=== PATIENT | female | born 1955 | race African-American/Black ===

== ENCOUNTER 2018-02-10 14:16 | Inpatient (IN) | payer OTHER ==
[~2018-02-10] VITALS: Ht 175.3 cm; Wt 61.2 kg
[~2018-02-10 14:16] MED LIST: ANUSOL HC1 SUPP RECTAL; BACLOFEN10 MG ORAL; COMPAZINE25 MG RECTAL; DOC-Q-LACE100 M1 ORAL; FOLGARD TABLET1 EAC1 PO; GABAPENTIN600 MG ORAL; KEPPRA500 MG ORAL; KLONOPIN1 MG ORAL; MIRALAX17 G2 ORAL; MULTI VITAMIN1 EACH ORAL; NABUMETONE500 MG PO; NORCO 5-325 TA1 EAC1 ORAL; OMEPRAZOLE10 M1 ORAL; OMEPRAZOLE20 M2 ORAL; OYSCO 500+D TA1 EAC1 PO; PROCHLORPE10 MG/2 ML ORAL; PROTONIX40 MG ORAL; RANITIDINE HCL150 MG ORAL; SENNA8.6 M3 PO; TRAMADOL HCL50 MG ORAL; TRAZODONE HCL150 MG ORAL; VENLAFAXINE HCL50 MG ORAL
[2018-02-10 14:44] VITALS: BP 117/101
[2018-02-10] MEDS ORDERED: Morphine Sulfate 4mg/ml Inj IVP ONE ×2 (15:00→16:15)
[2018-02-10] MEDS ORDERED: Tetanus/Diptheria/Pertussis Vaccine 0.5ml Syr IM ONE (15:00)
--- NOTE | 2018-02-10 15:34 | Emergency Room Report ---
History of Present Illness General Chief Complaint: General Complaint Source: Patient Present Illness HPI The patient fell last week and hit her right hip. It's been painful. The pain is worsening with time. She's having difficulty getting around. 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 The pain is now 10/10 and she came in for treatment of pain. The pain radiates to her lower leg. She also has pain in her lower back that is chronic, but worsened. She was not evaluated for the fall. She wears a diaper and has difficulty urinating. She also has problems with constipation. These have not changed, thought the urine is foul. Burned R upper thigh 2 weeks ago. While cooking. Denies smoking (13 years), alcohol or drugs (see tox). H/O hepatitis C. Requesting abdominal ultrasound. No chest pain, cough, sore throat, headache, change in vision, diabetes. Allergies: Coded Allergies: No Known Allergies (Verified Allergy, Mild, 04/10/08) Patient History Past Medical History: see triage record Social History: Denies: smoking - prior, none 13 years, alcohol use, drug use Social History Narrative at home with boyfriend Last Menstrual Period: NA Reviewed Nursing Documentation: PMH: Agreed; PSxH: Agreed Nursing Documentation-PMH Past Medical History: No History, Except For Hx Cardiac Problems: No - Fibromyalgia Hx Cancer: No Hx Gastrointestinal Problems: Yes Hx Neurological Problems: Yes - nerve damage, using wheelchair since 1999 Hx Seizures: Yes Hx Epilepsy: Yes Hx Guillian-Winslow Syndrome: Yes Hx Dizziness: Yes Hx Syncope: Yes Hx Weakness: Yes Review of Systems All Other Systems: negative except mentioned in HPI Physical Exam Vital Signs Date Time Temp Pulse Resp B/P (MAP) Pulse Ox O2 Delivery O2 Flow Rate FiO2 02/10/18 14:34 97.7 86 22 96 Room Air 97.7 Sp02 EP Interpretation: reviewed, normal General Appearance: no apparent distress, GCS 15, Chronically Ill Head: normocephalic Eyes: bilateral eye PERRL, bilateral eye conjunctivae pale ENT: moist mucus membranes Neck: supple Respiratory: lungs clear, normal breath sounds Cardiovascular #1: regular rate, rhythm Cardiovascular #2: 2+ radial (R) Gastrointestinal: normal inspection, normal bowel sounds, non tender, no mass, non-distended, scaphoid Genitourinary: no CVA tenderness, other - foul urine odor Musculoskeletal: back normal - with mild paraspinous muscle tenderness, gait/ station normal, pelvis stable, tender - R hip and leg without deformity Neurologic: alert, oriented x3, shearer operator III-XII nml as tested, DTRs symmetric, sensory intact, motor weakness - extrem Psychiatric: anxious Skin: normal inspection, warm/dry, lou - healing R upper thigh Medical Decision Making Diagnostic Impression: Primary Impression: Contusion, hip Qualified Codes: S70.01XA - Contusion of right hip, initial encounter Additional Impressions: Weakness Dyspnea Qualified Codes: R06.00 - Dyspnea, unspecified UTI (urinary tract infection) Qualified Codes: N39.0 - Urinary tract infection, site not specified Cocaine abuse ER Course Patient presents week after fall with right hip pain and dyspnea. Differential includes fracture, contusion and sprain. The dyspnea is disconcerting one consideration is possibility of a pulmonary embolus versus coronary syndrome versus pneumonia versus pneumothorax. Evaluation will be with EKG, chest x-ray and labs. The patient retreated with pain medication. A Villanueva catheter will be inserted as she's having difficulty getting around. She will receive gentle IV hydration because she appears dehydrated. EKG no injury. CXR no infiltrates. Hip films with DJD, no fx. Labs with normal WBC, pyuria. Antibiotics begun for UTI. She admits to cocaine. Discussed need for return to sponsor. Patient still with pain. Admit med Dr. Andrews. Laboratory Tests Test 02/10/18 15:30 02/10/18 17:40 White Blood Count 4.9 K/UL (4.8-10.8) Red Blood Count 4.72 M/UL (4.20-5.40) Hemoglobin 13.6 G/DL (12.0-16.0) Hematocrit 39.9 % (37.0-47.0) Mean Corpuscular Volume 84 FL (80-99) Mean Corpuscular Hemoglobin 28.9 PG (27.0-31.0) Mean Corpuscular Hemoglobin Concent 34.2 G/DL (32.0-36.0) Red Cell Distribution Width 12.1 % (11.6-14.8) Platelet Count 114 K/UL (150-450) L Mean Platelet Volume 6.0 FL (6.5-10.1) L Neutrophils (%) (Auto) 49.5 % (45.0-75.0) Lymphocytes (%) (Auto) 42.3 % (20.0-45.0) Monocytes (%) (Auto) 7.0 % (1.0-10.0) Eosinophils (%) (Auto) 0.2 % (0.0-3.0) Basophils (%) (Auto) 0.9 % (0.0-2.0) Erythrocyte Sedimentation Rate 33 MM/HR (0-30) H Prothrombin Time 10.8 SEC (9.30-11.50) Prothrombin Time INR 1.0 (0.9-1.1) PTT 20 SEC (23-33) L Sodium Level 138 MMOL/L (136-145) Potassium Level 3.7 MMOL/L (3.5-5.1) Chloride Level 107 MMOL/L (98-107) Carbon Dioxide Level 22 MMOL/L (21-32) Anion Gap 10 mmol/L (5-15) Blood Urea Nitrogen 21 mg/dL (7-18) H Creatinine 1.0 MG/DL (0.55-1.30) Estimate Glomerular Filtration Rate > 60 mL/min (>60) Glucose Level 89 MG/DL (74-106) Calcium Level 9.9 MG/DL (8.5-10.1) Total Bilirubin 0.5 MG/DL (0.2-1.0) Aspartate Amino Transferase (AST) 25 U/L (15-37) Alanine Aminotransferase (ALT) 29 U/L (12-78) Alkaline Phosphatase 70 U/L (46-116) Total Protein 8.3 G/DL (6.4-8.2) H Albumin 3.9 G/DL (3.4-5.0) Globulin 4.4 g/dL Albumin/Globulin Ratio 0.9 (1.0-2.7) L Urine Color Yellow Urine Appearance Very cloudy Urine pH 8 (4.5-8.0) Urine Specific [place] 1.010 (1.005-1.035) Urine Protein 2+ (NEGATIVE) H Urine Glucose (UA) Negative (NEGATIVE) Urine Ketones 1+ (NEGATIVE) H Urine Occult Blood 5+ (NEGATIVE) H Urine Nitrite Positive (NEGATIVE) H Urine Bilirubin Negative (NEGATIVE) Urine Urobilinogen Normal MG/DL (0.0-1.0) Urine Leukocyte Esterase 2+ (NEGATIVE) H Urine RBC Tntc /HPF (0 - 2) H Urine WBC Tntc /HPF (0 - 2) H Urine Squamous Epithelial Cells Many /LPF (NONE/OCC) H Urine Bacteria Many /HPF (NONE) H Urine Opiates Screen Positive (NEGATIVE) H Urine Barbiturates Screen Negative (NEGATIVE) Phencyclidine (PCP) Screen Negative (NEGATIVE) Urine Amphetamines Screen Negative (NEGATIVE) Urine Benzodiazepines Screen Negative (NEGATIVE) Urine Cocaine Screen Positive (NEGATIVE) H Urine Marijuana (THC) Screen Positive (NEGATIVE) H EKG Diagnostic Results Rate: bradycardiac Rhythm: other - possible junctional (though luna) ST Segments: no acute changes Rhythm Strip Diag. Results EP Interpretation: yes Rhythm: no PVC's, no ectopy, other - luna, possible junctional Chest X-Ray Diagnostic Results Chest X-Ray Diagnostic Results : Chest X-Ray Ordered: Yes # of Views/Limited/Complete: 1 View Indication: Shortness of Breath Interpretation: no consolidation, no effusion, no pneumothorax Impression: No acute disease Electronically Signed by: Electronically signed by Ghassan Bay MD Other X-Ray Diagnostic Results Other X-Ray Diagnostic Results : X-Ray ordered: R hip # of Views/Limited Vs Complete: 2 View Indication: Pain EP Interpretation: Yes Interpretation: no dislocation, no soft tissue swelling, no fractures Impression: Other Electronically Signed by: Electronically signed by Ghassan Bay MD Last Vital Signs Date Time Temp Pulse Resp B/P (MAP) Pulse Ox O2 Delivery O2 Flow Rate FiO2 02/11/18 00:00 97.2 64 20 122/71 98 Room Air 97.2 Status: improved Disposition: ADMITTED INPATIENT Condition: Serious Referrals: NON PHYSICIAN (PCP) Ghassan Bay M.D. Feb 10, 2018 15:34
[2018-02-10 15:49] LABS: ANION GAP 10 mmol/L (5-15); BASOPHILS % (AUTO) 0.9 % (0.0-2.0); BLOOD UREA NITROGEN 21 mg/dL (7-18); CALCIUM 9.9 MG/DL (8.5-10.1); CARBON DIOXIDE 22 MMOL/L (21-32); CHLORIDE 107 MMOL/L (98-107); EOSINOPHILS % (AUTO) 0.2 % (0.0-3.0); HEMATOCRIT 39.9 % (37.0-47.0); HEMOGLOBIN 13.6 G/DL (12.0-16.0); LYMPHOCYTES % (AUTO) 42.3 % (20.0-45.0); MEAN CORPUSCULAR VOLUME 84 FL (80-99); NEUTROPHILS % (AUTO) 49.5 % (45.0-75.0); PLATELET COUNT 114 K/UL (150-450); POTASSIUM 3.7 MMOL/L (3.5-5.1); RED BLOOD COUNT 4.72 M/UL (4.20-5.40); RED CELL DISTRIBUTION WIDTH 12.1 % (11.6-14.8); SODIUM 138 MMOL/L (136-145); WHITE BLOOD COUNT 4.9 K/UL (4.8-10.8)
[2018-02-10 15:54] LABS: ALANINE AMINOTRANSFERASE 29 U/L (12-78); ALBUMIN 3.9 G/DL (3.4-5.0); ALBUMIN/GLOBULIN RATIO 0.9 (1.0-2.7); ALKALINE PHOSPHATASE 70 U/L (46-116); ASPARTATE AMINO TRANSFERASE 25 U/L (15-37); BILIRUBIN,TOTAL 0.5 MG/DL (0.2-1.0)
[2018-02-10] MEDS ORDERED: DETROL2 MG ORAL (16:17)
[2018-02-10] MEDS ORDERED: MIDODRINE HCL10 MG ORAL (16:17)
[2018-02-10] MEDS ORDERED: LORATADINE10 M2 PO (16:17)
[2018-02-10] MEDS ORDERED: MILK OF MA400 MG/51 ORAL (16:17)
[2018-02-10] MEDS ORDERED: VITAMIN D1000 UNI1 ORAL (16:17)
[2018-02-10] MEDS ORDERED: VITAMIN B-12500 MCG ORAL (16:17)
--- NOTE | 2018-02-10 16:52 | Diagnostic Imaging Report ---
Indication: Chest pain, trauma Technique: XRAY Chest 1v Comparison: 07/25/2016 Findings: Heart size and mediastinal contours are within normal limits given technique. There is no focal consolidation, pneumothorax or pleural effusion. Osseous structures demonstrate no acute abnormality. No evidence of free air under the diaphragms. Impression: No radiographic evidence of acute cardiopulmonary disease.
--- NOTE | 2018-02-10 16:55 | Diagnostic Imaging Report ---
Indication: Pain status post fall. Technique: XRAY Hip Routine 2v+ R Comparison: None Findings: No definite/displaced right hip fracture identified. Mild degenerative change of the right hip is noted. Degenerative change partially visualized in the lower lumbar spine. No radiopaque foreign body identified. Impression: No definite/displaced right hip fracture.
[2018-02-10 18:07] LABS: APPEARANCE,URINE VERY CLOUDY; BILIRUBIN, URINE NEGATIVE (NEGATIVE); GLUCOSE, URINE (UA) NEGATIVE (NEGATIVE); KETONES,URINE 1+ (NEGATIVE); LEUKOCYTE ESTERASE ,URINE 2+ (NEGATIVE); NITRITE,URINE POSITIVE (NEGATIVE); PH,URINE 8 (4.5-8.0); PROTEIN,URINE 2+ (NEGATIVE); UROBILINOGEN,URINE NORMAL MG/DL (0.0-1.0)
[2018-02-10 18:08] LABS: COLOR,URINE YELLOW
--- NOTE | 2018-02-10 18:57 | Infectious Diseases Prog Note ---
Assessment/Plan Problems: (1) UTI (urinary tract infection) Assessment & Plan: will start ceftriaxon pending urine culture (2) Contusion, hip Assessment & Plan: continue pain management (3) Drug abuse Assessment & Plan: needs counsling Subjective Allergies: Coded Allergies: No Known Allergies (Verified Allergy, Mild, 04/10/08) Objective Vital Signs Last 24 Hour Vital Signs Date Time Temp Pulse Resp B/P (MAP) Pulse Ox O2 Delivery O2 Flow Rate FiO2 02/10/18 16:42 97.7 02/10/18 16:12 97.7 02/10/18 15:45 97.7 02/10/18 15:15 97.7 02/10/18 14:44 97.7 59 15 117/101 100 Room Air 97.7 02/10/18 14:34 97.7 86 22 96 Room Air 97.7 Height (Feet): 5 Height (Inches): 9.00 Weight (Pounds): 120 Laboratory Tests Test 02/10/18 15:30 02/10/18 17:40 White Blood Count 4.9 K/UL (4.8-10.8) Red Blood Count 4.72 M/UL (4.20-5.40) Hemoglobin 13.6 G/DL (12.0-16.0) Hematocrit 39.9 % (37.0-47.0) Mean Corpuscular Volume 84 FL (80-99) Mean Corpuscular Hemoglobin 28.9 PG (27.0-31.0) Mean Corpuscular Hemoglobin Concent 34.2 G/DL (32.0-36.0) Red Cell Distribution Width 12.1 % (11.6-14.8) Platelet Count 114 K/UL (150-450) L Mean Platelet Volume 6.0 FL (6.5-10.1) L Neutrophils (%) (Auto) 49.5 % (45.0-75.0) Lymphocytes (%) (Auto) 42.3 % (20.0-45.0) Monocytes (%) (Auto) 7.0 % (1.0-10.0) Eosinophils (%) (Auto) 0.2 % (0.0-3.0) Basophils (%) (Auto) 0.9 % (0.0-2.0) Erythrocyte Sedimentation Rate 33 MM/HR (0-30) H Prothrombin Time 10.8 SEC (9.30-11.50) Prothromb Time International Ratio 1.0 (0.9-1.1) Activated Partial Thromboplast Time 20 SEC (23-33) L Sodium Level 138 MMOL/L (136-145) Potassium Level 3.7 MMOL/L (3.5-5.1) Chloride Level 107 MMOL/L (98-107) Carbon Dioxide Level 22 MMOL/L (21-32) Anion Gap 10 mmol/L (5-15) Blood Urea Nitrogen 21 mg/dL (7-18) H Creatinine 1.0 MG/DL (0.55-1.30) Estimat Glomerular Filtration Rate > 60 mL/min (>60) Glucose Level 89 MG/DL (74-106) Calcium Level 9.9 MG/DL (8.5-10.1) Total Bilirubin 0.5 MG/DL (0.2-1.0) Aspartate Amino Transf (AST/SGOT) 25 U/L (15-37) Alanine Aminotransferase (ALT/SGPT) 29 U/L (12-78) Alkaline Phosphatase 70 U/L (46-116) Total Protein 8.3 G/DL (6.4-8.2) H Albumin 3.9 G/DL (3.4-5.0) Globulin 4.4 g/dL Albumin/Globulin Ratio 0.9 (1.0-2.7) L Urine Color Yellow Urine Appearance Very cloudy Urine pH 8 (4.5-8.0) Urine Specific [place] 1.010 (1.005-1.035) Urine Protein 2+ (NEGATIVE) H Urine Glucose (UA) Negative (NEGATIVE) Urine Ketones 1+ (NEGATIVE) H Urine Occult Blood 5+ (NEGATIVE) H Urine Nitrite Positive (NEGATIVE) H Urine Bilirubin Negative (NEGATIVE) Urine Urobilinogen Normal MG/DL (0.0-1.0) Urine Leukocyte Esterase 2+ (NEGATIVE) H Urine RBC Tntc /HPF (0 - 2) H Urine WBC Tntc /HPF (0 - 2) H Urine Squamous Epithelial Cells Many /LPF (NONE/OCC) H Urine Bacteria Many /HPF (NONE) H Urine Opiates Screen Positive (NEGATIVE) H Urine Barbiturates Screen Negative (NEGATIVE) Phencyclidine (PCP) Screen Negative (NEGATIVE) Urine Amphetamines Screen Negative (NEGATIVE) Urine Benzodiazepines Screen Negative (NEGATIVE) Urine Cocaine Screen Positive (NEGATIVE) H Urine Marijuana (THC) Screen Positive (NEGATIVE) H Current Medications Medications (Trade) Dose Ordered Sig/Elisa Route PRN Reason Start Time Stop Time Status Last Admin Dose Admin Sodium Chloride 1,000 ml @ 300 mls/hr Q3H20M IV 02/10/18 15:00 03/12/18 14:59 02/10/18 15:15 Portillo Vazquez M.D. Feb 10, 2018 18:57
[2018-02-10 19:35] VITALS: BP 115/78
[2018-02-10] MEDS ORDERED: Morphine Sulfate 4mg/ml Inj IVP PRN (19:45)
[2018-02-10] MEDS: cefTRIAXone 1 GM in D5W 110 ML IVPB SCH (20:05)
[2018-02-10 21:10] VITALS: BP 128/74
[2018-02-10 21:15] VITALS: BP 136/68
[2018-02-10] MEDS ORDERED: Miralax 17gm pkt ORAL PRN (21:45)
[2018-02-10] MEDS ORDERED: cefTRIAXone 2 GM in D5W 55 ML IVPB SCH (21:45)
[2018-02-10] MEDS: TraZODone 100mg tab ORAL SCH (22:02)
[2018-02-11] VITALS: BP 122/71
[2018-02-11] MEDS: Morphine Sulfate 4mg/ml Inj IVP PRN ×3 (02:18→20:59)
[2018-02-11 04:00] VITALS: BP 106/58
[2018-02-11 06:28] LABS: BASOPHILS % (AUTO) 0.6 % (0.0-2.0); EOSINOPHILS % (AUTO) 1.3 % (0.0-3.0); HEMATOCRIT 35.2 % (37.0-47.0); HEMOGLOBIN 11.9 G/DL (12.0-16.0); LYMPHOCYTES % (AUTO) 33.8 % (20.0-45.0); MEAN CORPUSCULAR VOLUME 86 FL (80-99); MONOCYTES % (AUTO) 9.1 % (1.0-10.0); NEUTROPHILS % (AUTO) 55.2 % (45.0-75.0); PLATELET COUNT 159 K/UL (150-450); RED BLOOD COUNT 4.09 M/UL (4.20-5.40); RED CELL DISTRIBUTION WIDTH 12.7 % (11.6-14.8); WHITE BLOOD COUNT 5.4 K/UL (4.8-10.8)
[2018-02-11 07:05] LABS: ALANINE AMINOTRANSFERASE 22 U/L (12-78); ALBUMIN 3.1 G/DL (3.4-5.0); ALBUMIN/GLOBULIN RATIO 0.8 (1.0-2.7); ALKALINE PHOSPHATASE 57 U/L (46-116); ANION GAP 12 mmol/L (5-15); ASPARTATE AMINO TRANSFERASE 15 U/L (15-37); BILIRUBIN,TOTAL 0.2 MG/DL (0.2-1.0); BLOOD UREA NITROGEN 15 mg/dL (7-18); CALCIUM 8.5 MG/DL (8.5-10.1); CARBON DIOXIDE 23 MMOL/L (21-32); CHLORIDE 106 MMOL/L (98-107); CHOLESTEROL 167 MG/DL (< 200); CREATININE 0.8 MG/DL (0.55-1.30); HDL CHOLESTEROL 46 MG/DL (40-60); POTASSIUM 3.8 MMOL/L (3.5-5.1); SODIUM 141 MMOL/L (136-145); TRIGLYCERIDES 151 MG/DL (30-150)
[2018-02-11 08:00] VITALS: BP 93/52
[2018-02-11] MEDS: Norco 5mg/325mg tab ORAL PRN (08:19)
[2018-02-11] MEDS: Vitamin D 1000 IU Tab ORAL SCH (08:50)
[2018-02-11] MEDS: Midodrine 10mg tab ORAL SCH (08:50)
[2018-02-11] MEDS: Tolterodine 2mg tab ORAL SCH ×2 (08:50→18:51)
[2018-02-11] MEDS: Docusate 100mg cap ORAL SCH ×2 (08:50→18:52)
[2018-02-11] MEDS: Heparin 5000 units/ml inj SUBQ SCH ×2 (08:52→20:22)
--- NOTE | 2018-02-11 09:17 | History & Physical ---
History and Physical History & Physicial seen and examined.Dictation completed Lucia Andrews MD Feb 11, 2018 09:17
--- NOTE | 2018-02-11 09:18 | General Progress Note ---
Assessment/Plan Assessment/Plan seen and examined. Dictatin in progress Subjective Allergies: Coded Allergies: No Known Allergies (Verified Allergy, Mild, 04/10/08) Objective Last 24 Hour Vital Signs Date Time Temp Pulse Resp B/P (MAP) Pulse Ox O2 Delivery O2 Flow Rate FiO2 02/11/18 04:00 97.2 60 18 106/58 100 Room Air 97.2 02/11/18 00:00 97.2 64 20 122/71 98 Room Air 97.2 02/10/18 21:15 97.9 60 18 136/68 100 Room Air 97.9 02/10/18 21:12 97.8 56 16 128/74 100 Room Air 97.8 02/10/18 21:10 97.8 56 16 128/74 100 Room Air 97.8 02/10/18 20:35 97.9 02/10/18 20:05 97.7 02/10/18 19:35 97.7 58 16 115/78 100 Room Air 97.7 02/10/18 16:42 97.7 02/10/18 16:12 97.7 02/10/18 15:45 97.7 02/10/18 15:15 97.7 02/10/18 14:44 97.7 59 15 117/101 100 Room Air 97.7 02/10/18 14:34 97.7 86 22 96 Room Air 97.7 Intake and Output 02/10/18 02/11/18 19:00 07:00 Intake Total 420 ml Output Total 100 ml 500 ml Balance -100 ml -80 ml Intake Oral 120 ml IV Total 300 ml Output Urine Total 100 ml 500 ml # Bowel Movements 1 Laboratory Tests 02/10/18 15:30: White Blood Count 4.9, Red Blood Count 4.72, Hemoglobin 13.6, Hematocrit 39.9, Mean Corpuscular Volume 84, Mean Corpuscular Hemoglobin 28.9, Mean Corpuscular Hemoglobin Concent 34.2, Red Cell Distribution Width 12.1, Platelet Count 114L, Mean Platelet Volume 6.0L, Neutrophils (%) (Auto) 49.5, Lymphocytes (%) (Auto) 42.3, Monocytes (%) (Auto) 7.0, Eosinophils (%) (Auto) 0.2, Basophils (%) (Auto ) 0.9, Erythrocyte Sedimentation Rate 33H, Prothrombin Time 10.8, Prothromb Time International Ratio 1.0, Activated Partial Thromboplast Time 20L, Sodium Level 138, Potassium Level 3.7, Chloride Level 107, Carbon Dioxide Level 22, Anion Gap 10, Blood Urea Nitrogen 21H, Creatinine 1.0, Estimat Glomerular Filtration Rate > 60, Glucose Level 89, Calcium Level 9.9, Total Bilirubin 0.5, Aspartate Amino Transf (AST/SGOT) 25, Alanine Aminotransferase (ALT/SGPT) 29, Alkaline Phosphatase 70, Total Protein 8.3H, Albumin 3.9, Globulin 4.4, Albumin/ Globulin Ratio 0.9L 02/10/18 17:40: Urine Color Yellow, Urine Appearance Very cloudy, Urine pH 8, Urine Specific [place] 1.010, Urine Protein 2+H, Urine Glucose (UA) Negative, Urine Ketones 1+H , Urine Occult Blood 5+H, Urine Nitrite PositiveH, Urine Bilirubin Negative, Urine Urobilinogen Normal, Urine Leukocyte Esterase 2+H, Urine RBC TntcH, Urine WBC TntcH, Urine Squamous Epithelial Cells ManyH, Urine Bacteria ManyH, Urine Opiates Screen PositiveH, Urine Barbiturates Screen Negative, Phencyclidine (PCP ) Screen Negative, Urine Amphetamines Screen Negative, Urine Benzodiazepines Screen Negative, Urine Cocaine Screen PositiveH, Urine Marijuana (THC) Screen PositiveH 02/11/18 05:15: White Blood Count 5.4, Red Blood Count 4.09L, Hemoglobin 11.9L, Hematocrit 35.2L , Mean Corpuscular Volume 86, Mean Corpuscular Hemoglobin 29.0, Mean Corpuscular Hemoglobin Concent 33.8, Red Cell Distribution Width 12.7, Platelet Count 159, Mean Platelet Volume 6.8, Neutrophils (%) (Auto) 55.2, Lymphocytes (% ) (Auto) 33.8, Monocytes (%) (Auto) 9.1, Eosinophils (%) (Auto) 1.3, Basophils ( %) (Auto) 0.6, Sodium Level 141, Potassium Level 3.8, Chloride Level 106, Carbon Dioxide Level 23, Anion Gap 12, Blood Urea Nitrogen 15, Creatinine 0.8, Estimat Glomerular Filtration Rate > 60, Glucose Level 109H, Calcium Level 8.5, Total Bilirubin 0.2, Aspartate Amino Transf (AST/SGOT) 15, Alanine Aminotransferase (ALT/SGPT) 22, Alkaline Phosphatase 57, Total Protein 6.8, Albumin 3.1L, Globulin 3.7, Albumin/Globulin Ratio 0.8L, Hemoglobin A1c 5.7, Triglycerides Level 151H, Cholesterol Level 167, LDL Cholesterol 106H, HDL Cholesterol 46, Cholesterol/HDL Ratio 3.6 Height (Feet): 5 Height (Inches): 9.00 Weight (Pounds): 120 Lucia Andrews MD Feb 11, 2018 09:18
[2018-02-11 12:00] VITALS: BP 145/70
--- NOTE | 2018-02-11 14:15 | History and Physical Report ---
DATE OF ADMISSION: 02/10/2018 SOURCE OF INFORMATION: The patient and EMR. HISTORY OF PRESENT ILLNESS: The patient is a pleasant 62-year-old female with history of neuroMascular d/s andd bedbound and wheelchair bound, who presented after she fell down on her back and on the right hip. She denies any loss of consciousness. She denies any nausea, vomitus, diarrhea, constipation, shortness of breath, or chest pain. Positive for the pain in the hip areas and in the gluteal area. PAST MEDICAL HISTORY: Musculoskeletal neurodegenerative disorder, reportedly Guillan Bairoil syndrome, fibromyalgia, anemia, and history of drug abuse. PAST SURGICAL HISTORY: Denies. ALLERGIES: NKDA. MEDICATIONS: Current home medication including, but not limited to baclofen, clonazepam, Colace, gabapentin, Keppra, Detrol, trazodone, and venlafaxine. SOCIAL HISTORY: The patient denies history of alcohol abuse or tobacco use. Positive for drug abuse, cocaine. FAMILY HISTORY: Reviewed. Noncontributory. PHYSICAL EXAMINATION: VITAL SIGNS: Blood pressure 120/100, temperature 98.2, pulse oximetry 98% on room air, respiratory rate 18, and pulse rate 59. HEAD AND NECK: Atraumatic and normocephalic. CHEST: Clear to auscultation. LUNGS: No wheezing. No crackles. ABDOMEN: Soft. No organomegaly. Bowel sounds are normal. MUSCULOSKELETAL: Atrophied musculatures. NEUROLOGIC: The patient is awake, alert, and oriented x3. PSYCHIATRIC: Mood and affect is anxious. LABORATORY AND DIAGNOSTIC DATA: Labs, dated February 10 shows WBC 4.9, hemoglobin 13.6, and platelet count 114. Sodium 138, potassium 3.7, BUN 21, and creatinine 1. INR 1. Urinalysis shows 5+ occult blood. Positive for bacteria, wbc's, and nitrite. Chest x-ray and hip x-ray obtained, which are unremarkable for the right hip fracture. ASSESSMENT AND PLAN: 1. Mechanical fall and the contusion over the hip and gluteal areas. 2. Neuromuscular disorder - wheelchair bound - baseline. 3. Neurogenic bladder. 4. Psychiatric disorder. 5. UTI. 6. Seizure disorder (questionable). PLAN OF CARE: Continue with the current empiric antibiotic treatment. We will resume home medications. No gross unremarkable x-ray. Provide pain management. Lucia Andrews M.D. DR: MILLY JOB#: [id number] CC: MONA
--- NOTE | 2018-02-11 15:02 | Infectious Diseases Prog Note ---
Assessment/Plan Problems: (1) UTI (urinary tract infection) Assessment & Plan: continue ceftriaxon pending urine culture (2) Contusion, hip Assessment & Plan: continue pain management (3) Drug abuse Assessment & Plan: needs counsling Subjective Constitutional: Reports: no symptoms HEENT: Reports: no symptoms Respiratory: Reports: no symptoms Breasts: Reports: no symptoms Cardiovascular: Reports: no symptoms Gastrointestinal/Abdominal: Reports: no symptoms Genitourinary: Reports: dysuria Neurologic: Reports: no symptoms Psychiatric: Reports: no symptoms Skin: Reports: no symptoms Endocrine: Reports: no symptoms Hematologic: Reports: no symptoms Musculoskeletal: Reports: stiffness, other - weakness Allergies: Coded Allergies: No Known Allergies (Verified Allergy, Mild, 04/10/08) Objective Vital Signs Last 24 Hour Vital Signs Date Time Temp Pulse Resp B/P (MAP) Pulse Ox O2 Delivery O2 Flow Rate FiO2 02/11/18 12:00 98.1 72 19 145/70 (95) 95 98.1 02/11/18 08:00 98.1 55 19 93/52 97 Room Air 98.1 02/11/18 04:00 97.2 60 18 106/58 100 Room Air 97.2 02/11/18 00:00 97.2 64 20 122/71 98 Room Air 97.2 02/10/18 21:15 97.9 60 18 136/68 100 Room Air 97.9 02/10/18 21:12 97.8 56 16 128/74 100 Room Air 97.8 02/10/18 21:10 97.8 56 16 128/74 100 Room Air 97.8 02/10/18 20:35 97.9 02/10/18 20:05 97.7 02/10/18 19:35 97.7 58 16 115/78 100 Room Air 97.7 02/10/18 16:42 97.7 02/10/18 16:12 97.7 02/10/18 15:45 97.7 02/10/18 15:15 97.7 Height (Feet): 5 Height (Inches): 9.00 Weight (Pounds): 131 General Appearance: WD/WN, no acute distress HEENT: normocephalic, atraumatic, anicteric, mucous membranes moist, PERRL Respiratory/Chest: chest wall non-tender, lungs clear, normal breath sounds, no respiratory distress, no accessory muscle use Cardiovascular: normal peripheral pulses, normal rate, regular rhythm, no gallop/murmur, no JVD Abdomen: normal bowel sounds, soft, non tender, no organomegaly, non distended , no mass, no scars Extremities: no cyanosis, no clubbing Skin: no rash, no lesions, no ulcers Neurologic/Psychiatric: alert, oriented x 3 Lymphatic: no neck adenopathy, no groin adenopathy Microbiology Date/Time Source Procedure Growth Status 02/10/18 17:40 Urine,Clean Catch Urine Culture - Preliminary Gram Negative Bacillus 1 Resulted Laboratory Tests Test 02/10/18 15:30 02/10/18 17:40 02/11/18 05:15 White Blood Count 4.9 K/UL (4.8-10.8) 5.4 K/UL (4.8-10.8) Red Blood Count 4.72 M/UL (4.20-5.40) 4.09 M/UL (4.20-5.40) L Hemoglobin 13.6 G/DL (12.0-16.0) 11.9 G/DL (12.0-16.0) L Hematocrit 39.9 % (37.0-47.0) 35.2 % (37.0-47.0) L Mean Corpuscular Volume 84 FL (80-99) 86 FL (80-99) Mean Corpuscular Hemoglobin 28.9 PG (27.0-31.0) 29.0 PG (27.0-31.0) Mean Corpuscular Hemoglobin Concent 34.2 G/DL (32.0-36.0) 33.8 G/DL (32.0-36.0) Red Cell Distribution Width 12.1 % (11.6-14.8) 12.7 % (11.6-14.8) Platelet Count 114 K/UL (150-450) L 159 K/UL (150-450) Mean Platelet Volume 6.0 FL (6.5-10.1) L 6.8 FL (6.5-10.1) Neutrophils (%) (Auto) 49.5 % (45.0-75.0) 55.2 % (45.0-75.0) Lymphocytes (%) (Auto) 42.3 % (20.0-45.0) 33.8 % (20.0-45.0) Monocytes (%) (Auto) 7.0 % (1.0-10.0) 9.1 % (1.0-10.0) Eosinophils (%) (Auto) 0.2 % (0.0-3.0) 1.3 % (0.0-3.0) Basophils (%) (Auto) 0.9 % (0.0-2.0) 0.6 % (0.0-2.0) Erythrocyte Sedimentation Rate 33 MM/HR (0-30) H Prothrombin Time 10.8 SEC (9.30-11.50) Prothromb Time International Ratio 1.0 (0.9-1.1) Activated Partial Thromboplast Time 20 SEC (23-33) L Sodium Level 138 MMOL/L (136-145) 141 MMOL/L (136-145) Potassium Level 3.7 MMOL/L (3.5-5.1) 3.8 MMOL/L (3.5-5.1) Chloride Level 107 MMOL/L (98-107) 106 MMOL/L (98-107) Carbon Dioxide Level 22 MMOL/L (21-32) 23 MMOL/L (21-32) Anion Gap 10 mmol/L (5-15) 12 mmol/L (5-15) Blood Urea Nitrogen 21 mg/dL (7-18) H 15 mg/dL (7-18) Creatinine 1.0 MG/DL (0.55-1.30) 0.8 MG/DL (0.55-1.30) Estimat Glomerular Filtration Rate > 60 mL/min (>60) > 60 mL/min (>60) Glucose Level 89 MG/DL (74-106) 109 MG/DL (74-106) H Calcium Level 9.9 MG/DL (8.5-10.1) 8.5 MG/DL (8.5-10.1) Total Bilirubin 0.5 MG/DL (0.2-1.0) 0.2 MG/DL (0.2-1.0) Aspartate Amino Transf (AST/SGOT) 25 U/L (15-37) 15 U/L (15-37) Alanine Aminotransferase (ALT/SGPT) 29 U/L (12-78) 22 U/L (12-78) Alkaline Phosphatase 70 U/L (46-116) 57 U/L (46-116) Total Protein 8.3 G/DL (6.4-8.2) H 6.8 G/DL (6.4-8.2) Albumin 3.9 G/DL (3.4-5.0) 3.1 G/DL (3.4-5.0) L Globulin 4.4 g/dL 3.7 g/dL Albumin/Globulin Ratio 0.9 (1.0-2.7) L 0.8 (1.0-2.7) L Urine Color Yellow Urine Appearance Very cloudy Urine pH 8 (4.5-8.0) Urine Specific [place] 1.010 (1.005-1.035) Urine Protein 2+ (NEGATIVE) H Urine Glucose (UA) Negative (NEGATIVE) Urine Ketones 1+ (NEGATIVE) H Urine Occult Blood 5+ (NEGATIVE) H Urine Nitrite Positive (NEGATIVE) H Urine Bilirubin Negative (NEGATIVE) Urine Urobilinogen Normal MG/DL (0.0-1.0) Urine Leukocyte Esterase 2+ (NEGATIVE) H Urine RBC Tntc /HPF (0 - 2) H Urine WBC Tntc /HPF (0 - 2) H Urine Squamous Epithelial Cells Many /LPF (NONE/OCC) H Urine Bacteria Many /HPF (NONE) H Urine Opiates Screen Positive (NEGATIVE) H Urine Barbiturates Screen Negative (NEGATIVE) Phencyclidine (PCP) Screen Negative (NEGATIVE) Urine Amphetamines Screen Negative (NEGATIVE) Urine Benzodiazepines Screen Negative (NEGATIVE) Urine Cocaine Screen Positive (NEGATIVE) H Urine Marijuana (THC) Screen Positive (NEGATIVE) H Hemoglobin A1c 5.7 % (4.3-6.0) Triglycerides Level 151 MG/DL (30-150) H Cholesterol Level 167 MG/DL (< 200) LDL Cholesterol 106 mg/dL (<100) H HDL Cholesterol 46 MG/DL (40-60) Cholesterol/HDL Ratio 3.6 (3.3-4.4) Current Medications Medications (Trade) Dose Ordered Sig/Elisa Route PRN Reason Start Time Stop Time Status Last Admin Dose Admin Acetaminophen/ Hydrocodone Bitart ([place] 5/325) 1 tab Q4H PRN ORAL Moderate Pain (Pain Scale 4-6) 02/10/18 21:45 02/17/18 21:44 02/11/18 08:19 Baclofen (Lioresal) 10 mg THREE TIMES A DAY ORAL 02/11/18 09:00 03/13/18 08:59 02/11/18 12:50 Ceftriaxone Sodium 1 gm/ Dextrose 110 ml @ 220 mls/hr Q24H IVPB 02/10/18 20:00 02/17/18 19:59 02/10/18 20:05 Clonazepam (KlonoPIN) 1 mg BID ORAL 02/10/18 22:37 02/17/18 22:36 02/11/18 08:50 Docusate Sodium (Colace) 100 mg BID ORAL 02/11/18 09:00 03/13/18 08:59 02/11/18 08:50 Gabapentin (Neurontin) 900 mg THREE TIMES A DAY ORAL 02/11/18 09:00 03/13/18 08:59 02/11/18 12:50 Heparin Sodium (Porcine) (Heparin 5000 units/ml) 5,000 units EVERY 12 HOURS SUBQ 02/11/18 09:00 03/13/18 08:59 02/11/18 08:52 Levetiracetam (Keppra) 500 mg Q12HR ORAL 02/10/18 22:00 03/12/18 21:59 02/11/18 08:50 Midodrine (Pro-Amatine) 10 mg DAILY ORAL 02/11/18 09:00 03/13/18 08:59 02/11/18 08:50 Morphine Sulfate (Morphine Sulfate) 3 mg Q8H PRN IVP Severe Pain (Pain Scale 7-10) 02/10/18 21:45 02/17/18 21:44 02/11/18 12:51 Multivitamins (Multivitamins) 1 tab DAILY ORAL 02/11/18 09:00 03/13/18 08:59 02/11/18 08:50 Ondansetron HCl (Zofran) 4 mg EVERY 4 HOURS PRN IVP Nausea & Vomiting 02/10/18 22:30 03/12/18 22:29 Pantoprazole (Protonix) 40 mg DAILY ORAL 02/11/18 09:00 03/13/18 08:59 02/11/18 08:50 Polyethylene Glycol (Miralax) 17 gm DAILYPRN PRN ORAL Constipation 02/10/18 21:45 03/12/18 21:44 Tolterodine Tartrate (Detrol) 2 mg TWICE A DAY ORAL 02/11/18 09:00 03/13/18 08:59 02/11/18 08:50 Trazodone HCl (Desyrel) 100 mg BEDTIME ORAL 02/10/18 22:00 03/12/18 21:59 02/10/18 22:02 Vitamin D (Vitamin D) 2,000 intlu DAILY ORAL 02/11/18 09:00 03/13/18 08:59 02/11/18 08:50 Portillo Vazquez M.D. Feb 11, 2018 15:02
[2018-02-11 16:00] VITALS: BP 97/57
--- NOTE | 2018-02-11 18:45 | Consultation ---
DATE OF CONSULTATION: 02/11/2018 INFECTIOUS DISEASE CONSULTATION CONSULTING PHYSICIAN: George Nath M.D. REQUESTING PHYSICIAN: Lucia Anrdews M.D. REASON FOR CONSULTATION: UTI. HISTORY OF PRESENT ILLNESS: The patient is a 63-year-old female with past medical history of since 2007, who is bedbound and wheelchair bound presented to [facility] after she had a fall on her back and right hip from ground level. The patient had no altered mental status or loss of consciousness. No headache or blurry vision. No nausea, vomiting or diarrhea, but she had urgency and burning sensation in the urine when she urinates. She also developed pain in the hip area. Urinalysis showed evidence of infection in the emergency room. So, Infectious Disease consult was requested for further evaluation and management. REVIEW OF SYSTEMS: A 14-point of system reviewed were all negative apart from the one I mentioned above in my History and Physical. PAST MEDICAL HISTORY: Significant for Guillain [place], fibromyalgia, anemia, drug abuse and wheelchair bed bounded. PAST SURGICAL HISTORY: Negative. SOCIAL HISTORY: The patient lives at home with critical care physician assistant. She had history of drug abuse, mainly cocaine. No recent tobacco or alcohol abuse. MEDICATIONS: Baclofen, clonazepam, Colace, gabapentin, Keppra, Detrol, trazodone and venlafaxine. FAMILY HISTORY: Not contributory. ALLERGIES: She has no known drug allergy. LABORATORY AND DIAGNOSTIC DATA: White count of 4.9, hemoglobin of 13.6, and platelet count of 114. BUN of 21 and creatinine of 1. AST of 25 and ALT of 29. Urinalysis showed +2 leukocyte esterase, wbc's too numerous to count, and many bacteria in the urine. Radiology, chest x-ray showed no radiographic evidence of acute cardiopulmonary disease. Hip x-ray showed no definite displaced right hip fracture. PHYSICAL EXAMINATION: VITAL SIGNS: Temperature 97.7 degrees, pulse 58, respirations 16, blood pressure 115/78, and saturation 100% on room air. GENERAL: A middle-aged female, lying in bed, awake, alert, oriented, not in distress. HEENT: Normocephalic and atraumatic. Pupils are reactive to light. Moist oral mucosa. No exudate. NECK: Supple. No lymphadenopathy. CARDIOVASCULAR: Regular rate and rhythm. No murmur. LUNGS: Clear bilaterally. No wheezing or rhonchi. ABDOMEN: Soft, nontender, and [id number]. Normal bowel sounds. No hepatosplenomegaly or ascites. EXTREMITIES: No edema or cyanosis. Muscle atrophy. ASSESSMENT AND RECOMMENDATION: 1. UTI. We will start ceftriaxone and send urine culture. Encourage hydration and good hygiene. 2. Right hip contusion. Continue pain management. No evidence of fracture on x-ray. 3. Drug abuse. The patient needs counseling. Thank you for the consult. ID will continue to follow. Portillo Vazquez M.D. DR: GUILLE JOB#: [id number] CC:
[2018-02-11 20:00] VITALS: BP 122/74
[2018-02-11] MEDS: cefTRIAXone 1 GM in D5W 110 ML IVPB SCH (20:18)
[2018-02-11] MEDS: TraZODone 100mg tab ORAL SCH (22:09)
[2018-02-12] VITALS: BP 98/63
[2018-02-12 04:40] VITALS: BP 103/66
[2018-02-12] MEDS: Morphine Sulfate 4mg/ml Inj IVP PRN ×2 (05:47→22:34)
[2018-02-12 07:19] LABS: ALANINE AMINOTRANSFERASE 27 U/L (12-78); ALBUMIN/GLOBULIN RATIO 0.8 (1.0-2.7); ALKALINE PHOSPHATASE 60 U/L (46-116); ANION GAP 5 mmol/L (5-15); ASPARTATE AMINO TRANSFERASE 18 U/L (15-37); BILIRUBIN,TOTAL 0.2 MG/DL (0.2-1.0); BLOOD UREA NITROGEN 12 mg/dL (7-18); CALCIUM 9.1 MG/DL (8.5-10.1); CARBON DIOXIDE 30 MMOL/L (21-32); CHLORIDE 104 MMOL/L (98-107); CREATININE 0.7 MG/DL (0.55-1.30); POTASSIUM 4.2 MMOL/L (3.5-5.1); SODIUM 139 MMOL/L (136-145)
[2018-02-12 07:27] LABS: BASOPHILS % (AUTO) 0.6 % (0.0-2.0); EOSINOPHILS % (AUTO) 0.8 % (0.0-3.0); HEMATOCRIT 34.1 % (37.0-47.0); HEMOGLOBIN 11.3 G/DL (12.0-16.0); LYMPHOCYTES % (AUTO) 40.9 % (20.0-45.0); MEAN CORPUSCULAR VOLUME 86 FL (80-99); MONOCYTES % (AUTO) 6.3 % (1.0-10.0); NEUTROPHILS % (AUTO) 51.6 % (45.0-75.0); PLATELET COUNT 148 K/UL (150-450); RED BLOOD COUNT 3.95 M/UL (4.20-5.40); RED CELL DISTRIBUTION WIDTH 12.6 % (11.6-14.8); WHITE BLOOD COUNT 4.8 K/UL (4.8-10.8)
[2018-02-12 08:00] VITALS: BP 95/55
[2018-02-12] MEDS: Midodrine 10mg tab ORAL SCH (08:04)
[2018-02-12] MEDS: Tolterodine 2mg tab ORAL SCH ×2 (08:04→17:10)
[2018-02-12] MEDS: Docusate 100mg cap ORAL SCH ×2 (08:04→17:10)
[2018-02-12] MEDS: Vitamin D 1000 IU Tab ORAL SCH (08:04)
[2018-02-12] MEDS: Heparin 5000 units/ml inj SUBQ SCH ×2 (08:06→20:38)
[2018-02-12] MEDS ORDERED: NS 275ml ONE (08:59)
[2018-02-12] MEDS ORDERED: Tubing IV Secondary IV ONE (08:59)
--- NOTE | 2018-02-12 11:28 | General Progress Note ---
Assessment/Plan Assessment/Plan S: I am ok O: appears comfortable, pain is weel managed PHYSICAL EXAMINATION:HEAD AND NECK: Atraumatic and normocephalic. CHEST: Clear to auscultation. LUNGS: No wheezing. No crackles. ABDOMEN: Soft. No organomegaly. Bowel sounds are normal. MUSCULOSKELETAL: Atrophied musculatures. NEUROLOGIC: The patient is awake, alert, and oriented x3. PSYCHIATRIC: Mood and affect is anxious. Meds: reviewed and reconciled in the chart Chest x-ray and hip x-ray obtained, which are unremarkable for the right hip fracture. ASSESSMENT AND PLAN: 1. Mechanical fall and the contusion over the hip and gluteal areas. 2. Neuromuscular disorder - wheelchair bound - baseline. 3. Neurogenic bladder. 4. Psychiatric disorder. 5. UTI. 6. Seizure disorder (questionable). Plan: Current pain management. Subjective Allergies: Coded Allergies: No Known Allergies (Verified Allergy, Mild, 04/10/08) Objective Last 24 Hour Vital Signs Date Time Temp Pulse Resp B/P (MAP) Pulse Ox O2 Delivery O2 Flow Rate FiO2 02/12/18 09:23 Room Air 02/12/18 08:00 98.0 84 18 95/55 (68) 98 98.0 02/12/18 06:17 99.0 02/12/18 05:47 99.0 02/12/18 04:40 99.0 69 18 103/66 (78) 95 99.0 02/12/18 00:00 97.5 82 18 98/63 (75) 96 97.5 02/11/18 23:11 Room Air 02/11/18 20:59 97.4 02/11/18 20:00 97.4 78 18 122/74 (90) 98 97.4 02/11/18 16:00 97.4 64 20 97/57 (70) 98 97.4 02/11/18 12:00 98.1 72 19 145/70 (95) 95 98.1 Intake and Output 02/11/18 02/12/18 19:00 07:00 Intake Total 600 ml 110 ml Output Total 625 ml 600 ml Balance -25 ml -490 ml Intake Oral 600 ml IV Total 110 ml Output Urine Total 625 ml 600 ml Laboratory Tests 02/12/18 05:15: White Blood Count 4.8, Red Blood Count 3.95L, Hemoglobin 11.3L, Hematocrit 34.1L , Mean Corpuscular Volume 86, Mean Corpuscular Hemoglobin 28.5, Mean Corpuscular Hemoglobin Concent 33.0, Red Cell Distribution Width 12.6, Platelet Count 148L, Mean Platelet Volume 6.3L, Neutrophils (%) (Auto) 51.6, Lymphocytes (%) (Auto) 40.9, Monocytes (%) (Auto) 6.3, Eosinophils (%) (Auto) 0.8, Basophils (%) (Auto) 0.6, Sodium Level 139, Potassium Level 4.2, Chloride Level 104, Carbon Dioxide Level 30, Anion Gap 5, Blood Urea Nitrogen 12, Creatinine 0.7, Estimat Glomerular Filtration Rate > 60, Glucose Level 102, Calcium Level 9.1, Total Bilirubin 0.2, Aspartate Amino Transf (AST/SGOT) 18, Alanine Aminotransferase (ALT/SGPT) 27, Alkaline Phosphatase 60, Total Protein 6.8, Albumin 3.0L, Globulin 3.8, Albumin/Globulin Ratio 0.8L Height (Feet): 5 Height (Inches): 9.00 Weight (Pounds): 135 Lucia Andrews MD Feb 12, 2018 11:28
[2018-02-12 12:00] VITALS: BP 97/59
--- NOTE | 2018-02-12 15:59 | Infectious Diseases Prog Note ---
Assessment/Plan Problems: (1) UTI (urinary tract infection) Assessment & Plan: with pansensitive E coli , will switch ceftriaxon to oral keflex for five more days (2) Contusion, hip Assessment & Plan: continue pain management (3) Drug abuse Assessment & Plan: needs counsling Subjective Constitutional: Reports: no symptoms HEENT: Reports: no symptoms Respiratory: Reports: no symptoms Breasts: Reports: no symptoms Cardiovascular: Reports: no symptoms Gastrointestinal/Abdominal: Reports: no symptoms Genitourinary: Reports: frequency Neurologic: Reports: weakness Psychiatric: Reports: no symptoms Skin: Reports: no symptoms Endocrine: Reports: no symptoms Hematologic: Reports: no symptoms Musculoskeletal: Reports: stiffness Allergies: Coded Allergies: No Known Allergies (Verified Allergy, Mild, 04/10/08) Objective Vital Signs Last 24 Hour Vital Signs Date Time Temp Pulse Resp B/P (MAP) Pulse Ox O2 Delivery O2 Flow Rate FiO2 02/12/18 12:00 99.0 83 19 97/59 (72) 98 99.0 02/12/18 09:23 Room Air 02/12/18 08:00 98.0 84 18 95/55 (68) 98 98.0 02/12/18 06:17 99.0 02/12/18 05:47 99.0 02/12/18 04:40 99.0 69 18 103/66 (78) 95 99.0 02/12/18 00:00 97.5 82 18 98/63 (75) 96 97.5 02/11/18 23:11 Room Air 02/11/18 20:59 97.4 02/11/18 20:00 97.4 78 18 122/74 (90) 98 97.4 02/11/18 16:00 97.4 64 20 97/57 (70) 98 97.4 Height (Feet): 5 Height (Inches): 9.00 Weight (Pounds): 135 General Appearance: WD/WN, no acute distress HEENT: normocephalic, atraumatic, anicteric, mucous membranes moist, PERRL, pharynx normal, supple, no JVD Respiratory/Chest: chest wall non-tender, lungs clear, normal breath sounds, no respiratory distress, no accessory muscle use Cardiovascular: normal peripheral pulses, normal rate, regular rhythm, no gallop/murmur, no JVD Abdomen: normal bowel sounds, soft, non tender, no organomegaly, non distended , no mass, no scars Extremities: no cyanosis, no clubbing Skin: no rash, no lesions, no ulcers Neurologic/Psychiatric: alert, responsive Lymphatic: no neck adenopathy, no groin adenopathy Musculoskeletal: normal muscle bulk, no effusion Microbiology Date/Time Source Procedure Growth Status 02/10/18 17:40 Urine,Clean Catch Urine Culture - Final Escherichia Coli Complete Laboratory Tests Test 02/12/18 05:15 White Blood Count 4.8 K/UL (4.8-10.8) Red Blood Count 3.95 M/UL (4.20-5.40) L Hemoglobin 11.3 G/DL (12.0-16.0) L Hematocrit 34.1 % (37.0-47.0) L Mean Corpuscular Volume 86 FL (80-99) Mean Corpuscular Hemoglobin 28.5 PG (27.0-31.0) Mean Corpuscular Hemoglobin Concent 33.0 G/DL (32.0-36.0) Red Cell Distribution Width 12.6 % (11.6-14.8) Platelet Count 148 K/UL (150-450) L Mean Platelet Volume 6.3 FL (6.5-10.1) L Neutrophils (%) (Auto) 51.6 % (45.0-75.0) Lymphocytes (%) (Auto) 40.9 % (20.0-45.0) Monocytes (%) (Auto) 6.3 % (1.0-10.0) Eosinophils (%) (Auto) 0.8 % (0.0-3.0) Basophils (%) (Auto) 0.6 % (0.0-2.0) Sodium Level 139 MMOL/L (136-145) Potassium Level 4.2 MMOL/L (3.5-5.1) Chloride Level 104 MMOL/L (98-107) Carbon Dioxide Level 30 MMOL/L (21-32) Anion Gap 5 mmol/L (5-15) Blood Urea Nitrogen 12 mg/dL (7-18) Creatinine 0.7 MG/DL (0.55-1.30) Estimat Glomerular Filtration Rate > 60 mL/min (>60) Glucose Level 102 MG/DL (74-106) Calcium Level 9.1 MG/DL (8.5-10.1) Total Bilirubin 0.2 MG/DL (0.2-1.0) Aspartate Amino Transf (AST/SGOT) 18 U/L (15-37) Alanine Aminotransferase (ALT/SGPT) 27 U/L (12-78) Alkaline Phosphatase 60 U/L (46-116) Total Protein 6.8 G/DL (6.4-8.2) Albumin 3.0 G/DL (3.4-5.0) L Globulin 3.8 g/dL Albumin/Globulin Ratio 0.8 (1.0-2.7) L Current Medications Medications (Trade) Dose Ordered Sig/Elisa Route PRN Reason Start Time Stop Time Status Last Admin Dose Admin Acetaminophen/ Hydrocodone Bitart ([place] 5/325) 1 tab Q4H PRN ORAL Moderate Pain (Pain Scale 4-6) 02/10/18 21:45 02/17/18 21:44 02/11/18 08:19 Baclofen (Lioresal) 10 mg THREE TIMES A DAY ORAL 02/11/18 09:00 03/13/18 08:59 02/12/18 12:08 Ceftriaxone Sodium 1 gm/ Dextrose 110 ml @ 220 mls/hr Q24H IVPB 02/10/18 20:00 02/17/18 19:59 02/11/18 20:18 Clonazepam (KlonoPIN) 1 mg BID ORAL 02/10/18 22:37 02/17/18 22:36 02/12/18 08:04 Docusate Sodium (Colace) 100 mg BID ORAL 02/11/18 09:00 03/13/18 08:59 02/12/18 08:04 Gabapentin (Neurontin) 900 mg THREE TIMES A DAY ORAL 02/11/18 09:00 03/13/18 08:59 02/12/18 12:08 Heparin Sodium (Porcine) (Heparin 5000 units/ml) 5,000 units EVERY 12 HOURS SUBQ 02/11/18 09:00 03/13/18 08:59 02/12/18 08:06 Levetiracetam (Keppra) 500 mg Q12HR ORAL 02/10/18 22:00 03/12/18 21:59 02/12/18 08:04 Midodrine (Pro-Amatine) 10 mg DAILY ORAL 02/11/18 09:00 03/13/18 08:59 02/12/18 08:04 Morphine Sulfate (Morphine Sulfate) 3 mg Q8H PRN IVP Severe Pain (Pain Scale 7-10) 02/10/18 21:45 02/17/18 21:44 02/12/18 05:47 Multivitamins (Multivitamins) 1 tab DAILY ORAL 02/11/18 09:00 03/13/18 08:59 02/12/18 08:03 Ondansetron HCl (Zofran) 4 mg EVERY 4 HOURS PRN IVP Nausea & Vomiting 02/10/18 22:30 03/12/18 22:29 Pantoprazole (Protonix) 40 mg DAILY ORAL 02/11/18 09:00 03/13/18 08:59 02/12/18 08:04 Polyethylene Glycol (Miralax) 17 gm DAILYPRN PRN ORAL Constipation 02/10/18 21:45 03/12/18 21:44 02/12/18 15:27 Tolterodine Tartrate (Detrol) 2 mg TWICE A DAY ORAL 02/11/18 09:00 03/13/18 08:59 02/12/18 08:04 Trazodone HCl (Desyrel) 100 mg BEDTIME ORAL 02/10/18 22:00 03/12/18 21:59 02/11/18 22:09 Vitamin D (Vitamin D) 2,000 intlu DAILY ORAL 02/11/18 09:00 03/13/18 08:59 02/12/18 08:04 Portillo Vazquez M.D. Feb 12, 2018 15:59
[2018-02-12 16:00] VITALS: BP 99/57
[2018-02-12] MEDS: Cephalexin 500mg cap ORAL SCH ×2 (17:11→20:37)
[2018-02-12] MEDS: Sennosides 8.6mg ORAL SCH (17:11)
[2018-02-12 20:00] VITALS: BP 97/51
[2018-02-12] MEDS: TraZODone 100mg tab ORAL SCH (20:37)
[2018-02-13] VITALS: BP 95/66
[2018-02-13 04:00] VITALS: BP 107/68
[2018-02-13 08:00] VITALS: BP 123/59
[2018-02-13] MEDS: Cephalexin 500mg cap ORAL SCH ×4 (08:21→21:43)
[2018-02-13] MEDS: Tolterodine 2mg tab ORAL SCH ×2 (08:23→18:08)
[2018-02-13] MEDS: Vitamin D 1000 IU Tab ORAL SCH (08:23)
[2018-02-13] MEDS: Sennosides 8.6mg ORAL SCH ×2 (08:23→18:08)
[2018-02-13] MEDS: Midodrine 10mg tab ORAL SCH (08:23)
[2018-02-13] MEDS: Docusate 100mg cap ORAL SCH ×2 (08:23→18:08)
[2018-02-13] MEDS: Heparin 5000 units/ml inj SUBQ SCH ×2 (08:26→21:46)
[2018-02-13 08:37] LABS: BASOPHILS % (AUTO) 1.2 % (0.0-2.0); EOSINOPHILS % (AUTO) 0.6 % (0.0-3.0); HEMATOCRIT 36.5 % (37.0-47.0); HEMOGLOBIN 12.1 G/DL (12.0-16.0); LYMPHOCYTES % (AUTO) 45.3 % (20.0-45.0); MEAN CORPUSCULAR VOLUME 87 FL (80-99); PLATELET COUNT 152 K/UL (150-450); RED BLOOD COUNT 4.18 M/UL (4.20-5.40); WHITE BLOOD COUNT 5.4 K/UL (4.8-10.8)
[2018-02-13 09:21] LABS: ALANINE AMINOTRANSFERASE 26 U/L (12-78); ALBUMIN 3.2 G/DL (3.4-5.0); ALBUMIN/GLOBULIN RATIO 0.9 (1.0-2.7); ALKALINE PHOSPHATASE 68 U/L (46-116); ANION GAP 2 mmol/L (5-15); ASPARTATE AMINO TRANSFERASE 18 U/L (15-37); BILIRUBIN,TOTAL 0.2 MG/DL (0.2-1.0); BLOOD UREA NITROGEN 18 mg/dL (7-18); CALCIUM 9.4 MG/DL (8.5-10.1); CARBON DIOXIDE 32 MMOL/L (21-32); CHLORIDE 104 MMOL/L (98-107); CREATININE 0.7 MG/DL (0.55-1.30); POTASSIUM 4.3 MMOL/L (3.5-5.1); SODIUM 137 MMOL/L (136-145)
[2018-02-13] MEDS: Morphine Sulfate 4mg/ml Inj IVP PRN (10:12)
[2018-02-13 12:00] VITALS: BP 95/67
--- NOTE | 2018-02-13 13:16 | General Progress Note ---
Assessment/Plan Assessment/Plan S: I am ok O: appears comfortable, pain is well managed PHYSICAL EXAMINATION:HEAD AND NECK: Atraumatic and normocephalic. CHEST: Clear to auscultation. LUNGS: No wheezing. No crackles. ABDOMEN: Soft. No organomegaly. Bowel sounds are normal. MUSCULOSKELETAL: Atrophied musculatures. NEUROLOGIC: The patient is awake, alert, and oriented x3. PSYCHIATRIC: Mood and affect is anxious. Meds: reviewed and reconciled in the chart, Chest x-ray and hip x-ray obtained, which are unremarkable for the right hip fracture. ASSESSMENT AND PLAN: 1. Mechanical fall and the contusion over the hip and gluteal areas. 2. Neuromuscular disorder - wheelchair bound - baseline. 3. Neurogenic bladder. 4. Psychiatric disorder. 5. UTI. 6. Seizure disorder (questionable). Plan: Current pain management. ok to DC tomorrow Subjective Allergies: Coded Allergies: No Known Allergies (Verified Allergy, Mild, 04/10/08) Objective Last 24 Hour Vital Signs Date Time Temp Pulse Resp B/P (MAP) Pulse Ox O2 Delivery O2 Flow Rate FiO2 02/13/18 10:42 98.9 02/13/18 10:12 98.9 02/13/18 09:00 Room Air 02/13/18 08:00 97.3 76 18 123/59 (80) 98 97.3 02/13/18 04:00 98.9 73 18 107/68 (81) 98 98.9 02/13/18 00:00 99.2 97 18 95/66 (76) 96 99.2 02/12/18 21:00 Room Air 02/12/18 20:00 98.9 75 19 97/51 (66) 100 98.9 02/12/18 16:00 98.6 98 20 99/57 (71) 98 98.6 Intake and Output 02/12/18 02/13/18 19:00 07:00 Intake Total 720 ml Output Total 800 ml 2200 ml Balance -80 ml -2200 ml Intake Oral 720 ml Output Urine Total 800 ml 2200 ml Laboratory Tests 02/13/18 07:00: White Blood Count 5.4, Red Blood Count 4.18L, Hemoglobin 12.1, Hematocrit 36.5L , Mean Corpuscular Volume 87, Mean Corpuscular Hemoglobin 29.0, Mean Corpuscular Hemoglobin Concent 33.3, Red Cell Distribution Width 13.0, Platelet Count 152, Mean Platelet Volume 7.1, Neutrophils (%) (Auto) 45.0, Lymphocytes (% ) (Auto) 45.3H, Monocytes (%) (Auto) 8.0, Eosinophils (%) (Auto) 0.6, Basophils (%) (Auto) 1.2, Sodium Level 137, Potassium Level 4.3, Chloride Level 104, Carbon Dioxide Level 32, Anion Gap 2L, Blood Urea Nitrogen 18, Creatinine 0.7, Estimat Glomerular Filtration Rate > 60, Glucose Level 90, Calcium Level 9.4, Total Bilirubin 0.2, Aspartate Amino Transf (AST/SGOT) 18, Alanine Aminotransferase (ALT/SGPT) 26, Alkaline Phosphatase 68, Total Protein 6.8, Albumin 3.2L, Globulin 3.6, Albumin/Globulin Ratio 0.9L Height (Feet): 5 Height (Inches): 9.00 Weight (Pounds): 139 Lucia Andrews MD Feb 13, 2018 13:16
--- NOTE | 2018-02-13 13:58 | Infectious Diseases Prog Note ---
Assessment/Plan Problems: (1) UTI (urinary tract infection) Assessment & Plan: with pansensitive E coli , now on ceftriaxon , will switch to oral keflex for five more days (2) Contusion, hip Assessment & Plan: continue pain management (3) Drug abuse Assessment & Plan: needs counsling Subjective Constitutional: Reports: no symptoms HEENT: Reports: no symptoms Respiratory: Reports: no symptoms Breasts: Reports: no symptoms Cardiovascular: Reports: no symptoms Gastrointestinal/Abdominal: Reports: no symptoms Genitourinary: Reports: no symptoms Neurologic: Reports: no symptoms Psychiatric: Reports: no symptoms Skin: Reports: no symptoms Endocrine: Reports: no symptoms Hematologic: Reports: no symptoms Musculoskeletal: Reports: pain, stiffness Allergies: Coded Allergies: No Known Allergies (Verified Allergy, Mild, 04/10/08) Objective Vital Signs Last 24 Hour Vital Signs Date Time Temp Pulse Resp B/P (MAP) Pulse Ox O2 Delivery O2 Flow Rate FiO2 02/13/18 10:42 98.9 02/13/18 10:12 98.9 02/13/18 09:00 Room Air 02/13/18 08:00 97.3 76 18 123/59 (80) 98 97.3 02/13/18 04:00 98.9 73 18 107/68 (81) 98 98.9 02/13/18 00:00 99.2 97 18 95/66 (76) 96 99.2 02/12/18 21:00 Room Air 02/12/18 20:00 98.9 75 19 97/51 (66) 100 98.9 02/12/18 16:00 98.6 98 20 99/57 (71) 98 98.6 Height (Feet): 5 Height (Inches): 9.00 Weight (Pounds): 134 General Appearance: WD/WN, no acute distress HEENT: normocephalic, atraumatic, anicteric, mucous membranes moist, PERRL Respiratory/Chest: chest wall non-tender, lungs clear, normal breath sounds, no respiratory distress, no accessory muscle use Cardiovascular: normal peripheral pulses, normal rate, regular rhythm, no gallop/murmur, no JVD Abdomen: normal bowel sounds, soft, non tender, no organomegaly, non distended , no mass, no scars Extremities: no cyanosis, no clubbing Skin: no rash, no lesions, no ulcers Neurologic/Psychiatric: alert, responsive Microbiology Date/Time Source Procedure Growth Status 02/10/18 17:40 Urine,Clean Catch Urine Culture - Final Escherichia Coli Complete Laboratory Tests Test 02/13/18 07:00 White Blood Count 5.4 K/UL (4.8-10.8) Red Blood Count 4.18 M/UL (4.20-5.40) L Hemoglobin 12.1 G/DL (12.0-16.0) Hematocrit 36.5 % (37.0-47.0) L Mean Corpuscular Volume 87 FL (80-99) Mean Corpuscular Hemoglobin 29.0 PG (27.0-31.0) Mean Corpuscular Hemoglobin Concent 33.3 G/DL (32.0-36.0) Red Cell Distribution Width 13.0 % (11.6-14.8) Platelet Count 152 K/UL (150-450) Mean Platelet Volume 7.1 FL (6.5-10.1) Neutrophils (%) (Auto) 45.0 % (45.0-75.0) Lymphocytes (%) (Auto) 45.3 % (20.0-45.0) H Monocytes (%) (Auto) 8.0 % (1.0-10.0) Eosinophils (%) (Auto) 0.6 % (0.0-3.0) Basophils (%) (Auto) 1.2 % (0.0-2.0) Sodium Level 137 MMOL/L (136-145) Potassium Level 4.3 MMOL/L (3.5-5.1) Chloride Level 104 MMOL/L (98-107) Carbon Dioxide Level 32 MMOL/L (21-32) Anion Gap 2 mmol/L (5-15) L Blood Urea Nitrogen 18 mg/dL (7-18) Creatinine 0.7 MG/DL (0.55-1.30) Estimat Glomerular Filtration Rate > 60 mL/min (>60) Glucose Level 90 MG/DL (74-106) Calcium Level 9.4 MG/DL (8.5-10.1) Total Bilirubin 0.2 MG/DL (0.2-1.0) Aspartate Amino Transf (AST/SGOT) 18 U/L (15-37) Alanine Aminotransferase (ALT/SGPT) 26 U/L (12-78) Alkaline Phosphatase 68 U/L (46-116) Total Protein 6.8 G/DL (6.4-8.2) Albumin 3.2 G/DL (3.4-5.0) L Globulin 3.6 g/dL Albumin/Globulin Ratio 0.9 (1.0-2.7) L Current Medications Medications (Trade) Dose Ordered Sig/Elisa Route PRN Reason Start Time Stop Time Status Last Admin Dose Admin Acetaminophen/ Hydrocodone Bitart ([place] 5/325) 1 tab Q4H PRN ORAL Moderate Pain (Pain Scale 4-6) 02/10/18 21:45 02/17/18 21:44 02/11/18 08:19 Baclofen (Lioresal) 10 mg THREE TIMES A DAY ORAL 02/11/18 09:00 03/13/18 08:59 02/13/18 12:39 Cephalexin (Keflex) 500 mg FOUR TIMES A DAY ORAL 02/12/18 18:00 02/19/18 17:59 02/13/18 12:39 Clonazepam (KlonoPIN) 1 mg BID ORAL 02/10/18 22:37 02/17/18 22:36 02/13/18 08:22 Docusate Sodium (Colace) 100 mg BID ORAL 02/11/18 09:00 03/13/18 08:59 02/13/18 08:23 Gabapentin (Neurontin) 900 mg THREE TIMES A DAY ORAL 02/11/18 09:00 03/13/18 08:59 02/13/18 12:39 Heparin Sodium (Porcine) (Heparin 5000 units/ml) 5,000 units EVERY 12 HOURS SUBQ 02/11/18 09:00 03/13/18 08:59 02/13/18 08:26 Levetiracetam (Keppra) 500 mg Q12HR ORAL 02/10/18 22:00 03/12/18 21:59 02/13/18 08:23 Midodrine (Pro-Amatine) 10 mg DAILY ORAL 02/11/18 09:00 03/13/18 08:59 02/13/18 08:23 Morphine Sulfate (Morphine Sulfate) 3 mg Q8H PRN IVP Severe Pain (Pain Scale 7-10) 02/10/18 21:45 02/17/18 21:44 02/13/18 10:12 Multivitamins (Multivitamins) 1 tab DAILY ORAL 02/11/18 09:00 03/13/18 08:59 02/13/18 08:23 Ondansetron HCl (Zofran) 4 mg EVERY 4 HOURS PRN IVP Nausea & Vomiting 02/10/18 22:30 03/12/18 22:29 Pantoprazole (Protonix) 40 mg DAILY ORAL 02/11/18 09:00 03/13/18 08:59 02/13/18 08:22 Polyethylene Glycol (Miralax) 17 gm DAILYPRN PRN ORAL Constipation 02/10/18 21:45 03/12/18 21:44 02/12/18 15:27 Sennosides (Senokot) 1 tab BID ORAL 02/12/18 18:00 03/14/18 17:59 02/13/18 08:23 Tolterodine Tartrate (Detrol) 2 mg TWICE A DAY ORAL 02/11/18 09:00 03/13/18 08:59 02/13/18 08:23 Trazodone HCl (Desyrel) 100 mg BEDTIME ORAL 02/10/18 22:00 03/12/18 21:59 02/12/18 20:37 Vitamin D (Vitamin D) 2,000 intlu DAILY ORAL 02/11/18 09:00 03/13/18 08:59 02/13/18 08:23 Portillo Vazquez M.D. Feb 13, 2018 13:58
[2018-02-13 15:49] VITALS: BP 116/73
[2018-02-13] MEDS: Norco 5mg/325mg tab ORAL PRN ×2 (15:57→16:01)
[2018-02-13 20:00] VITALS: BP 117/64
[2018-02-13] MEDS: TraZODone 100mg tab ORAL SCH (21:42)
[2018-02-14] VITALS (7 sets, daily range): BP systolic 96–121; BP diastolic 58–78
[2018-02-14] MEDS: Morphine Sulfate 4mg/ml Inj IVP PRN (04:06)
[2018-02-14 07:38] LABS: BASOPHILS % (AUTO) 1.2 % (0.0-2.0); EOSINOPHILS % (AUTO) 1.8 % (0.0-3.0); HEMOGLOBIN 11.7 G/DL (12.0-16.0); LYMPHOCYTES % (AUTO) 47.6 % (20.0-45.0); MEAN CORPUSCULAR VOLUME 87 FL (80-99); MONOCYTES % (AUTO) 6.4 % (1.0-10.0); PLATELET COUNT 162 K/UL (150-450); RED BLOOD COUNT 4.13 M/UL (4.20-5.40); RED CELL DISTRIBUTION WIDTH 12.9 % (11.6-14.8); WHITE BLOOD COUNT 4.4 K/UL (4.8-10.8)
[2018-02-14 07:51] LABS: ALANINE AMINOTRANSFERASE 26 U/L (12-78); ALBUMIN 3.2 G/DL (3.4-5.0); ALBUMIN/GLOBULIN RATIO 0.8 (1.0-2.7); ALKALINE PHOSPHATASE 63 U/L (46-116); ANION GAP 2 mmol/L (5-15); ASPARTATE AMINO TRANSFERASE 19 U/L (15-37); BILIRUBIN,TOTAL 0.3 MG/DL (0.2-1.0); BLOOD UREA NITROGEN 21 mg/dL (7-18); CALCIUM 9.7 MG/DL (8.5-10.1); CARBON DIOXIDE 32 MMOL/L (21-32); CHLORIDE 104 MMOL/L (98-107); CREATININE 0.7 MG/DL (0.55-1.30); POTASSIUM 3.9 MMOL/L (3.5-5.1); SODIUM 138 MMOL/L (136-145)
[2018-02-14] MEDS: Docusate 100mg cap ORAL SCH ×2 (10:54→17:49)
[2018-02-14] MEDS: Vitamin D 1000 IU Tab ORAL SCH (10:55)
[2018-02-14] MEDS: Cephalexin 500mg cap ORAL SCH ×3 (10:55→17:48)
[2018-02-14] MEDS: Tolterodine 2mg tab ORAL SCH ×2 (10:55→17:49)
[2018-02-14] MEDS: Midodrine 10mg tab ORAL SCH (10:56)
[2018-02-14] MEDS: Sennosides 8.6mg ORAL SCH ×2 (11:00→17:48)
[2018-02-14] MEDS: Heparin 5000 units/ml inj SUBQ SCH (11:06)
--- NOTE | 2018-02-14 12:16 | General Progress Note ---
Assessment/Plan Assessment/Plan S: I am ok O: appears comfortable, pain is well managed PHYSICAL EXAMINATION:HEAD AND NECK: Atraumatic and normocephalic. CHEST: Clear to auscultation. LUNGS: No wheezing. No crackles. ABDOMEN: Soft. No organomegaly. Bowel sounds are normal. MUSCULOSKELETAL: Atrophied musculatures. NEUROLOGIC: The patient is awake, alert, and oriented x3. PSYCHIATRIC: Mood and affect is anxious. Meds: reviewed and reconciled in the chart, Chest x-ray and hip x-ray obtained, which are unremarkable for the right hip fracture. ASSESSMENT AND PLAN: 1. Mechanical fall and the contusion over the hip and gluteal areas. 2. Neuromuscular disorder - wheelchair bound - baseline. 3. Neurogenic bladder. 4. Psychiatric disorder. 5. UTI. 6. Seizure disorder (questionable). Plan: Current pain management. ok to DC tomorrow reported fall incident. as pt is found on the floor. Will do Xray of the limb. No acute finding, will proceed with DC today Subjective Allergies: Coded Allergies: No Known Allergies (Verified Allergy, Mild, 04/10/08) Objective Last 24 Hour Vital Signs Date Time Temp Pulse Resp B/P (MAP) Pulse Ox O2 Delivery O2 Flow Rate FiO2 02/14/18 09:00 Room Air 02/14/18 08:00 97.5 91 20 98/64 (75) 100 97.5 02/14/18 04:00 98.2 72 17 121/78 (92) 97 98.2 02/14/18 00:00 97.9 97 18 121/61 (81) 97 97.9 02/13/18 21:00 Room Air 02/13/18 20:00 98.1 96 17 117/64 (81) 97 98.1 02/13/18 17:00 98.6 02/13/18 16:01 98.6 02/13/18 15:49 98.6 90 19 116/73 (87) 98 98.6 Intake and Output 02/13/18 02/14/18 19:00 07:00 Intake Total 1080 ml Output Total 600 ml 1900 ml Balance -600 ml -820 ml Intake Oral 1080 ml Output Urine Total 600 ml 1900 ml # Voids 2 Laboratory Tests 02/14/18 05:25: White Blood Count 4.4L, Red Blood Count 4.13L, Hemoglobin 11.7L, Hematocrit 36.0L, Mean Corpuscular Volume 87, Mean Corpuscular Hemoglobin 28.4, Mean Corpuscular Hemoglobin Concent 32.6, Red Cell Distribution Width 12.9, Platelet Count 162, Mean Platelet Volume 6.3L, Neutrophils (%) (Auto) 43.0L, Lymphocytes (%) (Auto) 47.6H, Monocytes (%) (Auto) 6.4, Eosinophils (%) (Auto) 1.8, Basophils (%) (Auto) 1.2, Sodium Level 138, Potassium Level 3.9, Chloride Level 104, Carbon Dioxide Level 32, Anion Gap 2L, Blood Urea Nitrogen 21H, Creatinine 0.7, Estimat Glomerular Filtration Rate > 60, Glucose Level 118H, Calcium Level 9.7, Total Bilirubin 0.3, Aspartate Amino Transf (AST/SGOT) 19, Alanine Aminotransferase (ALT/SGPT) 26, Alkaline Phosphatase 63, Total Protein 7.3, Albumin 3.2L, Globulin 4.1, Albumin/Globulin Ratio 0.8L, Levetiracetam (Keppra) Level [Pending] Height (Feet): 5 Height (Inches): 9.00 Weight (Pounds): 135 Lucia Andrews MD Feb 14, 2018 12:16
[2018-02-14] MEDS: Norco 5mg/325mg tab ORAL PRN ×2 (12:27→17:48)
--- NOTE | 2018-02-14 12:32 | Diagnostic Imaging Report ---
Indications: hip pain Findings: Two views of the right hip were obtained. No acute fracture is demonstrated. Alignment of the hip is within normal limits. Soft tissues are unremarkable. Bones are osteopenic. Villanueva catheter is noted. Tiny surgical sutures projected over the lower pelvis. Impression: Negative for acute injury.
--- NOTE | 2018-02-14 12:32 | Diagnostic Imaging Report ---
Indication: Pain Knee pain/trauma 3 views of the right knee were obtained. Findings: No acute fracture, malalignment, or joint effusion are identified. Joint space is relatively well-maintained. Bones are osteopenic. Impression: Negative for acute findings.
--- NOTE | 2018-02-14 12:33 | Diagnostic Imaging Report ---
Indication: Back pain Comparison: None Findings: 3 views of the lumbar spine were obtained. No definite fractures identified. The bones are osteopenic. No malalignment seen. There is narrowing of the L4-5 and L5-S1 discs. Sclerotic facets noted. Mild endplate spur formation noted. IMPRESSION: Degenerative changes of the lumbar spine.
--- NOTE | 2018-02-14 16:15 | Infectious Diseases Prog Note ---
Assessment/Plan Problems: (1) UTI (urinary tract infection) Assessment & Plan: with pansensitive E coli , continue oral keflex for four more days (2) Contusion, hip Assessment & Plan: X rays showed no fractures , continue pain management (3) Drug abuse Assessment & Plan: needs counsling Subjective Constitutional: Reports: no symptoms HEENT: Reports: no symptoms Respiratory: Reports: no symptoms Breasts: Reports: no symptoms Cardiovascular: Reports: no symptoms Gastrointestinal/Abdominal: Reports: no symptoms Genitourinary: Reports: no symptoms Neurologic: Reports: no symptoms Psychiatric: Reports: no symptoms Skin: Reports: no symptoms Endocrine: Reports: no symptoms Hematologic: Reports: no symptoms Musculoskeletal: Reports: pain Allergies: Coded Allergies: No Known Allergies (Verified Allergy, Mild, 04/10/08) Objective Vital Signs Last 24 Hour Vital Signs Date Time Temp Pulse Resp B/P (MAP) Pulse Ox O2 Delivery O2 Flow Rate FiO2 02/14/18 12:00 97.7 72 18 105/64 (78) 98 97.7 02/14/18 09:00 Room Air 02/14/18 08:00 97.5 91 20 98/64 (75) 100 97.5 02/14/18 04:00 98.2 72 17 121/78 (92) 97 98.2 02/14/18 00:00 97.9 97 18 121/61 (81) 97 97.9 02/13/18 21:00 Room Air 02/13/18 20:00 98.1 96 17 117/64 (81) 97 98.1 02/13/18 17:00 98.6 Height (Feet): 5 Height (Inches): 9.00 Weight (Pounds): 135 General Appearance: WD/WN, no acute distress HEENT: normocephalic, atraumatic, anicteric, mucous membranes moist Respiratory/Chest: chest wall non-tender, lungs clear, normal breath sounds, no respiratory distress, no accessory muscle use Cardiovascular: normal peripheral pulses, normal rate, regular rhythm, no gallop/murmur, no JVD Abdomen: normal bowel sounds, soft, non tender, no organomegaly, non distended , no mass Extremities: no cyanosis, no clubbing Skin: no rash, no lesions Neurologic/Psychiatric: alert, oriented x 3, responsive Lymphatic: no neck adenopathy, no groin adenopathy Musculoskeletal: atrophy, other - hip pain Laboratory Tests Test 02/14/18 05:25 White Blood Count 4.4 K/UL (4.8-10.8) L Red Blood Count 4.13 M/UL (4.20-5.40) L Hemoglobin 11.7 G/DL (12.0-16.0) L Hematocrit 36.0 % (37.0-47.0) L Mean Corpuscular Volume 87 FL (80-99) Mean Corpuscular Hemoglobin 28.4 PG (27.0-31.0) Mean Corpuscular Hemoglobin Concent 32.6 G/DL (32.0-36.0) Red Cell Distribution Width 12.9 % (11.6-14.8) Platelet Count 162 K/UL (150-450) Mean Platelet Volume 6.3 FL (6.5-10.1) L Neutrophils (%) (Auto) 43.0 % (45.0-75.0) L Lymphocytes (%) (Auto) 47.6 % (20.0-45.0) H Monocytes (%) (Auto) 6.4 % (1.0-10.0) Eosinophils (%) (Auto) 1.8 % (0.0-3.0) Basophils (%) (Auto) 1.2 % (0.0-2.0) Sodium Level 138 MMOL/L (136-145) Potassium Level 3.9 MMOL/L (3.5-5.1) Chloride Level 104 MMOL/L (98-107) Carbon Dioxide Level 32 MMOL/L (21-32) Anion Gap 2 mmol/L (5-15) L Blood Urea Nitrogen 21 mg/dL (7-18) H Creatinine 0.7 MG/DL (0.55-1.30) Estimat Glomerular Filtration Rate > 60 mL/min (>60) Glucose Level 118 MG/DL (74-106) H Calcium Level 9.7 MG/DL (8.5-10.1) Total Bilirubin 0.3 MG/DL (0.2-1.0) Aspartate Amino Transf (AST/SGOT) 19 U/L (15-37) Alanine Aminotransferase (ALT/SGPT) 26 U/L (12-78) Alkaline Phosphatase 63 U/L (46-116) Total Protein 7.3 G/DL (6.4-8.2) Albumin 3.2 G/DL (3.4-5.0) L Globulin 4.1 g/dL Albumin/Globulin Ratio 0.8 (1.0-2.7) L Levetiracetam (Keppra) Level Pending Current Medications Medications (Trade) Dose Ordered Sig/Elisa Route PRN Reason Start Time Stop Time Status Last Admin Dose Admin Acetaminophen/ Hydrocodone Bitart ([place] 5/325) 1 tab Q4H PRN ORAL Moderate Pain (Pain Scale 4-6) 02/10/18 21:45 02/17/18 21:44 02/14/18 12:27 Baclofen (Lioresal) 10 mg THREE TIMES A DAY ORAL 02/11/18 09:00 03/13/18 08:59 02/14/18 13:05 Cephalexin (Keflex) 500 mg FOUR TIMES A DAY ORAL 02/12/18 18:00 02/19/18 17:59 02/14/18 13:05 Clonazepam (KlonoPIN) 1 mg BID ORAL 02/10/18 22:37 02/17/18 22:36 02/14/18 10:54 Docusate Sodium (Colace) 100 mg BID ORAL 02/11/18 09:00 03/13/18 08:59 02/14/18 10:54 Gabapentin (Neurontin) 900 mg THREE TIMES A DAY ORAL 02/11/18 09:00 03/13/18 08:59 02/14/18 13:05 Heparin Sodium (Porcine) (Heparin 5000 units/ml) 5,000 units EVERY 12 HOURS SUBQ 02/11/18 09:00 03/13/18 08:59 02/14/18 11:06 Levetiracetam (Keppra) 500 mg Q12HR ORAL 02/10/18 22:00 03/12/18 21:59 02/14/18 10:55 Midodrine (Pro-Amatine) 10 mg DAILY ORAL 02/11/18 09:00 03/13/18 08:59 02/14/18 10:56 Multivitamins (Multivitamins) 1 tab DAILY ORAL 02/11/18 09:00 03/13/18 08:59 02/14/18 10:55 Ondansetron HCl (Zofran) 4 mg EVERY 4 HOURS PRN IVP Nausea & Vomiting 7/5/18 22:30 03/12/18 22:29 Pantoprazole (Protonix) 40 mg DAILY ORAL 02/11/18 09:00 03/13/18 08:59 02/14/18 10:55 Polyethylene Glycol (Miralax) 17 gm DAILYPRN PRN ORAL Constipation 02/10/18 21:45 03/12/18 21:44 02/12/18 15:27 Sennosides (Senokot) 1 tab BID ORAL 02/12/18 18:00 03/14/18 17:59 02/14/18 11:00 Tolterodine Tartrate (Detrol) 2 mg TWICE A DAY ORAL 02/11/18 09:00 03/13/18 08:59 02/14/18 10:55 Trazodone HCl (Desyrel) 100 mg BEDTIME ORAL 02/10/18 22:00 03/12/18 21:59 02/13/18 21:42 Vitamin D (Vitamin D) 2,000 intlu DAILY ORAL 02/11/18 09:00 03/13/18 08:59 02/14/18 10:55 Portillo Vazquez M.D. Feb 14, 2018 16:15
--- NOTE | 2018-02-15 11:48 | Discharge Summary ---
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 She denied hitting her head, loss of cosmnciosness or blackout, no dizziness. She has fall about a week ago and reported pain and difficulty with ambulation. Upon evaluation in emergency room, x-ray of the right hip revealed no evidence of fracture Chest x-ray revealed no acute cardiopulmonary pathology. Urinalysis was positive for urinary tract infection. No leukocytosis, stable hemoglobin and hematocrit. Urine toxicology screen was positive for opioids, , cocaine and marijuana. Patient admitted for further management with diagnosis of status post mechanical fall , right hip contusion, neuromuscular disease/Guillain -Lewes syndrome , wheelchair bound status, urinary tract infection, neurogenic bladder, questionable seizure disorder , drug abuse CONSULTANTS: ID specialist [facility] COURSE: Patient admitted. Patient started on gentle IV hydration and intravenous antibiotics. Infectious disease specialist closely followed. Urine culture revealed Escherichia coli. No fever no leukocytosis. Fall precautions were maintained. Patient was working with physical and occupational therapists. Pain management was addressed. Bowel regimen instituted. Supportive care provided. Hemoglobin and hematocrit remained stable. Patient was counseled on abstinence from illicit street drugs that could further contribute to unsteady gait and further falls. Patient reported unwitnessed fall , and subsequently x-ray of the right knee , right hip and lumbar spine were done. All images were negative for evidence of acute fracture or dislocation. X-ray of the lumbar spine revealed degenerative changes. Patient was stable for discharge. 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 UTI with Escherichia coli Neurogenic bladder Questionable seizure disorder Drug abuse DISCHARGE MEDICATIONS: See Medication Reconciliation list. DISCHARGE INSTRUCTIONS: Patient was discharged home. Follow up with primary care provider in one week. I have been assigned to dictate discharge summary for this account. I was not involved in the patient's management. Elizabeth Diallo NP Feb 15, 2018 11:48
== END 2018-02-14 20:40 | disposition home or self-care (01) | DRG 384 ==
LOC: EMR 15:06 → 4W 16:35 → EDBEDREQ 17:07
DX: S70.01XA Contusion of right hip, initial encounter (principal); G61.0 Guillain-Barre syndrome; R56.9 Unspecified convulsions; N31.9 Neuromuscular dysfunction of bladder, unspecified; G70.9 Myoneural disorder, unspecified; W19.XXXA Unspecified fall, initial encounter; Y92.009 Unspecified place in unspecified non-institutional (private) residence as the place of occurrence of the external cause; Z99.3 Dependence on wheelchair; N39.0 Urinary tract infection, site not specified; B96.20 Unspecified Escherichia coli [E. coli] as the cause of diseases classified elsewhere; M79.7 Fibromyalgia; F14.10 Cocaine abuse, uncomplicated
CPT/HCPCS: 36415; 71045; 72020; 80053; 80061; 80299; 80307; 81001; 83036; 85025; 85610; 85651; 85730; 87086; 87181; 90471; 90715; 93005; 99285; J2405

== ENCOUNTER 2018-07-27 09:28 | Inpatient (IN) | payer OTHER ==
[~2018-07-27] VITALS: Ht 162.6 cm; Wt 53.5 kg
[~2018-07-27 09:28] MED LIST changes: +DETROL2 MG ORAL; +LORATADINE10 M2 PO; +MIDODRINE HCL10 MG ORAL; +MILK OF MA400 MG/51 ORAL; +VITAMIN B-12500 MCG ORAL; +VITAMIN D1000 UNI1 ORAL
[2018-07-27 09:52] VITALS: BP 112/94
[2018-07-27 10:01] LABS: BASOPHILS % (AUTO) 0.8 % (0.0-2.0); EOSINOPHILS % (AUTO) 0.8 % (0.0-3.0); HEMATOCRIT 32.4 % (37.0-47.0); HEMOGLOBIN 10.6 G/DL (12.0-16.0); MEAN CORPUSCULAR VOLUME 81 FL (80-99); MONOCYTES % (AUTO) 9.2 % (1.0-10.0); NEUTROPHILS % (AUTO) 65.1 % (45.0-75.0); PLATELET COUNT 340 K/UL (150-450); RED BLOOD COUNT 3.99 M/UL (4.20-5.40); RED CELL DISTRIBUTION WIDTH 10.8 % (11.6-14.8); WHITE BLOOD COUNT 6.4 K/UL (4.8-10.8)
[2018-07-27 10:07] LABS: ANION GAP 10 mmol/L (5-15); BLOOD UREA NITROGEN 11 mg/dL (7-18); CALCIUM 9.5 MG/DL (8.5-10.1); CARBON DIOXIDE 26 MMOL/L (21-32); CHLORIDE 98 MMOL/L (98-107); CREATININE 0.8 MG/DL (0.55-1.30); POTASSIUM 3.6 MMOL/L (3.5-5.1); SODIUM 133 MMOL/L (136-145)
[2018-07-27 10:11] LABS: ALANINE AMINOTRANSFERASE 16 U/L (12-78); ALBUMIN 2.3 G/DL (3.4-5.0); ALBUMIN/GLOBULIN RATIO 0.4 (1.0-2.7); ALKALINE PHOSPHATASE 97 U/L (46-116); ASPARTATE AMINO TRANSFERASE 26 U/L (15-37); BILIRUBIN,TOTAL 0.5 MG/DL (0.2-1.0); CREATINE KINASE 274 U/L (26-308)
[2018-07-27] MEDS ORDERED: Ketorolac 30mg Inj IV ONE (10:30)
--- NOTE | 2018-07-27 11:26 | Emergency Room Report ---
History of Present Illness General Chief Complaint: General Complaint Present Illness HPI 63F from home c/o bedsore and general hip/joint pain (that is chronic.) The patient has never had MD/RN see the bedsore which has been ?one month or so. Pt. is nonambulatory, bed/wheelchair only. She is able to eat, urine, bm, but poor appetite in general. No trauma although in March she did fall and was admitted here at that time. Paramedics state home is squalor/filthy. Allergies: Coded Allergies: No Known Allergies (Verified , 04/10/08) Nursing Documentation-H Hx Cardiac Problems: No - Fibromyalgia Hx Cancer: No Hx Gastrointestinal Problems: Yes Hx Neurological Problems: Yes - nerve damage, using wheelchair since 1999, gillianbare Hx Seizures: Yes Hx Epilepsy: Yes Hx Guillian-[place] Syndrome: Yes Hx Dizziness: Yes Hx Syncope: Yes Hx Weakness: Yes Review of Systems Constitutional: Reports: see HPI Eye: Reports: no symptoms ENT: Reports: no symptoms Respiratory: Reports: no symptoms Cardiovascular: Reports: no symptoms Gastrointestinal: Reports: no symptoms Musculoskeletal: Reports: see HPI, back pain, joint pain Skin: Reports: no symptoms Psychiatric: Reports: no symptoms Neurological: Reports: no symptoms Allergic: Reports: no symptoms All Other Systems: negative except mentioned in HPI Physical Exam Vital Signs Date Time Temp Pulse Resp B/P (MAP) Pulse Ox O2 Delivery O2 Flow Rate FiO2 07/27/18 09:23 98.1 88 18 100/60 97 Room Air Sp02 EP Interpretation: reviewed, normal General Appearance: no apparent distress, alert, GCS 15, non-toxic, other - near-cachectic, Chronically Ill Head: normocephalic, atraumatic Eyes: bilateral eye normal inspection, bilateral eye PERRL, bilateral eye EOMI ENT: normal ENT inspection, hearing grossly normal, normal pharynx, no angioedema, normal voice, moist mucus membranes Neck: normal inspection, full range of motion, supple, no meningismus, no bony tend Respiratory: normal inspection, lungs clear, normal breath sounds, no rhonchi, no respiratory distress, no retraction, no accessory muscle use, no wheezing Cardiovascular #1: normal inspection, regular rate, rhythm, no edema Gastrointestinal: normal bowel sounds, non tender, soft, non-distended Musculoskeletal: other - bilateral lower extremity paresis/atrophied. can move all four. nonfocal Neurologic: alert, oriented x3, responsive, other - nonfocal Psychiatric: normal inspection, memory normal Suicide Risk Assessment: Suicidal Ideation: No Had intent to initiate attempt: No Pt's plan for suicide attempt: No Has means to complete attempt: No Skin: other - 2-3 inch diameter deep (stage 3-4) sacral decub Medical Decision Making Diagnostic Impression: Primary Impression: Sacral decubitus ulcer, stage IV Additional Impressions: Debility, unspecified Malnutrition ER Course This patient needs wound care, possibly even surgical attention. This wound will be difficult to heal due to almost no subq/fat/muscle in general and limited options for relieving pressure. Currently patient is lying on left side as right hip also hurts. In the past +opiates, cocaine and this is chronic condition/pain therefore Toradol ordered. Pt. pain is still too much and I d/w her and she is tearful about drug dependency but in addition to chronic pain and drug use this wound is severe and narcotics not unreasonable. No sign of infection. Lactic acid: pt is not septic today. Dr. Andrews will admit; knows patient from prior admission. Rhythm Strip Diag. Results Rhythm Strip Time: 11:26 EP Interpretation: yes Rate: 78 Rhythm: NSR Last Vital Signs Date Time Temp Pulse Resp B/P (MAP) Pulse Ox O2 Delivery O2 Flow Rate FiO2 07/27/18 09:57 74 27 Room Air 07/27/18 09:52 98.1 112/94 100 Status: unchanged Disposition: ADMITTED INPATIENT Condition: Serious Referrals: NON PHYSICIAN (PCP) Nadir Nettles M.D. Jul 27, 2018 11:26
--- NOTE | 2018-07-27 12:02 | Diagnostic Imaging Report ---
Indication: Chest pain Technique: One view of the chest Comparison: 02/10/2018 Findings: The lungs are somewhat hyperinflated. The lungs and pleural spaces are clear. The heart size is normal. Impression: Possible COPD changes. No acute process
[2018-07-27] MEDS ORDERED: Morphine Sulfate 4mg/ml Inj (IV/IM USE ONLY) IVP ONE (12:15)
[2018-07-27] MEDS ORDERED: Milk of Magnesia 30ml Ud ORAL PRN (14:15)
[2018-07-27] MEDS ORDERED: Miralax 17gm pkt ORAL PRN (14:19)
[2018-07-27] MEDS: Morphine Sulfate 2mg/ml Inj IVP PRN ×2 (14:59→22:12)
--- NOTE | 2018-07-27 15:23 | Diagnostic Imaging Report ---
Indication: Chronic hip pain, decubitus ulcer Technique: 2 views of the right hip Comparison: none Findings: No acute fractures. No dislocations. No definite osteolytic process or osseous erosions or unusual periosteal reaction. There is a Villanueva catheter in place Impression: No acute process No plain radiographic evidence of osteomyelitis. Note, however, limited sensitivity of plain radiographs for such. Consider further evaluation with bone scan or MRI if there is high clinical suspicion
--- NOTE | 2018-07-27 15:25 | Diagnostic Imaging Report ---
Indication: Chronic left hip pain Technique: 2 views of the left hip Comparison: none Findings: No acute fractures. No dislocations. Joint spaces are preserved. Normal mineralization. There are degenerative proliferative changes of the acetabulum. There is a Villanueva catheter in place Impression: Degenerative changes. No acute process
[2018-07-27 16:42] LABS: APPEARANCE,URINE VERY CLOUDY; BILIRUBIN, URINE NEGATIVE (NEGATIVE); COLOR,URINE RED; GLUCOSE, URINE (UA) NEGATIVE (NEGATIVE); KETONES,URINE 1+ (NEGATIVE); LEUKOCYTE ESTERASE ,URINE 3+ (NEGATIVE); NITRITE,URINE NEGATIVE (NEGATIVE); PH,URINE 7 (4.5-8.0); PROTEIN,URINE 4+ (NEGATIVE); UROBILINOGEN,URINE 1 MG/DL (0.0-1.0)
--- NOTE | 2018-07-27 17:40 | Consultation ---
History of Present Illness General Chief Complaint: hips pain Referring physician: hanny Wynne Reason for Consultation: sacral pressure wounds with possible underlying os Present Illness HPI This is a 63 yo female with paraplegia who is a bedridden , was brought in from home to [facility] ER, for hip/sacral pressure wounds and general hip/joint pain for couple of months , her pressure wounds were draining with foul smell. Patient is nonambulatory, bed/wheelchair only. She is incontinent most of the time, and never had any medical attention for her pressure wounds . patient is able to reach her sacral bone with her finger , she has been doing daily dressings herself , No fever or chills, no cough or SOB , patient was admitted for antibiotics treatment and further management of her pressure wounds , infectious disease consult was requested for antibiotic treatment . Allergies: Coded Allergies: No Known Allergies (Verified , 04/10/08) Medication History Scheduled Baclofen* (Baclofen*), 10 MG ORAL THREE TIMES A DAY, (Reported) Calcium Carbonate/Vitamin D3 ([place] 500+D Tablet), 1 EACH PO TID, (Reported) Cholecalciferol (Vitamin D3)* (Vitamin D*), 2,000 UNITS ORAL DAILY, (Reported) Clonazepam* (Klonopin*), 1 MG ORAL BID, (Reported) Cyanocobalamin (Vitamin B-12)* (Vitamin B-12*), 1,000 MCG ORAL DAILY, (Reported) Docusate Sodium (Doc-Q-Lace), 100 MG ORAL BID, (Reported) Gabapentin* (Gabapentin*), 900 MG ORAL THREE TIMES A DAY, (Reported) Hydrocortisone (Anucort-Hc), 1 SUPP RECTAL TWICE A DAY Levetiracetam (Keppra), 500 MG ORAL BID, (Reported) Magnesium Hydroxide* (Milk Of Magnesia*), ML ORAL DAILY, (Reported) Midodrine* (Proamatine*), 10 MG ORAL DAILY, (Reported) Multivitamin (Multi Vitamin Daily), 1 TAB ORAL DAILY, (Reported) Nabumetone* (Relafen*), 750 MG PO BID, (Reported) Omeprazole (Omeprazole), 10 MG ORAL DAILY, (Reported) Pantoprazole* (Protonix*), 40 MG ORAL DAILY Prochlorperazine (Prochlorperazine), 10 MG RECTAL EVERY 12 HOURS, (Reported) Ranitidine Hcl* (Zantac*), 150 MG ORAL QHS Tolterodine Tartrate* (Detrol*), 2 MG ORAL TWICE A DAY, (Reported) Trazodone* (Trazodone*), 100 MG ORAL BEDTIME, (Reported) Venlafaxine Hcl (Venlafaxine Hcl), Unknown Dose ORAL BID, (Reported) Vit D3/Folic Acid/B2/B6/B12 (Folgard Tablet), 1 EACH PO TID, (Reported) Scheduled PRN Hydrocodone Bit/Acetaminophen 5-325* (Daniel 5-325 Tablet*), 1 TAB ORAL Q4H PRN for For Pain, (Reported) Polyethylene Glycol 3350* (Miralax*), 17 GM ORAL DAILYPRN PRN for Constipation Tramadol Hcl* (Ultram*), 50 MG ORAL BID PRN for For Pain, (Reported) Miscellaneous Medications Loratadine (Loratadine), 10 MG PO, (Reported) Sennosides (Senna), 8.6 MG PO, (Reported) Patient History History Provided By: Patient Healthcare decision maker Resuscitation status Advanced Directive on File Review of Systems Constitutional: Reports: no symptoms Eye: Reports: no symptoms ENT: Reports: no symptoms, nasal discharge Respiratory: Reports: no symptoms Cardiovascular: Reports: no symptoms Gastrointestinal: Reports: no symptoms Genitourinary: Reports: no symptoms Musculoskeletal: Reports: no symptoms Skin: Reports: no symptoms Psychiatric: Reports: no symptoms Neurological: Reports: no symptoms Endocrine: Reports: no symptoms Hematologic/Lymphatic: Reports: no symptoms Physical Exam General Appearance: WD/WN, no apparent distress, alert, lethargic Lines, tubes and drains: peripheral HEENT: normocephalic, atraumatic, anicteric, mucous membranes moist, PERRL, EOMI, pharynx normal, supple, no JVD Neck: non-tender, normal alignment, supple, normal inspection Respiratory/Chest: chest wall non-tender, lungs clear, normal breath sounds, no respiratory distress, no accessory muscle use Cardiovascular/Chest: normal peripheral pulses, normal rate, regular rhythm, no gallop/murmur, no JVD Abdomen: normal bowel sounds, non tender, soft, no organomegaly, no mass Extremities: other - muscle atrophy in both legs Skin Exam: normal pigmentation, other - lard sacral and left hip pressure wound , sacral wound with foul smell , and tunneling Neurologic: alert, oriented x 3, responsive Musculoskeletal: normal muscle bulk, no effusion Last 24 Hour Vital Signs Date Time Temp Pulse Resp B/P (MAP) Pulse Ox O2 Delivery O2 Flow Rate FiO2 07/27/18 15:29 98.1 07/27/18 12:55 98.1 74 24 112/94 100 07/27/18 11:18 98.1 07/27/18 09:57 74 27 Room Air 07/27/18 09:52 98.1 74 27 112/94 100 Room Air 07/27/18 09:23 98.1 88 18 100/60 97 Room Air Laboratory Tests Test 07/27/18 09:40 07/27/18 11:28 07/27/18 12:19 07/27/18 13:19 White Blood Count 6.4 K/UL (4.8-10.8) Red Blood Count 3.99 M/UL (4.20-5.40) L Hemoglobin 10.6 G/DL (12.0-16.0) L Hematocrit 32.4 % (37.0-47.0) L Mean Corpuscular Volume 81 FL (80-99) Mean Corpuscular Hemoglobin 26.5 PG (27.0-31.0) L Mean Corpuscular Hemoglobin Concent 32.7 G/DL (32.0-36.0) Red Cell Distribution Width 10.8 % (11.6-14.8) L Platelet Count 340 K/UL (150-450) Mean Platelet Volume 5.3 FL (6.5-10.1) L Neutrophils (%) (Auto) 65.1 % (45.0-75.0) Lymphocytes (%) (Auto) 24.0 % (20.0-45.0) Monocytes (%) (Auto) 9.2 % (1.0-10.0) Eosinophils (%) (Auto) 0.8 % (0.0-3.0) Basophils (%) (Auto) 0.8 % (0.0-2.0) Sodium Level 133 MMOL/L (136-145) L Potassium Level 3.6 MMOL/L (3.5-5.1) Chloride Level 98 MMOL/L (98-107) Carbon Dioxide Level 26 MMOL/L (21-32) Anion Gap 10 mmol/L (5-15) Blood Urea Nitrogen 11 mg/dL (7-18) Creatinine 0.8 MG/DL (0.55-1.30) Estimat Glomerular Filtration Rate > 60 mL/min (>60) Glucose Level 93 MG/DL (74-106) Lactic Acid Level 2.40 mmol/L (0.4-2.0) H 2.00 mmol/L (0.66-2.22) Calcium Level 9.5 MG/DL (8.5-10.1) Total Bilirubin 0.5 MG/DL (0.2-1.0) Aspartate Amino Transf (AST/SGOT) 26 U/L (15-37) Alanine Aminotransferase (ALT/SGPT) 16 U/L (12-78) Alkaline Phosphatase 97 U/L (46-116) Total Creatine Kinase 274 U/L (26-308) Troponin I 0.000 ng/mL (0.000-0.056) Total Protein 8.6 G/DL (6.4-8.2) H Albumin 2.3 G/DL (3.4-5.0) L Globulin 6.3 g/dL Albumin/Globulin Ratio 0.4 (1.0-2.7) L Urine Opiates Screen Negative (NEGATIVE) Urine Barbiturates Screen Negative (NEGATIVE) Phencyclidine (PCP) Screen Negative (NEGATIVE) Urine Amphetamines Screen Negative (NEGATIVE) Urine Benzodiazepines Screen Negative (NEGATIVE) Urine Cocaine Screen Positive (NEGATIVE) H Urine Marijuana (THC) Screen Positive (NEGATIVE) H Urine Color Red Urine Appearance Very cloudy Urine pH 7 (4.5-8.0) Urine Specific [place] 1.010 (1.005-1.035) Urine Protein 4+ (NEGATIVE) H Urine Glucose (UA) Negative (NEGATIVE) Urine Ketones 1+ (NEGATIVE) H Urine Blood 5+ (NEGATIVE) H Urine Nitrite Negative (NEGATIVE) Urine Bilirubin Negative (NEGATIVE) Urine Urobilinogen 1 MG/DL (0.0-1.0) H Urine Leukocyte Esterase 3+ (NEGATIVE) H Urine RBC Tntc /HPF (0 - 2) H Urine WBC 15-20 /HPF (0 - 2) H Urine Squamous Epithelial Cells Occasional /LPF Urine Bacteria Moderate /HPF (NONE) H Height (Feet): 5 Height (Inches): 4.00 Weight (Pounds): 120 Medications Current Medications Medications (Trade) Dose Ordered Sig/Elisa Route PRN Reason Start Time Stop Time Status Last Admin Dose Admin Baclofen (Lioresal) 10 mg THREE TIMES A DAY ORAL 07/27/18 18:00 08/26/18 17:59 Calcium Carbonate (OsCal D) 1 tab THREE TIMES A DAY ORAL 07/27/18 18:00 08/26/18 17:59 Clonazepam (KlonoPIN) 1 mg BID ORAL 07/27/18 18:00 08/03/18 17:59 Cyanocobalamin (Vitamin B-12) 1,000 mcg DAILY ORAL 07/28/18 09:00 08/27/18 08:59 Docusate Sodium (Colace) 100 mg TWICE A DAY ORAL 07/27/18 18:00 08/26/18 17:59 Gabapentin (Neurontin) 900 mg THREE TIMES A DAY ORAL 07/27/18 18:00 08/26/18 17:59 Ketorolac Tromethamine (Toradol 30mg) 30 mg Q12H PRN IV MODERATE PAIN(4-6) 07/27/18 23:00 08/01/18 22:59 Levetiracetam (Keppra) 500 mg Q12HR ORAL 07/27/18 21:00 08/26/18 20:59 Loratadine (Claritin 10mg) 10 mg DAILY ORAL 07/28/18 09:00 08/27/18 08:59 Magnesium Hydroxide (Mom) 30 ml DAILYPRN PRN ORAL Constipation 07/27/18 14:15 08/26/18 14:14 Midodrine (Pro-Amatine) 10 mg DAILY ORAL 07/28/18 09:00 08/27/18 08:59 Morphine Sulfate (Morphine Sulfate) 2 mg Q6H PRN IVP SEVERE PAIN (7-10) 07/27/18 14:53 08/03/18 14:52 07/27/18 14:59 Multivitamins (Multivitamins) 1 tab DAILY ORAL 07/28/18 09:00 08/27/18 08:59 Pantoprazole (Protonix) 40 mg DAILY ORAL 07/28/18 09:00 08/27/18 08:59 Polyethylene Glycol (Miralax) 17 gm DAILY PRN ORAL Constipation 07/27/18 14:19 08/26/18 14:18 Tolterodine Tartrate (Detrol) 2 mg TWICE A DAY ORAL 07/27/18 18:00 08/26/18 17:59 Trazodone HCl (Desyrel) 100 mg BEDTIME ORAL 07/27/18 21:00 08/26/18 20:59 Assessment/Plan Problem List: (1) UTI (urinary tract infection) Assessment & Plan: will send urine culture and start zosyn empirically ICD Codes: N39.0 - Urinary tract infection, site not specified SNOMED: 97270434 (2) Sacral decubitus ulcer, stage IV Assessment & Plan: will start vancomycin and zosyn empirically, send wound culture and order MRI of the pelvis to rule out osteomyelitis. recommend local wound care and off loading. surgical eval ICD Codes: L89.154 - Pressure ulcer of sacral region, stage 4 SNOMED: 001054695, 005389714 (3) Malnutrition Assessment & Plan: recommend dietary support to improve her wounds healing ICD Codes: E46 - Unspecified protein-calorie malnutrition SNOMED: 98264365 (4) Drug abuse Assessment & Plan: recommend counseling and rehab ICD Codes: F19.10 - Other psychoactive substance abuse, uncomplicated SNOMED: 44194998 Portillo Vazquez M.D. Jul 27, 2018 17:40
[2018-07-27] MEDS: Calcium Carbonate 500mg w/Vit D 200iu tab ORAL SCH (17:58)
[2018-07-27] MEDS: Docusate 100mg cap ORAL SCH (17:58)
[2018-07-27] MEDS: Tolterodine 2mg tab ORAL SCH (17:58)
[2018-07-27] MEDS ORDERED: Morphine Sulfate 2mg/ml Inj IVP PRN (18:00)
[2018-07-27] MEDS: Vancomycin 500mg/D5W 110ml IVPB SCH ×2 (20:02)
[2018-07-27 20:23] VITALS: BP 93/55
[2018-07-27] MEDS ORDERED: TraZODone 100mg tab ORAL SCH (21:00)
[2018-07-27] MEDS: Piperacillin/Tazobactam 3.375 GM in D5W 110 ML IVPB SCH (21:21)
[2018-07-27] MEDS ORDERED: Ketorolac 30mg Inj IV PRN (23:00)
[2018-07-28 00:37] VITALS: BP 113/66
[2018-07-28 04:00] VITALS: BP 98/63
[2018-07-28] MEDS: Piperacillin/Tazobactam 3.375 GM in D5W 110 ML IVPB SCH (05:28)
[2018-07-28 08:00] VITALS: BP 106/68
[2018-07-28] MEDS: Morphine Sulfate 2mg/ml Inj IVP PRN (08:00)
[2018-07-28 08:12] LABS: BASOPHILS % (AUTO) 0.7 % (0.0-2.0); EOSINOPHILS % (AUTO) 0.8 % (0.0-3.0); HEMATOCRIT 31.9 % (37.0-47.0); HEMOGLOBIN 10.4 G/DL (12.0-16.0); MEAN CORPUSCULAR VOLUME 83 FL (80-99); MONOCYTES % (AUTO) 7.4 % (1.0-10.0); NEUTROPHILS % (AUTO) 75.1 % (45.0-75.0); PLATELET COUNT 329 K/UL (150-450); RED BLOOD COUNT 3.85 M/UL (4.20-5.40); RED CELL DISTRIBUTION WIDTH 11.2 % (11.6-14.8); WHITE BLOOD COUNT 8.2 K/UL (4.8-10.8)
[2018-07-28 08:56] LABS: ALANINE AMINOTRANSFERASE 14 U/L (12-78); ALBUMIN/GLOBULIN RATIO 0.4 (1.0-2.7); ALKALINE PHOSPHATASE 90 U/L (46-116); ANION GAP 7 mmol/L (5-15); ASPARTATE AMINO TRANSFERASE 19 U/L (15-37); BILIRUBIN,TOTAL 0.2 MG/DL (0.2-1.0); BLOOD UREA NITROGEN 11 mg/dL (7-18); CALCIUM 9.2 MG/DL (8.5-10.1); CARBON DIOXIDE 27 MMOL/L (21-32); CHLORIDE 101 MMOL/L (98-107); CREATININE 0.9 MG/DL (0.55-1.30); POTASSIUM 3.7 MMOL/L (3.5-5.1); SODIUM 135 MMOL/L (136-145)
[2018-07-28] MEDS ORDERED: Midodrine 10mg tab ORAL SCH (09:00)
[2018-07-28] MEDS ORDERED: Vitamin B-12 500mcg tab ORAL SCH (09:00)
[2018-07-28] MEDS: Calcium Carbonate 500mg w/Vit D 200iu tab ORAL SCH ×4 (09:45→18:00)
[2018-07-28] MEDS: Tolterodine 2mg tab ORAL SCH ×3 (09:45→18:00)
[2018-07-28] MEDS: Docusate 100mg cap ORAL SCH ×3 (09:48→18:00)
[2018-07-28] MEDS: Vancomycin 500mg/D5W 110ml IVPB SCH ×2 (09:49)
[2018-07-28] MEDS ORDERED: LORazepam Inj 2mg/ml 1ml IV SCH (10:30)
[2018-07-28] MEDS ORDERED: LORazepam Inj 2mg/ml 1ml ONE (10:33)
[2018-07-28] MEDS ORDERED: Isovue-300 100ml vial INJ PRN (10:45)
[2018-07-28] MEDS ORDERED: levETIRAcetam 500mg/NS100ml 100 ML IVPB SCH (11:00)
[2018-07-28] MEDS ORDERED: LORazepam Inj 2mg/ml 1ml IV PRN ×2 (11:00→12:30)
--- NOTE | 2018-07-28 11:41 | Diagnostic Imaging Report ---
Indication: Seizure Technique: Continuous helical CT scanning of the head was performed utilizing automated exposure control without intravenous contrast material. Axial and coronal reconstructions were obtained. Comparison: 04/10/2008 CT dose: Total DLP 1471.09 mGycm; CTDI vol 70.38 mGy Findings: There is no acute intracranial hemorrhage or shift of the midline structures. Questional asymmetric soft tissue prominence in the region of the left cavernous sinus (series 3 image #8). This may be artifactual however correlation with MRI without and with contrast recommended. The ventricles, cisterns and sulci are prominent consistent with atrophy. Size of the ventricles is increased compared to the prior exam. Periventricular hypoattenuation is seen, a nonspecific finding. Mastoid air cells are clear. Paranasal sinuses are clear. No depressed calvarial fracture. Impression: No evidence of acute intracranial hemorrhage or midline shift. Questionable asymmetric soft tissue prominence in the region of the left cavernous sinus (series 3 image #8), possibly artifactual however further evaluation with MRI of the brain without and with contrast recommended. Atrophy. Interval increase in degree of ventricular dilatation compared to prior exam of 2007, which may be related to ex vacuo dilatation from progressive atrophy. Possibility of a communicating hydrocephalus not excludable. The CT scanner at [facility] is accredited by the [employer] and the scans are performed using protocols designed to limit radiation exposure to as low as reasonably achievable to attain images of sufficient resolution adequate for diagnostic evaluation.
[2018-07-28 12:00] VITALS: BP 144/73
[2018-07-28] MEDS ORDERED: Ketorolac 30mg Inj IV PRN (12:30)
--- NOTE | 2018-07-28 12:38 | History & Physical ---
History and Physical History & Physicial SOURCE OF INFORMATION: The patient and EMR. HISTORY OF PRESENT ILLNESS: The patient is a pleasant 62-year-old female with history of neuroMascular d/s andd bedbound and wheelchair bound, who presented with worsening pain on her back and on the right hip. She denies any loss of consciousness. and remained AOX3 in the ER. She is actively using cocaine. Reported acute onset of Sz this AM. 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 PAST SURGICAL HISTORY: Denies. ROs: limited as above ALLERGIES: NKDA. MEDICATIONS: Current home medication including, but not limited to Zosyn and Vanco. SOCIAL HISTORY: ( per prior documentation ) The patient denies history of alcohol abuse or tobacco use. Positive for drug abuse, cocaine. FAMILY HISTORY: Reviewed. Noncontributory. PHYSICAL EXAMINATION: VITAL SIGNS: Blood pressure 100/100, temperature 98.2, pulse oximetry 98% on room air, respiratory rate 18, and pulse rate 59.HEAD AND NECK: Atraumatic and normocephalic. CHEST: Clear to auscultation. LUNGS: No wheezing. No crackles. ABDOMEN: Soft. No organomegaly. Bowel sounds are normal. MUSCULOSKELETAL: Atrophied musculatures. positive for Decubitus wound , NEUROLOGIC: The patient is awake, not verbal and lethargic LABORATORY AND DIAGNOSTIC DATA: Labs, dated Jul 28 reviewed Meds: including but not limited to Zosyn and Vanco ASSESSMENT AND PLAN: 1. Sever Sepsis 2. Acute encephalopathy, ddx: post ictal, possibility of Encephalitis cant be excluded. 3. Decubitus wound 4. UTI- HCA 2. Neuromuscular disorder - wheelchair bound - baseline. 3. Neurogenic bladder. 4. Psychiatric disorder. 5. UTI. 6. Seizure disorder (questionable). PLAN OF CARE: Agree with current empirical abx Notes from ID reviewed Medical necessity for assessment by Neurology Pretty Guzmán ( loading dose) provided, No active sz at this time Will transfer for Neurological consult Lucia Andrews MD Jul 28, 2018 12:38
[2018-07-28] MEDS: levETIRAcetam 500mg/NS100ml 100 ML IVPB SCH ×2 (12:45→21:51)
--- NOTE | 2018-07-28 13:26 | Infectious Diseases Prog Note ---
Assessment/Plan Problems: (1) UTI (urinary tract infection) Assessment & Plan: await urine culture and switch zosyn to aztreonam and metronidazole empirically. pending culture (2) Sacral decubitus ulcer, stage IV Assessment & Plan: continue vancomycin and switch zosyn to aztreonam with metronidazole empirically, pending wound culture and MRI of the pelvis to rule out osteomyelitis. recommend local wound care and off loading. surgical eval (3) Malnutrition Assessment & Plan: recommend dietary support to improve her wounds healing (4) Drug abuse Assessment & Plan: recommend counseling and rehab (5) Seizure disorder Assessment & Plan: could be due to cocaine withdrawal , continue neuro check and seizure meds, neurology eval Subjective ROS Limited/Unobtainable: Yes Allergies: Coded Allergies: No Known Allergies (Verified , 04/10/08) Subjective she had seizure and was transferred to SDU, looks confused and nonverbal , had low grade fever today Objective Vital Signs Last 24 Hour Vital Signs Date Time Temp Pulse Resp B/P (MAP) Pulse Ox O2 Delivery O2 Flow Rate FiO2 07/28/18 12:00 100.8 120 22 144/73 (96) 99 07/28/18 08:30 97.4 07/28/18 08:00 99.7 72 20 106/68 (81) 100 07/28/18 04:00 97.4 94 18 98/63 (75) 99 07/28/18 00:37 99.8 92 17 113/66 (82) 100 07/27/18 20:23 99.6 94 18 93/55 (68) 97 07/27/18 19:16 Room Air Height (Feet): 5 Height (Inches): 4.00 Weight (Pounds): 120 General Appearance: WD/WN, no acute distress, other - confused HEENT: normocephalic, atraumatic, anicteric, mucous membranes moist, PERRL Respiratory/Chest: chest wall non-tender, lungs clear, normal breath sounds, no respiratory distress, no accessory muscle use Cardiovascular: normal peripheral pulses, normal rate, regular rhythm, no gallop/murmur, no JVD Abdomen: normal bowel sounds, soft, non tender, no organomegaly, non distended , no mass, no scars Extremities: no cyanosis, no clubbing Skin: no rash, no lesions, no ulcers Neurologic/Psychiatric: alert, unresponsiveness Lymphatic: no neck adenopathy, no groin adenopathy Musculoskeletal: normal muscle bulk, no effusion Microbiology Date/Time Source Procedure Growth Status 07/27/18 13:19 Urine,Clean Catch Urine Culture - Preliminary Gram Negative Mukesh Resulted Laboratory Tests Test 07/27/18 13:19 07/28/18 06:30 Urine Color Red Urine Appearance Very cloudy Urine pH 7 (4.5-8.0) Urine Specific [place] 1.010 (1.005-1.035) Urine Protein 4+ (NEGATIVE) H Urine Glucose (UA) Negative (NEGATIVE) Urine Ketones 1+ (NEGATIVE) H Urine Blood 5+ (NEGATIVE) H Urine Nitrite Negative (NEGATIVE) Urine Bilirubin Negative (NEGATIVE) Urine Urobilinogen 1 MG/DL (0.0-1.0) H Urine Leukocyte Esterase 3+ (NEGATIVE) H Urine RBC Tntc /HPF (0 - 2) H Urine WBC 15-20 /HPF (0 - 2) H Urine Squamous Epithelial Cells Occasional /LPF Urine Bacteria Moderate /HPF (NONE) H White Blood Count 8.2 K/UL (4.8-10.8) Red Blood Count 3.85 M/UL (4.20-5.40) L Hemoglobin 10.4 G/DL (12.0-16.0) L Hematocrit 31.9 % (37.0-47.0) L Mean Corpuscular Volume 83 FL (80-99) Mean Corpuscular Hemoglobin 26.9 PG (27.0-31.0) L Mean Corpuscular Hemoglobin Concent 32.5 G/DL (32.0-36.0) Red Cell Distribution Width 11.2 % (11.6-14.8) L Platelet Count 329 K/UL (150-450) Mean Platelet Volume 5.2 FL (6.5-10.1) L Neutrophils (%) (Auto) 75.1 % (45.0-75.0) H Lymphocytes (%) (Auto) 16.0 % (20.0-45.0) L Monocytes (%) (Auto) 7.4 % (1.0-10.0) Eosinophils (%) (Auto) 0.8 % (0.0-3.0) Basophils (%) (Auto) 0.7 % (0.0-2.0) Sodium Level 135 MMOL/L (136-145) L Potassium Level 3.7 MMOL/L (3.5-5.1) Chloride Level 101 MMOL/L (98-107) Carbon Dioxide Level 27 MMOL/L (21-32) Anion Gap 7 mmol/L (5-15) Blood Urea Nitrogen 11 mg/dL (7-18) Creatinine 0.9 MG/DL (0.55-1.30) Estimat Glomerular Filtration Rate > 60 mL/min (>60) Glucose Level 114 MG/DL (74-106) H Hemoglobin A1c 5.6 % (4.3-6.0) Calcium Level 9.2 MG/DL (8.5-10.1) Total Bilirubin 0.2 MG/DL (0.2-1.0) Aspartate Amino Transf (AST/SGOT) 19 U/L (15-37) Alanine Aminotransferase (ALT/SGPT) 14 U/L (12-78) Alkaline Phosphatase 90 U/L (46-116) Total Protein 7.2 G/DL (6.4-8.2) Albumin 2.0 G/DL (3.4-5.0) L Globulin 5.2 g/dL Albumin/Globulin Ratio 0.4 (1.0-2.7) L Thyroid Stimulating Hormone (TSH) 0.723 uiU/mL (0.358-3.740) Levetiracetam (Keppra) Level Pending Current Medications Medications (Trade) Dose Ordered Sig/Elisa Route PRN Reason Start Time Stop Time Status Last Admin Dose Admin Baclofen (Lioresal) 10 mg THREE TIMES A DAY ORAL 07/28/18 13:00 08/26/18 17:59 07/28/18 13:13 Calcium Carbonate (OsCal D) 1 tab THREE TIMES A DAY ORAL 07/28/18 13:00 08/26/18 17:59 07/28/18 13:13 Clonazepam (KlonoPIN) 1 mg BID ORAL 07/28/18 18:00 08/03/18 17:59 Clonazepam (KlonoPIN) 1 mg ONCE ORAL 07/28/18 12:30 07/28/18 13:30 07/28/18 12:44 Cyanocobalamin (Vitamin B-12) 1,000 mcg DAILY ORAL 07/29/18 09:00 08/27/18 08:59 Docusate Sodium (Colace) 100 mg TWICE A DAY ORAL 07/28/18 18:00 08/26/18 17:59 Gabapentin (Neurontin) 900 mg THREE TIMES A DAY ORAL 07/28/18 13:00 08/26/18 17:59 07/28/18 13:14 Iopamidol (Isovue-300 100ml) 100 ml NOW PRN INJ Radiology Procedure 07/29/18 10:45 07/30/18 10:32 Ketorolac Tromethamine (Toradol 30mg) 30 mg Q12H PRN IV MODERATE PAIN(4-6) 07/28/18 12:30 08/02/18 12:29 Levetiracetam 100 ml @ 440.098 mls/hr Q12HR IVPB 07/28/18 12:30 08/27/18 12:29 07/28/18 12:45 Loratadine (Claritin 10mg) 10 mg DAILY ORAL 07/29/18 09:00 08/27/18 08:59 Lorazepam (Ativan 2mg/ml 1ml) 2 mg Q4H PRN IV For Seizures 07/28/18 12:30 08/04/18 12:29 Magnesium Hydroxide (Mom) 30 ml DAILYPRN PRN ORAL Constipation 07/28/18 14:15 08/26/18 14:14 Midodrine (Pro-Amatine) 10 mg DAILY ORAL 07/29/18 09:00 08/27/18 08:59 Morphine Sulfate (Morphine Sulfate) 2 mg Q6H PRN IVP SEVERE PAIN (7-10) 07/28/18 14:00 08/03/18 13:59 Multivitamins (Multivitamins) 1 tab DAILY ORAL 07/29/18 09:00 08/27/18 08:59 Pantoprazole (Protonix) 40 mg DAILY ORAL 07/29/18 09:00 08/27/18 08:59 Polyethylene Glycol (Miralax) 17 gm DAILYPRN PRN ORAL Constipation 07/29/18 09:00 08/28/18 08:59 Tolterodine Tartrate (Detrol) 2 mg TWICE A DAY ORAL 07/28/18 18:00 08/26/18 17:59 Trazodone HCl (Desyrel) 100 mg BEDTIME ORAL 07/28/18 21:00 08/26/18 20:59 Vancomycin HCl (Vanco rx to dose) 1 ea DAILY PRN MISC Per rx protocol 07/28/18 12:30 08/27/18 12:29 Vancomycin HCl 500 mg/Dextrose 110 ml @ 110 mls/hr Q12H IVPB 07/28/18 20:00 08/01/18 19:59 Portillo Vazquez M.D. Jul 28, 2018 13:26
--- NOTE | 2018-07-28 13:53 | Diagnostic Imaging Report ---
Indication: Decubitus ulcer. Assess for osteomyelitis. Technique: Noncontrast MRI of the pelvis was obtained utilizing a multisequence, multiplanar acquisition. The following sequences were obtained: 3 plane localizer; coronal T1 and inversion recovery fast spin-echo; axial T1 and STIR,: Sagittal T1 and STIR Comparison: Correlation made to concurrent radiographs of the bilateral hips Findings: There is a sacral decubitus ulcer. There is surrounding soft tissue edema more pronounced in the left gluteal soft tissues. There is no well-defined/drainable fluid collection to suggest abscess. In are the underlying lower sacrum/coccyx there is abnormal STIR bone marrow signal hyperintensity/edema concerning for osteomyelitis. This is most evident on series 9 image 9. The pelvic bones demonstrate heterogeneous bone marrow signal. No definite fracture identified. There is also atrophy. A Villanueva catheter is noted in place. Bladder wall appears slightly thickened. IMPRESSION: * Sacral decubitus ulcer with surrounding soft tissue infiltration/edema, most pronounced in the left gluteal soft tissues, concerning for cellulitis. Correlate with physical exam. No well-defined/drainable fluid collection to suggest abscess. * Abnormal bone marrow edema in the underlying lower sacrum/coccyx concerning for osteomyelitis. * Muscular atrophy, nonspecific. Findings may be related to long-standing immobility (example paraplegia/quadriplegia) or neuromuscular disorder. Currently clinically. * Heterogeneous marrow signal of the pelvic bones. Benign or malignant etiologies of marrow proliferation can be considered. Further evaluation recommended.
[2018-07-28] MEDS ORDERED: Morphine Sulfate 2mg/ml Inj IVP PRN (14:00)
[2018-07-28] MEDS ORDERED: Piperacillin/Tazobactam 3.375 GM in D5W 110 ML IVPB SCH (14:00)
[2018-07-28] MEDS ORDERED: Milk of Magnesia 30ml Ud ORAL PRN (14:15)
[2018-07-28] MEDS: Aztreonam Inj 2 GM in D5W 110 ML IVPB SCH ×2 (15:15→22:47)
[2018-07-28 16:00] VITALS: BP 144/64
--- NOTE | 2018-07-28 16:40 | Consultation ---
History of Present Illness General Chief Complaint: General Complaint Referring physician: hanny Wynne Reason for Consultation: sacral pressure wounds with possible underlying os Present Illness HPI 63 year old female with multiple medical comorbidities currently admitted for medical care and management. On admission noted to have sacral decubitus ulcer with concerns for possible underlying osteo. Surgery called to evaluate. Allergies: Coded Allergies: No Known Allergies (Verified , 04/10/08) Medication History Scheduled Baclofen* (Baclofen*), 10 MG ORAL THREE TIMES A DAY, (Reported) Calcium Carbonate/Vitamin D3 ([place] 500+D Tablet), 1 EACH PO TID, (Reported) Cholecalciferol (Vitamin D3)* (Vitamin D*), 2,000 UNITS ORAL DAILY, (Reported) Clonazepam* (Klonopin*), 1 MG ORAL BID, (Reported) Cyanocobalamin (Vitamin B-12)* (Vitamin B-12*), 1,000 MCG ORAL DAILY, (Reported) Docusate Sodium (Doc-Q-Lace), 100 MG ORAL BID, (Reported) Gabapentin* (Gabapentin*), 900 MG ORAL THREE TIMES A DAY, (Reported) Hydrocortisone (Anucort-Hc), 1 SUPP RECTAL TWICE A DAY Levetiracetam (Keppra), 500 MG ORAL BID, (Reported) Magnesium Hydroxide* (Milk Of Magnesia*), ML ORAL DAILY, (Reported) Midodrine* (Proamatine*), 10 MG ORAL DAILY, (Reported) Multivitamin (Multi Vitamin Daily), 1 TAB ORAL DAILY, (Reported) Nabumetone* (Relafen*), 750 MG PO BID, (Reported) Omeprazole (Omeprazole), 10 MG ORAL DAILY, (Reported) Pantoprazole* (Protonix*), 40 MG ORAL DAILY Prochlorperazine (Prochlorperazine), 10 MG RECTAL EVERY 12 HOURS, (Reported) Ranitidine Hcl* (Zantac*), 150 MG ORAL QHS Tolterodine Tartrate* (Detrol*), 2 MG ORAL TWICE A DAY, (Reported) Trazodone* (Trazodone*), 100 MG ORAL BEDTIME, (Reported) Venlafaxine Hcl (Venlafaxine Hcl), Unknown Dose ORAL BID, (Reported) Vit D3/Folic Acid/B2/B6/B12 (Folgard Tablet), 1 EACH PO TID, (Reported) Scheduled PRN Hydrocodone Bit/Acetaminophen 5-325* ([place] 5-325 Tablet*), 1 TAB ORAL Q4H PRN for For Pain, (Reported) Polyethylene Glycol 3350* (Miralax*), 17 GM ORAL DAILYPRN PRN for Constipation Tramadol Hcl* (Ultram*), 50 MG ORAL BID PRN for For Pain, (Reported) Miscellaneous Medications Loratadine (Loratadine), 10 MG PO, (Reported) Sennosides (Senna), 8.6 MG PO, (Reported) Patient History History Provided By: Medical Record, PMD Healthcare decision maker Resuscitation status Full Code Advanced Directive on File Past Medical/Surgical History Past Medical/Surgical History: (1) Fibromyalgia (2) Respiratory distress (3) Rectal bleeding (4) Anemia (5) Hemorrhoids (6) Chronic constipation (7) Colon polyps (8) Chronic laxative use (9) Gastritis (10) Abdominal pain (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, acquired (12) Malnutrition (13) Debility, unspecified (14) Sacral decubitus ulcer, stage IV (15) Drug abuse (16) UTI (urinary tract infection) (17) Seizure disorder Review of Systems All Other Systems: negative except mentioned in HPI Physical Exam General Appearance: no apparent distress Lines, tubes and drains: other HEENT: mucous membranes moist Neck: normal inspection Respiratory/Chest: normal breath sounds, no respiratory distress Cardiovascular/Chest: regular rhythm Abdomen: soft, no organomegaly, no mass Extremities: other Skin Exam: other Neurologic: alert Last 24 Hour Vital Signs Date Time Temp Pulse Resp B/P (MAP) Pulse Ox O2 Delivery O2 Flow Rate FiO2 07/28/18 16:00 102.3 100 19 144/64 (90) 100 07/28/18 12:00 100.8 120 22 144/73 (96) 99 07/28/18 08:30 97.4 07/28/18 08:00 99.7 72 20 106/68 (81) 100 07/28/18 04:00 97.4 94 18 98/63 (75) 99 07/28/18 00:37 99.8 92 17 113/66 (82) 100 07/27/18 20:23 99.6 94 18 93/55 (68) 97 07/27/18 19:16 Room Air Intake and Output 07/27/18 07/28/18 19:00 07:00 Intake Total 247.5 ml Balance 247.5 ml Intake IV Total 247.5 ml # Voids 3 Laboratory Tests Test 07/28/18 06:30 White Blood Count 8.2 K/UL (4.8-10.8) Red Blood Count 3.85 M/UL (4.20-5.40) L Hemoglobin 10.4 G/DL (12.0-16.0) L Hematocrit 31.9 % (37.0-47.0) L Mean Corpuscular Volume 83 FL (80-99) Mean Corpuscular Hemoglobin 26.9 PG (27.0-31.0) L Mean Corpuscular Hemoglobin Concent 32.5 G/DL (32.0-36.0) Red Cell Distribution Width 11.2 % (11.6-14.8) L Platelet Count 329 K/UL (150-450) Mean Platelet Volume 5.2 FL (6.5-10.1) L Neutrophils (%) (Auto) 75.1 % (45.0-75.0) H Lymphocytes (%) (Auto) 16.0 % (20.0-45.0) L Monocytes (%) (Auto) 7.4 % (1.0-10.0) Eosinophils (%) (Auto) 0.8 % (0.0-3.0) Basophils (%) (Auto) 0.7 % (0.0-2.0) Sodium Level 135 MMOL/L (136-145) L Potassium Level 3.7 MMOL/L (3.5-5.1) Chloride Level 101 MMOL/L (98-107) Carbon Dioxide Level 27 MMOL/L (21-32) Anion Gap 7 mmol/L (5-15) Blood Urea Nitrogen 11 mg/dL (7-18) Creatinine 0.9 MG/DL (0.55-1.30) Estimat Glomerular Filtration Rate > 60 mL/min (>60) Glucose Level 114 MG/DL (74-106) H Hemoglobin A1c 5.6 % (4.3-6.0) Calcium Level 9.2 MG/DL (8.5-10.1) Total Bilirubin 0.2 MG/DL (0.2-1.0) Aspartate Amino Transf (AST/SGOT) 19 U/L (15-37) Alanine Aminotransferase (ALT/SGPT) 14 U/L (12-78) Alkaline Phosphatase 90 U/L (46-116) Total Protein 7.2 G/DL (6.4-8.2) Albumin 2.0 G/DL (3.4-5.0) L Globulin 5.2 g/dL Albumin/Globulin Ratio 0.4 (1.0-2.7) L Thyroid Stimulating Hormone (TSH) 0.723 uiU/mL (0.358-3.740) Levetiracetam (Keppra) Level Pending Height (Feet): 5 Height (Inches): 4.00 Weight (Pounds): 120 Medications Current Medications Medications (Trade) Dose Ordered Sig/Elisa Route PRN Reason Start Time Stop Time Status Last Admin Dose Admin Aztreonam 2 gm/ Dextrose 110 ml @ 220 mls/hr Q8HR IVPB 07/28/18 15:00 08/04/18 14:59 07/28/18 15:15 Baclofen (Lioresal) 10 mg THREE TIMES A DAY ORAL 07/28/18 13:00 08/26/18 17:59 07/28/18 13:13 Calcium Carbonate (OsCal D) 1 tab THREE TIMES A DAY ORAL 07/28/18 13:00 08/26/18 17:59 07/28/18 13:13 Clonazepam (KlonoPIN) 1 mg BID ORAL 07/28/18 18:00 08/03/18 17:59 Cyanocobalamin (Vitamin B-12) 1,000 mcg DAILY ORAL 07/29/18 09:00 08/27/18 08:59 Docusate Sodium (Colace) 100 mg TWICE A DAY ORAL 07/28/18 18:00 08/26/18 17:59 Gabapentin (Neurontin) 900 mg THREE TIMES A DAY ORAL 07/28/18 13:00 08/26/18 17:59 07/28/18 13:14 Iopamidol (Isovue-300 100ml) 100 ml NOW PRN INJ Radiology Procedure 07/29/18 10:45 07/30/18 10:32 Ketorolac Tromethamine (Toradol 30mg) 30 mg Q12H PRN IV MODERATE PAIN(4-6) 07/28/18 12:30 08/02/18 12:29 Levetiracetam 100 ml @ 440.098 mls/hr Q12HR IVPB 07/28/18 12:30 08/27/18 12:29 07/28/18 12:45 Loratadine (Claritin 10mg) 10 mg DAILY ORAL 07/29/18 09:00 08/27/18 08:59 Lorazepam (Ativan 2mg/ml 1ml) 2 mg Q4H PRN IV For Seizures 07/28/18 12:30 08/04/18 12:29 Magnesium Hydroxide (Mom) 30 ml DAILYPRN PRN ORAL Constipation 07/28/18 14:15 08/26/18 14:14 Metronidazole 100 ml @ 100 mls/hr Q8HR IVPB 07/28/18 15:30 08/04/18 15:29 07/28/18 15:46 Midodrine (Pro-Amatine) 10 mg DAILY ORAL 07/29/18 09:00 08/27/18 08:59 Morphine Sulfate (Morphine Sulfate) 2 mg Q6H PRN IVP SEVERE PAIN (7-10) 07/28/18 14:00 08/03/18 13:59 Multivitamins (Multivitamins) 1 tab DAILY ORAL 07/29/18 09:00 08/27/18 08:59 Pantoprazole (Protonix) 40 mg DAILY ORAL 07/29/18 09:00 08/27/18 08:59 Polyethylene Glycol (Miralax) 17 gm DAILYPRN PRN ORAL Constipation 07/29/18 09:00 08/28/18 08:59 Tolterodine Tartrate (Detrol) 2 mg TWICE A DAY ORAL 07/28/18 18:00 08/26/18 17:59 Trazodone HCl (Desyrel) 100 mg BEDTIME ORAL 07/28/18 21:00 08/26/18 20:59 Vancomycin HCl (Vanco rx to dose) 1 ea DAILY PRN MISC Per rx protocol 07/28/18 12:30 08/27/18 12:29 Vancomycin HCl 500 mg/Dextrose 110 ml @ 110 mls/hr Q12H IVPB 07/28/18 20:00 08/01/18 19:59 Assessment/Plan Problem List: (1) Sacral decubitus ulcer, stage IV Assessment & Plan: Pt presents with multiple pressure injuries present on admission. Large sacral pressure injury noted to sacrum .R to L sacral area Black .Sacrum to R buttocks fluctuant with multiple scattered openings with mixed erythema / slough,total area measuring(L) 13cm x (W)14.1cm .At sacral coccygeal area is full thickness stage 4 wound that is malodorous with small amt brownish exudate (L)4cm x (W)3.5cm x (D)2cm,undermining 6-1 by 4.8cm @8o'clock.Mixed soft necrosis /slough noted at base of wound ,bone is palpable.Pt stated she has had sacral wound for approx one month. L trochanter maroon ,indurated with small opening with slough (L)0.5cm x (W) 0.5cm within affected area which measure (L)11.7cm x (W)16.2cm. Pt has contractures of both lower ext . Medial aspect of R knee Maroon ,tender when minimally palpated (L)6cm x ( W05.2cm . L heel Maroon with fluctuance with delineated margins(L)5.5cm x (W)8cm .tender when minimally palpated. Medial aspect of R heel maroon with fluctuance with delineated margins (L)4.2cm x(W)5.6cm. Tx.Plan: Apply Cavilon to R trochanter .Cover with Optifoam drsg .Change every 7 days and prn. Cleanse wound L trochanter with saline.Apply Therahoney .Apply Cavilon wipe to DTPI periwound (do not rub) Cover with Optifoam drsg every 3 days and prn. Cleanse sacral wound with Saline. Loosely pack sacral /coccygeal wound with Therahoney impregnated soft kerlix. Apply Therahoney to wounds R buttocks .Cavilon wipe periwound .Cover with Optifoam drsg daily and PRN. Apply Cavilon to DTPI medial R knee.Cover with Optifoam drsg .Change every 7 days and prn. Apply Cavilon wipes to DTPI's R and L heels. Cover with Optifoam drsgs .Change every 7 days and prn. Air fluidized mattress . Reposition at least every 2 hours or as tolerated.(please place pillow between knees ICD Codes: L89.154 - Pressure ulcer of sacral region, stage 4 SNOMED: [id number], [id number] Yoel Bledsoe Jul 28, 2018 16:40
[2018-07-28 20:00] VITALS: BP 96/60
[2018-07-28] MEDS ORDERED: Vancomycin 500 MG in D5W 110 ML IVPB SCH (20:00)
--- NOTE | 2018-07-28 20:33 | Pulmonology Progress Note ---
Assessment/Plan Assessment/Plan Pulmonary Consultation Note HPI Patient is a 63F from home, admitted with stage 4 sacral decubitus ulcer, and general hip/joint pain (that is chronic.) Pt. is nonambulatory, bed/wheelchair only. She is able to eat, , but poor appetite in general. No trauma although in March she did fall admission. PMH: Guillain [place], Fibromyalgia, Muscle weakness, Seizures, Failure to thrive , Sacral Decubitus Allergies: No Known Allergies (Verified , 04/10/08) Review of Systems Constitutional: Reports: see HPI Eye: Reports: no symptoms ENT: Reports: no symptoms Respiratory: Reports: no symptoms Cardiovascular: Reports: no symptoms Gastrointestinal: Reports: no symptoms Musculoskeletal: Reports: see HPI, back pain, joint pain Skin: Reports: no symptoms Psychiatric: Reports: no symptoms Neurological: Reports: no symptoms Allergic: Reports: no symptoms All Other Systems: negative except mentioned in HPI Physical Exam Vital Signs Noted Date Time Temp Pulse Resp B/P (MAP) Pulse Ox O2 Delivery O2 Flow Rate FiO2 07/27/18 09:23 98.1 88 18 100/60 97 Room Air General Appearance: no apparent distress, alert, GCS 15, non-toxic, other - near-cachectic, Chronically Ill Head: normocephalic, atraumatic Eyes: bilateral eye normal inspection, bilateral eye PERRL, bilateral eye EOMI ENT: normal ENT inspection, hearing grossly normal, normal pharynx, no angioedema, normal voice, moist mucus membranes Neck: normal inspection, full range of motion, supple, no meningismus, no bony tend Respiratory: normal inspection, lungs clear, normal breath sounds, no rhonchi, no respiratory distress, no retraction, no accessory muscle use, no wheezing Cardiovascular #1: normal inspection, regular rate, rhythm, no edema Gastrointestinal: normal bowel sounds, non tender, soft, non-distended Musculoskeletal: other - bilateral lower extremity paresis/atrophied. can move all four. nonfocal Neurologic: alert, oriented x3, responsive, other - nonfocal Psychiatric: normal inspection, memory normal Skin: other - 2-3 inch diameter deep (stage 3-4) sacral decub Impression: Sacral decubitus ulcer, stage IV with cellujlitis Urinary Tract Infection Debility, unspecified Malnutrition Previous Guillain [place] Muscle Weakness Features of COPD on CXR Poor Social Situation Plan Antibiotics per ID Surgery following [employer] medications Social work consult Wound care O2 PRN HHN PRN PPX . Subjective ROS Limited/Unobtainable: Yes Allergies: Coded Allergies: No Known Allergies (Verified , 04/10/08) Objective Last 24 Hour Vital Signs Date Time Temp Pulse Resp B/P (MAP) Pulse Ox O2 Delivery O2 Flow Rate FiO2 07/28/18 16:00 Nasal Cannula 2.0 07/28/18 16:00 102.3 100 19 144/64 (90) 100 07/28/18 15:45 96 07/28/18 12:06 102 07/28/18 12:00 100.8 120 22 144/73 (96) 99 07/28/18 08:30 97.4 07/28/18 08:00 99.7 72 20 106/68 (81) 100 07/28/18 04:00 97.4 94 18 98/63 (75) 99 07/28/18 00:37 99.8 92 17 113/66 (82) 100 Intake and Output 07/27/18 07/28/18 19:00 07:00 Intake Total 247.5 ml Balance 247.5 ml Intake IV Total 247.5 ml # Voids 3 Microbiology Date/Time Source Procedure Growth Status 07/27/18 13:19 Urine,Clean Catch Urine Culture - Preliminary Gram Negative Mukesh Resulted Laboratory Tests 07/28/18 06:30: White Blood Count 8.2, Red Blood Count 3.85L, Hemoglobin 10.4L, Hematocrit 31.9L , Mean Corpuscular Volume 83, Mean Corpuscular Hemoglobin 26.9L, Mean Corpuscular Hemoglobin Concent 32.5, Red Cell Distribution Width 11.2L, Platelet Count 329, Mean Platelet Volume 5.2L, Neutrophils (%) (Auto) 75.1H, Lymphocytes (%) (Auto) 16.0L, Monocytes (%) (Auto) 7.4, Eosinophils (%) (Auto) 0.8, Basophils (%) (Auto) 0.7, Sodium Level 135L, Potassium Level 3.7, Chloride Level 101, Carbon Dioxide Level 27, Anion Gap 7, Blood Urea Nitrogen 11, Creatinine 0.9, Estimat Glomerular Filtration Rate > 60, Glucose Level 114H, Hemoglobin A1c 5.6, Calcium Level 9.2, Total Bilirubin 0.2, Aspartate Amino Transf (AST/SGOT) 19, Alanine Aminotransferase (ALT/SGPT) 14, Alkaline Phosphatase 90, Total Protein 7.2, Albumin 2.0L, Globulin 5.2, Albumin/Globulin Ratio 0.4L, Thyroid Stimulating Hormone (TSH) 0.723, Levetiracetam (Keppra) Level [Pending] Current Medications Medications (Trade) Dose Ordered Sig/Elisa Route PRN Reason Start Time Stop Time Status Last Admin Dose Admin Aztreonam 2 gm/ Dextrose 110 ml @ 220 mls/hr Q8HR IVPB 07/28/18 15:00 08/04/18 14:59 07/28/18 15:15 Baclofen (Lioresal) 10 mg THREE TIMES A DAY ORAL 07/28/18 13:00 08/26/18 17:59 07/28/18 13:13 Calcium Carbonate (OsCal D) 1 tab THREE TIMES A DAY ORAL 07/28/18 13:00 08/26/18 17:59 07/28/18 13:13 Clonazepam (KlonoPIN) 1 mg BID ORAL 07/28/18 18:00 08/03/18 17:59 Cyanocobalamin (Vitamin B-12) 1,000 mcg DAILY ORAL 07/29/18 09:00 08/27/18 08:59 Docusate Sodium (Colace) 100 mg TWICE A DAY ORAL 07/28/18 18:00 08/26/18 17:59 Gabapentin (Neurontin) 900 mg THREE TIMES A DAY ORAL 07/28/18 13:00 08/26/18 17:59 07/28/18 13:14 Iopamidol (Isovue-300 100ml) 100 ml NOW PRN INJ Radiology Procedure 07/29/18 10:45 07/30/18 10:32 Ketorolac Tromethamine (Toradol 30mg) 30 mg Q12H PRN IV MODERATE PAIN(4-6) 07/28/18 12:30 08/02/18 12:29 Levetiracetam 100 ml @ 440.098 mls/hr Q12HR IVPB 07/28/18 12:30 08/27/18 12:29 07/28/18 12:45 Loratadine (Claritin 10mg) 10 mg DAILY ORAL 07/29/18 09:00 08/27/18 08:59 Lorazepam (Ativan 2mg/ml 1ml) 2 mg Q4H PRN IV For Seizures 07/28/18 12:30 08/04/18 12:29 Magnesium Hydroxide (Mom) 30 ml DAILYPRN PRN ORAL Constipation 07/28/18 14:15 08/26/18 14:14 Metronidazole 100 ml @ 100 mls/hr Q8HR IVPB 07/28/18 15:30 08/04/18 15:29 07/28/18 15:46 Midodrine (Pro-Amatine) 10 mg DAILY ORAL 07/29/18 09:00 08/27/18 08:59 Morphine Sulfate (Morphine Sulfate) 2 mg Q6H PRN IVP SEVERE PAIN (7-10) 07/28/18 14:00 08/03/18 13:59 Multivitamins (Multivitamins) 1 tab DAILY ORAL 07/29/18 09:00 08/27/18 08:59 Pantoprazole (Protonix) 40 mg DAILY ORAL 07/29/18 09:00 08/27/18 08:59 Polyethylene Glycol (Miralax) 17 gm DAILYPRN PRN ORAL Constipation 07/29/18 09:00 08/28/18 08:59 Tolterodine Tartrate (Detrol) 2 mg TWICE A DAY ORAL 07/28/18 18:00 08/26/18 17:59 Trazodone HCl (Desyrel) 100 mg BEDTIME ORAL 07/28/18 21:00 08/26/18 20:59 Vancomycin HCl (Vanco rx to dose) 1 ea DAILY PRN MISC Per rx protocol 07/28/18 12:30 08/27/18 12:29 Vancomycin HCl 500 mg/Dextrose 110 ml @ 110 mls/hr Q12H IVPB 07/28/18 20:00 08/01/18 19:59 Ghassan Braxton MD Jul 28, 2018 20:33
[2018-07-28] MEDS ORDERED: TraZODone 100mg tab ORAL SCH (21:00)
[2018-07-29] VITALS: BP 133/94
[2018-07-29 04:00] VITALS: BP 107/70
[2018-07-29] MEDS: Aztreonam Inj 2 GM in D5W 110 ML IVPB SCH ×3 (05:21→23:17)
[2018-07-29 07:17] LABS: BASOPHILS % (AUTO) 1.5 % (0.0-2.0); EOSINOPHILS % (AUTO) 0.6 % (0.0-3.0); HEMATOCRIT 34.5 % (37.0-47.0); HEMOGLOBIN 11.1 G/DL (12.0-16.0); LYMPHOCYTES % (AUTO) 16.6 % (20.0-45.0); MEAN CORPUSCULAR VOLUME 83 FL (80-99); MONOCYTES % (AUTO) 7.6 % (1.0-10.0); NEUTROPHILS % (AUTO) 73.7 % (45.0-75.0); PLATELET COUNT 331 K/UL (150-450); RED BLOOD COUNT 4.16 M/UL (4.20-5.40); RED CELL DISTRIBUTION WIDTH 11.5 % (11.6-14.8); WHITE BLOOD COUNT 12.5 K/UL (4.8-10.8)
[2018-07-29 07:32] LABS: ALANINE AMINOTRANSFERASE 13 U/L (12-78); ALBUMIN/GLOBULIN RATIO 0.4 (1.0-2.7); ALKALINE PHOSPHATASE 85 U/L (46-116); ANION GAP 7 mmol/L (5-15); ASPARTATE AMINO TRANSFERASE 26 U/L (15-37); BILIRUBIN,TOTAL 0.4 MG/DL (0.2-1.0); BLOOD UREA NITROGEN 10 mg/dL (7-18); CALCIUM 9.4 MG/DL (8.5-10.1); CARBON DIOXIDE 27 MMOL/L (21-32); CHLORIDE 100 MMOL/L (98-107); CREATININE 0.8 MG/DL (0.55-1.30); SODIUM 134 MMOL/L (136-145)
[2018-07-29 08:00] VITALS: BP 100/64
[2018-07-29] MEDS ORDERED: Miralax 17gm pkt ORAL PRN (09:00)
[2018-07-29] MEDS ORDERED: Midodrine 10mg tab ORAL SCH (09:00)
[2018-07-29] MEDS ORDERED: Vancomycin 1gm/D5W 275ml IVPB SCH ×2 (09:00)
[2018-07-29] MEDS ORDERED: Vitamin B-12 500mcg tab ORAL SCH (09:00)
[2018-07-29] MEDS: levETIRAcetam 500mg/NS100ml 100 ML IVPB SCH ×2 (09:31→21:30)
[2018-07-29] MEDS: Calcium Carbonate 500mg w/Vit D 200iu tab ORAL SCH ×3 (09:32→17:24)
[2018-07-29] MEDS: Docusate 100mg cap ORAL SCH ×2 (09:32→17:23)
[2018-07-29] MEDS: Tolterodine 2mg tab ORAL SCH ×2 (09:32→17:23)
[2018-07-29] MEDS ORDERED: Isovue-300 100ml vial INJ PRN ×2 (10:45→18:15)
[2018-07-29 12:00] VITALS: BP 100/66
--- NOTE | 2018-07-29 12:53 | General Progress Note ---
Assessment/Plan Assessment/Plan S: I have pain all over O: appears more awake . in no distress. PHYSICAL EXAMINATION:HEAD AND NECK: Atraumatic and normocephalic. CHEST: Clear to auscultation. LUNGS: No wheezing. No crackles. ABDOMEN: Soft. No organomegaly. Bowel sounds are normal. MUSCULOSKELETAL: Atrophied musculatures. positive for Decubitus wound , NEUROLOGIC: The patient is awake, not verbal and lethargic Meds: including but not limited to Zosyn and Vanco ASSESSMENT AND PLAN: 1. Sever Sepsis 2. Acute encephalopathy, ddx: post ictal, possibility of Encephalitis cant be excluded. 3. Decubitus wound 4. UTI- HCA 2. Neuromuscular disorder - wheelchair bound - baseline. 3. Neurogenic bladder. 4. Psychiatric disorder. 5. UTI. 6. Seizure disorder (questionable). PLAN OF CARE: Agree with current empirical abx Notes from ID and workers compensation specialist reviewed No recurrent Sz ATivan PRN, Keppra ATC provided, No active sz at this time Subjective Allergies: Coded Allergies: No Known Allergies (Verified , 04/10/08) Objective Last 24 Hour Vital Signs Date Time Temp Pulse Resp B/P (MAP) Pulse Ox O2 Delivery O2 Flow Rate FiO2 07/29/18 12:00 Nasal Cannula 1.0 07/29/18 11:45 109 07/29/18 08:00 Nasal Cannula 1.0 07/29/18 08:00 97.3 103 18 100/64 (76) 99 07/29/18 07:41 118 07/29/18 04:00 Nasal Cannula 2.0 07/29/18 04:00 101 07/29/18 04:00 Nasal Cannula 2.0 07/29/18 04:00 98.2 99 18 107/70 (82) 100 07/29/18 00:00 Nasal Cannula 2.0 07/29/18 00:00 100.3 97 18 133/94 (107) 100 07/29/18 00:00 92 07/28/18 20:00 Nasal Cannula 2.0 07/28/18 20:00 107 07/28/18 20:00 99.9 109 20 96/60 (72) 100 07/28/18 16:00 Nasal Cannula 2.0 07/28/18 16:00 102.3 100 19 144/64 (90) 100 07/28/18 15:45 96 Intake and Output 07/28/18 07/29/18 19:00 07:00 Intake Total 310 ml 630 ml Output Total 550 ml 1005 ml Balance -240 ml -375 ml Intake IV Total 310 ml 630 ml Output Urine Total 550 ml 1005 ml Laboratory Tests 07/29/18 07:04: White Blood Count 12.5#H, Red Blood Count 4.16L, Hemoglobin 11.1L, Hematocrit 34.5L, Mean Corpuscular Volume 83, Mean Corpuscular Hemoglobin 26.7L, Mean Corpuscular Hemoglobin Concent 32.2, Red Cell Distribution Width 11.5L, Platelet Count 331, Mean Platelet Volume 4.9L, Neutrophils (%) (Auto) 73.7, Lymphocytes (%) (Auto) 16.6L, Monocytes (%) (Auto) 7.6, Eosinophils (%) (Auto) 0.6, Basophils (%) (Auto) 1.5, Sodium Level 134L, Potassium Level 4.0, Chloride Level 100, Carbon Dioxide Level 27, Anion Gap 7, Blood Urea Nitrogen 10, Creatinine 0.8, Estimat Glomerular Filtration Rate > 60, Glucose Level 113H, Calcium Level 9.4, Total Bilirubin 0.4, Aspartate Amino Transf (AST/SGOT) 26, Alanine Aminotransferase (ALT/SGPT) 13, Alkaline Phosphatase 85, Total Protein 7.6, Albumin 2.0L, Globulin 5.6, Albumin/Globulin Ratio 0.4L, Vancomycin Level Trough 6.0 Height (Feet): 5 Height (Inches): 4.00 Weight (Pounds): 120 Lucia Andrews MD Jul 29, 2018 12:53
--- NOTE | 2018-07-29 13:28 | Pulmonology Progress Note ---
Assessment/Plan Assessment/Plan Pulmonary Progress Note HPI Patient is a 63F from home, admitted with stage 4 sacral decubitus ulcer, and general hip/joint pain (that is chronic.) Pt. is nonambulatory, bed/wheelchair only. She is able to eat, , but poor appetite in general. No trauma although in March she did fall admission. PMH: Guillain Arnett, Fibromyalgia, Muscle weakness, Seizures, Failure to thrive , Sacral Decubitus Allergies: No Known Allergies (Verified , 04/10/08) Review of Systems Constitutional: Reports: see HPI Eye: Reports: no symptoms ENT: Reports: no symptoms Respiratory: Reports: no symptoms Cardiovascular: Reports: no symptoms Gastrointestinal: Reports: no symptoms Musculoskeletal: Reports: see HPI, back pain, joint pain Skin: Reports: no symptoms Psychiatric: Reports: no symptoms Neurological: Reports: no symptoms Allergic: Reports: no symptoms All Other Systems: negative except mentioned in HPI Physical Exam Vital Signs Noted Date Time Temp Pulse Resp B/P (MAP) Pulse Ox O2 Delivery O2 Flow Rate FiO2 07/27/18 09:23 98.1 88 18 100/60 97 Room Air General Appearance: no apparent distress, alert, GCS 15, non-toxic, other - near-cachectic, Chronically Ill Head: normocephalic, atraumatic Eyes: bilateral eye normal inspection, bilateral eye PERRL, bilateral eye EOMI ENT: normal ENT inspection, hearing grossly normal, normal pharynx, no angioedema, normal voice, moist mucus membranes Neck: normal inspection, full range of motion, supple, no meningismus, no bony tend Respiratory: normal inspection, lungs clear, normal breath sounds, no rhonchi, no respiratory distress, no retraction, no accessory muscle use, no wheezing Cardiovascular #1: normal inspection, regular rate, rhythm, no edema Gastrointestinal: normal bowel sounds, non tender, soft, non-distended Musculoskeletal: other - bilateral lower extremity paresis/atrophied. can move all four. nonfocal Neurologic: alert, oriented x3, responsive, other - nonfocal Psychiatric: normal inspection, memory normal Skin: other - 2-3 inch diameter deep (stage 3-4) sacral decub Impression: Sacral decubitus ulcer, stage IV with cellujlitis Urinary Tract Infection Debility, unspecified Malnutrition Previous Guillain Arnett Muscle Weakness Features of COPD on CXR Poor Social Situation Plan Antibiotics per ID Surgery following [employer] medications Social work consult Wound care O2 PRN HHN PRN PPX . Subjective ROS Limited/Unobtainable: Yes Allergies: Coded Allergies: No Known Allergies (Verified , 04/10/08) Objective Last 24 Hour Vital Signs Date Time Temp Pulse Resp B/P (MAP) Pulse Ox O2 Delivery O2 Flow Rate FiO2 07/29/18 12:00 98.2 118 18 100/66 (77) 100 07/29/18 12:00 Nasal Cannula 1.0 07/29/18 11:45 109 07/29/18 08:00 Nasal Cannula 1.0 07/29/18 08:00 97.3 103 18 100/64 (76) 99 07/29/18 07:41 118 07/29/18 04:00 Nasal Cannula 2.0 07/29/18 04:00 101 07/29/18 04:00 Nasal Cannula 2.0 07/29/18 04:00 98.2 99 18 107/70 (82) 100 07/29/18 00:00 Nasal Cannula 2.0 07/29/18 00:00 100.3 97 18 133/94 (107) 100 07/29/18 00:00 92 07/28/18 20:00 Nasal Cannula 2.0 07/28/18 20:00 107 07/28/18 20:00 99.9 109 20 96/60 (72) 100 07/28/18 16:00 Nasal Cannula 2.0 07/28/18 16:00 102.3 100 19 144/64 (90) 100 07/28/18 15:45 96 Intake and Output 07/28/18 07/29/18 19:00 07:00 Intake Total 310 ml 630 ml Output Total 550 ml 1005 ml Balance -240 ml -375 ml Intake IV Total 310 ml 630 ml Output Urine Total 550 ml 1005 ml Microbiology Date/Time Source Procedure Growth Status 07/27/18 10:10 Blood Blood Culture - Preliminary NO GROWTH AFTER 24 HOURS Resulted 07/27/18 10:10 Blood Blood Culture - Preliminary NO GROWTH AFTER 24 HOURS Resulted 07/27/18 13:35 Nasal Nares MRSA Culture - Final NO METHICILLIN RESISTANT STAPH AUREUS... Complete 07/27/18 13:19 Urine,Clean Catch Urine Culture - Final Proteus Mirabilis Complete 07/27/18 13:45 Rectum VRE Culture - Final NO VANCOMYCIN RESISTANT ENTEROCOCCUS ... Complete 07/27/18 13:45 Rectum - Final NO CARBAPENEM-RESISTANT ENTEROBACTERI... Complete Laboratory Tests 07/29/18 07:04: White Blood Count 12.5#H, Red Blood Count 4.16L, Hemoglobin 11.1L, Hematocrit 34.5L, Mean Corpuscular Volume 83, Mean Corpuscular Hemoglobin 26.7L, Mean Corpuscular Hemoglobin Concent 32.2, Red Cell Distribution Width 11.5L, Platelet Count 331, Mean Platelet Volume 4.9L, Neutrophils (%) (Auto) 73.7, Lymphocytes (%) (Auto) 16.6L, Monocytes (%) (Auto) 7.6, Eosinophils (%) (Auto) 0.6, Basophils (%) (Auto) 1.5, Sodium Level 134L, Potassium Level 4.0, Chloride Level 100, Carbon Dioxide Level 27, Anion Gap 7, Blood Urea Nitrogen 10, Creatinine 0.8, Estimat Glomerular Filtration Rate > 60, Glucose Level 113H, Calcium Level 9.4, Total Bilirubin 0.4, Aspartate Amino Transf (AST/SGOT) 26, Alanine Aminotransferase (ALT/SGPT) 13, Alkaline Phosphatase 85, Total Protein 7.6, Albumin 2.0L, Globulin 5.6, Albumin/Globulin Ratio 0.4L, Vancomycin Level Trough 6.0 Current Medications Medications (Trade) Dose Ordered Sig/Elisa Route PRN Reason Start Time Stop Time Status Last Admin Dose Admin Aztreonam 2 gm/ Dextrose 110 ml @ 220 mls/hr Q8HR IVPB 07/28/18 15:00 08/04/18 14:59 07/29/18 05:21 Baclofen (Lioresal) 10 mg THREE TIMES A DAY ORAL 07/28/18 13:00 08/26/18 17:59 07/29/18 09:33 Calcium Carbonate (OsCal D) 1 tab THREE TIMES A DAY ORAL 07/28/18 13:00 08/26/18 17:59 07/29/18 09:32 Clonazepam (KlonoPIN) 1 mg BID ORAL 07/28/18 18:00 08/03/18 17:59 07/29/18 09:33 Cyanocobalamin (Vitamin B-12) 1,000 mcg DAILY ORAL 07/29/18 09:00 08/27/18 08:59 07/29/18 09:32 Docusate Sodium (Colace) 100 mg TWICE A DAY ORAL 07/28/18 18:00 08/26/18 17:59 07/29/18 09:32 Gabapentin (Neurontin) 900 mg THREE TIMES A DAY ORAL 07/28/18 13:00 08/26/18 17:59 07/29/18 09:33 Iopamidol (Isovue-300 100ml) 100 ml NOW PRN INJ Radiology Procedure 07/29/18 10:45 07/30/18 10:32 Ketorolac Tromethamine (Toradol 30mg) 30 mg Q12H PRN IV MODERATE PAIN(4-6) 07/28/18 12:30 08/02/18 12:29 Levetiracetam 100 ml @ 440.098 mls/hr Q12HR IVPB 07/28/18 12:30 08/27/18 12:29 07/29/18 09:31 Loratadine (Claritin 10mg) 10 mg DAILY ORAL 07/29/18 09:00 08/27/18 08:59 07/29/18 09:32 Lorazepam (Ativan 2mg/ml 1ml) 2 mg Q4H PRN IV For Seizures 07/28/18 12:30 08/04/18 12:29 Magnesium Hydroxide (Mom) 30 ml DAILYPRN PRN ORAL Constipation 07/28/18 14:15 08/26/18 14:14 Metronidazole 100 ml @ 100 mls/hr Q8HR IVPB 07/28/18 15:30 08/04/18 15:29 07/29/18 06:01 Midodrine (Pro-Amatine) 10 mg DAILY ORAL 07/29/18 09:00 08/27/18 08:59 07/29/18 09:33 Morphine Sulfate (Morphine Sulfate) 2 mg Q6H PRN IVP SEVERE PAIN (7-10) 07/28/18 14:00 08/03/18 13:59 07/29/18 11:39 Multivitamins (Multivitamins) 1 tab DAILY ORAL 07/29/18 09:00 08/27/18 08:59 07/29/18 09:33 Pantoprazole (Protonix) 40 mg DAILY ORAL 07/29/18 09:00 1/19/19 08:59 07/29/18 09:33 Polyethylene Glycol (Miralax) 17 gm DAILYPRN PRN ORAL Constipation 07/29/18 09:00 08/28/18 08:59 Tolterodine Tartrate (Detrol) 2 mg TWICE A DAY ORAL 07/28/18 18:00 08/26/18 17:59 07/29/18 09:32 Trazodone HCl (Desyrel) 100 mg BEDTIME ORAL 07/28/18 21:00 08/26/18 20:59 Vancomycin HCl (Vanco rx to dose) 1 ea DAILY PRN MISC Per rx protocol 07/28/18 12:30 08/27/18 12:29 Vancomycin HCl 1 gm/Dextrose 275 ml @ 183.708 mls/hr Q12HR IVPB 07/29/18 09:00 08/03/18 08:59 07/29/18 09:31 Ghassan Braxton MD Jul 29, 2018 13:28
[2018-07-29 16:00] VITALS: BP 114/57
[2018-07-29] MEDS ORDERED: Ketorolac 30mg Inj IV PRN (18:12)
[2018-07-29] MEDS ORDERED: LORazepam Inj 2mg/ml 1ml IV PRN (18:12)
--- NOTE | 2018-07-29 18:36 | Infectious Diseases Prog Note ---
Assessment/Plan Problems: (1) UTI (urinary tract infection) Assessment & Plan: await urine culture aztreonam empirically. pending culture (2) Sacral decubitus ulcer, stage IV Assessment & Plan: continue vancomycin and aztreonam with metronidazole empirically, pending wound culture , MRI of the pelvis showed possible osteomyelitis. recommend local wound care and off loading. surgical eval (3) Malnutrition Assessment & Plan: recommend dietary support to improve her wounds healing (4) Drug abuse Assessment & Plan: recommend counseling and rehab (5) Seizure disorder Assessment & Plan: could be due to cocaine withdrawal , continue neuro check and seizure meds, neurology eval Subjective ROS Limited/Unobtainable: Yes Allergies: Coded Allergies: No Known Allergies (Verified , 04/10/08) Subjective she had seizure and was transferred to SDU, looks confused and nonverbal , had low grade fever today Objective Vital Signs Last 24 Hour Vital Signs Date Time Temp Pulse Resp B/P (MAP) Pulse Ox O2 Delivery O2 Flow Rate FiO2 07/29/18 16:00 Nasal Cannula 2.0 07/29/18 16:00 97.3 103 20 114/57 (76) 96 07/29/18 15:32 99 07/29/18 12:00 98.2 118 18 100/66 (77) 100 07/29/18 12:00 Nasal Cannula 1.0 07/29/18 11:45 109 07/29/18 08:00 Nasal Cannula 1.0 07/29/18 08:00 97.3 103 18 100/64 (76) 99 07/29/18 07:41 118 07/29/18 04:00 Nasal Cannula 2.0 07/29/18 04:00 101 07/29/18 04:00 Nasal Cannula 2.0 07/29/18 04:00 98.2 99 18 107/70 (82) 100 07/29/18 00:00 Nasal Cannula 2.0 07/29/18 00:00 100.3 97 18 133/94 (107) 100 07/29/18 00:00 92 07/28/18 20:00 Nasal Cannula 2.0 07/28/18 20:00 107 07/28/18 20:00 99.9 109 20 96/60 (72) 100 Height (Feet): 5 Height (Inches): 4.00 Weight (Pounds): 120 General Appearance: WD/WN, no acute distress HEENT: normocephalic, atraumatic, anicteric, mucous membranes moist, PERRL Respiratory/Chest: chest wall non-tender, lungs clear, normal breath sounds, no respiratory distress, no accessory muscle use Cardiovascular: normal peripheral pulses, normal rate, regular rhythm, no gallop/murmur, no JVD Abdomen: normal bowel sounds, soft, non tender, no organomegaly, non distended , no mass, no scars Genitourinary: normal external genitalia Extremities: no cyanosis, no clubbing Skin: no rash, no lesions, ulcers Microbiology Date/Time Source Procedure Growth Status 07/27/18 10:10 Blood Blood Culture - Preliminary NO GROWTH AFTER 24 HOURS Resulted 07/27/18 10:10 Blood Blood Culture - Preliminary NO GROWTH AFTER 24 HOURS Resulted 07/27/18 13:35 Nasal Nares MRSA Culture - Final NO METHICILLIN RESISTANT STAPH AUREUS... Complete 07/27/18 13:19 Urine,Clean Catch Urine Culture - Final Proteus Mirabilis Complete 07/27/18 13:45 Rectum VRE Culture - Final NO VANCOMYCIN RESISTANT ENTEROCOCCUS ... Complete 07/27/18 13:45 Rectum - Final NO CARBAPENEM-RESISTANT ENTEROBACTERI... Complete Laboratory Tests Test 07/29/18 07:04 White Blood Count 12.5 K/UL (4.8-10.8) #H Red Blood Count 4.16 M/UL (4.20-5.40) L Hemoglobin 11.1 G/DL (12.0-16.0) L Hematocrit 34.5 % (37.0-47.0) L Mean Corpuscular Volume 83 FL (80-99) Mean Corpuscular Hemoglobin 26.7 PG (27.0-31.0) L Mean Corpuscular Hemoglobin Concent 32.2 G/DL (32.0-36.0) Red Cell Distribution Width 11.5 % (11.6-14.8) L Platelet Count 331 K/UL (150-450) Mean Platelet Volume 4.9 FL (6.5-10.1) L Neutrophils (%) (Auto) 73.7 % (45.0-75.0) Lymphocytes (%) (Auto) 16.6 % (20.0-45.0) L Monocytes (%) (Auto) 7.6 % (1.0-10.0) Eosinophils (%) (Auto) 0.6 % (0.0-3.0) Basophils (%) (Auto) 1.5 % (0.0-2.0) Sodium Level 134 MMOL/L (136-145) L Potassium Level 4.0 MMOL/L (3.5-5.1) Chloride Level 100 MMOL/L (98-107) Carbon Dioxide Level 27 MMOL/L (21-32) Anion Gap 7 mmol/L (5-15) Blood Urea Nitrogen 10 mg/dL (7-18) Creatinine 0.8 MG/DL (0.55-1.30) Estimat Glomerular Filtration Rate > 60 mL/min (>60) Glucose Level 113 MG/DL (74-106) H Calcium Level 9.4 MG/DL (8.5-10.1) Total Bilirubin 0.4 MG/DL (0.2-1.0) Aspartate Amino Transf (AST/SGOT) 26 U/L (15-37) Alanine Aminotransferase (ALT/SGPT) 13 U/L (12-78) Alkaline Phosphatase 85 U/L (46-116) Total Protein 7.6 G/DL (6.4-8.2) Albumin 2.0 G/DL (3.4-5.0) L Globulin 5.6 g/dL Albumin/Globulin Ratio 0.4 (1.0-2.7) L Vancomycin Level Trough 6.0 ug/mL (5.0-12.0) Current Medications Medications (Trade) Dose Ordered Sig/Elisa Route PRN Reason Start Time Stop Time Status Last Admin Dose Admin Aztreonam 2 gm/ Dextrose 110 ml @ 220 mls/hr Q8HR IVPB 07/29/18 22:00 08/04/18 14:59 Baclofen (Lioresal) 10 mg THREE TIMES A DAY ORAL 07/30/18 09:00 08/26/18 17:59 Calcium Carbonate (OsCal D) 1 tab THREE TIMES A DAY ORAL 07/30/18 09:00 08/26/18 17:59 Clonazepam (KlonoPIN) 1 mg BID ORAL 07/30/18 09:00 08/03/18 17:59 Cyanocobalamin (Vitamin B-12) 1,000 mcg DAILY ORAL 07/30/18 09:00 08/27/18 08:59 Docusate Sodium (Colace) 100 mg TWICE A DAY ORAL 07/30/18 09:00 08/26/18 17:59 Gabapentin (Neurontin) 900 mg THREE TIMES A DAY ORAL 07/30/18 09:00 08/26/18 17:59 Iopamidol (Isovue-300 100ml) 100 ml NOW PRN INJ Radiology Procedure 07/29/18 18:15 07/30/18 10:32 Ketorolac Tromethamine (Toradol 30mg) 30 mg Q12H PRN IV MODERATE PAIN(4-6) 07/29/18 18:12 08/03/18 18:11 Levetiracetam 100 ml @ 440.098 mls/hr Q12HR IVPB 07/29/18 21:00 08/27/18 12:29 Loratadine (Claritin 10mg) 10 mg DAILY ORAL 07/30/18 09:00 08/27/18 08:59 Lorazepam (Ativan 2mg/ml 1ml) 2 mg Q4H PRN IV For Seizures 07/29/18 18:12 08/05/18 18:11 Magnesium Hydroxide (Mom) 30 ml DAILYPRN PRN ORAL Constipation 07/29/18 18:13 08/28/18 18:12 Metronidazole 100 ml @ 100 mls/hr Q8HR IVPB 07/29/18 22:00 08/04/18 15:29 Midodrine (Pro-Amatine) 10 mg DAILY ORAL 07/30/18 09:00 08/27/18 08:59 Morphine Sulfate (Morphine Sulfate) 2 mg Q6H PRN IVP SEVERE PAIN (7-10) 07/29/18 18:13 08/03/18 18:12 Multivitamins (Multivitamins) 1 tab DAILY ORAL 07/30/18 09:00 08/27/18 08:59 Pantoprazole (Protonix) 40 mg DAILY ORAL 07/30/18 09:00 08/27/18 08:59 Polyethylene Glycol (Miralax) 17 gm DAILYPRN PRN ORAL Constipation 07/29/18 18:13 08/28/18 18:12 Tolterodine Tartrate (Detrol) 2 mg TWICE A DAY ORAL 07/30/18 09:00 08/26/18 17:59 Trazodone HCl (Desyrel) 100 mg BEDTIME ORAL 07/29/18 21:00 08/26/18 20:59 Vancomycin HCl (Vanco rx to dose) 1 ea DAILY PRN MISC Per rx protocol 07/30/18 09:00 08/27/18 12:29 Vancomycin HCl 1 gm/Dextrose 275 ml @ 183.708 mls/hr Q12HR IVPB 07/29/18 21:00 08/03/18 08:59 Portillo Vazquez M.D. Jul 29, 2018 18:36
[2018-07-29] MEDS ORDERED: Tubing IV Secondary IV ONE (19:37)
[2018-07-29 20:00] VITALS: BP 99/60
[2018-07-29] MEDS: TraZODone 100mg tab ORAL SCH (21:00)
[2018-07-29] MEDS: Vancomycin 1 GM in D5W 275 ML IVPB SCH (21:30)
[2018-07-29] MEDS: Heparin 5000 units/ml inj SUBQ SCH (21:31)
[2018-07-30] VITALS: BP_SYST 93; BP_SYST 94; BP_DIAS 45; BP_DIAS 62
[2018-07-30] MEDS: Morphine Sulfate 2mg/ml Inj IVP PRN ×3 (03:27→16:21)
[2018-07-30 04:00] VITALS: BP 101/66
[2018-07-30] MEDS: Aztreonam Inj 2 GM in D5W 110 ML IVPB SCH ×2 (05:39→13:47)
[2018-07-30 08:00] VITALS: BP 108/46
[2018-07-30] MEDS: Vitamin B-12 500mcg tab ORAL SCH (08:23)
[2018-07-30] MEDS: Midodrine 10mg tab ORAL SCH (08:23)
[2018-07-30] MEDS: levETIRAcetam 500mg/NS100ml 100 ML IVPB SCH ×2 (08:23→20:18)
[2018-07-30] MEDS: Tolterodine 2mg tab ORAL SCH ×2 (08:25→18:08)
[2018-07-30] MEDS: Docusate 100mg cap ORAL SCH ×2 (08:25→18:08)
[2018-07-30] MEDS: Heparin 5000 units/ml inj SUBQ SCH ×2 (08:26→20:17)
[2018-07-30] MEDS: Calcium Carbonate 500mg w/Vit D 200iu tab ORAL SCH ×3 (08:40→18:08)
[2018-07-30] MEDS: Vancomycin 1 GM in D5W 275 ML IVPB SCH (09:42)
--- NOTE | 2018-07-30 10:06 | General Progress Note ---
Assessment/Plan Assessment/Plan S: I have pain all over O: appears more awake . in no distress. PHYSICAL EXAMINATION:HEAD AND NECK: Atraumatic and normocephalic. CHEST: Clear to auscultation. LUNGS: No wheezing. No crackles. ABDOMEN: Soft. No organomegaly. Bowel sounds are normal. MUSCULOSKELETAL: Atrophied musculatures. positive for Decubitus wound , NEUROLOGIC: The patient is awake, not verbal and lethargic Meds: including but not limited to Zosyn and Vanco ASSESSMENT AND PLAN: 1. Sever Sepsis 2. Acute encephalopathy, ddx: post ictal, possibility of Encephalitis cant be excluded. 3. Decubitus wound 4. UTI- HCA 2. Neuromuscular disorder - wheelchair bound - baseline. 3. Neurogenic bladder. 4. Psychiatric disorder. 5. UTI. 6. Seizure disorder (questionable). PLAN OF CARE: Agree with current empirical abx Notes from ID and benefits specialist reviewed No recurrent Sz ATivan PRN, Keppra ATC provided, No active sz at this time Surgeon notified. Subjective Allergies: Coded Allergies: No Known Allergies (Verified , 04/10/08) Objective Last 24 Hour Vital Signs Date Time Temp Pulse Resp B/P (MAP) Pulse Ox O2 Delivery O2 Flow Rate FiO2 07/30/18 04:00 98.0 102 20 101/66 (78) 100 07/30/18 04:00 96 07/30/18 00:00 98.0 96 20 93/62 (72) 100 07/30/18 00:00 96 07/29/18 23:09 98.4 07/29/18 21:00 Nasal Cannula 2.0 07/29/18 20:00 100.6 109 20 99/60 (73) 100 07/29/18 20:00 108 07/29/18 16:00 Nasal Cannula 2.0 07/29/18 16:00 97.3 103 20 114/57 (76) 96 07/29/18 15:32 99 07/29/18 12:00 98.2 118 18 100/66 (77) 100 07/29/18 12:00 Nasal Cannula 1.0 07/29/18 11:45 109 Intake and Output 07/29/18 07/30/18 19:00 07:00 Intake Total 845.000 ml 825 ml Output Total 900 ml 2000 ml Balance -55.000 ml -1175 ml Intake Oral 360 ml 240 ml IV Total 485.000 ml 585 ml Output Urine Total 900 ml 2000 ml Height (Feet): 5 Height (Inches): 4.00 Weight (Pounds): 120 Lucia Andrews MD Jul 30, 2018 10:06
[2018-07-30 11:43] LABS: BASOPHILS % (AUTO) 0.8 % (0.0-2.0); EOSINOPHILS % (AUTO) 3.5 % (0.0-3.0); HEMATOCRIT 29.2 % (37.0-47.0); HEMOGLOBIN 9.3 G/DL (12.0-16.0); LYMPHOCYTES % (AUTO) 22.5 % (20.0-45.0); MEAN CORPUSCULAR VOLUME 82 FL (80-99); MONOCYTES % (AUTO) 7.7 % (1.0-10.0); NEUTROPHILS % (AUTO) 65.5 % (45.0-75.0); PLATELET COUNT 306 K/UL (150-450); RED BLOOD COUNT 3.54 M/UL (4.20-5.40); RED CELL DISTRIBUTION WIDTH 11.2 % (11.6-14.8); WHITE BLOOD COUNT 7.7 K/UL (4.8-10.8)
[2018-07-30 12:00] VITALS: BP 92/57
[2018-07-30 12:01] LABS: ALANINE AMINOTRANSFERASE 14 U/L (12-78); ALBUMIN 1.7 G/DL (3.4-5.0); ALBUMIN/GLOBULIN RATIO 0.4 (1.0-2.7); ALKALINE PHOSPHATASE 77 U/L (46-116); ANION GAP 6 mmol/L (5-15); ASPARTATE AMINO TRANSFERASE 29 U/L (15-37); BILIRUBIN,TOTAL 0.2 MG/DL (0.2-1.0); BLOOD UREA NITROGEN 10 mg/dL (7-18); CALCIUM 8.9 MG/DL (8.5-10.1); CARBON DIOXIDE 29 MMOL/L (21-32); CHLORIDE 100 MMOL/L (98-107); CREATININE 0.7 MG/DL (0.55-1.30); POTASSIUM 3.7 MMOL/L (3.5-5.1); SODIUM 135 MMOL/L (136-145)
--- NOTE | 2018-07-30 14:48 | Pulmonology Progress Note ---
Assessment/Plan Problems: (1) Sacral decubitus ulcer, stage IV (2) Debility, unspecified (3) Seizure disorder (4) UTI (urinary tract infection) (5) Drug abuse (6) Malnutrition (7) Fibromyalgia Assessment/Plan Abx per ID Wound care Surgical recs AED's Monitor for Sz's PT/OT DVT Px: Hep SQ Subjective Allergies: Coded Allergies: No Known Allergies (Verified , 04/10/08) Subjective AFVSS, on RA No cough, no SOB, no CP, no FC + LBP and hip pain Objective Last 24 Hour Vital Signs Date Time Temp Pulse Resp B/P (MAP) Pulse Ox O2 Delivery O2 Flow Rate FiO2 07/30/18 10:11 97.6 07/30/18 09:00 Nasal Cannula 2.0 07/30/18 08:00 97.6 108 18 108/46 (66) 100 07/30/18 04:00 98.0 102 20 101/66 (78) 100 07/30/18 04:00 96 07/30/18 00:00 98.0 96 20 93/62 (72) 100 07/30/18 00:00 96 07/29/18 23:09 98.4 07/29/18 21:00 Nasal Cannula 2.0 07/29/18 20:00 100.6 109 20 99/60 (73) 100 07/29/18 20:00 108 07/29/18 16:00 Nasal Cannula 2.0 07/29/18 16:00 97.3 103 20 114/57 (76) 96 07/29/18 15:32 99 Intake and Output 07/29/18 07/30/18 19:00 07:00 Intake Total 845.000 ml 825 ml Output Total 900 ml 2000 ml Balance -55.000 ml -1175 ml Intake Oral 360 ml 240 ml IV Total 485.000 ml 585 ml Output Urine Total 900 ml 2000 ml General Appearance: cachetic HEENT: normocephalic, atraumatic, anicteric, mucous membranes moist Respiratory/Chest: chest wall non-tender, lungs clear, normal breath sounds, no respiratory distress, no accessory muscle use Cardiovascular: normal peripheral pulses, normal rate, regular rhythm Abdomen: normal bowel sounds, soft, non tender, no organomegaly, non distended , no mass Extremities: no cyanosis, no clubbing, no edema Microbiology Date/Time Source Procedure Growth Status 07/28/18 17:45 Blood Blood Culture - Preliminary NO GROWTH AFTER 24 HOURS Resulted 07/28/18 17:45 Blood Blood Culture - Preliminary NO GROWTH AFTER 24 HOURS Resulted Laboratory Tests 07/30/18 11:21: White Blood Count 7.7, Red Blood Count 3.54L, Hemoglobin 9.3L, Hematocrit 29.2L , Mean Corpuscular Volume 82, Mean Corpuscular Hemoglobin 26.4L, Mean Corpuscular Hemoglobin Concent 32.0, Red Cell Distribution Width 11.2L, Platelet Count 306, Mean Platelet Volume 5.0L, Neutrophils (%) (Auto) 65.5, Lymphocytes (%) (Auto) 22.5, Monocytes (%) (Auto) 7.7, Eosinophils (%) (Auto) 3.5H, Basophils (%) (Auto) 0.8, Sodium Level 135L, Potassium Level 3.7, Chloride Level 100, Carbon Dioxide Level 29, Anion Gap 6, Blood Urea Nitrogen 10 , Creatinine 0.7, Estimat Glomerular Filtration Rate > 60, Glucose Level 107H, Calcium Level 8.9, Total Bilirubin 0.2, Aspartate Amino Transf (AST/SGOT) 29, Alanine Aminotransferase (ALT/SGPT) 14, Alkaline Phosphatase 77, Total Protein 6.3L, Albumin 1.7L, Globulin 4.6, Albumin/Globulin Ratio 0.4L Current Medications Medications (Trade) Dose Ordered Sig/Elisa Route PRN Reason Start Time Stop Time Status Last Admin Dose Admin Acetaminophen (Tylenol) 650 mg Q8H PRN ORAL Mild Pain/Temp > 100.5 07/29/18 21:00 08/28/18 20:59 07/29/18 21:32 Aztreonam 2 gm/ Dextrose 110 ml @ 220 mls/hr Q8HR IVPB 07/29/18 22:00 08/04/18 14:59 07/30/18 13:47 Baclofen (Lioresal) 10 mg THREE TIMES A DAY ORAL 07/30/18 09:00 08/26/18 17:59 07/30/18 11:51 Calcium Carbonate (OsCal D) 1 tab THREE TIMES A DAY ORAL 07/30/18 09:00 08/26/18 17:59 07/30/18 11:51 Clonazepam (KlonoPIN) 1 mg BID ORAL 07/30/18 09:00 08/03/18 17:59 07/30/18 08:24 Cyanocobalamin (Vitamin B-12) 1,000 mcg DAILY ORAL 07/30/18 09:00 08/27/18 08:59 07/30/18 08:23 Docusate Sodium (Colace) 100 mg TWICE A DAY ORAL 07/30/18 09:00 08/26/18 17:59 07/30/18 08:25 Gabapentin (Neurontin) 900 mg THREE TIMES A DAY ORAL 07/30/18 09:00 08/26/18 17:59 07/30/18 11:51 Heparin Sodium (Porcine) (Heparin 5000 units/ml) 5,000 units EVERY 12 HOURS SUBQ 07/29/18 21:00 08/28/18 20:59 07/30/18 08:26 Ketorolac Tromethamine (Toradol 30mg) 30 mg Q12H PRN IV MODERATE PAIN(4-6) 07/29/18 18:12 08/03/18 18:11 Levetiracetam 100 ml @ 440.098 mls/hr Q12HR IVPB 07/29/18 21:00 08/27/18 12:29 07/30/18 08:23 Loratadine (Claritin 10mg) 10 mg DAILY ORAL 07/30/18 09:00 08/27/18 08:59 07/30/18 08:24 Lorazepam (Ativan 2mg/ml 1ml) 2 mg Q4H PRN IV For Seizures 07/29/18 18:12 08/05/18 18:11 Magnesium Hydroxide (Mom) 30 ml DAILYPRN PRN ORAL Constipation 07/29/18 18:13 08/28/18 18:12 Metronidazole (Flagyl) 500 mg Q8HR ORAL 07/30/18 14:00 08/06/18 13:59 Midodrine (Pro-Amatine) 10 mg DAILY ORAL 07/30/18 09:00 08/27/18 08:59 07/30/18 08:23 Morphine Sulfate (Morphine Sulfate) 2 mg Q6H PRN IVP SEVERE PAIN (7-10) 07/29/18 18:13 08/03/18 18:12 07/30/18 09:41 Multivitamins (Multivitamins) 1 tab DAILY ORAL 07/30/18 09:00 08/27/18 08:59 07/30/18 08:24 Pantoprazole (Protonix) 40 mg DAILY ORAL 07/30/18 09:00 08/27/18 08:59 07/30/18 08:23 Polyethylene Glycol (Miralax) 17 gm DAILYPRN PRN ORAL Constipation 07/29/18 18:13 08/28/18 18:12 Tolterodine Tartrate (Detrol) 2 mg TWICE A DAY ORAL 07/30/18 09:00 08/26/18 17:59 07/30/18 08:25 Trazodone HCl (Desyrel) 100 mg BEDTIME ORAL 07/29/18 21:00 08/26/18 20:59 Vancomycin HCl (Vanco rx to dose) 1 ea DAILY PRN MISC Per rx protocol 07/30/18 09:00 08/27/18 12:29 Vancomycin HCl 1 gm/Dextrose 275 ml @ 183.708 mls/hr Q12HR IVPB 07/29/18 21:00 08/03/18 08:59 07/30/18 09:42 Efrain Olea MD Jul 30, 2018 14:48
[2018-07-30] MEDS: metroNIDAZOLE 500mg tab ORAL SCH (14:55)
--- NOTE | 2018-07-30 15:42 | Infectious Diseases Prog Note ---
Assessment/Plan Problems: (1) UTI (urinary tract infection) Assessment & Plan: with proteus mirabilis on urine culture already on aztreonam empirically (2) Sacral decubitus ulcer, stage IV Assessment & Plan: continue vancomycin and aztreonam with metronidazole empirically, pending wound culture , MRI of the pelvis showed possible osteomyelitis. recommend local wound care and off loading. surgical eval (3) Malnutrition Assessment & Plan: recommend dietary support to improve her wounds healing (4) Drug abuse Assessment & Plan: recommend counseling and rehab (5) Seizure disorder Assessment & Plan: could be due to cocaine withdrawal , continue neuro check and seizure meds, neurology eval Subjective ROS Limited/Unobtainable: Yes Allergies: Coded Allergies: No Known Allergies (Verified , 04/10/08) Subjective she is comfortable with no more seizure episods , and no fever, more verbal and lucid Objective Vital Signs Last 24 Hour Vital Signs Date Time Temp Pulse Resp B/P (MAP) Pulse Ox O2 Delivery O2 Flow Rate FiO2 07/30/18 10:11 97.6 07/30/18 09:00 Nasal Cannula 2.0 07/30/18 08:00 97.6 108 18 108/46 (66) 100 07/30/18 04:00 98.0 102 20 101/66 (78) 100 07/30/18 04:00 96 07/30/18 00:00 98.0 96 20 93/62 (72) 100 07/30/18 00:00 96 07/29/18 23:09 98.4 07/29/18 21:00 Nasal Cannula 2.0 07/29/18 20:00 100.6 109 20 99/60 (73) 100 07/29/18 20:00 108 07/29/18 16:00 Nasal Cannula 2.0 07/29/18 16:00 97.3 103 20 114/57 (76) 96 Height (Feet): 5 Height (Inches): 4.00 Weight (Pounds): 120 General Appearance: WD/WN, no acute distress, cachetic HEENT: normocephalic, atraumatic, anicteric, mucous membranes moist, PERRL Respiratory/Chest: chest wall non-tender, lungs clear, normal breath sounds, no respiratory distress, no accessory muscle use Cardiovascular: normal peripheral pulses, normal rate, regular rhythm, no gallop/murmur, no JVD Abdomen: normal bowel sounds, soft, non tender, no organomegaly, non distended , no mass, no scars Genitourinary: normal external genitalia Extremities: no cyanosis, no clubbing Skin: no rash, no lesions, no ulcers Neurologic/Psychiatric: alert, oriented x 3, responsive Lymphatic: no neck adenopathy, no groin adenopathy Musculoskeletal: normal muscle bulk, no effusion Microbiology Date/Time Source Procedure Growth Status 07/28/18 17:45 Blood Blood Culture - Preliminary NO GROWTH AFTER 24 HOURS Resulted 07/28/18 17:45 Blood Blood Culture - Preliminary NO GROWTH AFTER 24 HOURS Resulted Laboratory Tests Test 07/30/18 11:21 White Blood Count 7.7 K/UL (4.8-10.8) Red Blood Count 3.54 M/UL (4.20-5.40) L Hemoglobin 9.3 G/DL (12.0-16.0) L Hematocrit 29.2 % (37.0-47.0) L Mean Corpuscular Volume 82 FL (80-99) Mean Corpuscular Hemoglobin 26.4 PG (27.0-31.0) L Mean Corpuscular Hemoglobin Concent 32.0 G/DL (32.0-36.0) Red Cell Distribution Width 11.2 % (11.6-14.8) L Platelet Count 306 K/UL (150-450) Mean Platelet Volume 5.0 FL (6.5-10.1) L Neutrophils (%) (Auto) 65.5 % (45.0-75.0) Lymphocytes (%) (Auto) 22.5 % (20.0-45.0) Monocytes (%) (Auto) 7.7 % (1.0-10.0) Eosinophils (%) (Auto) 3.5 % (0.0-3.0) H Basophils (%) (Auto) 0.8 % (0.0-2.0) Sodium Level 135 MMOL/L (136-145) L Potassium Level 3.7 MMOL/L (3.5-5.1) Chloride Level 100 MMOL/L (98-107) Carbon Dioxide Level 29 MMOL/L (21-32) Anion Gap 6 mmol/L (5-15) Blood Urea Nitrogen 10 mg/dL (7-18) Creatinine 0.7 MG/DL (0.55-1.30) Estimat Glomerular Filtration Rate > 60 mL/min (>60) Glucose Level 107 MG/DL (74-106) H Calcium Level 8.9 MG/DL (8.5-10.1) Total Bilirubin 0.2 MG/DL (0.2-1.0) Aspartate Amino Transf (AST/SGOT) 29 U/L (15-37) Alanine Aminotransferase (ALT/SGPT) 14 U/L (12-78) Alkaline Phosphatase 77 U/L (46-116) Total Protein 6.3 G/DL (6.4-8.2) L Albumin 1.7 G/DL (3.4-5.0) L Globulin 4.6 g/dL Albumin/Globulin Ratio 0.4 (1.0-2.7) L Current Medications Medications (Trade) Dose Ordered Sig/Elisa Route PRN Reason Start Time Stop Time Status Last Admin Dose Admin Acetaminophen (Tylenol) 650 mg Q8H PRN ORAL Mild Pain/Temp > 100.5 07/29/18 21:00 08/28/18 20:59 07/30/18 14:58 Aztreonam 2 gm/ Dextrose 110 ml @ 220 mls/hr Q8HR IVPB 07/29/18 22:00 08/04/18 14:59 07/30/18 13:47 Baclofen (Lioresal) 10 mg THREE TIMES A DAY ORAL 07/30/18 09:00 08/26/18 17:59 07/30/18 11:51 Calcium Carbonate (OsCal D) 1 tab THREE TIMES A DAY ORAL 07/30/18 09:00 08/26/18 17:59 07/30/18 11:51 Clonazepam (KlonoPIN) 1 mg BID ORAL 07/30/18 09:00 08/03/18 17:59 07/30/18 08:24 Cyanocobalamin (Vitamin B-12) 1,000 mcg DAILY ORAL 07/30/18 09:00 08/27/18 08:59 07/30/18 08:23 Docusate Sodium (Colace) 100 mg TWICE A DAY ORAL 07/30/18 09:00 08/26/18 17:59 07/30/18 08:25 Gabapentin (Neurontin) 900 mg THREE TIMES A DAY ORAL 07/30/18 09:00 08/26/18 17:59 07/30/18 11:51 Heparin Sodium (Porcine) (Heparin 5000 units/ml) 5,000 units EVERY 12 HOURS SUBQ 07/29/18 21:00 08/28/18 20:59 07/30/18 08:26 Ketorolac Tromethamine (Toradol 30mg) 30 mg Q12H PRN IV MODERATE PAIN(4-6) 07/29/18 18:12 08/03/18 18:11 Levetiracetam 100 ml @ 440.098 mls/hr Q12HR IVPB 07/29/18 21:00 08/27/18 12:29 07/30/18 08:23 Loratadine (Claritin 10mg) 10 mg DAILY ORAL 07/30/18 09:00 08/27/18 08:59 07/30/18 08:24 Lorazepam (Ativan 2mg/ml 1ml) 2 mg Q4H PRN IV For Seizures 07/29/18 18:12 08/05/18 18:11 Magnesium Hydroxide (Mom) 30 ml DAILYPRN PRN ORAL Constipation 07/29/18 18:13 08/28/18 18:12 Metronidazole (Flagyl) 500 mg Q8HR ORAL 07/30/18 14:00 08/06/18 13:59 07/30/18 14:55 Midodrine (Pro-Amatine) 10 mg DAILY ORAL 07/30/18 09:00 08/27/18 08:59 07/30/18 08:23 Morphine Sulfate (Morphine Sulfate) 2 mg Q6H PRN IVP SEVERE PAIN (7-10) 07/29/18 18:13 08/03/18 18:12 07/30/18 09:41 Multivitamins (Multivitamins) 1 tab DAILY ORAL 07/30/18 09:00 08/27/18 08:59 07/30/18 08:24 Pantoprazole (Protonix) 40 mg DAILY ORAL 07/30/18 09:00 08/27/18 08:59 07/30/18 08:23 Polyethylene Glycol (Miralax) 17 gm DAILYPRN PRN ORAL Constipation 07/29/18 18:13 08/28/18 18:12 Tolterodine Tartrate (Detrol) 2 mg TWICE A DAY ORAL 07/30/18 09:00 08/26/18 17:59 07/30/18 08:25 Trazodone HCl (Desyrel) 100 mg BEDTIME ORAL 07/29/18 21:00 08/26/18 20:59 Vancomycin HCl (Vanco rx to dose) 1 ea DAILY PRN MISC Per rx protocol 07/30/18 09:00 08/27/18 12:29 Vancomycin HCl 1 gm/Dextrose 275 ml @ 183.708 mls/hr Q12HR IVPB 07/29/18 21:00 08/03/18 08:59 07/30/18 09:42 Portillo Vazquez M.D. Jul 30, 2018 15:42
[2018-07-30 16:00] VITALS: BP 108/52
[2018-07-30] MEDS ORDERED: NS 275ml ONE (16:14)
[2018-07-30] MEDS ORDERED: Tubing IV Secondary IV ONE (16:14)
[2018-07-30 20:00] VITALS: BP 90/58
[2018-07-30] MEDS: Milk of Magnesia 30ml Ud ORAL PRN (20:17)
[2018-07-30] MEDS: TraZODone 100mg tab ORAL SCH (20:18)
[2018-07-30] MEDS ORDERED: Vancomycin 1gm inj IVPB ONE (23:42)
[2018-07-31] VITALS: BP 90/57
[2018-07-31] MEDS: Vancomycin 1500mg IVPB SCH ×3 (00:34→23:26)
[2018-07-31] MEDS: Aztreonam Inj 2 GM in D5W 110 ML IVPB SCH ×4 (00:34→21:31)
[2018-07-31] MEDS: metroNIDAZOLE 500mg tab ORAL SCH ×4 (00:34→21:32)
[2018-07-31 04:00] VITALS: BP 73/42
[2018-07-31] MEDS ORDERED: Sodium Chloride 500ML 500 ML IV PRN ×3 (06:15→06:45)
[2018-07-31 08:02] VITALS: BP 92/55
[2018-07-31] MEDS: levETIRAcetam 500mg/NS100ml 100 ML IVPB SCH ×2 (08:10→21:44)
[2018-07-31] MEDS: Midodrine 10mg tab ORAL SCH (08:11)
[2018-07-31] MEDS: Tolterodine 2mg tab ORAL SCH ×2 (08:11→18:01)
[2018-07-31] MEDS: Docusate 100mg cap ORAL SCH ×2 (08:11→18:01)
[2018-07-31] MEDS: Vitamin B-12 500mcg tab ORAL SCH (08:12)
[2018-07-31] MEDS: Calcium Carbonate 500mg w/Vit D 200iu tab ORAL SCH ×3 (08:12→18:00)
[2018-07-31] MEDS: Heparin 5000 units/ml inj SUBQ SCH ×2 (08:14→21:42)
--- NOTE | 2018-07-31 08:56 | Consultation ---
History of Present Illness General Date patient seen: Jul 31, 2018 Chief Complaint: General Complaint Referring physician: hanny Wynne Reason for Consultation: sacral pressure wounds with possible underlying os Present Illness Allergies: Coded Allergies: No Known Allergies (Verified , 04/10/08) Medication History Scheduled Baclofen* (Baclofen*), 10 MG ORAL THREE TIMES A DAY, (Reported) Calcium Carbonate/Vitamin D3 ([place] 500+D Tablet), 1 EACH PO TID, (Reported) Cholecalciferol (Vitamin D3)* (Vitamin D*), 2,000 UNITS ORAL DAILY, (Reported) Clonazepam* (Klonopin*), 1 MG ORAL BID, (Reported) Cyanocobalamin (Vitamin B-12)* (Vitamin B-12*), 1,000 MCG ORAL DAILY, (Reported) Docusate Sodium (Doc-Q-Lace), 100 MG ORAL BID, (Reported) Gabapentin* (Gabapentin*), 900 MG ORAL THREE TIMES A DAY, (Reported) Hydrocortisone (Anucort-Hc), 1 SUPP RECTAL TWICE A DAY Levetiracetam (Keppra), 500 MG ORAL BID, (Reported) Magnesium Hydroxide* (Milk Of Magnesia*), ML ORAL DAILY, (Reported) Midodrine* (Proamatine*), 10 MG ORAL DAILY, (Reported) Multivitamin (Multi Vitamin Daily), 1 TAB ORAL DAILY, (Reported) Nabumetone* (Relafen*), 750 MG PO BID, (Reported) Omeprazole (Omeprazole), 10 MG ORAL DAILY, (Reported) Pantoprazole* (Protonix*), 40 MG ORAL DAILY Prochlorperazine (Prochlorperazine), 10 MG RECTAL EVERY 12 HOURS, (Reported) Ranitidine Hcl* (Zantac*), 150 MG ORAL QHS Tolterodine Tartrate* (Detrol*), 2 MG ORAL TWICE A DAY, (Reported) Trazodone* (Trazodone*), 100 MG ORAL BEDTIME, (Reported) Venlafaxine Hcl (Venlafaxine Hcl), Unknown Dose ORAL BID, (Reported) Vit D3/Folic Acid/B2/B6/B12 (Folgard Tablet), 1 EACH PO TID, (Reported) Scheduled PRN Hydrocodone Bit/Acetaminophen 5-325* ([place] 5-325 Tablet*), 1 TAB ORAL Q4H PRN for For Pain, (Reported) Polyethylene Glycol 3350* (Miralax*), 17 GM ORAL DAILYPRN PRN for Constipation Tramadol Hcl* (Ultram*), 50 MG ORAL BID PRN for For Pain, (Reported) Miscellaneous Medications Loratadine (Loratadine), 10 MG PO, (Reported) Sennosides (Senna), 8.6 MG PO, (Reported) Patient History Healthcare decision maker Resuscitation status Full Code Advanced Directive on File Physical Exam Last 24 Hour Vital Signs Date Time Temp Pulse Resp B/P (MAP) Pulse Ox O2 Delivery O2 Flow Rate FiO2 07/31/18 08:02 98.4 88 18 92/55 (67) 99 07/31/18 04:00 98.6 96 18 73/42 (52) 98 07/31/18 04:00 97 07/31/18 00:00 97.2 94 20 90/57 (68) 99 07/31/18 00:00 85 07/30/18 21:00 Nasal Cannula 2.0 07/30/18 20:00 94 07/30/18 20:00 100.2 98 20 90/58 (69) 100 07/30/18 16:00 98 07/30/18 16:00 99.5 112 18 108/52 (70) 100 07/30/18 15:28 99.5 07/30/18 12:00 100.1 87 18 92/57 (69) 100 07/30/18 12:00 89 07/30/18 10:11 97.6 07/30/18 09:00 Nasal Cannula 2.0 Intake and Output 07/30/18 07/31/18 18:59 06:59 Intake Total 890 ml 940 ml Output Total 450 ml 500 ml Balance 440 ml 440 ml Intake Oral 890 ml 480 ml IV Total 460 ml Output Urine Total 450 ml 500 ml Laboratory Tests Test 07/30/18 11:21 07/30/18 20:20 White Blood Count 7.7 K/UL (4.8-10.8) Red Blood Count 3.54 M/UL (4.20-5.40) L Hemoglobin 9.3 G/DL (12.0-16.0) L Hematocrit 29.2 % (37.0-47.0) L Mean Corpuscular Volume 82 FL (80-99) Mean Corpuscular Hemoglobin 26.4 PG (27.0-31.0) L Mean Corpuscular Hemoglobin Concent 32.0 G/DL (32.0-36.0) Red Cell Distribution Width 11.2 % (11.6-14.8) L Platelet Count 306 K/UL (150-450) Mean Platelet Volume 5.0 FL (6.5-10.1) L Neutrophils (%) (Auto) 65.5 % (45.0-75.0) Lymphocytes (%) (Auto) 22.5 % (20.0-45.0) Monocytes (%) (Auto) 7.7 % (1.0-10.0) Eosinophils (%) (Auto) 3.5 % (0.0-3.0) H Basophils (%) (Auto) 0.8 % (0.0-2.0) Sodium Level 135 MMOL/L (136-145) L Potassium Level 3.7 MMOL/L (3.5-5.1) Chloride Level 100 MMOL/L (98-107) Carbon Dioxide Level 29 MMOL/L (21-32) Anion Gap 6 mmol/L (5-15) Blood Urea Nitrogen 10 mg/dL (7-18) Creatinine 0.7 MG/DL (0.55-1.30) Estimat Glomerular Filtration Rate > 60 mL/min (>60) Glucose Level 107 MG/DL (74-106) H Calcium Level 8.9 MG/DL (8.5-10.1) Total Bilirubin 0.2 MG/DL (0.2-1.0) Aspartate Amino Transf (AST/SGOT) 29 U/L (15-37) Alanine Aminotransferase (ALT/SGPT) 14 U/L (12-78) Alkaline Phosphatase 77 U/L (46-116) Total Protein 6.3 G/DL (6.4-8.2) L Albumin 1.7 G/DL (3.4-5.0) L Globulin 4.6 g/dL Albumin/Globulin Ratio 0.4 (1.0-2.7) L Vancomycin Level Trough 10.3 ug/mL (5.0-12.0) Height (Feet): 5 Height (Inches): 4.00 Weight (Pounds): 120 Medications Current Medications Medications (Trade) Dose Ordered Sig/Elisa Route PRN Reason Start Time Stop Time Status Last Admin Dose Admin Acetaminophen (Tylenol) 650 mg Q8H PRN ORAL Mild Pain/Temp > 100.5 07/29/18 21:00 08/28/18 20:59 07/31/18 08:24 Aztreonam 2 gm/ Dextrose 110 ml @ 220 mls/hr Q8HR IVPB 07/29/18 22:00 08/04/18 14:59 07/31/18 06:26 Baclofen (Lioresal) 10 mg THREE TIMES A DAY ORAL 07/30/18 09:00 08/26/18 17:59 07/31/18 08:12 Calcium Carbonate (OsCal D) 1 tab THREE TIMES A DAY ORAL 07/30/18 09:00 08/26/18 17:59 07/31/18 08:12 Clonazepam (KlonoPIN) 1 mg BID ORAL 07/30/18 09:00 08/03/18 17:59 07/31/18 08:11 Cyanocobalamin (Vitamin B-12) 1,000 mcg DAILY ORAL 07/30/18 09:00 08/27/18 08:59 07/31/18 08:12 Docusate Sodium (Colace) 100 mg TWICE A DAY ORAL 07/30/18 09:00 08/26/18 17:59 07/31/18 08:11 Gabapentin (Neurontin) 900 mg THREE TIMES A DAY ORAL 07/30/18 09:00 08/26/18 17:59 07/31/18 08:11 Heparin Sodium (Porcine) (Heparin 5000 units/ml) 5,000 units EVERY 12 HOURS SUBQ 07/29/18 21:00 08/28/18 20:59 07/31/18 08:14 Ketorolac Tromethamine (Toradol 30mg) 30 mg Q12H PRN IV MODERATE PAIN(4-6) 07/29/18 18:12 08/03/18 18:11 Levetiracetam 100 ml @ 440.098 mls/hr Q12HR IVPB 07/29/18 21:00 08/27/18 12:29 07/31/18 08:10 Loratadine (Claritin 10mg) 10 mg DAILY ORAL 07/30/18 09:00 08/27/18 08:59 12/23/18 08:11 Lorazepam (Ativan 2mg/ml 1ml) 2 mg Q4H PRN IV For Seizures 07/29/18 18:12 08/05/18 18:11 Magnesium Hydroxide (Mom) 30 ml DAILYPRN PRN ORAL Constipation 07/29/18 18:13 08/28/18 18:12 07/30/18 20:17 Metronidazole (Flagyl) 500 mg Q8HR ORAL 07/30/18 14:00 08/06/18 13:59 07/31/18 06:26 Midodrine (Pro-Amatine) 10 mg DAILY ORAL 07/30/18 09:00 08/27/18 08:59 07/31/18 08:11 Morphine Sulfate (Morphine Sulfate) 2 mg Q6H PRN IVP SEVERE PAIN (7-10) 07/29/18 18:13 08/03/18 18:12 07/30/18 16:21 Multivitamins (Multivitamins) 1 tab DAILY ORAL 07/30/18 09:00 08/27/18 08:59 07/31/18 08:11 Pantoprazole (Protonix) 40 mg DAILY ORAL 07/30/18 09:00 08/27/18 08:59 07/31/18 08:11 Polyethylene Glycol (Miralax) 17 gm DAILYPRN PRN ORAL Constipation 07/29/18 18:13 08/28/18 18:12 Sodium Chloride 500 ml @ 999 mls/hr Q31M PRN IV FOR SBP <80 07/31/18 06:45 08/30/18 06:44 Tolterodine Tartrate (Detrol) 2 mg TWICE A DAY ORAL 07/30/18 09:00 08/26/18 17:59 07/31/18 08:11 Trazodone HCl (Desyrel) 100 mg BEDTIME ORAL 07/29/18 21:00 08/26/18 20:59 07/30/18 20:18 Vancomycin HCl (Vanco rx to dose) 1 ea DAILY PRN MISC Per rx protocol 07/30/18 09:00 08/27/18 12:29 Vancomycin HCl/ Dextrose 250 ml @ 125 mls/hr Q12H IVPB 07/30/18 23:00 08/04/18 22:59 07/31/18 00:34 Assessment/Plan Status Narrative Hematology Consult CAROL BURTON: Darryl Myers DOS: 07/31/2018 RFC: Anemia, progressive ID 62-year-old female with history of neuroMascular d/s andd edbound and wheelchair bound, who presented with worsening pain on her back and on the right hip. She denies any loss of consciousness. and remained AOX3 in the ER. She is actively using cocaine. Reported acute onset of Sz this AM. Patient is not verbal at the time of evaluation. On abx at this time for decub ulceration stage iv PAST MEDICAL HISTORY: Musculoskeletal neurodegenerative disorder, reportedly [place] syndrome, fibromyalgia, anemia, and history of drug abuse. PAST SURGICAL HISTORY: Denies. ROs: limited as above ALLERGIES: NKDA. MEDICATIONS: Current home medication including, but not limited to Zosyn and Vanco. SOCIAL HISTORY: ( per prior documentation ) The patient denies history of alcohol abuse or tobacco use. Positive for drug abuse, cocaine. FAMILY HISTORY: Reviewed. Noncontributory. PHYSICAL EXAMINATION: Last 24 Hour Vital Signs Date Time Temp Pulse Resp B/P (MAP) Pulse Ox O2 Delivery O2 Flow Rate FiO2 07/31/18 08:02 98.4 88 18 92/55 (67) 99 07/31/18 04:00 98.6 96 18 73/42 (52) 98 07/31/18 04:00 97 07/31/18 00:00 97.2 94 20 90/57 (68) 99 07/31/18 00:00 85 07/30/18 21:00 Nasal Cannula 2.0 07/30/18 20:00 94 07/30/18 20:00 100.2 98 20 90/58 (69) 100 07/30/18 16:00 98 07/30/18 16:00 99.5 112 18 108/52 (70) 100 07/30/18 15:28 99.5 07/30/18 12:00 100.1 87 18 92/57 (69) 100 07/30/18 12:00 89 07/30/18 10:11 97.6 07/30/18 09:00 Nasal Cannula 2.0 HEAD AND NECK: Atraumatic and normocephalic. CHEST: Clear to auscultation. LUNGS: No wheezing. No crackles. ABDOMEN: Soft. No organomegaly. Bowel sounds are normal. MUSCULOSKELETAL: Atrophied musculatures. positive for Decubitus wound NEUROLOGIC: The patient is awake, not verbal and lethargic LABORATORY AND DIAGNOSTIC DATA: Laboratory Tests Test 07/30/18 11:21 07/30/18 20:20 White Blood Count 7.7 K/UL (4.8-10.8) Red Blood Count 3.54 M/UL (4.20-5.40) L Hemoglobin 9.3 G/DL (12.0-16.0) L Hematocrit 29.2 % (37.0-47.0) L Mean Corpuscular Volume 82 FL (80-99) Mean Corpuscular Hemoglobin 26.4 PG (27.0-31.0) L Mean Corpuscular Hemoglobin Concent 32.0 G/DL (32.0-36.0) Red Cell Distribution Width 11.2 % (11.6-14.8) L Platelet Count 306 K/UL (150-450) Mean Platelet Volume 5.0 FL (6.5-10.1) L Neutrophils (%) (Auto) 65.5 % (45.0-75.0) Lymphocytes (%) (Auto) 22.5 % (20.0-45.0) Monocytes (%) (Auto) 7.7 % (1.0-10.0) Eosinophils (%) (Auto) 3.5 % (0.0-3.0) H Basophils (%) (Auto) 0.8 % (0.0-2.0) Sodium Level 135 MMOL/L (136-145) L Potassium Level 3.7 MMOL/L (3.5-5.1) Chloride Level 100 MMOL/L (98-107) Carbon Dioxide Level 29 MMOL/L (21-32) Anion Gap 6 mmol/L (5-15) Blood Urea Nitrogen 10 mg/dL (7-18) Creatinine 0.7 MG/DL (0.55-1.30) Estimat Glomerular Filtration Rate > 60 mL/min (>60) Glucose Level 107 MG/DL (74-106) H Calcium Level 8.9 MG/DL (8.5-10.1) Total Bilirubin 0.2 MG/DL (0.2-1.0) Aspartate Amino Transf (AST/SGOT) 29 U/L (15-37) Alanine Aminotransferase (ALT/SGPT) 14 U/L (12-78) Alkaline Phosphatase 77 U/L (46-116) Total Protein 6.3 G/DL (6.4-8.2) L Albumin 1.7 G/DL (3.4-5.0) L Globulin 4.6 g/dL Albumin/Globulin Ratio 0.4 (1.0-2.7) L Vancomycin Level Trough 10.3 ug/mL (5.0-12.0) Current Medications Medications (Trade) Dose Ordered Sig/Elisa Route PRN Reason Start Time Stop Time Status Last Admin Dose Admin Acetaminophen (Tylenol) 650 mg Q8H PRN ORAL Mild Pain/Temp > 100.5 07/29/18 21:00 08/28/18 20:59 07/31/18 08:24 Aztreonam 2 gm/ Dextrose 110 ml @ 220 mls/hr Q8HR IVPB 07/29/18 22:00 08/04/18 14:59 07/31/18 06:26 Baclofen (Lioresal) 10 mg THREE TIMES A DAY ORAL 07/30/18 09:00 08/26/18 17:59 07/31/18 08:12 Calcium Carbonate (OsCal D) 1 tab THREE TIMES A DAY ORAL 07/30/18 09:00 08/26/18 17:59 07/31/18 08:12 Clonazepam (KlonoPIN) 1 mg BID ORAL 07/30/18 09:00 08/03/18 17:59 07/31/18 08:11 Cyanocobalamin (Vitamin B-12) 1,000 mcg DAILY ORAL 07/30/18 09:00 08/27/18 08:59 07/31/18 08:12 Docusate Sodium (Colace) 100 mg TWICE A DAY ORAL 07/30/18 09:00 08/26/18 17:59 07/31/18 08:11 Gabapentin (Neurontin) 900 mg THREE TIMES A DAY ORAL 07/30/18 09:00 08/26/18 17:59 07/31/18 08:11 Heparin Sodium (Porcine) (Heparin 5000 units/ml) 5,000 units EVERY 12 HOURS SUBQ 07/29/18 21:00 08/28/18 20:59 07/31/18 08:14 Ketorolac Tromethamine (Toradol 30mg) 30 mg Q12H PRN IV MODERATE PAIN(4-6) 07/29/18 18:12 08/03/18 18:11 Levetiracetam 100 ml @ 440.098 mls/hr Q12HR IVPB 07/29/18 21:00 08/27/18 12:29 07/31/18 08:10 Loratadine (Claritin 10mg) 10 mg DAILY ORAL 07/30/18 09:00 08/27/18 08:59 07/31/18 08:11 Lorazepam (Ativan 2mg/ml 1ml) 2 mg Q4H PRN IV For Seizures 07/29/18 18:12 08/05/18 18:11 Magnesium Hydroxide (Mom) 30 ml DAILYPRN PRN ORAL Constipation 07/29/18 18:13 08/28/18 18:12 07/30/18 20:17 Metronidazole (Flagyl) 500 mg Q8HR ORAL 07/30/18 14:00 08/06/18 13:59 07/31/18 06:26 Midodrine (Pro-Amatine) 10 mg DAILY ORAL 07/30/18 09:00 08/27/18 08:59 07/31/18 08:11 Morphine Sulfate (Morphine Sulfate) 2 mg Q6H PRN IVP SEVERE PAIN (7-10) 07/29/18 18:13 08/03/18 18:12 07/30/18 16:21 Multivitamins (Multivitamins) 1 tab DAILY ORAL 07/30/18 09:00 08/27/18 08:59 07/31/18 08:11 Pantoprazole (Protonix) 40 mg DAILY ORAL 07/30/18 09:00 08/27/18 08:59 07/31/18 08:11 Polyethylene Glycol (Miralax) 17 gm DAILYPRN PRN ORAL Constipation 07/29/18 18:13 08/28/18 18:12 Sodium Chloride 500 ml @ 999 mls/hr Q31M PRN IV FOR SBP <80 07/31/18 06:45 08/30/18 06:44 Tolterodine Tartrate (Detrol) 2 mg TWICE A DAY ORAL 07/30/18 09:00 08/26/18 17:59 07/31/18 08:11 Trazodone HCl (Desyrel) 100 mg BEDTIME ORAL 07/29/18 21:00 08/26/18 20:59 07/30/18 20:18 Vancomycin HCl (Vanco rx to dose) 1 ea DAILY PRN MISC Per rx protocol 07/30/18 09:00 08/27/18 12:29 Vancomycin HCl/ Dextrose 250 ml @ 125 mls/hr Q12H IVPB 07/30/18 23:00 08/04/18 22:59 07/31/18 00:34 ASSESSMENT AND PLAN: 1. Anemia of chronic disease - hgb lower potentially related to ivf --> anemia panel has been ordered --> transfuse if hgb less than 7 --> hgb electrophoresis reviewed and is negative for m-spike, signficantly abnml bands --> no e/o hemolysis is noted 2. Leukocytosis with sepsis currently has improved on iv abx --> smear reviewed, no abnmls significant that are noted --> on abx and should improve on them 3. Decubitus wound --> on abx --> appreciate surg recs 4. UTI- HCA 2. Neuromuscular disorder - wheelchair bound - baseline. 3. Neurogenic bladder. 4. Psychiatric disorder. 5. UTI. 6. Seizure disorder (questionable). Greatly appreciate consultation! John Anderson MD Jul 31, 2018 08:56
[2018-07-31 11:18] LABS: BASOPHILS % (AUTO) 0.3 % (0.0-2.0); EOSINOPHILS % (AUTO) 3.4 % (0.0-3.0); HEMATOCRIT 28.3 % (37.0-47.0); LYMPHOCYTES % (AUTO) 26.6 % (20.0-45.0); MEAN CORPUSCULAR VOLUME 82 FL (80-99); NEUTROPHILS % (AUTO) 61.8 % (45.0-75.0); PLATELET COUNT 311 K/UL (150-450); RED BLOOD COUNT 3.44 M/UL (4.20-5.40); RED CELL DISTRIBUTION WIDTH 11.6 % (11.6-14.8); WHITE BLOOD COUNT 5.6 K/UL (4.8-10.8)
[2018-07-31 11:35] VITALS: BP 89/52
[2018-07-31 11:43] LABS: ALANINE AMINOTRANSFERASE 13 U/L (12-78); ALBUMIN 1.6 G/DL (3.4-5.0); ALBUMIN/GLOBULIN RATIO 0.4 (1.0-2.7); ALKALINE PHOSPHATASE 75 U/L (46-116); ANION GAP 6 mmol/L (5-15); ASPARTATE AMINO TRANSFERASE 25 U/L (15-37); BILIRUBIN,TOTAL 0.2 MG/DL (0.2-1.0); BLOOD UREA NITROGEN 7 mg/dL (7-18); CALCIUM 8.9 MG/DL (8.5-10.1); CARBON DIOXIDE 29 MMOL/L (21-32); CHLORIDE 106 MMOL/L (98-107); CREATININE 0.7 MG/DL (0.55-1.30); POTASSIUM 3.9 MMOL/L (3.5-5.1); SODIUM 141 MMOL/L (136-145)
--- NOTE | 2018-07-31 14:41 | Pulmonology Progress Note ---
Assessment/Plan Problems: (1) Sacral decubitus ulcer, stage IV (2) Debility, unspecified (3) Seizure disorder (4) UTI (urinary tract infection) (5) Drug abuse (6) Malnutrition (7) Fibromyalgia Assessment/Plan Abx per ID Wound care Surgical recs AED's Monitor for Sz's PT/OT DVT Px: Hep SQ Subjective Allergies: Coded Allergies: No Known Allergies (Verified , 04/10/08) Subjective Low BP ON improved with IVF bolus No cough, no SOB, no CP, no FC + LBP and hip pain Objective Last 24 Hour Vital Signs Date Time Temp Pulse Resp B/P (MAP) Pulse Ox O2 Delivery O2 Flow Rate FiO2 07/31/18 11:35 98.6 71 18 89/52 (64) 97 07/31/18 09:00 Nasal Cannula 2.0 07/31/18 08:02 98.4 88 18 92/55 (67) 99 07/31/18 08:00 86 07/31/18 04:00 98.6 96 18 73/42 (52) 98 07/31/18 04:00 97 07/31/18 00:00 97.2 94 20 90/57 (68) 99 07/31/18 00:00 85 07/30/18 21:00 Nasal Cannula 2.0 07/30/18 20:00 94 07/30/18 20:00 100.2 98 20 90/58 (69) 100 07/30/18 16:00 98 07/30/18 16:00 99.5 112 18 108/52 (70) 100 07/30/18 15:28 99.5 Intake and Output 07/30/18 07/31/18 19:00 07:00 Intake Total 890 ml 940 ml Output Total 450 ml 500 ml Balance 440 ml 440 ml Intake Oral 890 ml 480 ml IV Total 460 ml Output Urine Total 450 ml 500 ml General Appearance: no acute distress, cachetic HEENT: normocephalic, atraumatic, anicteric, mucous membranes moist Respiratory/Chest: chest wall non-tender, lungs clear, normal breath sounds, no respiratory distress, no accessory muscle use Cardiovascular: normal peripheral pulses, normal rate, regular rhythm Abdomen: normal bowel sounds, soft, non tender, no organomegaly, non distended , no mass Extremities: no cyanosis, no clubbing, no edema Microbiology Date/Time Source Procedure Growth Status 07/28/18 17:45 Blood Blood Culture - Preliminary NO GROWTH AFTER 48 HOURS Resulted 07/28/18 17:45 Blood Blood Culture - Preliminary NO GROWTH AFTER 48 HOURS Resulted Laboratory Tests 07/30/18 20:20: Vancomycin Level Trough 10.3 07/31/18 10:50: White Blood Count 5.6, Red Blood Count 3.44L, Hemoglobin 9.0L, Hematocrit 28.3L , Mean Corpuscular Volume 82, Mean Corpuscular Hemoglobin 26.3L, Mean Corpuscular Hemoglobin Concent 31.9L, Red Cell Distribution Width 11.6, Platelet Count 311, Mean Platelet Volume 5.3L, Neutrophils (%) (Auto) 61.8, Lymphocytes (%) (Auto) 26.6, Monocytes (%) (Auto) 8.0, Eosinophils (%) (Auto) 3.4H, Basophils (%) (Auto) 0.3, Sodium Level 141, Potassium Level 3.9, Chloride Level 106, Carbon Dioxide Level 29, Anion Gap 6, Blood Urea Nitrogen 7, Creatinine 0.7, Estimat Glomerular Filtration Rate > 60, Glucose Level 128H, Calcium Level 8.9, Total Bilirubin 0.2, Aspartate Amino Transf (AST/SGOT) 25, Alanine Aminotransferase (ALT/SGPT) 13, Alkaline Phosphatase 75, Total Protein 6.1L, Albumin 1.6L, Globulin 4.5, Albumin/Globulin Ratio 0.4L, Cortisol [Pending ] Current Medications Medications (Trade) Dose Ordered Sig/Elisa Route PRN Reason Start Time Stop Time Status Last Admin Dose Admin Acetaminophen (Tylenol) 650 mg Q8H PRN ORAL Mild Pain/Temp > 100.5 07/29/18 21:00 08/28/18 20:59 07/31/18 08:24 Aztreonam 2 gm/ Dextrose 110 ml @ 220 mls/hr Q8HR IVPB 07/29/18 22:00 08/04/18 14:59 07/31/18 12:51 Baclofen (Lioresal) 10 mg THREE TIMES A DAY ORAL 07/30/18 09:00 08/26/18 17:59 07/31/18 12:10 Calcium Carbonate (OsCal D) 1 tab THREE TIMES A DAY ORAL 07/30/18 09:00 08/26/18 17:59 07/31/18 12:09 Clonazepam (KlonoPIN) 1 mg BID ORAL 07/30/18 09:00 08/03/18 17:59 07/31/18 08:11 Cyanocobalamin (Vitamin B-12) 1,000 mcg DAILY ORAL 07/30/18 09:00 08/27/18 08:59 07/31/18 08:12 Docusate Sodium (Colace) 100 mg TWICE A DAY ORAL 07/30/18 09:00 08/26/18 17:59 07/31/18 08:11 Gabapentin (Neurontin) 900 mg THREE TIMES A DAY ORAL 07/30/18 09:00 08/26/18 17:59 07/31/18 12:10 Heparin Sodium (Porcine) (Heparin 5000 units/ml) 5,000 units EVERY 12 HOURS SUBQ 07/29/18 21:00 08/28/18 20:59 07/31/18 08:14 Ketorolac Tromethamine (Toradol 30mg) 30 mg BID PRN IV Severe Pain (Pain Scale 7-10) 07/31/18 09:15 08/05/18 09:14 Levetiracetam 100 ml @ 440.098 mls/hr Q12HR IVPB 07/29/18 21:00 08/27/18 12:29 07/31/18 08:10 Loratadine (Claritin 10mg) 10 mg DAILY ORAL 07/30/18 09:00 08/27/18 08:59 07/31/18 08:11 Lorazepam (Ativan 2mg/ml 1ml) 2 mg Q4H PRN IV For Seizures 07/29/18 18:12 08/05/18 18:11 Magnesium Hydroxide (Mom) 30 ml DAILYPRN PRN ORAL Constipation 07/29/18 18:13 08/28/18 18:12 07/30/18 20:17 Metronidazole (Flagyl) 500 mg Q8HR ORAL 07/30/18 14:00 08/06/18 13:59 07/31/18 12:52 Midodrine (Pro-Amatine) 10 mg DAILY ORAL 07/30/18 09:00 08/27/18 08:59 07/31/18 08:11 Multivitamins (Multivitamins) 1 tab DAILY ORAL 07/30/18 09:00 08/27/18 08:59 07/31/18 08:11 Pantoprazole (Protonix) 40 mg DAILY ORAL 07/30/18 09:00 08/27/18 08:59 07/31/18 08:11 Polyethylene Glycol (Miralax) 17 gm DAILYPRN PRN ORAL Constipation 07/29/18 18:13 08/28/18 18:12 Sodium Chloride 500 ml @ 999 mls/hr Q31M PRN IV FOR SBP <80 07/31/18 06:45 08/30/18 06:44 Tolterodine Tartrate (Detrol) 2 mg TWICE A DAY ORAL 07/30/18 09:00 08/26/18 17:59 07/31/18 08:11 Trazodone HCl (Desyrel) 100 mg BEDTIME ORAL 07/29/18 21:00 08/26/18 20:59 07/30/18 20:18 Vancomycin HCl (Vanco rx to dose) 1 ea DAILY PRN MISC Per rx protocol 07/30/18 09:00 08/27/18 12:29 Vancomycin HCl/ Dextrose 250 ml @ 125 mls/hr Q12H IVPB 07/30/18 23:00 08/04/18 22:59 07/31/18 10:22 Efrain Olea MD Jul 31, 2018 14:41
[2018-07-31] MEDS: Ketorolac 30mg Inj IV PRN (15:48)
[2018-07-31 16:00] VITALS: BP 92/49
--- NOTE | 2018-07-31 17:12 | Infectious Diseases Prog Note ---
Assessment/Plan Problems: (1) UTI (urinary tract infection) Assessment & Plan: with proteus mirabilis on urine culture already on aztreonam empirically (2) Sacral decubitus ulcer, stage IV Assessment & Plan: continue vancomycin and aztreonam with metronidazole empirically, pending wound culture , MRI of the pelvis showed possible osteomyelitis. recommend local wound care and off loading. surgical eval (3) Malnutrition Assessment & Plan: recommend dietary support to improve her wounds healing (4) Drug abuse Assessment & Plan: recommend counseling and rehab (5) Seizure disorder Assessment & Plan: could be due to cocaine withdrawal , continue neuro check and seizure meds, neurology eval Subjective Constitutional: Reports: no symptoms HEENT: Reports: no symptoms Respiratory: Reports: no symptoms Breasts: Reports: no symptoms Cardiovascular: Reports: no symptoms Gastrointestinal/Abdominal: Reports: no symptoms Genitourinary: Reports: no symptoms Neurologic: Reports: no symptoms Psychiatric: Reports: no symptoms Skin: Reports: ulcer - sacral pressure wounds deep with extension to the ischium Endocrine: Reports: no symptoms Hematologic: Reports: no symptoms Musculoskeletal: Reports: no symptoms Allergies: Coded Allergies: No Known Allergies (Verified , 04/10/08) Subjective she is comfortable with no more seizure episods , and no fever, more verbal and lucid Objective Vital Signs Last 24 Hour Vital Signs Date Time Temp Pulse Resp B/P (MAP) Pulse Ox O2 Delivery O2 Flow Rate FiO2 07/31/18 16:00 98.0 101 18 92/49 (63) 98 07/31/18 12:00 69 07/31/18 11:35 98.6 71 18 89/52 (64) 97 07/31/18 09:00 Nasal Cannula 2.0 07/31/18 08:02 98.4 88 18 92/55 (67) 99 07/31/18 08:00 86 07/31/18 04:00 98.6 96 18 73/42 (52) 98 07/31/18 04:00 97 07/31/18 00:00 97.2 94 20 90/57 (68) 99 07/31/18 00:00 85 07/30/18 21:00 Nasal Cannula 2.0 07/30/18 20:00 94 07/30/18 20:00 100.2 98 20 90/58 (69) 100 Height (Feet): 5 Height (Inches): 4.00 Weight (Pounds): 120 General Appearance: WD/WN, no acute distress HEENT: normocephalic, atraumatic, anicteric, mucous membranes moist, PERRL Respiratory/Chest: chest wall non-tender, lungs clear, normal breath sounds, no respiratory distress, no accessory muscle use Cardiovascular: normal peripheral pulses, normal rate, regular rhythm, no gallop/murmur, no JVD Abdomen: normal bowel sounds, soft, non tender, no organomegaly, non distended , no mass, no scars Extremities: no cyanosis, no clubbing Skin: no rash, no lesions, ulcers Neurologic/Psychiatric: alert, oriented x 3, responsive Microbiology Date/Time Source Procedure Growth Status 07/28/18 17:45 Blood Blood Culture - Preliminary NO GROWTH AFTER 48 HOURS Resulted 07/28/18 17:45 Blood Blood Culture - Preliminary NO GROWTH AFTER 48 HOURS Resulted Laboratory Tests Test 07/30/18 20:20 07/31/18 10:50 Vancomycin Level Trough 10.3 ug/mL (5.0-12.0) White Blood Count 5.6 K/UL (4.8-10.8) Red Blood Count 3.44 M/UL (4.20-5.40) L Hemoglobin 9.0 G/DL (12.0-16.0) L Hematocrit 28.3 % (37.0-47.0) L Mean Corpuscular Volume 82 FL (80-99) Mean Corpuscular Hemoglobin 26.3 PG (27.0-31.0) L Mean Corpuscular Hemoglobin Concent 31.9 G/DL (32.0-36.0) L Red Cell Distribution Width 11.6 % (11.6-14.8) Platelet Count 311 K/UL (150-450) Mean Platelet Volume 5.3 FL (6.5-10.1) L Neutrophils (%) (Auto) 61.8 % (45.0-75.0) Lymphocytes (%) (Auto) 26.6 % (20.0-45.0) Monocytes (%) (Auto) 8.0 % (1.0-10.0) Eosinophils (%) (Auto) 3.4 % (0.0-3.0) H Basophils (%) (Auto) 0.3 % (0.0-2.0) Sodium Level 141 MMOL/L (136-145) Potassium Level 3.9 MMOL/L (3.5-5.1) Chloride Level 106 MMOL/L (98-107) Carbon Dioxide Level 29 MMOL/L (21-32) Anion Gap 6 mmol/L (5-15) Blood Urea Nitrogen 7 mg/dL (7-18) Creatinine 0.7 MG/DL (0.55-1.30) Estimat Glomerular Filtration Rate > 60 mL/min (>60) Glucose Level 128 MG/DL (74-106) H Calcium Level 8.9 MG/DL (8.5-10.1) Total Bilirubin 0.2 MG/DL (0.2-1.0) Aspartate Amino Transf (AST/SGOT) 25 U/L (15-37) Alanine Aminotransferase (ALT/SGPT) 13 U/L (12-78) Alkaline Phosphatase 75 U/L (46-116) Total Protein 6.1 G/DL (6.4-8.2) L Albumin 1.6 G/DL (3.4-5.0) L Globulin 4.5 g/dL Albumin/Globulin Ratio 0.4 (1.0-2.7) L Cortisol Pending Current Medications Medications (Trade) Dose Ordered Sig/Elisa Route PRN Reason Start Time Stop Time Status Last Admin Dose Admin Acetaminophen (Tylenol) 650 mg Q8H PRN ORAL Mild Pain/Temp > 100.5 07/29/18 21:00 08/28/18 20:59 07/31/18 08:24 Aztreonam 2 gm/ Dextrose 110 ml @ 220 mls/hr Q8HR IVPB 07/29/18 22:00 08/04/18 14:59 07/31/18 12:51 Baclofen (Lioresal) 10 mg THREE TIMES A DAY ORAL 07/30/18 09:00 08/26/18 17:59 07/31/18 12:10 Calcium Carbonate (OsCal D) 1 tab THREE TIMES A DAY ORAL 07/30/18 09:00 08/26/18 17:59 07/31/18 12:09 Clonazepam (KlonoPIN) 1 mg BID ORAL 07/30/18 09:00 08/03/18 17:59 07/31/18 08:11 Cyanocobalamin (Vitamin B-12) 1,000 mcg DAILY ORAL 07/30/18 09:00 08/27/18 08:59 07/31/18 08:12 Docusate Sodium (Colace) 100 mg TWICE A DAY ORAL 07/30/18 09:00 08/26/18 17:59 07/31/18 08:11 Gabapentin (Neurontin) 900 mg THREE TIMES A DAY ORAL 07/30/18 09:00 08/26/18 17:59 07/31/18 12:10 Heparin Sodium (Porcine) (Heparin 5000 units/ml) 5,000 units EVERY 12 HOURS SUBQ 07/29/18 21:00 08/28/18 20:59 07/31/18 08:14 Ketorolac Tromethamine (Toradol 30mg) 30 mg BID PRN IV Severe Pain (Pain Scale 7-10) 07/31/18 09:15 08/05/18 09:14 07/31/18 15:48 Levetiracetam 100 ml @ 440.098 mls/hr Q12HR IVPB 07/29/18 21:00 08/27/18 12:29 07/31/18 08:10 Loratadine (Claritin 10mg) 10 mg DAILY ORAL 07/30/18 09:00 08/27/18 08:59 07/31/18 08:11 Lorazepam (Ativan 2mg/ml 1ml) 2 mg Q4H PRN IV For Seizures 07/29/18 18:12 08/05/18 18:11 Magnesium Hydroxide (Mom) 30 ml DAILYPRN PRN ORAL Constipation 07/29/18 18:13 08/28/18 18:12 07/30/18 20:17 Metronidazole (Flagyl) 500 mg Q8HR ORAL 07/30/18 14:00 08/06/18 13:59 07/31/18 12:52 Midodrine (Pro-Amatine) 10 mg DAILY ORAL 07/30/18 09:00 08/27/18 08:59 07/31/18 08:11 Multivitamins (Multivitamins) 1 tab DAILY ORAL 07/30/18 09:00 08/27/18 08:59 07/31/18 08:11 Pantoprazole (Protonix) 40 mg DAILY ORAL 07/30/18 09:00 08/27/18 08:59 07/31/18 08:11 Polyethylene Glycol (Miralax) 17 gm DAILYPRN PRN ORAL Constipation 07/29/18 18:13 08/28/18 18:12 Sodium Chloride 500 ml @ 999 mls/hr Q31M PRN IV FOR SBP <80 07/31/18 06:45 08/30/18 06:44 Tolterodine Tartrate (Detrol) 2 mg TWICE A DAY ORAL 07/30/18 09:00 08/26/18 17:59 07/31/18 08:11 Trazodone HCl (Desyrel) 100 mg BEDTIME ORAL 07/29/18 21:00 08/26/18 20:59 07/30/18 20:18 Vancomycin HCl (Vanco rx to dose) 1 ea DAILY PRN MISC Per rx protocol 07/30/18 09:00 08/27/18 12:29 Vancomycin HCl/ Dextrose 250 ml @ 125 mls/hr Q12H IVPB 07/30/18 23:00 08/04/18 22:59 07/31/18 10:22 Portillo Vazquez M.D. Jul 31, 2018 17:12
[2018-07-31 20:00] VITALS: BP 122/56
[2018-07-31] MEDS: TraZODone 100mg tab ORAL SCH (21:32)
[2018-08-01] VITALS: BP 97/61
[2018-08-01 04:00] VITALS: BP 110/52
[2018-08-01] MEDS: Aztreonam Inj 2 GM in D5W 110 ML IVPB SCH ×3 (05:53→22:00)
[2018-08-01] MEDS: metroNIDAZOLE 500mg tab ORAL SCH ×3 (05:54→21:29)
[2018-08-01] MEDS: levETIRAcetam 500mg/NS100ml 100 ML IVPB SCH ×2 (07:56→21:30)
[2018-08-01] MEDS: Ketorolac 30mg Inj IV PRN ×2 (07:56→22:37)
[2018-08-01] MEDS: Midodrine 10mg tab ORAL SCH (07:57)
[2018-08-01] MEDS: Vitamin B-12 500mcg tab ORAL SCH (07:57)
[2018-08-01] MEDS: Calcium Carbonate 500mg w/Vit D 200iu tab ORAL SCH ×3 (07:57→17:15)
[2018-08-01] MEDS: Tolterodine 2mg tab ORAL SCH ×2 (07:58→17:17)
[2018-08-01] MEDS: Docusate 100mg cap ORAL SCH ×2 (07:58→17:17)
[2018-08-01] MEDS: Heparin 5000 units/ml inj SUBQ SCH ×2 (07:59→21:44)
[2018-08-01 08:00] VITALS: BP 93/58
--- NOTE | 2018-08-01 09:35 | General Progress Note ---
Assessment/Plan Assessment/Plan ASSESSMENT AND PLAN: 1. Anemia of chronic disease - hgb lower potentially related to ivf --> anemia panel has been reviewed, no hemolysis --> transfuse if hgb less than 7 --> hgb electrophoresis reviewed and is negative for m-spike, signficantly abnml bands 2. Leukocytosis with sepsis currently has improved on iv abx --> smear reviewed, no abnmls significant that are noted --> on abx and should improve on them 3. Decubitus wound --> on abx --> appreciate surg recs 4. UTI- HCA 5. Neuromuscular disorder - wheelchair bound, baseline 6. Neurogenic bladder 7. Psychiatric disorder 8. UTI. 9. Seizure disorder (questionable). Greatly appreciate consultation! Subjective Constitutional: Denies: no symptoms, chills, diaphoresis, fever, malaise, weakness, other HEENT: Denies: no symptoms, eye pain, blurred vision, tearing, double vision, ear pain, ear discharge, nose pain, nose congestion, throat pain, throat swelling, mouth pain, mouth swelling, other Respiratory: Denies: no symptoms, cough, orthopnea, shortness of breath, SOB with excertion, SOB at rest, sputum, stridor, wheezing, other Genitourinary: Denies: no symptoms, burning, discharge, frequency, flank pain, hematuria, incontinence, pain, urgency, other Neurologic/Psychiatric: Denies: no symptoms, anxiety, depressed, emotional problems, headache, numbness, paresthesia, pre-existing deficit, seizure, tingling, tremors, weakness, other Endocrine: Denies: no symptoms, excessive sweating, flushing, intolerance to cold, intolerance to heat, increased hunger, increased thirst, increased urine, unexplained weight gain, unexplained weight loss, other Hematologic/Lymphatic: Denies: no symptoms, anemia, easy bleeding, easy bruising, other Allergies: Coded Allergies: No Known Allergies (Verified , 04/10/08) Subjective no fevers, no chills, no events, on 2L Objective Last 24 Hour Vital Signs Date Time Temp Pulse Resp B/P (MAP) Pulse Ox O2 Delivery O2 Flow Rate FiO2 08/01/18 09:05 Nasal Cannula 2.0 08/01/18 08:26 98.3 08/01/18 08:00 97.7 96 20 93/58 (70) 100 08/01/18 04:00 95 08/01/18 04:00 98.3 63 19 110/52 (71) 98 08/01/18 00:00 77 08/01/18 00:00 97.0 83 20 97/61 (73) 98 07/31/18 21:00 Nasal Cannula 2.0 07/31/18 20:00 82 07/31/18 20:00 97.2 90 22 122/56 (78) 98 07/31/18 16:00 102 07/31/18 16:00 98.0 101 18 92/49 (63) 98 07/31/18 12:00 69 07/31/18 11:35 98.6 71 18 89/52 (64) 97 Intake and Output 07/31/18 08/01/18 18:59 06:59 Intake Total 1260 ml 1370 ml Output Total 1250 ml 900 ml Balance 10 ml 470 ml Intake Oral 1260 ml 910 ml IV Total 460 ml Output Urine Total 1250 ml 900 ml Laboratory Tests 07/31/18 10:50: White Blood Count 5.6, Red Blood Count 3.44L, Hemoglobin 9.0L, Hematocrit 28.3L , Mean Corpuscular Volume 82, Mean Corpuscular Hemoglobin 26.3L, Mean Corpuscular Hemoglobin Concent 31.9L, Red Cell Distribution Width 11.6, Platelet Count 311, Mean Platelet Volume 5.3L, Neutrophils (%) (Auto) 61.8, Lymphocytes (%) (Auto) 26.6, Monocytes (%) (Auto) 8.0, Eosinophils (%) (Auto) 3.4H, Basophils (%) (Auto) 0.3, Sodium Level 141, Potassium Level 3.9, Chloride Level 106, Carbon Dioxide Level 29, Anion Gap 6, Blood Urea Nitrogen 7, Creatinine 0.7, Estimat Glomerular Filtration Rate > 60, Glucose Level 128H, Calcium Level 8.9, Total Bilirubin 0.2, Aspartate Amino Transf (AST/SGOT) 25, Alanine Aminotransferase (ALT/SGPT) 13, Alkaline Phosphatase 75, Total Protein 6.1L, Albumin 1.6L, Globulin 4.5, Albumin/Globulin Ratio 0.4L, Cortisol 6.9 Height (Feet): 5 Height (Inches): 4.00 Weight (Pounds): 120 General Appearance: no apparent distress EENT: TMs normal Neck: normal alignment Cardiovascular: regular rhythm Respiratory/Chest: normal breath sounds Abdomen: non tender Extremities: non-tender Edema: 1+ Leg (L), 1+ Leg (R) Edema: mild edema Neurologic: alert Skin: warm/dry John Anderson MD Aug 01, 2018 09:35
[2018-08-01] MEDS ORDERED: Tubing IV Secondary IV ONE (10:36)
[2018-08-01] MEDS ORDERED: NS 500ML ONE (10:36)
[2018-08-01 12:00] VITALS: BP 94/58
[2018-08-01] MEDS: Vancomycin 1500mg IVPB SCH ×2 (12:00→23:03)
--- NOTE | 2018-08-01 13:26 | Infectious Diseases Prog Note ---
Assessment/Plan Problems: (1) UTI (urinary tract infection) Assessment & Plan: with proteus mirabilis on urine culture already on aztreonam empirically (2) Sacral decubitus ulcer, stage IV Assessment & Plan: continue vancomycin and aztreonam with metronidazole empirically, pending wound culture , MRI of the pelvis showed possible osteomyelitis. will need 6 weeks of iv antibiotics . recommend local wound care and off loading. surgical eval (3) Malnutrition Assessment & Plan: recommend dietary support to improve her wounds healing (4) Drug abuse Assessment & Plan: recommend counseling and rehab (5) Seizure disorder Assessment & Plan: could be due to cocaine withdrawal , continue neuro check and seizure meds, neurology eval Subjective Constitutional: Reports: no symptoms HEENT: Reports: no symptoms Respiratory: Reports: no symptoms Breasts: Reports: no symptoms Cardiovascular: Reports: no symptoms Gastrointestinal/Abdominal: Reports: no symptoms Genitourinary: Reports: no symptoms Neurologic: Reports: numbness, weakness Psychiatric: Reports: anxiety Skin: Reports: ulcer Endocrine: Reports: no symptoms Hematologic: Reports: no symptoms Musculoskeletal: Reports: pain Allergies: Coded Allergies: No Known Allergies (Verified , 04/10/08) Subjective she is comfortable with no more seizure episods , and no fever, more verbal and lucid, complained of low back pain Objective Vital Signs Last 24 Hour Vital Signs Date Time Temp Pulse Resp B/P (MAP) Pulse Ox O2 Delivery O2 Flow Rate FiO2 08/01/18 12:00 97.2 84 18 94/58 (70) 98 08/01/18 09:05 Nasal Cannula 2.0 08/01/18 08:26 98.3 08/01/18 08:00 97.7 96 20 93/58 (70) 100 08/01/18 04:00 95 08/01/18 04:00 98.3 63 19 110/52 (71) 98 08/01/18 00:00 77 08/01/18 00:00 97.0 83 20 97/61 (73) 98 07/31/18 21:00 Nasal Cannula 2.0 07/31/18 20:00 82 07/31/18 20:00 97.2 90 22 122/56 (78) 98 07/31/18 16:00 102 07/31/18 16:00 98.0 101 18 92/49 (63) 98 Height (Feet): 5 Height (Inches): 4.00 Weight (Pounds): 120 General Appearance: WD/WN, no acute distress HEENT: normocephalic, atraumatic, anicteric, mucous membranes moist Respiratory/Chest: chest wall non-tender, lungs clear, normal breath sounds, no respiratory distress, no accessory muscle use Cardiovascular: normal peripheral pulses, normal rate, regular rhythm, no gallop/murmur, no JVD Abdomen: normal bowel sounds, soft, non tender, no organomegaly, non distended , no mass, no scars Extremities: no cyanosis, no clubbing Skin: no rash, no lesions, ulcers - large and deep sacral pressure wound Neurologic/Psychiatric: alert, oriented x 3, responsive Lymphatic: no neck adenopathy, no groin adenopathy Musculoskeletal: no effusion, atrophy Laboratory Tests Test 08/01/18 09:45 Ferritin 341 NG/ML (8-388) Vancomycin Level Trough 18.2 ug/mL (5.0-12.0) H Current Medications Medications (Trade) Dose Ordered Sig/Elisa Route PRN Reason Start Time Stop Time Status Last Admin Dose Admin Acetaminophen (Tylenol) 650 mg Q8H PRN ORAL Mild Pain/Temp > 100.5 07/29/18 21:00 08/28/18 20:59 07/31/18 08:24 Aztreonam 2 gm/ Dextrose 110 ml @ 220 mls/hr Q8HR IVPB 07/29/18 22:00 08/04/18 14:59 08/01/18 12:47 Baclofen (Lioresal) 10 mg THREE TIMES A DAY ORAL 07/30/18 09:00 08/26/18 17:59 08/01/18 12:01 Calcium Carbonate (OsCal D) 1 tab THREE TIMES A DAY ORAL 07/30/18 09:00 08/26/18 17:59 08/01/18 12:01 Clonazepam (KlonoPIN) 1 mg BID ORAL 07/30/18 09:00 08/03/18 17:59 08/01/18 07:58 Cyanocobalamin (Vitamin B-12) 1,000 mcg DAILY ORAL 07/30/18 09:00 08/27/18 08:59 08/01/18 07:57 Docusate Sodium (Colace) 100 mg TWICE A DAY ORAL 07/30/18 09:00 08/26/18 17:59 08/01/18 07:58 Gabapentin (Neurontin) 900 mg THREE TIMES A DAY ORAL 07/30/18 09:00 08/26/18 17:59 08/01/18 12:01 Heparin Sodium (Porcine) (Heparin 5000 units/ml) 5,000 units EVERY 12 HOURS SUBQ 07/29/18 21:00 08/28/18 20:59 08/01/18 07:59 Ketorolac Tromethamine (Toradol 30mg) 30 mg BID PRN IV Severe Pain (Pain Scale 7-10) 07/31/18 09:15 08/05/18 09:14 08/01/18 07:56 Levetiracetam 100 ml @ 440.098 mls/hr Q12HR IVPB 07/29/18 21:00 08/27/18 12:29 08/01/18 07:56 Loratadine (Claritin 10mg) 10 mg DAILY ORAL 07/30/18 09:00 08/27/18 08:59 08/01/18 07:58 Lorazepam (Ativan 2mg/ml 1ml) 2 mg Q4H PRN IV For Seizures 07/29/18 18:12 08/05/18 18:11 Magnesium Hydroxide (Mom) 30 ml DAILYPRN PRN ORAL Constipation 07/29/18 18:13 08/28/18 18:12 07/30/18 20:17 Metronidazole (Flagyl) 500 mg Q8HR ORAL 07/30/18 14:00 08/06/18 13:59 08/01/18 12:47 Midodrine (Pro-Amatine) 10 mg DAILY ORAL 07/30/18 09:00 08/27/18 08:59 08/01/18 07:57 Multivitamins (Multivitamins) 1 tab DAILY ORAL 07/30/18 09:00 08/27/18 08:59 08/01/18 07:57 Pantoprazole (Protonix) 40 mg DAILY ORAL 07/30/18 09:00 08/27/18 08:59 08/01/18 07:57 Polyethylene Glycol (Miralax) 17 gm DAILYPRN PRN ORAL Constipation 07/29/18 18:13 08/28/18 18:12 Sodium Chloride 500 ml @ 999 mls/hr Q31M PRN IV FOR SBP <80 07/31/18 06:45 08/30/18 06:44 Tolterodine Tartrate (Detrol) 2 mg TWICE A DAY ORAL 07/30/18 09:00 08/26/18 17:59 08/01/18 07:58 Trazodone HCl (Desyrel) 100 mg BEDTIME ORAL 07/29/18 21:00 08/26/18 20:59 07/31/18 21:32 Vancomycin HCl (Vanco rx to dose) 1 ea DAILY PRN MISC Per rx protocol 07/30/18 09:00 08/27/18 12:29 Vancomycin HCl/ Dextrose 250 ml @ 125 mls/hr Q12H IVPB 07/30/18 23:00 08/04/18 22:59 08/01/18 12:00 Portillo Vazquez M.D. Aug 01, 2018 13:26
--- NOTE | 2018-08-01 14:22 | Cardiology Report ---
APPROVED REPORT EKG Measurement Heart [id number] Sinus rhythm with occasional premature ventricular complexes Rightward axis Borderline ECG
[2018-08-01 16:02] VITALS: BP 91/56
--- NOTE | 2018-08-01 16:13 | Pulmonology Progress Note ---
Assessment/Plan Problems: (1) Sacral decubitus ulcer, stage IV (2) Debility, unspecified (3) Seizure disorder (4) UTI (urinary tract infection) (5) Drug abuse (6) Malnutrition (7) Fibromyalgia Assessment/Plan Abx per ID Wound care Surgical recs AED's Monitor for Sz's PT/OT DVT Px: Hep SQ Pulmonary status stable, will follow peripherally, please call with questions Subjective Allergies: Coded Allergies: No Known Allergies (Verified , 04/10/08) Subjective AFVSS, alert No cough, no SOB, no CP, no FC Objective Last 24 Hour Vital Signs Date Time Temp Pulse Resp B/P (MAP) Pulse Ox O2 Delivery O2 Flow Rate FiO2 08/01/18 16:02 98.6 78 18 91/56 (68) 98 08/01/18 12:00 74 08/01/18 12:00 97.2 84 18 94/58 (70) 98 08/01/18 09:05 Nasal Cannula 2.0 08/01/18 08:26 98.3 08/01/18 08:00 112 08/01/18 08:00 97.7 96 20 93/58 (70) 100 08/01/18 04:00 95 08/01/18 04:00 98.3 63 19 110/52 (71) 98 08/01/18 00:00 77 08/01/18 00:00 97.0 83 20 97/61 (73) 98 07/31/18 21:00 Nasal Cannula 2.0 07/31/18 20:00 82 07/31/18 20:00 97.2 90 22 122/56 (78) 98 Intake and Output 07/31/18 08/01/18 18:59 06:59 Intake Total 1260 ml 1370 ml Output Total 1250 ml 900 ml Balance 10 ml 470 ml Intake Oral 1260 ml 910 ml IV Total 460 ml Output Urine Total 1250 ml 900 ml General Appearance: WD/WN, no acute distress HEENT: normocephalic, atraumatic, anicteric, mucous membranes moist Respiratory/Chest: chest wall non-tender, lungs clear, normal breath sounds, no respiratory distress, no accessory muscle use Cardiovascular: normal peripheral pulses, normal rate, regular rhythm Abdomen: normal bowel sounds, soft, non tender, no organomegaly, non distended , no mass Extremities: no cyanosis, no clubbing, no edema Microbiology Date/Time Source Procedure Growth Status 07/31/18 20:15 Wound Gram Stain - Final Resulted 07/31/18 20:15 Wound Wound Culture Pending Resulted Laboratory Tests 08/01/18 09:45: Ferritin 341, Vancomycin Level Trough 18.2H Current Medications Medications (Trade) Dose Ordered Sig/Elisa Route PRN Reason Start Time Stop Time Status Last Admin Dose Admin Acetaminophen (Tylenol) 650 mg Q8H PRN ORAL Mild Pain/Temp > 100.5 07/29/18 21:00 08/28/18 20:59 07/31/18 08:24 Aztreonam 2 gm/ Dextrose 110 ml @ 220 mls/hr Q8HR IVPB 07/29/18 22:00 08/04/18 14:59 08/01/18 12:47 Baclofen (Lioresal) 10 mg THREE TIMES A DAY ORAL 07/30/18 09:00 08/26/18 17:59 08/01/18 12:01 Calcium Carbonate (OsCal D) 1 tab THREE TIMES A DAY ORAL 07/30/18 09:00 08/26/18 17:59 08/01/18 12:01 Clonazepam (KlonoPIN) 1 mg BID ORAL 07/30/18 09:00 08/03/18 17:59 08/01/18 07:58 Cyanocobalamin (Vitamin B-12) 1,000 mcg DAILY ORAL 07/30/18 09:00 08/27/18 08:59 08/01/18 07:57 Docusate Sodium (Colace) 100 mg TWICE A DAY ORAL 07/30/18 09:00 08/26/18 17:59 08/01/18 07:58 Gabapentin (Neurontin) 900 mg THREE TIMES A DAY ORAL 07/30/18 09:00 08/26/18 17:59 08/01/18 12:01 Heparin Sodium (Porcine) (Heparin 5000 units/ml) 5,000 units EVERY 12 HOURS SUBQ 07/29/18 21:00 08/28/18 20:59 08/01/18 07:59 Ketorolac Tromethamine (Toradol 30mg) 30 mg BID PRN IV Severe Pain (Pain Scale 7-10) 07/31/18 09:15 08/05/18 09:14 08/01/18 07:56 Levetiracetam 100 ml @ 440.098 mls/hr Q12HR IVPB 07/29/18 21:00 08/27/18 12:29 08/01/18 07:56 Loratadine (Claritin 10mg) 10 mg DAILY ORAL 07/30/18 09:00 08/27/18 08:59 08/01/18 07:58 Lorazepam (Ativan 2mg/ml 1ml) 2 mg Q4H PRN IV For Seizures 07/29/18 18:12 08/05/18 18:11 Magnesium Hydroxide (Mom) 30 ml DAILYPRN PRN ORAL Constipation 07/29/18 18:13 08/28/18 18:12 07/30/18 20:17 Metronidazole (Flagyl) 500 mg Q8HR ORAL 07/30/18 14:00 08/06/18 13:59 08/01/18 12:47 Midodrine (Pro-Amatine) 10 mg DAILY ORAL 07/30/18 09:00 08/27/18 08:59 08/01/18 07:57 Multivitamins (Multivitamins) 1 tab DAILY ORAL 07/30/18 09:00 08/27/18 08:59 08/01/18 07:57 Pantoprazole (Protonix) 40 mg DAILY ORAL 07/30/18 09:00 08/27/18 08:59 08/01/18 07:57 Polyethylene Glycol (Miralax) 17 gm DAILYPRN PRN ORAL Constipation 07/29/18 18:13 08/28/18 18:12 Sodium Chloride 500 ml @ 999 mls/hr Q31M PRN IV FOR SBP <80 07/31/18 06:45 08/30/18 06:44 Tolterodine Tartrate (Detrol) 2 mg TWICE A DAY ORAL 07/30/18 09:00 08/26/18 17:59 08/01/18 07:58 Trazodone HCl (Desyrel) 100 mg BEDTIME ORAL 07/29/18 21:00 08/26/18 20:59 07/31/18 21:32 Vancomycin HCl (Vanco rx to dose) 1 ea DAILY PRN MISC Per rx protocol 07/30/18 09:00 08/27/18 12:29 Vancomycin HCl/ Dextrose 250 ml @ 125 mls/hr Q12H IVPB 07/30/18 23:00 08/04/18 22:59 08/01/18 12:00 Efrain Olea MD Aug 01, 2018 16:13
--- NOTE | 2018-08-01 17:43 | General Progress Note ---
Assessment/Plan Assessment/Plan S: I have pain all over O: appears more awake . in no distress. PHYSICAL EXAMINATION:HEAD AND NECK: Atraumatic and normocephalic. CHEST: Clear to auscultation. LUNGS: No wheezing. No crackles. ABDOMEN: Soft. No organomegaly. Bowel sounds are normal. MUSCULOSKELETAL: Atrophied musculatures. positive for Decubitus wound , NEUROLOGIC: The patient is awake, not verbal and lethargic Meds: including but not limited to Zosyn and Vanco ASSESSMENT AND PLAN: 1. Sever Sepsis 2. Acute encephalopathy, ddx: post ictal, possibility of Encephalitis cant be excluded. 3. Decubitus wound 4. UTI- HCA 2. Neuromuscular disorder - wheelchair bound - baseline. 3. Neurogenic bladder. 4. Psychiatric disorder. 5. UTI. 6. Seizure disorder (questionable). 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 Subjective Allergies: Coded Allergies: No Known Allergies (Verified , 04/10/08) Objective Last 24 Hour Vital Signs Date Time Temp Pulse Resp B/P (MAP) Pulse Ox O2 Delivery O2 Flow Rate FiO2 08/01/18 16:02 98.6 78 18 91/56 (68) 98 08/01/18 16:00 78 08/01/18 12:00 74 08/01/18 12:00 97.2 84 18 94/58 (70) 98 08/01/18 09:05 Nasal Cannula 2.0 08/01/18 08:26 98.3 08/01/18 08:00 112 08/01/18 08:00 97.7 96 20 93/58 (70) 100 08/01/18 04:00 95 08/01/18 04:00 98.3 63 19 110/52 (71) 98 08/01/18 00:00 77 08/01/18 00:00 97.0 83 20 97/61 (73) 98 07/31/18 21:00 Nasal Cannula 2.0 07/31/18 20:00 82 07/31/18 20:00 97.2 90 22 122/56 (78) 98 Intake and Output 07/31/18 08/01/18 19:00 07:00 Intake Total 1260 ml 1370 ml Output Total 1250 ml 1100 ml Balance 10 ml 270 ml Intake Oral 1260 ml 910 ml IV Total 460 ml Output Urine Total 1250 ml 1100 ml Laboratory Tests 08/01/18 09:45: Ferritin 341, Vancomycin Level Trough 18.2H Height (Feet): 5 Height (Inches): 4.00 Weight (Pounds): 120 Lucia Andrews MD Aug 01, 2018 17:43
[2018-08-01 20:00] VITALS: BP 91/55
[2018-08-01] MEDS: TraZODone 100mg tab ORAL SCH (21:29)
[2018-08-02] VITALS: BP 90/53
[2018-08-02 04:00] VITALS: BP 89/63
[2018-08-02] MEDS: Aztreonam Inj 2 GM in D5W 110 ML IVPB SCH ×3 (05:25→22:14)
[2018-08-02] MEDS: metroNIDAZOLE 500mg tab ORAL SCH ×3 (06:19→22:21)
[2018-08-02 08:00] VITALS: BP 93/60
[2018-08-02] MEDS: levETIRAcetam 500mg/NS100ml 100 ML IVPB SCH ×2 (08:54→21:32)
[2018-08-02] MEDS: Tolterodine 2mg tab ORAL SCH ×2 (08:55→17:15)
[2018-08-02] MEDS: Docusate 100mg cap ORAL SCH ×2 (08:55→17:15)
[2018-08-02] MEDS: Calcium Carbonate 500mg w/Vit D 200iu tab ORAL SCH ×3 (08:55→17:15)
[2018-08-02] MEDS: Vitamin B-12 500mcg tab ORAL SCH (08:55)
[2018-08-02] MEDS: Heparin 5000 units/ml inj SUBQ SCH ×2 (09:00→21:45)
[2018-08-02] MEDS: Ketorolac 30mg Inj IV PRN ×2 (09:07→21:33)
[2018-08-02] MEDS: Vancomycin 1500mg IVPB SCH ×2 (11:35→23:19)
[2018-08-02 12:00] VITALS: BP 92/61
--- NOTE | 2018-08-02 14:49 | General Progress Note ---
Assessment/Plan Assessment/Plan ASSESSMENT AND PLAN: 1. Anemia of chronic disease - hgb lower potentially related to ivf --> anemia panel has been reviewed, no hemolysis --> transfuse if hgb less than 7 --> hgb electrophoresis reviewed and is negative for m-spike, signficantly abnml bands --> ferritin is 341, trend hgb 11-->9.3-->9 2. Leukocytosis with sepsis currently has improved on iv abx --> smear reviewed, no abnmls significant that are noted --> on abx and should improve on them 3. Decubitus wound --> on abx --> appreciate surg recs 4. UTI- HCA 5. Neuromuscular disorder - wheelchair bound, baseline 6. Neurogenic bladder 7. Psychiatric disorder 8. UTI. 9. Seizure disorder (questionable). Greatly appreciate consultation! Subjective Constitutional: Denies: no symptoms, chills, diaphoresis, fever, malaise, weakness, other HEENT: Denies: no symptoms, eye pain, blurred vision, tearing, double vision, ear pain, ear discharge, nose pain, nose congestion, throat pain, throat swelling, mouth pain, mouth swelling, other Cardiovascular: Denies: no symptoms, chest pain, edema, irregular heart rate, lightheadedness, palpitations, syncope, other Respiratory: Denies: no symptoms, cough, orthopnea, shortness of breath, SOB with excertion, SOB at rest, sputum, stridor, wheezing, other Gastrointestinal/Abdominal: Denies: no symptoms, abdomen distended, abdominal pain, black stools, tarry stools, blood in stool, constipated, diarrhea, difficulty swallowing, nausea, poor appetite, poor fluid intake, rectal bleeding , vomiting, other Genitourinary: Denies: no symptoms, burning, discharge, frequency, flank pain, hematuria, incontinence, pain, urgency, other Neurologic/Psychiatric: Denies: no symptoms, anxiety, depressed, emotional problems, headache, numbness, paresthesia, pre-existing deficit, seizure, tingling, tremors, weakness, other Endocrine: Denies: no symptoms, excessive sweating, flushing, intolerance to cold, intolerance to heat, increased hunger, increased thirst, increased urine, unexplained weight gain, unexplained weight loss, other Allergies: Coded Allergies: No Known Allergies (Verified , 04/10/08) Subjective no fevers, no chills, no events, on 2L 08/02: no complaints or issues overnight, sitting up in bed Objective Last 24 Hour Vital Signs Date Time Temp Pulse Resp B/P (MAP) Pulse Ox O2 Delivery O2 Flow Rate FiO2 08/02/18 12:00 81 08/02/18 12:00 97.0 87 21 92/61 (71) 100 08/02/18 09:00 Nasal Cannula 2.0 08/02/18 08:00 98.2 89 19 93/60 (71) 99 08/02/18 08:00 88 08/02/18 04:00 97.6 75 20 89/63 (72) 96 08/02/18 04:00 77 08/02/18 00:00 81 08/02/18 00:00 98.2 86 22 90/53 (65) 94 08/01/18 21:00 Nasal Cannula 2.0 08/01/18 20:00 98.9 80 22 91/55 (67) 98 08/01/18 20:00 96 08/01/18 17:47 98.6 08/01/18 16:02 98.6 78 18 91/56 (68) 98 08/01/18 16:00 78 Intake and Output 08/01/18 08/02/18 18:59 06:59 Intake Total 840 ml 300 ml Output Total 1200 ml 1300 ml Balance -360 ml -1000 ml Intake Oral 840 ml 300 ml Output Urine Total 1200 ml 1300 ml Height (Feet): 5 Height (Inches): 4.00 Weight (Pounds): 120 Objective PHYSICAL EXAMINATION:HEAD AND NECK: Atraumatic and normocephalic. CHEST: Clear to auscultation. LUNGS: No wheezing. No crackles. ABDOMEN: Soft. No organomegaly. Bowel sounds are normal. MUSCULOSKELETAL: Atrophied musculatures. positive for Decubitus wound NEUROLOGIC: The patient is awake, not verbal and lethargic John Anderson MD Aug 02, 2018 14:49
[2018-08-02] MEDS: Miralax 17gm pkt ORAL PRN (15:18)
[2018-08-02 16:11] VITALS: BP 80/51
--- NOTE | 2018-08-02 17:54 | Infectious Diseases Prog Note ---
Assessment/Plan Problems: (1) UTI (urinary tract infection) Assessment & Plan: with proteus mirabilis on urine culture already on aztreonam empirically (2) Sacral decubitus ulcer, stage IV Assessment & Plan: continue vancomycin and aztreonam with metronidazole empirically, pending wound culture , MRI of the pelvis showed possible osteomyelitis. will need 6 weeks of iv antibiotics . recommend local wound care and off loading. surgical eval (3) Malnutrition Assessment & Plan: recommend dietary support to improve her wounds healing (4) Drug abuse Assessment & Plan: recommend counseling and rehab (5) Seizure disorder Assessment & Plan: could be due to cocaine withdrawal , continue neuro check and seizure meds, neurology eval Subjective Constitutional: Reports: no symptoms HEENT: Reports: no symptoms Respiratory: Reports: no symptoms Breasts: Reports: no symptoms Cardiovascular: Reports: no symptoms Gastrointestinal/Abdominal: Reports: no symptoms Genitourinary: Reports: no symptoms Neurologic: Reports: no symptoms Psychiatric: Reports: no symptoms Skin: Reports: no symptoms Endocrine: Reports: no symptoms Hematologic: Reports: no symptoms Allergies: Coded Allergies: No Known Allergies (Verified , 04/10/08) Subjective she is comfortable with no more seizure episods , and no fever, more verbal and lucid, complained of low back pain Objective Vital Signs Last 24 Hour Vital Signs Date Time Temp Pulse Resp B/P (MAP) Pulse Ox O2 Delivery O2 Flow Rate FiO2 08/02/18 16:11 96.4 89 20 80/51 (61) 100 08/02/18 16:00 104 08/02/18 12:00 81 08/02/18 12:00 97.0 87 21 92/61 (71) 100 08/02/18 09:00 Nasal Cannula 2.0 08/02/18 08:00 98.2 89 19 93/60 (71) 99 08/02/18 08:00 88 08/02/18 04:00 97.6 75 20 89/63 (72) 96 08/02/18 04:00 77 08/02/18 00:00 81 08/02/18 00:00 98.2 86 22 90/53 (65) 94 08/01/18 21:00 Nasal Cannula 2.0 08/01/18 20:00 98.9 80 22 91/55 (67) 98 08/01/18 20:00 96 Height (Feet): 5 Height (Inches): 4.00 Weight (Pounds): 120 General Appearance: WD/WN, no acute distress HEENT: normocephalic, atraumatic, anicteric, mucous membranes moist, PERRL Respiratory/Chest: chest wall non-tender, lungs clear, normal breath sounds, no respiratory distress, no accessory muscle use Cardiovascular: normal peripheral pulses, normal rate, regular rhythm, no gallop/murmur, no JVD Abdomen: normal bowel sounds, soft, non tender, no organomegaly, non distended , no mass, no scars Extremities: no cyanosis, no clubbing Skin: no rash, no lesions, ulcers Neurologic/Psychiatric: alert, responsive Lymphatic: no neck adenopathy, no groin adenopathy Microbiology Date/Time Source Procedure Growth Status 07/31/18 20:15 Wound Gram Stain - Final Resulted 07/31/18 20:15 Wound Culture - Preliminary Gram Positive Cocci Resulted Current Medications Medications (Trade) Dose Ordered Sig/Elisa Route PRN Reason Start Time Stop Time Status Last Admin Dose Admin Acetaminophen (Tylenol) 650 mg Q8H PRN ORAL Mild Pain/Temp > 100.5 07/29/18 21:00 08/28/18 20:59 08/02/18 15:17 Aztreonam 2 gm/ Dextrose 110 ml @ 220 mls/hr Q8HR IVPB 07/29/18 22:00 08/04/18 14:59 08/02/18 13:08 Baclofen (Lioresal) 10 mg THREE TIMES A DAY ORAL 07/30/18 09:00 08/26/18 17:59 08/02/18 17:15 Calcium Carbonate (OsCal D) 1 tab THREE TIMES A DAY ORAL 07/30/18 09:00 08/26/18 17:59 08/02/18 17:15 Clonazepam (KlonoPIN) 1 mg BID ORAL 07/30/18 09:00 08/03/18 17:59 08/02/18 17:15 Cyanocobalamin (Vitamin B-12) 1,000 mcg DAILY ORAL 07/30/18 09:00 08/27/18 08:59 08/02/18 08:55 Docusate Sodium (Colace) 100 mg TWICE A DAY ORAL 07/30/18 09:00 1/18/19 17:59 08/02/18 17:15 Gabapentin (Neurontin) 900 mg THREE TIMES A DAY ORAL 07/30/18 09:00 08/26/18 17:59 08/02/18 17:15 Heparin Sodium (Porcine) (Heparin 5000 units/ml) 5,000 units EVERY 12 HOURS SUBQ 07/29/18 21:00 08/28/18 20:59 08/02/18 09:00 Hydrocortisone (Cortef) 10 mg THREE TIMES A DAY ORAL 08/01/18 18:00 08/31/18 17:59 08/02/18 17:15 Ketorolac Tromethamine (Toradol 30mg) 30 mg BID PRN IV Severe Pain (Pain Scale 7-10) 07/31/18 09:15 08/05/18 09:14 08/02/18 09:07 Levetiracetam 100 ml @ 440.098 mls/hr Q12HR IVPB 07/29/18 21:00 08/27/18 12:29 08/02/18 08:54 Loratadine (Claritin 10mg) 10 mg DAILY ORAL 07/30/18 09:00 08/27/18 08:59 08/02/18 08:55 Lorazepam (Ativan 2mg/ml 1ml) 2 mg Q4H PRN IV For Seizures 07/29/18 18:12 08/05/18 18:11 Magnesium Hydroxide (Mom) 30 ml DAILYPRN PRN ORAL Constipation 07/29/18 18:13 08/28/18 18:12 07/30/18 20:17 Metronidazole (Flagyl) 500 mg Q8HR ORAL 07/30/18 14:00 08/06/18 13:59 08/02/18 13:07 Multivitamins (Multivitamins) 1 tab DAILY ORAL 07/30/18 09:00 08/27/18 08:59 08/02/18 08:55 Pantoprazole (Protonix) 40 mg DAILY ORAL 07/30/18 09:00 08/27/18 08:59 08/02/18 08:54 Polyethylene Glycol (Miralax) 17 gm DAILYPRN PRN ORAL Constipation 07/29/18 18:13 08/28/18 18:12 08/02/18 15:18 Sodium Chloride 500 ml @ 999 mls/hr Q31M PRN IV FOR SBP <80 07/31/18 06:45 08/30/18 06:44 Tolterodine Tartrate (Detrol) 2 mg TWICE A DAY ORAL 07/30/18 09:00 08/26/18 17:59 08/02/18 17:15 Trazodone HCl (Desyrel) 100 mg BEDTIME ORAL 07/29/18 21:00 08/26/18 20:59 08/01/18 21:29 Vancomycin HCl (Vanco rx to dose) 1 ea DAILY PRN MISC Per rx protocol 07/30/18 09:00 08/27/18 12:29 Vancomycin HCl/ Dextrose 250 ml @ 125 mls/hr Q12H IVPB 07/30/18 23:00 08/04/18 22:59 08/02/18 11:35 Portillo Vazquez M.D. Aug 02, 2018 17:54
[2018-08-02 20:00] VITALS: BP 88/54
[2018-08-02] MEDS: TraZODone 100mg tab ORAL SCH (21:32)
[2018-08-02] MEDS ORDERED: metroNIDAZOLE 250mg tab ONE (22:09)
[2018-08-03] VITALS: BP 82/52
[2018-08-03 04:00] VITALS: BP 83/55
[2018-08-03] MEDS ORDERED: metroNIDAZOLE 250mg tab ONE (05:04)
[2018-08-03] MEDS: Aztreonam Inj 2 GM in D5W 110 ML IVPB SCH ×3 (05:12→22:23)
[2018-08-03] MEDS: metroNIDAZOLE 500mg tab ORAL SCH ×3 (05:13→22:21)
[2018-08-03 08:00] VITALS: BP 105/65
[2018-08-03] MEDS: levETIRAcetam 500mg/NS100ml 100 ML IVPB SCH ×2 (08:36→20:51)
[2018-08-03] MEDS: Calcium Carbonate 500mg w/Vit D 200iu tab ORAL SCH ×3 (08:37→18:35)
[2018-08-03] MEDS: Tolterodine 2mg tab ORAL SCH ×2 (08:37→18:36)
[2018-08-03] MEDS: Docusate 100mg cap ORAL SCH ×2 (08:37→18:36)
[2018-08-03] MEDS: Vitamin B-12 500mcg tab ORAL SCH (08:37)
[2018-08-03] MEDS: Heparin 5000 units/ml inj SUBQ SCH ×2 (08:40→20:52)
--- NOTE | 2018-08-03 09:52 | General Progress Note ---
Assessment/Plan Assessment/Plan S: I have pain all over O: appears more awake . in no distress. PHYSICAL EXAMINATION:HEAD AND NECK: Atraumatic and normocephalic. CHEST: Clear to auscultation. LUNGS: No wheezing. No crackles. ABDOMEN: Soft. No organomegaly. Bowel sounds are normal. MUSCULOSKELETAL: Atrophied musculatures. positive for Decubitus wound , NEUROLOGIC: The patient is awake, not verbal and lethargic Meds: including but not limited to Zosyn and Vanco ASSESSMENT AND PLAN: 1. Sever Sepsis : Resolved 2. Acute encephalopathy, ddx: post ictal, possibility of Encephalitis cant be excluded. 3. Decubitus wound 4. UTI- HCA 2. Neuromuscular disorder - wheelchair bound - baseline. 3. Neurogenic bladder. 4. Psychiatric disorder. 5. UTI. 6. Seizure disorder (questionable). 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 PLAN OF CARE: Agree with current empirical abx Notes from ID and client resolution specialist reviewed No recurrent Sz ATivan PRN, Keppra ATC provided, No active sz at this time DC Midodrin Will increase Cortef Placement Subjective Allergies: Coded Allergies: No Known Allergies (Verified , 04/10/08) Objective Last 24 Hour Vital Signs Date Time Temp Pulse Resp B/P (MAP) Pulse Ox O2 Delivery O2 Flow Rate FiO2 08/03/18 04:00 98.2 85 18 83/55 (64) 98 08/03/18 04:00 75 08/03/18 00:00 98.0 90 20 82/52 (62) 97 08/03/18 00:00 88 08/02/18 21:00 Nasal Cannula 2.0 08/02/18 20:00 98.6 100 20 88/54 (65) 98 08/02/18 20:00 86 08/02/18 16:11 96.4 89 20 80/51 (61) 100 08/02/18 16:00 104 08/02/18 12:00 81 08/02/18 12:00 97.0 87 21 92/61 (71) 100 Intake and Output 08/02/18 08/03/18 19:00 07:00 Intake Total 720 ml Output Total 1200 ml 2400 ml Balance -480 ml -2400 ml Intake Oral 720 ml Output Urine Total 1200 ml 2400 ml # Bowel Movements 1 Height (Feet): 5 Height (Inches): 4.00 Weight (Pounds): 118 Lucia Andrews MD Aug 03, 2018 09:52
--- NOTE | 2018-08-03 10:05 | General Progress Note ---
Assessment/Plan Status: stable Assessment/Plan ASSESSMENT AND PLAN: 1. Anemia of chronic disease - hgb lower potentially related to ivf --> anemia panel has been reviewed, no hemolysis --> transfuse if hgb less than 7 --> hgb electrophoresis reviewed and is negative for m-spike, significantly abnml bands --> ferritin is 341, trend hgb 11-->9.3-->9 2. Leukocytosis with sepsis --> currently has improved on iv abx --> smear reviewed, no abnmls significant that are noted --> on abx 3. Decubitus wound --> on abx --> appreciate surg recs 4. UTI- HCA 5. Neuromuscular disorder - wheelchair bound, baseline 6. Neurogenic bladder 7. Psychiatric disorder 8. UTI. 9. Seizure disorder (questionable). Greatly appreciate consultation! Subjective Date patient seen: Aug 03, 2018 Hematologic/Lymphatic: Reports: anemia Allergies: Coded Allergies: No Known Allergies (Verified , 04/10/08) All Systems: reviewed and negative except above Subjective Pt resting in bed. No acute events. VS stable. Remains on NC. Objective Last 24 Hour Vital Signs Date Time Temp Pulse Resp B/P (MAP) Pulse Ox O2 Delivery O2 Flow Rate FiO2 08/03/18 08:00 98.2 86 21 105/65 (78) 98 08/03/18 04:00 98.2 85 18 83/55 (64) 98 08/03/18 04:00 75 08/03/18 00:00 98.0 90 20 82/52 (62) 97 08/03/18 00:00 88 08/02/18 21:00 Nasal Cannula 2.0 08/02/18 20:00 98.6 100 20 88/54 (65) 98 08/02/18 20:00 86 08/02/18 16:11 96.4 89 20 80/51 (61) 100 08/02/18 16:00 104 08/02/18 12:00 81 08/02/18 12:00 97.0 87 21 92/61 (71) 100 Intake and Output 08/02/18 08/03/18 19:00 07:00 Intake Total 720 ml Output Total 1200 ml 2400 ml Balance -480 ml -2400 ml Intake Oral 720 ml Output Urine Total 1200 ml 2400 ml # Bowel Movements 1 Height (Feet): 5 Height (Inches): 4.00 Weight (Pounds): 118 Objective PHYSICAL EXAMINATION:HEAD AND NECK: Atraumatic and normocephalic. CHEST: Clear to auscultation. LUNGS: No wheezing. No crackles. ABDOMEN: Soft. No organomegaly. Bowel sounds are normal. MUSCULOSKELETAL: Atrophied musculatures. positive for Decubitus wound NEUROLOGIC: The patient is awake, not verbal and lethargic John Anderson MD Aug 03, 2018 10:05
[2018-08-03] MEDS: Vancomycin 1500mg IVPB SCH ×2 (11:21→23:50)
[2018-08-03] MEDS: Miralax 17gm pkt ORAL PRN (11:22)
[2018-08-03] MEDS: Ketorolac 30mg Inj IV PRN (11:22)
[2018-08-03 12:00] VITALS: BP 112/56
--- NOTE | 2018-08-03 14:35 | Infectious Diseases Prog Note ---
Assessment/Plan Problems: (1) UTI (urinary tract infection) Assessment & Plan: with proteus mirabilis on urine culture already on aztreonam empirically (2) Sacral decubitus ulcer, stage IV Assessment & Plan: continue vancomycin and aztreonam with metronidazole empirically, pending wound culture , MRI of the pelvis showed osteomyelitis in the low sacrum . will need 6 weeks of iv antibiotics . recommend local wound care and off loading. surgical eval (3) Malnutrition Assessment & Plan: recommend dietary support to improve her wounds healing (4) Drug abuse Assessment & Plan: recommend counseling and rehab (5) Seizure disorder Assessment & Plan: continue neuro check and seizure meds, neurology eval Subjective Constitutional: Reports: no symptoms HEENT: Reports: no symptoms Respiratory: Reports: no symptoms Breasts: Reports: no symptoms Cardiovascular: Reports: no symptoms Gastrointestinal/Abdominal: Reports: no symptoms Genitourinary: Reports: no symptoms Neurologic: Reports: weakness Psychiatric: Reports: anxiety Skin: Reports: ulcer Endocrine: Reports: no symptoms Hematologic: Reports: no symptoms Musculoskeletal: Reports: pain Allergies: Coded Allergies: No Known Allergies (Verified , 04/10/08) Subjective she is comfortable lying in bed , complained of low back pain, no fever or chills, no cough or SOB Objective Vital Signs Last 24 Hour Vital Signs Date Time Temp Pulse Resp B/P (MAP) Pulse Ox O2 Delivery O2 Flow Rate FiO2 08/03/18 12:00 98.1 84 19 112/56 (74) 99 08/03/18 09:00 Nasal Cannula 2.0 08/03/18 08:00 94 08/03/18 08:00 98.2 86 21 105/65 (78) 98 08/03/18 04:00 98.2 85 18 83/55 (64) 98 08/03/18 04:00 75 08/03/18 00:00 98.0 90 20 82/52 (62) 97 08/03/18 00:00 88 08/02/18 21:00 Nasal Cannula 2.0 08/02/18 20:00 98.6 100 20 88/54 (65) 98 08/02/18 20:00 86 08/02/18 16:11 96.4 89 20 80/51 (61) 100 08/02/18 16:00 104 Height (Feet): 5 Height (Inches): 4.00 Weight (Pounds): 118 General Appearance: WD/WN, no acute distress, cachetic HEENT: normocephalic, atraumatic, anicteric, mucous membranes moist Respiratory/Chest: chest wall non-tender, lungs clear, normal breath sounds, no respiratory distress, no accessory muscle use Cardiovascular: normal peripheral pulses, normal rate, regular rhythm, no gallop/murmur, no JVD Abdomen: normal bowel sounds, soft, non tender, no organomegaly, non distended , no mass, no scars Genitourinary: normal external genitalia Extremities: no cyanosis, no clubbing Skin: no rash, no lesions, ulcers Neurologic/Psychiatric: alert, oriented x 3, responsive Lymphatic: no neck adenopathy, no groin adenopathy Musculoskeletal: normal muscle bulk, no effusion Microbiology Date/Time Source Procedure Growth Status 07/31/18 20:15 Wound Gram Stain - Final Resulted 07/31/18 20:15 Wound Culture - Preliminary Staphylococcus Epidermidis Gram Negative Bacillus 1 Resulted Current Medications Medications (Trade) Dose Ordered Sig/Elisa Route PRN Reason Start Time Stop Time Status Last Admin Dose Admin Acetaminophen (Tylenol) 650 mg Q8H PRN ORAL Mild Pain/Temp > 100.5 07/29/18 21:00 08/28/18 20:59 08/02/18 15:17 Aztreonam 2 gm/ Dextrose 110 ml @ 220 mls/hr Q8HR IVPB 07/29/18 22:00 09/07/18 22:30 08/03/18 05:12 Baclofen (Lioresal) 10 mg THREE TIMES A DAY ORAL 07/30/18 09:00 08/26/18 17:59 08/03/18 08:36 Calcium Carbonate (OsCal D) 1 tab THREE TIMES A DAY ORAL 07/30/18 09:00 08/26/18 17:59 08/03/18 08:37 Clonazepam (KlonoPIN) 1 mg BID ORAL 07/30/18 09:00 08/03/18 17:59 08/03/18 08:36 Cyanocobalamin (Vitamin B-12) 1,000 mcg DAILY ORAL 07/30/18 09:00 08/27/18 08:59 08/03/18 08:37 Docusate Sodium (Colace) 100 mg TWICE A DAY ORAL 07/30/18 09:00 08/26/18 17:59 08/03/18 08:37 Gabapentin (Neurontin) 900 mg THREE TIMES A DAY ORAL 07/30/18 09:00 08/26/18 17:59 08/03/18 08:36 Heparin Sodium (Porcine) (Heparin 5000 units/ml) 5,000 units EVERY 12 HOURS SUBQ 07/29/18 21:00 08/28/18 20:59 08/03/18 08:40 Hydrocortisone (Cortef) 10 mg THREE TIMES A DAY ORAL 08/01/18 18:00 08/31/18 17:59 08/03/18 08:37 Ketorolac Tromethamine (Toradol 30mg) 30 mg BID PRN IV Severe Pain (Pain Scale 7-10) 07/31/18 09:15 08/05/18 09:14 08/03/18 11:22 Levetiracetam 100 ml @ 440.098 mls/hr Q12HR IVPB 07/29/18 21:00 08/27/18 12:29 08/03/18 08:36 Loratadine (Claritin 10mg) 10 mg DAILY ORAL 07/30/18 09:00 08/27/18 08:59 08/03/18 08:36 Lorazepam (Ativan 2mg/ml 1ml) 2 mg Q4H PRN IV For Seizures 07/29/18 18:12 08/05/18 18:11 Magnesium Hydroxide (Mom) 30 ml DAILYPRN PRN ORAL Constipation 07/29/18 18:13 08/28/18 18:12 07/30/18 20:17 Metronidazole (Flagyl) 500 mg Q8HR ORAL 07/30/18 14:00 09/07/18 13:59 08/03/18 05:13 Multivitamins (Multivitamins) 1 tab DAILY ORAL 07/30/18 09:00 08/27/18 08:59 08/03/18 08:37 Pantoprazole (Protonix) 40 mg DAILY ORAL 07/30/18 09:00 08/27/18 08:59 08/03/18 08:36 Polyethylene Glycol (Miralax) 17 gm DAILYPRN PRN ORAL Constipation 07/29/18 18:13 08/28/18 18:12 08/03/18 11:22 Sodium Chloride 500 ml @ 999 mls/hr Q31M PRN IV FOR SBP <80 07/31/18 06:45 08/30/18 06:44 Tolterodine Tartrate (Detrol) 2 mg TWICE A DAY ORAL 07/30/18 09:00 08/26/18 17:59 08/03/18 08:37 Trazodone HCl (Desyrel) 100 mg BEDTIME ORAL 07/29/18 21:00 08/26/18 20:59 08/02/18 21:32 Vancomycin HCl (Vanco rx to dose) 1 ea DAILY PRN MISC Per rx protocol 07/30/18 09:00 08/27/18 12:29 Vancomycin HCl/ Dextrose 250 ml @ 125 mls/hr Q12H IVPB 07/30/18 23:00 09/07/18 22:59 08/03/18 11:21 Portillo Vazquez M.D. Aug 03, 2018 14:34
[2018-08-03] MEDS ORDERED: Fleet's Enema 133ml RECTAL SCH (14:45)
[2018-08-03 16:00] VITALS: BP 92/54
[2018-08-03] MEDS: Norco 5mg/325mg tab ORAL PRN (16:55)
[2018-08-03 20:00] VITALS: BP 90/56
[2018-08-03] MEDS: TraZODone 100mg tab ORAL SCH (20:51)
[2018-08-04] VITALS: BP 96/57
[2018-08-04] MEDS: Norco 5mg/325mg tab ORAL PRN ×2 (01:41→11:18)
[2018-08-04 04:00] VITALS: BP 93/55
[2018-08-04] MEDS: Aztreonam Inj 2 GM in D5W 110 ML IVPB SCH ×3 (05:57→22:11)
[2018-08-04] MEDS: metroNIDAZOLE 500mg tab ORAL SCH ×3 (05:57→22:11)
[2018-08-04 08:00] VITALS: BP 95/57
[2018-08-04] MEDS: Ketorolac 30mg Inj IV PRN (09:34)
[2018-08-04] MEDS: Docusate 100mg cap ORAL SCH ×2 (09:34→18:43)
[2018-08-04] MEDS: Calcium Carbonate 500mg w/Vit D 200iu tab ORAL SCH ×3 (09:35→18:42)
[2018-08-04] MEDS: Miralax 17gm pkt ORAL PRN ×2 (09:35→18:42)
[2018-08-04] MEDS: Tolterodine 2mg tab ORAL SCH ×2 (09:35→18:42)
[2018-08-04] MEDS: Vitamin B-12 500mcg tab ORAL SCH (09:36)
[2018-08-04] MEDS: Heparin 5000 units/ml inj SUBQ SCH ×2 (09:38→21:00)
[2018-08-04] MEDS: levETIRAcetam 500mg/NS100ml 100 ML IVPB SCH ×2 (09:54→20:37)
[2018-08-04] MEDS: Vancomycin 1500mg IVPB SCH ×2 (11:19→22:58)
[2018-08-04 12:00] VITALS: BP 96/53
--- NOTE | 2018-08-04 12:57 | General Surgery Progress Note ---
General Surgery-Progress Note Subjective Additional Comments needs debridement. discussed with patient who agreed. will schedule Objective Last 24 Hour Vital Signs Date Time Temp Pulse Resp B/P (MAP) Pulse Ox O2 Delivery O2 Flow Rate FiO2 08/04/18 08:00 97.7 75 20 95/57 (70) 100 08/04/18 04:00 98.6 80 20 93/55 (68) 99 08/04/18 04:00 80 08/04/18 00:00 88 08/04/18 00:00 98.4 88 20 96/57 (70) 100 08/03/18 21:00 Nasal Cannula 2.0 08/03/18 20:00 94 08/03/18 20:00 98.6 94 22 90/56 (67) 100 08/03/18 16:00 95 08/03/18 16:00 98.4 89 21 92/54 (67) 99 I&O Intake and Output 08/03/18 08/04/18 19:00 07:00 Intake Total 1200 ml 950 ml Output Total 700 ml 2000 ml Balance 500 ml -1050 ml Intake Oral 1200 ml 950 ml Output Urine Total 700 ml 2000 ml # Bowel Movements 1 Dressing: saturated Wound: other Drains: other Cardiovascular: RSR Respiratory: clear Abdomen: soft, flat, non-tender, present bowel sounds Extremities: other Plan Problems: (1) Sacral decubitus ulcer, stage IV Assessment & Plan: Pt presents with multiple pressure injuries present on admission. Large sacral pressure injury noted to sacrum .R to L sacral area Black .Sacrum to R buttocks fluctuant with multiple scattered openings with mixed erythema / slough,total area measuring(L) 13cm x (W)14.1cm .At sacral coccygeal area is full thickness stage 4 wound that is malodorous with small amt brownish exudate (L)4cm x (W)3.5cm x (D)2cm,undermining 6-1 by 4.8cm @8o'clock.Mixed soft necrosis /slough noted at base of wound ,bone is palpable.Pt stated she has had sacral wound for approx one month. L trochanter maroon ,indurated with small opening with slough (L)0.5cm x (W) 0.5cm within affected area which measure (L)11.7cm x (W)16.2cm. Pt has contractures of both lower ext . Medial aspect of R knee Maroon ,tender when minimally palpated (L)6cm x ( W05.2cm . L heel Maroon with fluctuance with delineated margins(L)5.5cm x (W)8cm .tender when minimally palpated. Medial aspect of R heel maroon with fluctuance with delineated margins (L)4.2cm x(W)5.6cm. Tx.Plan: Apply Cavilon to R trochanter .Cover with Optifoam drsg .Change every 7 days and prn. Cleanse wound L trochanter with saline.Apply Therahoney .Apply Cavilon wipe to DTPI periwound (do not rub) Cover with Optifoam drsg every 3 days and prn. Cleanse sacral wound with Saline. Loosely pack sacral /coccygeal wound with Therahoney impregnated soft kerlix. Apply Therahoney to wounds R buttocks .Cavilon wipe periwound .Cover with Optifoam drsg daily and PRN. Apply Cavilon to DTPI medial R knee.Cover with Optifoam drsg .Change every 7 days and prn. Apply Cavilon wipes to DTPI's R and L heels. Cover with Optifoam drsgs .Change every 7 days and prn. Air fluidized mattress . Reposition at least every 2 hours or as tolerated.(please place pillow between knees needs debridement. discussed with patient who agreed. will schedule Yoel Bledsoe Aug 04, 2018 12:57
[2018-08-04] MEDS: Milk of Magnesia 30ml Ud ORAL PRN (13:00)
[2018-08-04] MEDS: Morphine Sulfate 4mg/ml Inj (IV/IM USE ONLY) IVP PRN ×2 (14:55→22:11)
[2018-08-04 16:00] VITALS: BP 98/58
[2018-08-04] MEDS ORDERED: Tubing IV Secondary IV ONE (16:01)
--- NOTE | 2018-08-04 17:30 | Infectious Diseases Prog Note ---
Assessment/Plan Problems: (1) UTI (urinary tract infection) Assessment & Plan: with proteus mirabilis on urine culture already on aztreonam empirically (2) Sacral decubitus ulcer, stage IV Assessment & Plan: continue vancomycin and aztreonam with metronidazole empirically, pending wound culture , MRI of the pelvis showed osteomyelitis in the low sacrum . will need 6 weeks of iv antibiotics . recommend local wound care and off loading. surgical debridement (3) Malnutrition Assessment & Plan: recommend dietary support to improve her wounds healing (4) Drug abuse Assessment & Plan: recommend counseling and rehab (5) Seizure disorder Assessment & Plan: continue neuro check and seizure meds, neurology eval Subjective Constitutional: Reports: no symptoms HEENT: Reports: no symptoms Respiratory: Reports: no symptoms Breasts: Reports: no symptoms Cardiovascular: Reports: no symptoms Gastrointestinal/Abdominal: Reports: no symptoms Genitourinary: Reports: no symptoms Neurologic: Reports: no symptoms Psychiatric: Reports: no symptoms Skin: Reports: ulcer Endocrine: Reports: no symptoms Hematologic: Reports: no symptoms Musculoskeletal: Reports: pain Allergies: Coded Allergies: No Known Allergies (Verified , 04/10/08) Subjective she is comfortable lying in bed , complained of low back pain, no fever or chills, no cough or SOB Objective Vital Signs Last 24 Hour Vital Signs Date Time Temp Pulse Resp B/P (MAP) Pulse Ox O2 Delivery O2 Flow Rate FiO2 08/04/18 16:00 97.6 77 20 98/58 (71) 100 08/04/18 12:00 97.3 84 20 96/53 (67) 100 08/04/18 12:00 94 08/04/18 09:00 Nasal Cannula 2.0 08/04/18 08:00 82 08/04/18 08:00 97.7 75 20 95/57 (70) 100 08/04/18 04:00 98.6 80 20 93/55 (68) 99 08/04/18 04:00 80 08/04/18 00:00 88 08/04/18 00:00 98.4 88 20 96/57 (70) 100 08/03/18 21:00 Nasal Cannula 2.0 08/03/18 20:00 94 08/03/18 20:00 98.6 94 22 90/56 (67) 100 Height (Feet): 5 Height (Inches): 4.00 Weight (Pounds): 118 General Appearance: WD/WN, no acute distress HEENT: normocephalic, atraumatic, anicteric, mucous membranes moist, PERRL Respiratory/Chest: chest wall non-tender, lungs clear, normal breath sounds, no respiratory distress, no accessory muscle use Cardiovascular: normal peripheral pulses, normal rate, regular rhythm, no gallop/murmur, no JVD Abdomen: normal bowel sounds, soft, non tender, no organomegaly, non distended , no mass, no scars Genitourinary: normal external genitalia Extremities: no cyanosis, no clubbing Skin: no rash, ulcers Neurologic/Psychiatric: alert, oriented x 3, responsive Lymphatic: no neck adenopathy, no groin adenopathy Musculoskeletal: no effusion, atrophy Current Medications Medications (Trade) Dose Ordered Sig/Elisa Route PRN Reason Start Time Stop Time Status Last Admin Dose Admin Acetaminophen (Tylenol) 650 mg Q8H PRN ORAL Mild Pain/Temp > 100.5 07/29/18 21:00 08/28/18 20:59 08/02/18 15:17 Acetaminophen/ Hydrocodone Bitart ([place] 5/325) 1 tab Q6H PRN ORAL Moderate Pain (Pain Scale 4-6) 08/03/18 15:30 08/10/18 15:29 08/04/18 11:18 Aztreonam 2 gm/ Dextrose 110 ml @ 220 mls/hr Q8HR IVPB 07/29/18 22:00 09/07/18 22:30 08/04/18 15:00 Baclofen (Lioresal) 10 mg THREE TIMES A DAY ORAL 07/30/18 09:00 08/26/18 17:59 08/04/18 13:00 Calcium Carbonate (OsCal D) 1 tab THREE TIMES A DAY ORAL 07/30/18 09:00 08/26/18 17:59 08/04/18 13:00 Cyanocobalamin (Vitamin B-12) 1,000 mcg DAILY ORAL 07/30/18 09:00 08/27/18 08:59 08/04/18 09:36 Docusate Sodium (Colace) 100 mg TWICE A DAY ORAL 07/30/18 09:00 08/26/18 17:59 08/04/18 09:34 Gabapentin (Neurontin) 900 mg THREE TIMES A DAY ORAL 07/30/18 09:00 08/26/18 17:59 08/04/18 13:00 Heparin Sodium (Porcine) (Heparin 5000 units/ml) 5,000 units EVERY 12 HOURS SUBQ 07/29/18 21:00 08/28/18 20:59 08/04/18 09:38 Hydrocortisone (Cortef) 10 mg THREE TIMES A DAY ORAL 08/01/18 18:00 08/31/18 17:59 08/04/18 13:00 Ketorolac Tromethamine (Toradol 30mg) 30 mg BID PRN IV Severe Pain (Pain Scale 7-10) 07/31/18 09:15 08/05/18 09:14 08/04/18 09:34 Levetiracetam 100 ml @ 440.098 mls/hr Q12HR IVPB 07/29/18 21:00 08/27/18 12:29 08/04/18 09:54 Loratadine (Claritin 10mg) 10 mg DAILY ORAL 07/30/18 09:00 08/27/18 08:59 08/04/18 09:34 Lorazepam (Ativan 2mg/ml 1ml) 2 mg Q4H PRN IV For Seizures 07/29/18 18:12 08/05/18 18:11 Magnesium Hydroxide (Mom) 30 ml DAILYPRN PRN ORAL Constipation 07/29/18 18:13 08/28/18 18:12 08/04/18 13:00 Metronidazole (Flagyl) 500 mg Q8HR ORAL 07/30/18 14:00 09/07/18 13:59 08/04/18 14:55 Morphine Sulfate (Morphine Sulfate) 2 mg Q4H PRN IVP For Pain 08/04/18 15:00 08/11/18 14:59 08/04/18 14:55 Multivitamins (Multivitamins) 1 tab DAILY ORAL 07/30/18 09:00 08/27/18 08:59 08/04/18 09:36 Pantoprazole (Protonix) 40 mg DAILY ORAL 07/30/18 09:00 08/27/18 08:59 08/04/18 09:37 Polyethylene Glycol (Miralax) 17 gm DAILYPRN PRN ORAL Constipation 07/29/18 18:13 08/28/18 18:12 08/04/18 09:35 Sodium Chloride 500 ml @ 999 mls/hr Q31M PRN IV FOR SBP <80 07/31/18 06:45 08/30/18 06:44 Tolterodine Tartrate (Detrol) 2 mg TWICE A DAY ORAL 07/30/18 09:00 08/26/18 17:59 08/04/18 09:35 Trazodone HCl (Desyrel) 100 mg BEDTIME ORAL 07/29/18 21:00 08/26/18 20:59 08/03/18 20:51 Vancomycin HCl (Vanco rx to dose) 1 ea DAILY PRN MISC Per rx protocol 07/30/18 09:00 08/27/18 12:29 Vancomycin HCl/ Dextrose 250 ml @ 125 mls/hr Q12H IVPB 07/30/18 23:00 09/07/18 22:59 08/04/18 11:19 Portillo Vazquez M.D. Aug 04, 2018 17:30
--- NOTE | 2018-08-04 19:19 | General Progress Note ---
Assessment/Plan Assessment/Plan ASSESSMENT AND PLAN: 1. Anemia of chronic disease - hgb lower potentially related to ivf --> anemia panel has been reviewed, no hemolysis --> transfuse if hgb less than 7 --> hgb electrophoresis reviewed and is negative for m-spike, significantly abnml bands --> ferritin is 341, trend hgb 11-->9.3-->9 2. Leukocytosis with sepsis --> currently has improved on iv abx --> smear reviewed, no abnmls significant that are noted --> on abx 3. Decubitus wound --> on abx --> appreciate surg recs, scheduling debridement 4. UTI- HCA 5. Neuromuscular disorder - wheelchair bound, baseline 6. Neurogenic bladder 7. Psychiatric disorder 8. UTI. 9. Seizure disorder (questionable). Greatly appreciate consultation! Subjective Constitutional: Denies: no symptoms, chills, diaphoresis, fever, malaise, weakness, other HEENT: Denies: no symptoms, eye pain, blurred vision, tearing, double vision, ear pain, ear discharge, nose pain, nose congestion, throat pain, throat swelling, mouth pain, mouth swelling, other Cardiovascular: Denies: no symptoms, chest pain, edema, irregular heart rate, lightheadedness, palpitations, syncope, other Respiratory: Denies: no symptoms, cough, orthopnea, shortness of breath, SOB with excertion, SOB at rest, sputum, stridor, wheezing, other Gastrointestinal/Abdominal: Denies: no symptoms, abdomen distended, abdominal pain, black stools, tarry stools, blood in stool, constipated, diarrhea, difficulty swallowing, nausea, poor appetite, poor fluid intake, rectal bleeding , vomiting, other Genitourinary: Denies: no symptoms, burning, discharge, frequency, flank pain, hematuria, incontinence, pain, urgency, other Neurologic/Psychiatric: Denies: no symptoms, anxiety, depressed, emotional problems, headache, numbness, paresthesia, pre-existing deficit, seizure, tingling, tremors, weakness, other Endocrine: Denies: no symptoms, excessive sweating, flushing, intolerance to cold, intolerance to heat, increased hunger, increased thirst, increased urine, unexplained weight gain, unexplained weight loss, other Allergies: Coded Allergies: No Known Allergies (Verified , 04/10/08) Subjective Pt resting in bed. No acute events. VS stable. Remains on NC. 08/04: feeling somewhat better, dc planning to snf, remainson abx as per id, mayneed debridement, per surg Objective Last 24 Hour Vital Signs Date Time Temp Pulse Resp B/P (MAP) Pulse Ox O2 Delivery O2 Flow Rate FiO2 08/04/18 16:00 97.6 77 20 98/58 (71) 100 08/04/18 16:00 87 08/04/18 12:00 97.3 84 20 96/53 (67) 100 08/04/18 12:00 94 08/04/18 09:00 Nasal Cannula 2.0 08/04/18 08:00 82 08/04/18 08:00 97.7 75 20 95/57 (70) 100 08/04/18 04:00 98.6 80 20 93/55 (68) 99 08/04/18 04:00 80 08/04/18 00:00 88 08/04/18 00:00 98.4 88 20 96/57 (70) 100 08/03/18 21:00 Nasal Cannula 2.0 08/03/18 20:00 94 08/03/18 20:00 98.6 94 22 90/56 (67) 100 Intake and Output 08/03/18 08/04/18 18:59 06:59 Intake Total 1200 ml 950 ml Output Total 700 ml 2000 ml Balance 500 ml -1050 ml Intake Oral 1200 ml 950 ml Output Urine Total 700 ml 2000 ml # Bowel Movements 1 Height (Feet): 5 Height (Inches): 4.00 Weight (Pounds): 118 Objective PHYSICAL EXAMINATION:HEAD AND NECK: Atraumatic and normocephalic. CHEST: Clear to auscultation. LUNGS: No wheezing. No crackles. ABDOMEN: Soft. No organomegaly. Bowel sounds are normal. MUSCULOSKELETAL: Atrophied musculatures. positive for Decubitus wound NEUROLOGIC: The patient is awake, not verbal and lethargic John Anderson MD Aug 04, 2018 19:19
[2018-08-04 20:00] VITALS: BP 100/70
[2018-08-04] MEDS: TraZODone 100mg tab ORAL SCH (20:37)
[2018-08-04 21:31] LABS: HEMATOCRIT 25.3 % (37.0-47.0); HEMOGLOBIN 7.8 G/DL (12.0-16.0); MEAN CORPUSCULAR VOLUME 85 FL (80-99); PLATELET COUNT 347 K/UL (150-450); RED BLOOD COUNT 2.98 M/UL (4.20-5.40); RED CELL DISTRIBUTION WIDTH 13.4 % (11.6-14.8); WHITE BLOOD COUNT 6.7 K/UL (4.8-10.8)
[2018-08-04 21:32] LABS: BASOPHILS % (AUTO) 1.1 % (0.0-2.0); EOSINOPHILS % (AUTO) 0.7 % (0.0-3.0); LYMPHOCYTES % (AUTO) 22.9 % (20.0-45.0); MONOCYTES % (AUTO) 7.7 % (1.0-10.0); NEUTROPHILS % (AUTO) 67.6 % (45.0-75.0)
[2018-08-05] VITALS: BP 100/60
[2018-08-05 04:00] VITALS: BP 125/67
[2018-08-05] MEDS: Morphine Sulfate 4mg/ml Inj (IV/IM USE ONLY) IVP PRN ×5 (04:29→22:35)
[2018-08-05] MEDS: metroNIDAZOLE 500mg tab ORAL SCH ×3 (05:27→22:35)
[2018-08-05] MEDS: Aztreonam Inj 2 GM in D5W 110 ML IVPB SCH ×3 (05:27→21:37)
[2018-08-05 08:00] VITALS: BP 104/67
[2018-08-05] MEDS: Vitamin B-12 500mcg tab ORAL SCH (09:07)
[2018-08-05] MEDS: Calcium Carbonate 500mg w/Vit D 200iu tab ORAL SCH ×3 (09:07→18:24)
[2018-08-05] MEDS: Tolterodine 2mg tab ORAL SCH ×2 (09:07→18:24)
[2018-08-05] MEDS: Heparin 5000 units/ml inj SUBQ SCH ×2 (09:32→21:14)
[2018-08-05] MEDS: levETIRAcetam 500mg/NS100ml 100 ML IVPB SCH ×2 (09:35→21:15)
[2018-08-05] MEDS: Milk of Magnesia 30ml Ud ORAL PRN (09:35)
[2018-08-05] MEDS: Docusate 100mg cap ORAL SCH ×2 (09:49→18:24)
[2018-08-05] MEDS: Vancomycin 1500mg IVPB SCH (11:17)
[2018-08-05 12:00] VITALS: BP 111/50
[2018-08-05] MEDS: Miralax 17gm pkt ORAL PRN (14:01)
--- NOTE | 2018-08-05 15:08 | Infectious Diseases Prog Note ---
Assessment/Plan Problems: (1) UTI (urinary tract infection) Assessment & Plan: due to proteus mirabilis resolved on aztreonam empirically (2) Sacral decubitus ulcer, stage IV Assessment & Plan: continue vancomycin and aztreonam with metronidazole empirically for 6 weeks , wound culture grew some skin rosi , MRI of the pelvis showed osteomyelitis in the low sacrum . will need 6 weeks of iv antibiotics . recommend local wound care and off loading. surgical debridement as needed (3) Malnutrition Assessment & Plan: recommend dietary support to improve her wounds healing (4) Drug abuse Assessment & Plan: recommend counseling and rehab (5) Seizure disorder Assessment & Plan: stable , on seizure meds, follow up with neurology Subjective Constitutional: Reports: no symptoms HEENT: Reports: no symptoms Respiratory: Reports: no symptoms Breasts: Reports: no symptoms Cardiovascular: Reports: no symptoms Gastrointestinal/Abdominal: Reports: no symptoms Genitourinary: Reports: no symptoms Neurologic: Reports: no symptoms, weakness Psychiatric: Reports: anxiety Skin: Reports: ulcer Endocrine: Reports: no symptoms Hematologic: Reports: no symptoms Musculoskeletal: Reports: pain Allergies: Coded Allergies: No Known Allergies (Verified , 04/10/08) Subjective she is comfortable lying in bed , complained of low back pain, no fever or chills, no cough or SOB, has some draining from her sacrum with foul smell Objective Vital Signs Last 24 Hour Vital Signs Date Time Temp Pulse Resp B/P (MAP) Pulse Ox O2 Delivery O2 Flow Rate FiO2 08/05/18 12:00 98.6 91 20 111/50 (70) 99 08/05/18 09:00 Nasal Cannula 2.0 08/05/18 08:00 97.5 89 20 104/67 (79) 95 08/05/18 08:00 91 08/05/18 04:00 91 08/05/18 04:00 98.4 91 20 125/67 (86) 98 08/05/18 00:00 98.4 97 20 100/60 (73) 98 08/05/18 00:00 97 08/04/18 21:00 Nasal Cannula 2.0 08/04/18 20:00 98.0 99 20 100/70 (80) 100 08/04/18 20:00 99 08/04/18 16:00 97.6 77 20 98/58 (71) 100 08/04/18 16:00 87 Height (Feet): 5 Height (Inches): 4.00 Weight (Pounds): 118 General Appearance: WD/WN, no acute distress, cachetic HEENT: normocephalic, atraumatic, anicteric, mucous membranes moist, PERRL Respiratory/Chest: chest wall non-tender, lungs clear, normal breath sounds, no respiratory distress, no accessory muscle use, respiratory distress Cardiovascular: normal peripheral pulses, normal rate, regular rhythm, no gallop/murmur, no JVD Abdomen: normal bowel sounds, soft, non tender, no organomegaly, non distended , no mass, no scars Extremities: no cyanosis, no clubbing Skin: no rash, no lesions, no ulcers Neurologic/Psychiatric: alert, responsive Lymphatic: no neck adenopathy, no groin adenopathy Musculoskeletal: normal muscle bulk, no effusion Laboratory Tests Test 08/04/18 20:40 White Blood Count 6.7 K/UL (4.8-10.8) Red Blood Count 2.98 M/UL (4.20-5.40) L Hemoglobin 7.8 G/DL (12.0-16.0) L Hematocrit 25.3 % (37.0-47.0) L Mean Corpuscular Volume 85 FL (80-99) Mean Corpuscular Hemoglobin 26.0 PG (27.0-31.0) L Mean Corpuscular Hemoglobin Concent 30.7 G/DL (32.0-36.0) L Red Cell Distribution Width 13.4 % (11.6-14.8) Platelet Count 347 K/UL (150-450) Mean Platelet Volume 4.9 FL (6.5-10.1) L Neutrophils (%) (Auto) 67.6 % (45.0-75.0) Lymphocytes (%) (Auto) 22.9 % (20.0-45.0) Monocytes (%) (Auto) 7.7 % (1.0-10.0) Eosinophils (%) (Auto) 0.7 % (0.0-3.0) Basophils (%) (Auto) 1.1 % (0.0-2.0) Current Medications Medications (Trade) Dose Ordered Sig/Elisa Route PRN Reason Start Time Stop Time Status Last Admin Dose Admin Acetaminophen (Tylenol) 650 mg Q8H PRN ORAL Mild Pain/Temp > 100.5 07/29/18 21:00 08/28/18 20:59 08/02/18 15:17 Acetaminophen/ Hydrocodone Bitart ([place] 5/325) 1 tab Q6H PRN ORAL Moderate Pain (Pain Scale 4-6) 08/03/18 15:30 08/10/18 15:29 08/04/18 11:18 Aztreonam 2 gm/ Dextrose 110 ml @ 220 mls/hr Q8HR IVPB 07/29/18 22:00 09/07/18 22:30 08/05/18 14:29 Baclofen (Lioresal) 10 mg THREE TIMES A DAY ORAL 07/30/18 09:00 08/26/18 17:59 08/05/18 14:01 Calcium Carbonate (OsCal D) 1 tab THREE TIMES A DAY ORAL 07/30/18 09:00 08/26/18 17:59 08/05/18 14:01 Cyanocobalamin (Vitamin B-12) 1,000 mcg DAILY ORAL 07/30/18 09:00 08/27/18 08:59 08/05/18 09:07 Docusate Sodium (Colace) 100 mg TWICE A DAY ORAL 07/30/18 09:00 08/26/18 17:59 08/05/18 09:49 Gabapentin (Neurontin) 900 mg THREE TIMES A DAY ORAL 07/30/18 09:00 08/26/18 17:59 08/05/18 14:01 Heparin Sodium (Porcine) (Heparin 5000 units/ml) 5,000 units EVERY 12 HOURS SUBQ 07/29/18 21:00 08/28/18 20:59 08/05/18 09:32 Hydrocortisone (Cortef) 10 mg THREE TIMES A DAY ORAL 08/01/18 18:00 08/31/18 17:59 08/05/18 14:01 Levetiracetam 100 ml @ 440.098 mls/hr Q12HR IVPB 07/29/18 21:00 08/27/18 12:29 08/05/18 09:35 Loratadine (Claritin 10mg) 10 mg DAILY ORAL 07/30/18 09:00 08/27/18 08:59 08/05/18 09:06 Lorazepam (Ativan 2mg/ml 1ml) 2 mg Q4H PRN IV For Seizures 07/29/18 18:12 08/05/18 18:11 Magnesium Hydroxide (Mom) 30 ml DAILYPRN PRN ORAL Constipation 07/29/18 18:13 08/28/18 18:12 08/05/18 09:35 Metronidazole (Flagyl) 500 mg Q8HR ORAL 07/30/18 14:00 09/07/18 13:59 08/05/18 14:01 Morphine Sulfate (Morphine Sulfate) 2 mg Q4H PRN IVP For Pain 08/04/18 15:00 08/11/18 14:59 08/05/18 14:20 Multivitamins (Multivitamins) 1 tab DAILY ORAL 07/30/18 09:00 08/27/18 08:59 08/05/18 09:07 Pantoprazole (Protonix) 40 mg DAILY ORAL 07/30/18 09:00 08/27/18 08:59 08/05/18 09:49 Polyethylene Glycol (Miralax) 17 gm DAILYPRN PRN ORAL Constipation 07/29/18 18:13 08/28/18 18:12 08/05/18 14:01 Sodium Chloride 500 ml @ 999 mls/hr Q31M PRN IV FOR SBP <80 07/31/18 06:45 08/30/18 06:44 Tolterodine Tartrate (Detrol) 2 mg TWICE A DAY ORAL 07/30/18 09:00 08/26/18 17:59 08/05/18 09:07 Trazodone HCl (Desyrel) 100 mg BEDTIME ORAL 07/29/18 21:00 08/26/18 20:59 08/04/18 20:37 Vancomycin HCl (Vanco rx to dose) 1 ea DAILY PRN MISC Per rx protocol 07/30/18 09:00 08/27/18 12:29 Vancomycin HCl/ Dextrose 250 ml @ 125 mls/hr Q12H IVPB 07/30/18 23:00 09/07/18 22:59 08/05/18 11:17 Portillo Vazquez M.D. Aug 05, 2018 15:08
--- NOTE | 2018-08-05 15:09 | General Progress Note ---
Progress Note Progress Note covering for Dr Andrews : S: I have pain all over O: appears more awake . in no distress. PHYSICAL EXAMINATION:HEAD AND NECK: Atraumatic and normocephalic. CHEST: Clear to auscultation. LUNGS: No wheezing. No crackles. ABDOMEN: Soft. No organomegaly. Bowel sounds are normal. MUSCULOSKELETAL: Atrophied musculatures. positive for Decubitus wound , NEUROLOGIC: The patient is awake, not verbal and lethargic Meds: including Vancomycin, aztreonam and metronidazole ASSESSMENT AND PLAN: 1. Sever Sepsis : Resolved 2. Acute encephalopathy, ddx: post ictal, possibility of Encephalitis cant be excluded. 3. Decubitus wound 4. UTI- HCA 2. Neuromuscular disorder - wheelchair bound - baseline. 3. Neurogenic bladder. 4. Psychiatric disorder. 5. UTI. 6. Seizure disorder (questionable). 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 Aug 05, 2018 15:09
[2018-08-05 16:00] VITALS: BP 124/84
[2018-08-05 20:00] VITALS: BP 100/58
--- NOTE | 2018-08-05 20:07 | General Progress Note ---
Assessment/Plan Assessment/Plan ASSESSMENT AND PLAN: 1. Anemia of chronic disease - hgb lower potentially related to ivf --> anemia panel has been reviewed, no hemolysis --> transfuse if hgb less than 7 --> hgb electrophoresis reviewed and is negative for m-spike, significantly abnml bands --> ferritin is 341, trend hgb 11-->9.3-->9-->7.8 2. Leukocytosis with sepsis --> currently has improved on iv abx --> smear reviewed, no abnmls significant that are noted --> on abx as per ID 3. Decubitus wound --> on abx --> appreciate surg recs, scheduling debridement 4. UTI- HCA 5. Neuromuscular disorder - wheelchair bound, baseline 6. Neurogenic bladder 7. Psychiatric disorder 8. UTI. 9. Seizure disorder (questionable). Greatly appreciate consultation! Subjective Constitutional: Denies: no symptoms, chills, diaphoresis, fever, malaise, weakness, other HEENT: Denies: no symptoms, eye pain, blurred vision, tearing, double vision, ear pain, ear discharge, nose pain, nose congestion, throat pain, throat swelling, mouth pain, mouth swelling, other Cardiovascular: Denies: no symptoms, chest pain, edema, irregular heart rate, lightheadedness, palpitations, syncope, other Respiratory: Denies: no symptoms, cough, orthopnea, shortness of breath, SOB with excertion, SOB at rest, sputum, stridor, wheezing, other Gastrointestinal/Abdominal: Denies: no symptoms, abdomen distended, abdominal pain, black stools, tarry stools, blood in stool, constipated, diarrhea, difficulty swallowing, nausea, poor appetite, poor fluid intake, rectal bleeding , vomiting, other Genitourinary: Denies: no symptoms, burning, discharge, frequency, flank pain, hematuria, incontinence, pain, urgency, other Neurologic/Psychiatric: Denies: no symptoms, anxiety, depressed, emotional problems, headache, numbness, paresthesia, pre-existing deficit, seizure, tingling, tremors, weakness, other Endocrine: Denies: no symptoms, excessive sweating, flushing, intolerance to cold, intolerance to heat, increased hunger, increased thirst, increased urine, unexplained weight gain, unexplained weight loss, other Hematologic/Lymphatic: Denies: no symptoms, anemia, easy bleeding, easy bruising, other Allergies: Coded Allergies: No Known Allergies (Verified , 04/10/08) Subjective Pt resting in bed. No acute events. VS stable. Remains on NC. 08/04: feeling somewhat better, dc planning to snf, remainson abx as per id, mayneed debridement, per surg 08/05: on abx as per ID, a+o x4, improving slowly, no bleeding today Objective Last 24 Hour Vital Signs Date Time Temp Pulse Resp B/P (MAP) Pulse Ox O2 Delivery O2 Flow Rate FiO2 08/05/18 16:00 97.9 95 20 124/84 (97) 95 08/05/18 15:13 106 08/05/18 12:00 100 08/05/18 12:00 98.6 91 20 111/50 (70) 99 08/05/18 09:00 Nasal Cannula 2.0 08/05/18 08:00 97.5 89 20 104/67 (79) 95 08/05/18 08:00 91 08/05/18 04:00 91 08/05/18 04:00 98.4 91 20 125/67 (86) 98 08/05/18 00:00 98.4 97 20 100/60 (73) 98 08/05/18 00:00 97 08/04/18 21:00 Nasal Cannula 2.0 Intake and Output 08/04/18 08/05/18 19:00 07:00 Intake Total 850 ml 920 ml Output Total 1300 ml 1300 ml Balance -450 ml -380 ml Intake Oral 850 ml 920 ml Output Urine Total 1300 ml 1300 ml # Bowel Movements 3 Laboratory Tests 08/04/18 20:40: White Blood Count 6.7, Red Blood Count 2.98L, Hemoglobin 7.8L, Hematocrit 25.3L , Mean Corpuscular Volume 85, Mean Corpuscular Hemoglobin 26.0L, Mean Corpuscular Hemoglobin Concent 30.7L, Red Cell Distribution Width 13.4, Platelet Count 347, Mean Platelet Volume 4.9L, Neutrophils (%) (Auto) 67.6, Lymphocytes (%) (Auto) 22.9, Monocytes (%) (Auto) 7.7, Eosinophils (%) (Auto) 0.7, Basophils (%) (Auto) 1.1 Height (Feet): 5 Height (Inches): 4.00 Weight (Pounds): 118 Objective PHYSICAL EXAMINATION:HEAD AND NECK: Atraumatic and normocephalic. CHEST: Clear to auscultation. LUNGS: No wheezing. No crackles. ABDOMEN: Soft. No organomegaly. Bowel sounds are normal. MUSCULOSKELETAL: Atrophied musculatures. positive for Decubitus wound NEUROLOGIC: The patient is awake, not verbal and lethargic EXT: no cce John Anderson MD Aug 05, 2018 20:06
[2018-08-05] MEDS: TraZODone 100mg tab ORAL SCH (21:14)
[2018-08-05] MEDS: Norco 5mg/325mg tab ORAL PRN (21:15)
[2018-08-06] VITALS: BP 92/55
[2018-08-06] MEDS: Morphine Sulfate 4mg/ml Inj (IV/IM USE ONLY) IVP PRN ×4 (02:39→20:15)
[2018-08-06 04:00] VITALS: BP 119/61
[2018-08-06] MEDS: Norco 5mg/325mg tab ORAL PRN ×3 (04:25→22:11)
[2018-08-06] MEDS: metroNIDAZOLE 500mg tab ORAL SCH ×3 (06:12→20:53)
[2018-08-06] MEDS: Aztreonam Inj 2 GM in D5W 110 ML IVPB SCH ×3 (06:12→20:54)
[2018-08-06 08:00] VITALS: BP 102/61
[2018-08-06] MEDS: Tolterodine 2mg tab ORAL SCH ×2 (09:39→17:20)
[2018-08-06] MEDS: Calcium Carbonate 500mg w/Vit D 200iu tab ORAL SCH ×3 (09:39→17:20)
[2018-08-06] MEDS: Docusate 100mg cap ORAL SCH ×2 (09:40→17:20)
[2018-08-06] MEDS: Vitamin B-12 500mcg tab ORAL SCH (09:40)
[2018-08-06] MEDS: Heparin 5000 units/ml inj SUBQ SCH ×2 (09:43→20:10)
[2018-08-06] MEDS: levETIRAcetam 500mg/NS100ml 100 ML IVPB SCH ×2 (09:44→20:10)
[2018-08-06 12:00] VITALS: BP 99/65
[2018-08-06] MEDS: Vancomycin 750mg/NS 250ml 250 ML IVPB SCH ×2 (12:00→22:10)
[2018-08-06 13:21] LABS: BASOPHILS % (AUTO) 0.8 % (0.0-2.0); EOSINOPHILS % (AUTO) 1.1 % (0.0-3.0); HEMATOCRIT 27.9 % (37.0-47.0); HEMOGLOBIN 8.7 G/DL (12.0-16.0); LYMPHOCYTES % (AUTO) 34.3 % (20.0-45.0); MEAN CORPUSCULAR VOLUME 85 FL (80-99); MONOCYTES % (AUTO) 6.4 % (1.0-10.0); NEUTROPHILS % (AUTO) 57.4 % (45.0-75.0); PLATELET COUNT 369 K/UL (150-450); RED BLOOD COUNT 3.28 M/UL (4.20-5.40); RED CELL DISTRIBUTION WIDTH 14.3 % (11.6-14.8); WHITE BLOOD COUNT 8.2 K/UL (4.8-10.8)
[2018-08-06 13:37] LABS: ALANINE AMINOTRANSFERASE 33 U/L (12-78); ALBUMIN 1.6 G/DL (3.4-5.0); ALBUMIN/GLOBULIN RATIO 0.4 (1.0-2.7); ALKALINE PHOSPHATASE 84 U/L (46-116); ANION GAP 4 mmol/L (5-15); ASPARTATE AMINO TRANSFERASE 50 U/L (15-37); BILIRUBIN,TOTAL 0.2 MG/DL (0.2-1.0); BLOOD UREA NITROGEN 16 mg/dL (7-18); CALCIUM 8.5 MG/DL (8.5-10.1); CARBON DIOXIDE 32 MMOL/L (21-32); CHLORIDE 106 MMOL/L (98-107); CREATININE 0.8 MG/DL (0.55-1.30); SODIUM 142 MMOL/L (136-145)
--- NOTE | 2018-08-06 14:13 | General Progress Note ---
Assessment/Plan Status: stable Assessment/Plan ASSESSMENT AND PLAN: 1. Anemia of chronic disease - hgb lower potentially related to ivf --> anemia panel has been reviewed, no hemolysis --> transfuse if hgb less than 7 --> hgb electrophoresis reviewed and is negative for m-spike, significantly abnml bands --> ferritin is 341, trend hgb 11-->9.3-->9-->7.8-->8.7 2. Leukocytosis with sepsis --> currently has improved on iv abx --> smear reviewed, no abnmls significant that are noted --> on abx as per ID 3. Decubitus wound --> on abx --> appreciate surg recs, scheduling debridement 4. UTI- HCA 5. Neuromuscular disorder - wheelchair bound, baseline 6. Neurogenic bladder 7. Psychiatric disorder 8. UTI. 9. Seizure disorder (questionable). Greatly appreciate consultation! Subjective Date patient seen: Aug 06, 2018 Allergies: Coded Allergies: No Known Allergies (Verified , 04/10/08) All Systems: reviewed and negative except above Subjective Pt resting in bed. No acute events. VS stable. Remains on NC. 08/04: feeling somewhat better, dc planning to snf, remainson abx as per id, may need debridement, per surg 08/05: on abx as per ID, a+o x4, improving slowly, no bleeding today 08/06: Pt awake and alert. No acute evetns. H/H stable. On NC 2L. Objective Last 24 Hour Vital Signs Date Time Temp Pulse Resp B/P (MAP) Pulse Ox O2 Delivery O2 Flow Rate FiO2 08/06/18 12:00 98.2 97 20 99/65 (76) 100 08/06/18 09:00 Nasal Cannula 2.0 08/06/18 08:00 101 08/06/18 08:00 97.9 75 20 102/61 (75) 100 08/06/18 04:00 97.0 75 20 119/61 (80) 100 08/06/18 04:00 76 08/06/18 00:00 99.0 84 22 92/55 (67) 97 08/06/18 00:00 88 08/05/18 21:00 Nasal Cannula 2.0 08/05/18 20:00 98.4 92 20 100/58 (72) 100 08/05/18 20:00 93 08/05/18 16:00 97.9 95 20 124/84 (97) 95 08/05/18 15:13 106 Intake and Output 08/05/18 08/06/18 19:00 07:00 Intake Total 360 ml Output Total 700 ml 2500 ml Balance -340 ml -2500 ml Intake Oral 360 ml Output Urine Total 700 ml 2500 ml # Bowel Movements 1 Laboratory Tests 08/05/18 21:40: Vancomycin Level Trough 34.5H 08/06/18 13:10: White Blood Count 8.2, Red Blood Count 3.28L, Hemoglobin 8.7L, Hematocrit 27.9L , Mean Corpuscular Volume 85, Mean Corpuscular Hemoglobin 26.5L, Mean Corpuscular Hemoglobin Concent 31.1L, Red Cell Distribution Width 14.3, Platelet Count 369, Mean Platelet Volume 4.3L, Neutrophils (%) (Auto) 57.4, Lymphocytes (%) (Auto) 34.3, Monocytes (%) (Auto) 6.4, Eosinophils (%) (Auto) 1.1, Basophils (%) (Auto) 0.8, Sodium Level 142, Potassium Level 4.0, Chloride Level 106, Carbon Dioxide Level 32, Anion Gap 4L, Blood Urea Nitrogen 16, Creatinine 0.8, Estimat Glomerular Filtration Rate > 60, Glucose Level 103, Calcium Level 8.5, Total Bilirubin 0.2, Aspartate Amino Transf (AST/SGOT) 50H, Alanine Aminotransferase (ALT/SGPT) 33, Alkaline Phosphatase 84, Total Protein 5.8L, Albumin 1.6L, Globulin 4.2, Albumin/Globulin Ratio 0.4L Height (Feet): 5 Height (Inches): 4.00 Weight (Pounds): 118 Objective PHYSICAL EXAMINATION:HEAD AND NECK: Atraumatic and normocephalic. CHEST: Clear to auscultation. LUNGS: No wheezing. No crackles. ABDOMEN: Soft. No organomegaly. Bowel sounds are normal. MUSCULOSKELETAL: Atrophied musculatures. positive for Decubitus wound NEUROLOGIC: The patient is awake, not verbal and lethargic EXT: no cce John Anderson MD Aug 06, 2018 14:13
--- NOTE | 2018-08-06 14:49 | Infectious Diseases Prog Note ---
Assessment/Plan Problems: (1) UTI (urinary tract infection) Assessment & Plan: due to proteus mirabilis resolved on aztreonam empirically (2) Sacral decubitus ulcer, stage IV Assessment & Plan: continue vancomycin and aztreonam with metronidazole empirically for 6 weeks , wound culture grew some skin rosi , MRI of the pelvis showed osteomyelitis in the low sacrum . will need 6 weeks of iv antibiotics . recommend local wound care and off loading. surgical debridement as needed (3) Malnutrition Assessment & Plan: recommend dietary support to improve her wounds healing (4) Drug abuse Assessment & Plan: recommend counseling and rehab (5) Seizure disorder Assessment & Plan: stable , on seizure meds, follow up with neurology Subjective Constitutional: Reports: no symptoms HEENT: Reports: no symptoms Respiratory: Reports: no symptoms Breasts: Reports: no symptoms Cardiovascular: Reports: no symptoms Gastrointestinal/Abdominal: Reports: no symptoms Genitourinary: Reports: no symptoms Neurologic: Reports: no symptoms Psychiatric: Reports: no symptoms Skin: Reports: ulcer, other - burning at the pressure wound Endocrine: Reports: no symptoms Hematologic: Reports: no symptoms Musculoskeletal: Reports: pain Allergies: Coded Allergies: No Known Allergies (Verified , 04/10/08) Subjective she is comfortable lying in bed , complained of low back pain, no fever or chills, no cough or SOB, has some draining from her sacrum with foul smell Objective Vital Signs Last 24 Hour Vital Signs Date Time Temp Pulse Resp B/P (MAP) Pulse Ox O2 Delivery O2 Flow Rate FiO2 08/06/18 12:00 98.2 97 20 99/65 (76) 100 08/06/18 09:00 Nasal Cannula 2.0 08/06/18 08:00 101 08/06/18 08:00 97.9 75 20 102/61 (75) 100 08/06/18 04:00 97.0 75 20 119/61 (80) 100 08/06/18 04:00 76 08/06/18 00:00 99.0 84 22 92/55 (67) 97 08/06/18 00:00 88 08/05/18 21:00 Nasal Cannula 2.0 08/05/18 20:00 98.4 92 20 100/58 (72) 100 08/05/18 20:00 93 08/05/18 16:00 97.9 95 20 124/84 (97) 95 08/05/18 15:13 106 Height (Feet): 5 Height (Inches): 4.00 Weight (Pounds): 118 General Appearance: WD/WN, no acute distress HEENT: normocephalic, atraumatic, anicteric, mucous membranes moist, PERRL Respiratory/Chest: chest wall non-tender, lungs clear, normal breath sounds, no respiratory distress, no accessory muscle use Cardiovascular: normal peripheral pulses, normal rate, regular rhythm, no gallop/murmur, no JVD Abdomen: normal bowel sounds, soft, non tender, no organomegaly, non distended , no mass, no scars Extremities: no cyanosis, no clubbing Skin: no rash, no lesions, ulcers - sacral pressure wound deep with necrotics tissue Neurologic/Psychiatric: alert, oriented x 3 Lymphatic: no neck adenopathy, no groin adenopathy Musculoskeletal: no effusion, atrophy Laboratory Tests Test 08/05/18 21:40 08/06/18 13:10 Vancomycin Level Trough 34.5 ug/mL (5.0-12.0) H White Blood Count 8.2 K/UL (4.8-10.8) Red Blood Count 3.28 M/UL (4.20-5.40) L Hemoglobin 8.7 G/DL (12.0-16.0) L Hematocrit 27.9 % (37.0-47.0) L Mean Corpuscular Volume 85 FL (80-99) Mean Corpuscular Hemoglobin 26.5 PG (27.0-31.0) L Mean Corpuscular Hemoglobin Concent 31.1 G/DL (32.0-36.0) L Red Cell Distribution Width 14.3 % (11.6-14.8) Platelet Count 369 K/UL (150-450) Mean Platelet Volume 4.3 FL (6.5-10.1) L Neutrophils (%) (Auto) 57.4 % (45.0-75.0) Lymphocytes (%) (Auto) 34.3 % (20.0-45.0) Monocytes (%) (Auto) 6.4 % (1.0-10.0) Eosinophils (%) (Auto) 1.1 % (0.0-3.0) Basophils (%) (Auto) 0.8 % (0.0-2.0) Sodium Level 142 MMOL/L (136-145) Potassium Level 4.0 MMOL/L (3.5-5.1) Chloride Level 106 MMOL/L (98-107) Carbon Dioxide Level 32 MMOL/L (21-32) Anion Gap 4 mmol/L (5-15) L Blood Urea Nitrogen 16 mg/dL (7-18) Creatinine 0.8 MG/DL (0.55-1.30) Estimat Glomerular Filtration Rate > 60 mL/min (>60) Glucose Level 103 MG/DL (74-106) Calcium Level 8.5 MG/DL (8.5-10.1) Total Bilirubin 0.2 MG/DL (0.2-1.0) Aspartate Amino Transf (AST/SGOT) 50 U/L (15-37) H Alanine Aminotransferase (ALT/SGPT) 33 U/L (12-78) Alkaline Phosphatase 84 U/L (46-116) Total Protein 5.8 G/DL (6.4-8.2) L Albumin 1.6 G/DL (3.4-5.0) L Globulin 4.2 g/dL Albumin/Globulin Ratio 0.4 (1.0-2.7) L Current Medications Medications (Trade) Dose Ordered Sig/Elisa Route PRN Reason Start Time Stop Time Status Last Admin Dose Admin Acetaminophen (Tylenol) 650 mg Q8H PRN ORAL Mild Pain/Temp > 100.5 07/29/18 21:00 08/28/18 20:59 08/02/18 15:17 Acetaminophen/ Hydrocodone Bitart ([place] 5/325) 1 tab Q6H PRN ORAL Moderate Pain (Pain Scale 4-6) 08/03/18 15:30 08/10/18 15:29 08/06/18 04:25 Aztreonam 2 gm/ Dextrose 110 ml @ 220 mls/hr Q8HR IVPB 07/29/18 22:00 09/07/18 22:30 08/06/18 13:56 Baclofen (Lioresal) 10 mg THREE TIMES A DAY ORAL 07/30/18 09:00 08/26/18 17:59 08/06/18 12:21 Calcium Carbonate (OsCal D) 1 tab THREE TIMES A DAY ORAL 07/30/18 09:00 08/26/18 17:59 08/06/18 12:21 Cyanocobalamin (Vitamin B-12) 1,000 mcg DAILY ORAL 07/30/18 09:00 08/27/18 08:59 08/06/18 09:40 Docusate Sodium (Colace) 100 mg TWICE A DAY ORAL 07/30/18 09:00 08/26/18 17:59 08/06/18 09:40 Gabapentin (Neurontin) 900 mg THREE TIMES A DAY ORAL 07/30/18 09:00 08/26/18 17:59 08/06/18 12:22 Heparin Sodium (Porcine) (Heparin 5000 units/ml) 5,000 units EVERY 12 HOURS SUBQ 07/29/18 21:00 08/28/18 20:59 08/06/18 09:43 Levetiracetam 100 ml @ 440.098 mls/hr Q12HR IVPB 07/29/18 21:00 08/27/18 12:29 08/06/18 09:44 Loratadine (Claritin 10mg) 10 mg DAILY ORAL 07/30/18 09:00 08/27/18 08:59 08/06/18 09:39 Magnesium Hydroxide (Mom) 30 ml DAILYPRN PRN ORAL Constipation 07/29/18 18:13 08/28/18 18:12 08/05/18 09:35 Metronidazole (Flagyl) 500 mg Q8HR ORAL 07/30/18 14:00 09/07/18 13:59 08/06/18 13:56 Morphine Sulfate (Morphine Sulfate) 2 mg Q4H PRN IVP For Pain 08/04/18 15:00 08/11/18 14:59 08/06/18 13:56 Multivitamins (Multivitamins) 1 tab DAILY ORAL 07/30/18 09:00 08/27/18 08:59 08/06/18 09:39 Pantoprazole (Protonix) 40 mg DAILY ORAL 07/30/18 09:00 08/27/18 08:59 08/06/18 09:39 Polyethylene Glycol (Miralax) 17 gm DAILYPRN PRN ORAL Constipation 07/29/18 18:13 08/28/18 18:12 08/05/18 14:01 Sodium Chloride 500 ml @ 999 mls/hr Q31M PRN IV FOR SBP <80 07/31/18 06:45 08/30/18 06:44 Tolterodine Tartrate (Detrol) 2 mg TWICE A DAY ORAL 07/30/18 09:00 08/26/18 17:59 08/06/18 09:39 Trazodone HCl (Desyrel) 100 mg BEDTIME ORAL 07/29/18 21:00 08/26/18 20:59 08/05/18 21:14 Vancomycin HCl (Vanco rx to dose) 1 ea DAILY PRN MISC Per rx protocol 07/30/18 09:00 08/27/18 12:29 Vancomycin/Sodium Chloride 250 ml @ 167 mls/hr Q12H IVPB 08/06/18 11:00 08/11/18 10:59 08/06/18 12:00 Portillo Vazquez M.D. Aug 06, 2018 14:49
[2018-08-06 16:00] VITALS: BP 100/57
[2018-08-06] MEDS ORDERED: NS 275ml ONE (17:35)
[2018-08-06 20:00] VITALS: BP 100/52
[2018-08-06] MEDS: TraZODone 100mg tab ORAL SCH (20:09)
[2018-08-07] VITALS: BP 101/55
[2018-08-07] MEDS: Morphine Sulfate 4mg/ml Inj (IV/IM USE ONLY) IVP PRN ×3 (00:17→08:58)
[2018-08-07 04:00] VITALS: BP 99/59
[2018-08-07] MEDS: metroNIDAZOLE 500mg tab ORAL SCH ×3 (05:49→21:41)
[2018-08-07] MEDS: Aztreonam Inj 2 GM in D5W 110 ML IVPB SCH ×3 (05:49→21:43)
[2018-08-07] MEDS: Norco 5mg/325mg tab ORAL PRN (05:49)
[2018-08-07 08:00] VITALS: BP 104/57
[2018-08-07 08:25] LABS: ANION GAP 1 mmol/L (5-15); BLOOD UREA NITROGEN 20 mg/dL (7-18); CALCIUM 8.7 MG/DL (8.5-10.1); CARBON DIOXIDE 33 MMOL/L (21-32); CHLORIDE 105 MMOL/L (98-107); CREATININE 0.8 MG/DL (0.55-1.30); POTASSIUM 4.1 MMOL/L (3.5-5.1); SODIUM 139 MMOL/L (136-145)
[2018-08-07] MEDS: Docusate 100mg cap ORAL SCH ×2 (08:58→17:43)
[2018-08-07] MEDS: Calcium Carbonate 500mg w/Vit D 200iu tab ORAL SCH ×3 (08:59→17:44)
[2018-08-07] MEDS: Vitamin B-12 500mcg tab ORAL SCH (08:59)
[2018-08-07] MEDS: Tolterodine 2mg tab ORAL SCH ×2 (08:59→17:43)
[2018-08-07] MEDS: levETIRAcetam 500mg/NS100ml 100 ML IVPB SCH ×2 (09:00→20:38)
[2018-08-07] MEDS: Heparin 5000 units/ml inj SUBQ SCH ×2 (09:05→20:42)
[2018-08-07 12:00] VITALS: BP 128/84
[2018-08-07] MEDS ORDERED: Morphine Sulfate 4mg/ml Inj (IV/IM USE ONLY) IVP PRN (12:00)
[2018-08-07] MEDS: Vancomycin 750mg/NS 250ml 250 ML IVPB SCH (12:10)
--- NOTE | 2018-08-07 12:52 | General Progress Note ---
Assessment/Plan Assessment/Plan Covering for Dr. Andrews 1. Anemia of chronic disease - hgb lower potentially related to ivf --> anemia panel has been reviewed, no hemolysis --> transfuse if hgb less than 7 --> hgb electrophoresis reviewed and is negative for m-spike, significantly abnml bands --> ferritin is 341, trend hgb 11-->9.3-->9-->7.8-->8.7 2. Leukocytosis with sepsis --> currently has improved on iv abx --> smear reviewed, no abnmls significant that are noted --> on abx as per ID 3. Decubitus wound --> on abx --> appreciate surg recs, scheduling debridement 4. UTI- HCA 5. Neuromuscular disorder - wheelchair bound, baseline 6. Neurogenic bladder 7. Psychiatric disorder 8. UTI. 9. Seizure disorder (questionable). Subjective HEENT: Denies: no symptoms, eye pain, blurred vision, tearing, double vision, ear pain, ear discharge, nose pain, nose congestion, throat pain, throat swelling, mouth pain, mouth swelling, other Cardiovascular: Denies: no symptoms, chest pain, edema, irregular heart rate, lightheadedness, palpitations, syncope, other Respiratory: Denies: no symptoms, cough, orthopnea, shortness of breath, SOB with excertion, SOB at rest, sputum, stridor, wheezing, other Genitourinary: Denies: no symptoms, burning, discharge, frequency, flank pain, hematuria, incontinence, pain, urgency, other Neurologic/Psychiatric: Denies: no symptoms, anxiety, depressed, emotional problems, headache, numbness, paresthesia, pre-existing deficit, seizure, tingling, tremors, weakness, other Endocrine: Denies: no symptoms, excessive sweating, flushing, intolerance to cold, intolerance to heat, increased hunger, increased thirst, increased urine, unexplained weight gain, unexplained weight loss, other Hematologic/Lymphatic: Denies: no symptoms, anemia, easy bleeding, easy bruising, other Allergies: Coded Allergies: No Known Allergies (Verified , 04/10/08) Subjective Pt resting in bed. No acute events. VS stable. Remains on NC. 08/04: feeling somewhat better, dc planning to snf, remainson abx as per id, may need debridement, per surg 08/05: on abx as per ID, a+o x4, improving slowly, no bleeding today 08/06: Pt awake and alert. No acute evetns. H/H stable. On NC 2L. 08/07: on 2L nc, no events, ID recs reviewed, appreciate recs Objective Last 24 Hour Vital Signs Date Time Temp Pulse Resp B/P (MAP) Pulse Ox O2 Delivery O2 Flow Rate FiO2 08/07/18 09:00 Nasal Cannula 2.0 08/07/18 08:00 87 08/07/18 08:00 97.5 105 22 104/57 (73) 99 08/07/18 04:00 99.8 86 18 99/59 (72) 100 08/07/18 04:00 90 08/07/18 00:00 97 08/07/18 00:00 98.7 96 18 101/55 (70) 98 08/06/18 21:00 Nasal Cannula 2.0 08/06/18 20:00 106 08/06/18 20:00 99.5 110 18 100/52 (68) 98 08/06/18 16:00 109 08/06/18 16:00 98.3 98 20 100/57 (71) 100 Intake and Output 08/06/18 08/07/18 19:00 07:00 Intake Total 600 ml Output Total 2250 ml Balance -1650 ml Intake Oral 600 ml Output Urine Total 2250 ml # Voids 2 Laboratory Tests 08/06/18 13:10: White Blood Count 8.2, Red Blood Count 3.28L, Hemoglobin 8.7L, Hematocrit 27.9L , Mean Corpuscular Volume 85, Mean Corpuscular Hemoglobin 26.5L, Mean Corpuscular Hemoglobin Concent 31.1L, Red Cell Distribution Width 14.3, Platelet Count 369, Mean Platelet Volume 4.3L, Neutrophils (%) (Auto) 57.4, Lymphocytes (%) (Auto) 34.3, Monocytes (%) (Auto) 6.4, Eosinophils (%) (Auto) 1.1, Basophils (%) (Auto) 0.8, Sodium Level 142, Potassium Level 4.0, Chloride Level 106, Carbon Dioxide Level 32, Anion Gap 4L, Blood Urea Nitrogen 16, Creatinine 0.8, Estimat Glomerular Filtration Rate > 60, Glucose Level 103, Calcium Level 8.5, Total Bilirubin 0.2, Aspartate Amino Transf (AST/SGOT) 50H, Alanine Aminotransferase (ALT/SGPT) 33, Alkaline Phosphatase 84, Total Protein 5.8L, Albumin 1.6L, Globulin 4.2, Albumin/Globulin Ratio 0.4L 08/07/18 05:50: Sodium Level 139, Potassium Level 4.1, Chloride Level 105, Carbon Dioxide Level 33H, Anion Gap 1L, Blood Urea Nitrogen 20H, Creatinine 0.8, Estimat Glomerular Filtration Rate > 60, Glucose Level 94, Calcium Level 8.7 Height (Feet): 5 Height (Inches): 4.00 Weight (Pounds): 118 Objective PHYSICAL EXAMINATION:HEAD AND NECK: Atraumatic and normocephalic. CHEST: Clear to auscultation. LUNGS: No wheezing. No crackles. ABDOMEN: Soft. No organomegaly. Bowel sounds are normal. MUSCULOSKELETAL: Atrophied musculatures. positive for Decubitus wound NEUROLOGIC: The patient is awake, not verbal and lethargic EXT: no cce John Anderson MD Aug 07, 2018 12:52
[2018-08-07] MEDS ORDERED: HYDROcodone/Acetamin 10/325 tab ORAL PRN ×3 (13:15→20:15)
--- NOTE | 2018-08-07 13:17 | Consultation ---
History of Present Illness General Date patient seen: Aug 07, 2018 Present Illness Allergies: Coded Allergies: No Known Allergies (Verified , 04/10/08) Medication History Scheduled Baclofen* (Baclofen*), 10 MG ORAL THREE TIMES A DAY, (Reported) Calcium Carbonate/Vitamin D3 ([place] 500+D Tablet), 1 EACH PO TID, (Reported) Cholecalciferol (Vitamin D3)* (Vitamin D*), 2,000 UNITS ORAL DAILY, (Reported) Clonazepam* (Klonopin*), 1 MG ORAL BID, (Reported) Cyanocobalamin (Vitamin B-12)* (Vitamin B-12*), 1,000 MCG ORAL DAILY, (Reported) Docusate Sodium (Doc-Q-Lace), 100 MG ORAL BID, (Reported) Gabapentin* (Gabapentin*), 900 MG ORAL THREE TIMES A DAY, (Reported) Hydrocortisone (Anucort-Hc), 1 SUPP RECTAL TWICE A DAY Levetiracetam (Keppra), 500 MG ORAL BID, (Reported) Magnesium Hydroxide* (Milk Of Magnesia*), ML ORAL DAILY, (Reported) Midodrine* (Proamatine*), 10 MG ORAL DAILY, (Reported) Multivitamin (Multi Vitamin Daily), 1 TAB ORAL DAILY, (Reported) Nabumetone* (Relafen*), 750 MG PO BID, (Reported) Omeprazole (Omeprazole), 10 MG ORAL DAILY, (Reported) Pantoprazole* (Protonix*), 40 MG ORAL DAILY Prochlorperazine (Prochlorperazine), 10 MG RECTAL EVERY 12 HOURS, (Reported) Ranitidine Hcl* (Zantac*), 150 MG ORAL QHS Tolterodine Tartrate* (Detrol*), 2 MG ORAL TWICE A DAY, (Reported) Trazodone* (Trazodone*), 100 MG ORAL BEDTIME, (Reported) Venlafaxine Hcl (Venlafaxine Hcl), Unknown Dose ORAL BID, (Reported) Vit D3/Folic Acid/B2/B6/B12 (Folgard Tablet), 1 EACH PO TID, (Reported) Scheduled PRN Hydrocodone Bit/Acetaminophen 5-325* ([place] 5-325 Tablet*), 1 TAB ORAL Q4H PRN for For Pain, (Reported) Polyethylene Glycol 3350* (Miralax*), 17 GM ORAL DAILYPRN PRN for Constipation Tramadol Hcl* (Ultram*), 50 MG ORAL BID PRN for For Pain, (Reported) Miscellaneous Medications Loratadine (Loratadine), 10 MG PO, (Reported) Sennosides (Senna), 8.6 MG PO, (Reported) Patient History Healthcare decision maker Resuscitation status Full Code Advanced Directive on File Physical Exam Last 24 Hour Vital Signs Date Time Temp Pulse Resp B/P (MAP) Pulse Ox O2 Delivery O2 Flow Rate FiO2 08/07/18 09:00 Nasal Cannula 2.0 08/07/18 08:00 87 08/07/18 08:00 97.5 105 22 104/57 (73) 99 08/07/18 04:00 99.8 86 18 99/59 (72) 100 08/07/18 04:00 90 08/07/18 00:00 97 08/07/18 00:00 98.7 96 18 101/55 (70) 98 08/06/18 21:00 Nasal Cannula 2.0 08/06/18 20:00 106 08/06/18 20:00 99.5 110 18 100/52 (68) 98 08/06/18 16:00 109 08/06/18 16:00 98.3 98 20 100/57 (71) 100 Intake and Output 08/06/18 08/07/18 19:00 07:00 Intake Total 600 ml Output Total 2250 ml Balance -1650 ml Intake Oral 600 ml Output Urine Total 2250 ml # Voids 2 Laboratory Tests Test 08/07/18 05:50 Sodium Level 139 MMOL/L (136-145) Potassium Level 4.1 MMOL/L (3.5-5.1) Chloride Level 105 MMOL/L (98-107) Carbon Dioxide Level 33 MMOL/L (21-32) H Anion Gap 1 mmol/L (5-15) L Blood Urea Nitrogen 20 mg/dL (7-18) H Creatinine 0.8 MG/DL (0.55-1.30) Estimat Glomerular Filtration Rate > 60 mL/min (>60) Glucose Level 94 MG/DL (74-106) Calcium Level 8.7 MG/DL (8.5-10.1) Height (Feet): 5 Height (Inches): 4.00 Weight (Pounds): 118 Medications Current Medications Medications (Trade) Dose Ordered Sig/Elisa Route PRN Reason Start Time Stop Time Status Last Admin Dose Admin Acetaminophen (Tylenol) 650 mg Q8H PRN ORAL Mild Pain/Temp > 100.5 07/29/18 21:00 08/28/18 20:59 08/02/18 15:17 Acetaminophen/ Hydrocodone Bitart ([place] 10/325) 1 tab Q4H PRN ORAL severe pain 08/07/18 13:15 08/14/18 13:14 UNV Aztreonam 2 gm/ Dextrose 110 ml @ 220 mls/hr Q8HR IVPB 07/29/18 22:00 09/07/18 22:30 08/07/18 05:49 Baclofen (Lioresal) 10 mg THREE TIMES A DAY ORAL 07/30/18 09:00 08/26/18 17:59 08/07/18 08:58 Calcium Carbonate (OsCal D) 1 tab THREE TIMES A DAY ORAL 07/30/18 09:00 08/26/18 17:59 08/07/18 08:59 Cyanocobalamin (Vitamin B-12) 1,000 mcg DAILY ORAL 07/30/18 09:00 08/27/18 08:59 08/07/18 08:59 Docusate Sodium (Colace) 100 mg TWICE A DAY ORAL 07/30/18 09:00 08/26/18 17:59 08/07/18 08:58 Gabapentin (Neurontin) 900 mg THREE TIMES A DAY ORAL 07/30/18 09:00 08/26/18 17:59 08/07/18 08:59 Heparin Sodium (Porcine) (Heparin 5000 units/ml) 5,000 units EVERY 12 HOURS SUBQ 07/29/18 21:00 08/28/18 20:59 08/07/18 09:05 Levetiracetam 100 ml @ 440.098 mls/hr Q12HR IVPB 07/29/18 21:00 08/27/18 12:29 08/07/18 09:00 Loratadine (Claritin 10mg) 10 mg DAILY ORAL 07/30/18 09:00 08/27/18 08:59 08/07/18 08:59 Magnesium Hydroxide (Mom) 30 ml DAILYPRN PRN ORAL Constipation 07/29/18 18:13 08/28/18 18:12 08/05/18 09:35 Metronidazole (Flagyl) 500 mg Q8HR ORAL 07/30/18 14:00 09/07/18 13:59 08/07/18 05:49 Multivitamins (Multivitamins) 1 tab DAILY ORAL 07/30/18 09:00 08/27/18 08:59 08/07/18 08:59 Pantoprazole (Protonix) 40 mg DAILY ORAL 07/30/18 09:00 08/27/18 08:59 08/07/18 08:59 Polyethylene Glycol (Miralax) 17 gm DAILYPRN PRN ORAL Constipation 07/29/18 18:13 08/28/18 18:12 08/05/18 14:01 Sodium Chloride 500 ml @ 999 mls/hr Q31M PRN IV FOR SBP <80 07/31/18 06:45 08/30/18 06:44 Sodium Chloride 1,000 ml @ 50 mls/hr Q20H IV 08/07/18 08:00 09/06/18 07:59 08/07/18 08:58 Tolterodine Tartrate (Detrol) 2 mg TWICE A DAY ORAL 07/30/18 09:00 08/26/18 17:59 08/07/18 08:59 Trazodone HCl (Desyrel) 100 mg BEDTIME ORAL 07/29/18 21:00 08/26/18 20:59 08/06/18 20:09 Vancomycin HCl (Vanco rx to dose) 1 ea DAILY PRN MISC Per rx protocol 07/30/18 09:00 08/27/18 12:29 Vancomycin/Sodium Chloride 250 ml @ 167 mls/hr Q12H IVPB 08/06/18 11:00 08/11/18 10:59 08/07/18 12:10 Assessment/Plan Assessment/Plan (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
[2018-08-07 16:00] VITALS: BP 109/61
--- NOTE | 2018-08-07 16:04 | Infectious Diseases Prog Note ---
Assessment/Plan Problems: (1) Sacral decubitus ulcer, stage IV Assessment & Plan: continue vancomycin and aztreonam with metronidazole empirically for 6 weeks , wound culture grew some skin rosi , MRI of the pelvis showed osteomyelitis in the low sacrum . will need 6 weeks of iv antibiotics . recommend local wound care and off loading. surgical debridement as needed (2) UTI (urinary tract infection) Assessment & Plan: due to proteus mirabilis resolved on aztreonam empirically (3) Malnutrition Assessment & Plan: recommend dietary support to improve her wounds healing (4) Drug abuse Assessment & Plan: recommend counseling and rehab (5) Seizure disorder Assessment & Plan: stable , on seizure meds, follow up with neurology Subjective Constitutional: Reports: no symptoms HEENT: Reports: no symptoms Respiratory: Reports: no symptoms Breasts: Reports: no symptoms Cardiovascular: Reports: no symptoms Gastrointestinal/Abdominal: Reports: no symptoms Genitourinary: Reports: no symptoms Neurologic: Reports: numbness, weakness Psychiatric: Reports: anxiety Skin: Reports: ulcer Endocrine: Reports: no symptoms Hematologic: Reports: no symptoms Musculoskeletal: Reports: no symptoms Allergies: Coded Allergies: No Known Allergies (Verified , 04/10/08) Subjective she is comfortable up in chair , complained of low back pain, no fever or chills, no cough or SOB Objective Vital Signs Last 24 Hour Vital Signs Date Time Temp Pulse Resp B/P (MAP) Pulse Ox O2 Delivery O2 Flow Rate FiO2 08/07/18 12:00 100 08/07/18 12:00 97.5 99 22 128/84 (99) 98 08/07/18 09:00 Nasal Cannula 2.0 08/07/18 08:00 87 08/07/18 08:00 97.5 105 22 104/57 (73) 99 08/07/18 04:00 99.8 86 18 99/59 (72) 100 08/07/18 04:00 90 08/07/18 00:00 97 08/07/18 00:00 98.7 96 18 101/55 (70) 98 08/06/18 21:00 Nasal Cannula 2.0 08/06/18 20:00 106 08/06/18 20:00 99.5 110 18 100/52 (68) 98 Height (Feet): 5 Height (Inches): 4.00 Weight (Pounds): 118 General Appearance: WD/WN, no acute distress HEENT: normocephalic, atraumatic, anicteric, mucous membranes moist, PERRL, EOMI, pharynx normal, supple, no JVD Respiratory/Chest: chest wall non-tender, lungs clear, normal breath sounds, no respiratory distress, no accessory muscle use Cardiovascular: normal peripheral pulses, normal rate, regular rhythm, no gallop/murmur, no JVD Abdomen: normal bowel sounds, soft, non tender, no organomegaly, non distended , no mass, no scars Genitourinary: normal external genitalia Extremities: no cyanosis, no clubbing Skin: no rash, no lesions, ulcers Neurologic/Psychiatric: alert, oriented x 3, responsive Lymphatic: no neck adenopathy, no groin adenopathy Musculoskeletal: normal muscle bulk, no effusion Laboratory Tests Test 08/07/18 05:50 Sodium Level 139 MMOL/L (136-145) Potassium Level 4.1 MMOL/L (3.5-5.1) Chloride Level 105 MMOL/L (98-107) Carbon Dioxide Level 33 MMOL/L (21-32) H Anion Gap 1 mmol/L (5-15) L Blood Urea Nitrogen 20 mg/dL (7-18) H Creatinine 0.8 MG/DL (0.55-1.30) Estimat Glomerular Filtration Rate > 60 mL/min (>60) Glucose Level 94 MG/DL (74-106) Calcium Level 8.7 MG/DL (8.5-10.1) Current Medications Medications (Trade) Dose Ordered Sig/Elisa Route PRN Reason Start Time Stop Time Status Last Admin Dose Admin Acetaminophen (Tylenol) 650 mg Q8H PRN ORAL Mild Pain/Temp > 100.5 07/29/18 21:00 08/28/18 20:59 08/02/18 15:17 Acetaminophen/ Hydrocodone Bitart ([place] 10/325) 1 tab Q4H PRN ORAL severe pain 08/07/18 13:15 08/14/18 13:14 Aztreonam 2 gm/ Dextrose 110 ml @ 220 mls/hr Q8HR IVPB 07/29/18 22:00 09/07/18 22:30 08/07/18 13:50 Baclofen (Lioresal) 10 mg THREE TIMES A DAY ORAL 07/30/18 09:00 08/26/18 17:59 08/07/18 13:49 Calcium Carbonate (OsCal D) 1 tab THREE TIMES A DAY ORAL 07/30/18 09:00 08/26/18 17:59 08/07/18 13:49 Cyanocobalamin (Vitamin B-12) 1,000 mcg DAILY ORAL 07/30/18 09:00 08/27/18 08:59 08/07/18 08:59 Docusate Sodium (Colace) 100 mg TWICE A DAY ORAL 07/30/18 09:00 08/26/18 17:59 08/07/18 08:58 Gabapentin (Neurontin) 900 mg THREE TIMES A DAY ORAL 07/30/18 09:00 08/26/18 17:59 08/07/18 13:49 Heparin Sodium (Porcine) (Heparin 5000 units/ml) 5,000 units EVERY 12 HOURS SUBQ 07/29/18 21:00 08/28/18 20:59 08/07/18 09:05 Levetiracetam 100 ml @ 440.098 mls/hr Q12HR IVPB 07/29/18 21:00 08/27/18 12:29 08/07/18 09:00 Loratadine (Claritin 10mg) 10 mg DAILY ORAL 07/30/18 09:00 08/27/18 08:59 08/07/18 08:59 Magnesium Hydroxide (Mom) 30 ml DAILYPRN PRN ORAL Constipation 07/29/18 18:13 08/28/18 18:12 08/05/18 09:35 Metronidazole (Flagyl) 500 mg Q8HR ORAL 07/30/18 14:00 09/07/18 13:59 08/07/18 13:49 Multivitamins (Multivitamins) 1 tab DAILY ORAL 07/30/18 09:00 08/27/18 08:59 08/07/18 08:59 Pantoprazole (Protonix) 40 mg DAILY ORAL 07/30/18 09:00 08/27/18 08:59 08/07/18 08:59 Polyethylene Glycol (Miralax) 17 gm DAILYPRN PRN ORAL Constipation 07/29/18 18:13 08/28/18 18:12 08/05/18 14:01 Sodium Chloride 500 ml @ 999 mls/hr Q31M PRN IV FOR SBP <80 07/31/18 06:45 08/30/18 06:44 Sodium Chloride 1,000 ml @ 50 mls/hr Q20H IV 08/07/18 08:00 09/06/18 07:59 08/07/18 08:58 Tolterodine Tartrate (Detrol) 2 mg TWICE A DAY ORAL 07/30/18 09:00 08/26/18 17:59 08/07/18 08:59 Trazodone HCl (Desyrel) 100 mg BEDTIME ORAL 07/29/18 21:00 08/26/18 20:59 08/06/18 20:09 Vancomycin HCl (Vanco rx to dose) 1 ea DAILY PRN MISC Per rx protocol 07/30/18 09:00 08/27/18 12:29 Vancomycin/Sodium Chloride 250 ml @ 167 mls/hr Q12H IVPB 08/06/18 11:00 08/11/18 10:59 08/07/18 12:10 Portillo Vazquez M.D. Aug 07, 2018 16:04
[2018-08-07] MEDS ORDERED: Sodium Chloride 500ML 500 ML IV PRN (18:45)
[2018-08-07 20:00] VITALS: BP 99/56
[2018-08-07] MEDS: TraZODone 100mg tab ORAL SCH (20:38)
--- NOTE | 2018-08-07 20:45 | Consultation ---
DATE OF CONSULTATION: 08/07/2018 PAIN MANAGEMENT CONSULTATION REFERRING PHYSICIAN: Livan Anderson M.D. CONSULTING PHYSICIAN: Iris Amaya M.D. PHYSICIAN HEALTH FACILITIES SURVEYOR: Nicole Amaya CHIEF COMPLAINT: Generalized body pain. HISTORY OF PRESENT ILLNESS: This is a 63-year-old female who is being seen on the telemetry floor of [facility] for initial pain management consultation. The patient was admitted under the care of Dr. Andrews due to sacral decubitus ulcer. 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 The patient describes the pain in her buttock area as sharp, stabbing, burning, and rates at 10/10. She is on morphine 4 mg IV every 4 hours as needed for severe pain, [place] 5/325 mg one tablet every four hours as needed for moderate pain with minimal pain relief. Due to this, we were consulted. The patient will have adequate pain control while here in the hospital. PAST MEDICAL HISTORY: UTI, seizure disorder, anemia, respiratory distress, fibromyalgia, gastritis, rectal bleeding, abdominal pain, hemorrhoids, chronic constipation, colon polyps, AVN, sacral decubitus ulcer, paraplegia, Guillain-[place]. SOCIAL HISTORY: She is a smoker and does cocaine. ALLERGIES: No known drug allergies. MEDICATIONS: [place], baclofen, calcium, vitamin D3, Klonopin, vitamin B12, Dulcolax, Neurontin, Keppra, hydrocortisone, loratadine, milk of magnesia, Relafen, Protonix, MiraLax, Zantac, senna, Detrol, Ultram, trazodone, venlafaxine, Folgard. REVIEW OF SYSTEMS: Denies rash, fever, chills, sweating, dizziness, drowsiness, blurred vision, sore throat, or change in weight. No shortness of breath or chest pain. No nausea, vomiting, diarrhea, or blood in the stool or urine. She is complaining of generalized body pain. PHYSICAL EXAMINATION: GENERAL: Alert, awake, and oriented. VITAL SIGNS: Blood pressure 104/57, heart rate is 105, oxygen saturation 99%, respiratory rate 22, and temperature 97.5 degrees Fahrenheit. HEENT: PERRLA. NECK: Range of motion is full in all directions. No tenderness to paracervical muscles. No adenopathy. LUNGS: Decreased breath sounds bilaterally. HEART: S1 and S2 regular. ABDOMEN: Benign with surgical scars noted. BACK: Range of motion is decreased in flexion and extension. Bandages applied. EXTREMITIES: Upper and lower extremity range of motion is decreased due to the patient's condition. No cyanosis. No clubbing. Sensory is reduced. Reflexes are not obtainable. No adenopathy. 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 The patient will be discontinued off the morphine and [place] 5 mg and started on [place] 10/325 mg one tablet every 4 hours as needed for severe pain. The patient was discussed with Dr. Amaya and he concurred. We will follow up the patient. Thank you very much for the courtesy of this consultation. Iris Amaya M.D. SAGAR Rutherford DR: Cathy JOB#: [id number] CC: MONA
[2018-08-07] MEDS ORDERED: Vancomycin 750mg/NS 250ml 250 ML IVPB SCH (23:00)
[2018-08-08] VITALS (7 sets, daily range): BP systolic 100–116; BP diastolic 56–69
[2018-08-08] MEDS: Vancomycin 1 GM in NS 275 ML IVPB SCH ×5 (00:03→23:47)
[2018-08-08] MEDS: metroNIDAZOLE 500mg tab ORAL SCH ×3 (05:39→21:13)
[2018-08-08] MEDS: Aztreonam Inj 2 GM in D5W 110 ML IVPB SCH ×3 (05:41→22:19)
[2018-08-08] MEDS: levETIRAcetam 500mg/NS100ml 100 ML IVPB SCH ×2 (08:18→21:13)
[2018-08-08] MEDS: Calcium Carbonate 500mg w/Vit D 200iu tab ORAL SCH ×3 (08:19→17:37)
[2018-08-08] MEDS: Tolterodine 2mg tab ORAL SCH ×2 (08:19→17:37)
[2018-08-08] MEDS: Vitamin B-12 500mcg tab ORAL SCH (08:19)
[2018-08-08] MEDS: Docusate 100mg cap ORAL SCH ×2 (08:20→17:37)
[2018-08-08] MEDS: Heparin 5000 units/ml inj SUBQ SCH ×2 (08:32→21:25)
--- NOTE | 2018-08-08 09:18 | General Progress Note ---
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 Will start Morphine ER 15mg PO 1 tab Q12H ATC hold for oversedation. D/w Dr. Amaya and he concurred. Subjective Date patient seen: Aug 08, 2018 Time patient seen: 07:30 - am Allergies: Coded Allergies: No Known Allergies (Verified , 04/10/08) Subjective REVIEW OF SYSTEMS: Denies rash, fever, chills, sweating, dizziness, drowsiness, blurred vision, sore throat, or change in weight. No shortness of breath or chest pain. No nausea, vomiting, diarrhea, or blood in the stool or urine. She is complaining of generalized body pain. SUBJECTIVE: Patient is in bed and reports that the [place] was no beneficial and was started on Percocet 10/325mg PO 1 tab Q4H PRN severe pain which she explains had been reducing her pain but has not been lasting. I d/w her about a long acting medication and she understands. Objective Last 24 Hour Vital Signs Date Time Temp Pulse Resp B/P (MAP) Pulse Ox O2 Delivery O2 Flow Rate FiO2 08/08/18 04:00 98.0 86 18 108/69 (82) 98 08/08/18 00:00 98.0 91 20 100/56 (71) 97 08/07/18 21:00 Room Air 08/07/18 20:00 97.8 101 18 99/56 (70) 98 08/07/18 16:00 103 08/07/18 16:00 97.1 97 20 109/61 (77) 97 08/07/18 12:00 100 08/07/18 12:00 97.5 99 22 128/84 (99) 98 Intake and Output 08/07/18 08/08/18 18:59 06:59 Intake Total 1248 ml Output Total 2500 ml Balance -1252 ml Intake Oral 360 ml IV Total 888 ml Output Urine Total 2500 ml # Bowel Movements 2 Laboratory Tests 08/07/18 22:10: Vancomycin Level Trough 10.6 Height (Feet): 5 Height (Inches): 4.00 Weight (Pounds): 118 Objective GENERAL: Alert, awake, and oriented. LUNGS: Decreased breath sounds bilaterally. HEART: S1 and S2 regular. ABDOMEN: Benign with surgical scars noted. EXTREMITIES: No cyanosis. No clubbing. NEURO: No changes. Tarik Caal Aug 08, 2018 09:18
[2018-08-08] MEDS: MS Contin 15mg tab ORAL SCH ×2 (10:41→22:00)
[2018-08-08] MEDS: Morphine Sulfate 4mg/ml Inj (IV/IM USE ONLY) IVP PRN ×2 (12:00→21:13)
[2018-08-08] MEDS: Miralax 17gm pkt ORAL PRN (12:42)
[2018-08-08] MEDS: Milk of Magnesia 30ml Ud ORAL PRN (12:42)
--- NOTE | 2018-08-08 14:40 | Infectious Diseases Prog Note ---
Assessment/Plan Problems: (1) Sacral decubitus ulcer, stage IV Assessment & Plan: continue vancomycin and aztreonam with metronidazole empirically for 6 weeks , wound culture grew some skin rosi , MRI of the pelvis showed osteomyelitis in the low sacrum . will need 6 weeks of iv antibiotics . recommend local wound care and off loading. surgical debridement as needed (2) UTI (urinary tract infection) Assessment & Plan: due to proteus mirabilis resolved on aztreonam empirically (3) Malnutrition Assessment & Plan: recommend dietary support to improve her wounds healing (4) Drug abuse Assessment & Plan: recommend counseling and rehab (5) Seizure disorder Assessment & Plan: stable , on seizure meds, follow up with neurology Subjective Constitutional: Reports: no symptoms HEENT: Reports: no symptoms Respiratory: Reports: no symptoms Breasts: Reports: no symptoms Cardiovascular: Reports: no symptoms Gastrointestinal/Abdominal: Reports: no symptoms Genitourinary: Reports: no symptoms Neurologic: Reports: no symptoms Psychiatric: Reports: no symptoms Skin: Reports: no symptoms Endocrine: Reports: no symptoms Hematologic: Reports: no symptoms Musculoskeletal: Reports: no symptoms Allergies: Coded Allergies: No Known Allergies (Verified , 04/10/08) Subjective she is comfortable up in chair , complained of low back pain, no fever or chills, no cough or SOB Objective Vital Signs Last 24 Hour Vital Signs Date Time Temp Pulse Resp B/P (MAP) Pulse Ox O2 Delivery O2 Flow Rate FiO2 08/08/18 09:00 Room Air 08/08/18 08:00 98.0 91 16 101/61 (74) 98 08/08/18 04:00 98.0 86 18 108/69 (82) 98 08/08/18 00:00 98.0 91 20 100/56 (71) 97 08/07/18 21:00 Room Air 08/07/18 20:00 97.8 101 18 99/56 (70) 98 08/07/18 16:00 103 08/07/18 16:00 97.1 97 20 109/61 (77) 97 Height (Feet): 5 Height (Inches): 4.00 Weight (Pounds): 118 General Appearance: WD/WN, no acute distress HEENT: normocephalic, atraumatic, anicteric, mucous membranes moist, PERRL, EOMI, pharynx normal, supple, no JVD Respiratory/Chest: chest wall non-tender, lungs clear, normal breath sounds, no respiratory distress, no accessory muscle use Cardiovascular: normal peripheral pulses, normal rate, regular rhythm, no gallop/murmur, no JVD Abdomen: normal bowel sounds, soft, non tender, no organomegaly, non distended , no mass, no scars Genitourinary: normal external genitalia Extremities: no cyanosis, no clubbing Skin: no rash, no lesions, ulcers Neurologic/Psychiatric: alert, oriented x 3, responsive Lymphatic: no neck adenopathy, no groin adenopathy Musculoskeletal: normal muscle bulk, no effusion Laboratory Tests Test 08/07/18 22:10 Vancomycin Level Trough 10.6 ug/mL (5.0-12.0) Current Medications Medications (Trade) Dose Ordered Sig/Elisa Route PRN Reason Start Time Stop Time Status Last Admin Dose Admin Acetaminophen (Tylenol) 650 mg Q8H PRN ORAL Mild Pain/Temp > 100.5 08/07/18 18:37 08/28/18 18:36 Acetaminophen/ Hydrocodone Bitart ([place] 10/325) 1 tab Q4H PRN ORAL moderate pain 08/07/18 20:15 08/14/18 18:36 Aztreonam 2 gm/ Dextrose 110 ml @ 220 mls/hr Q8HR IVPB 08/07/18 22:00 09/07/18 22:30 08/08/18 05:41 Baclofen (Lioresal) 10 mg THREE TIMES A DAY ORAL 08/08/18 09:00 08/26/18 17:59 08/08/18 12:42 Calcium Carbonate (OsCal D) 1 tab THREE TIMES A DAY ORAL 08/08/18 09:00 08/26/18 17:59 08/08/18 12:42 Cyanocobalamin (Vitamin B-12) 1,000 mcg DAILY ORAL 08/08/18 09:00 08/27/18 08:59 08/08/18 08:19 Docusate Sodium (Colace) 100 mg TWICE A DAY ORAL 08/08/18 09:00 08/26/18 17:59 08/08/18 08:20 Gabapentin (Neurontin) 900 mg THREE TIMES A DAY ORAL 08/08/18 09:00 08/26/18 17:59 08/08/18 12:42 Heparin Sodium (Porcine) (Heparin 5000 units/ml) 5,000 units EVERY 12 HOURS SUBQ 08/07/18 21:00 08/28/18 20:59 08/07/18 20:42 Levetiracetam 100 ml @ 440.098 mls/hr Q12HR IVPB 08/07/18 21:00 08/27/18 12:29 08/08/18 08:18 Loratadine (Claritin 10mg) 10 mg DAILY ORAL 08/08/18 09:00 08/27/18 08:59 08/08/18 08:19 Magnesium Hydroxide (Mom) 30 ml DAILYPRN PRN ORAL Constipation 08/07/18 18:38 09/06/18 18:37 08/08/18 12:42 Metronidazole (Flagyl) 500 mg Q8HR ORAL 08/07/18 22:00 09/07/18 13:59 08/08/18 13:28 Morphine Sulfate (MS Contin) 15 mg Q12H ORAL 08/08/18 10:00 08/15/18 09:59 08/08/18 10:41 Morphine Sulfate (Morphine Sulfate) 2 mg Q4H PRN IVP Severe Breakthru Pain (>7) 08/08/18 11:45 08/15/18 11:44 08/08/18 12:00 Multivitamins (Multivitamins) 1 tab DAILY ORAL 08/08/18 09:00 08/27/18 08:59 08/08/18 08:20 Oxycodone/ Acetaminophen (Percocet 10/325) 1 tab Q4H PRN ORAL Severe Pain (Pain Scale 7-10) 08/07/18 20:00 08/14/18 19:59 08/08/18 13:28 Pantoprazole (Protonix) 40 mg DAILY ORAL 08/08/18 09:00 08/27/18 08:59 08/08/18 08:20 Polyethylene Glycol (Miralax) 17 gm DAILYPRN PRN ORAL Constipation 08/07/18 18:38 09/06/18 18:37 08/08/18 12:42 Sodium Chloride 500 ml @ 999 mls/hr Q31M PRN IV FOR SBP <80 08/07/18 18:45 08/30/18 06:44 Sodium Chloride 1,000 ml @ 50 mls/hr Q20H IV 08/07/18 18:45 09/06/18 07:59 08/07/18 19:25 Tolterodine Tartrate (Detrol) 2 mg TWICE A DAY ORAL 08/08/18 09:00 08/26/18 17:59 08/08/18 08:19 Trazodone HCl (Desyrel) 100 mg BEDTIME ORAL 08/07/18 21:00 08/26/18 20:59 08/07/18 20:38 Vancomycin HCl (Vanco rx to dose) 1 ea DAILY PRN MISC Per rx protocol 08/08/18 09:00 08/27/18 12:29 Vancomycin HCl 1 gm/Sodium Chloride 275 ml @ 184 mls/hr Q12H IVPB 08/07/18 00:00 08/12/18 00:00 08/08/18 12:38 Portillo Vazquez M.D. Aug 08, 2018 14:40
--- NOTE | 2018-08-08 19:12 | General Progress Note ---
Assessment/Plan Assessment/Plan Covering for Dr. Andrews 1. Anemia of chronic disease - hgb lower potentially related to ivf --> anemia panel has been reviewed, no hemolysis --> transfuse if hgb less than 7 --> hgb electrophoresis reviewed and is negative for m-spike, significantly abnml bands --> ferritin is 341, trend hgb 11-->9.3-->9-->7.8-->8.7 2. Leukocytosis with sepsis --> currently has improved on iv abx --> smear reviewed, no abnmls significant that are noted --> on abx as per ID 3. Decubitus wound --> on abx --> appreciate surg recs, scheduling debridement 4. UTI- HCA 5. Neuromuscular disorder - wheelchair bound, baseline 6. Neurogenic bladder 7. Psychiatric disorder 8. UTI. 9. Seizure disorder --> as per Dr. Castillo --> seziure on 08/08, started on keppra iv Subjective Cardiovascular: Denies: no symptoms, chest pain, edema, irregular heart rate, lightheadedness, palpitations, syncope, other Respiratory: Denies: no symptoms, cough, orthopnea, shortness of breath, SOB with excertion, SOB at rest, sputum, stridor, wheezing, other Gastrointestinal/Abdominal: Denies: no symptoms, abdomen distended, abdominal pain, black stools, tarry stools, blood in stool, constipated, diarrhea, difficulty swallowing, nausea, poor appetite, poor fluid intake, rectal bleeding , vomiting, other Genitourinary: Denies: no symptoms, burning, discharge, frequency, flank pain, hematuria, incontinence, pain, urgency, other Neurologic/Psychiatric: Denies: no symptoms, anxiety, depressed, emotional problems, headache, numbness, paresthesia, pre-existing deficit, seizure, tingling, tremors, weakness, other Endocrine: Denies: no symptoms, excessive sweating, flushing, intolerance to cold, intolerance to heat, increased hunger, increased thirst, increased urine, unexplained weight gain, unexplained weight loss, other Hematologic/Lymphatic: Denies: no symptoms, anemia, easy bleeding, easy bruising, other Allergies: Coded Allergies: No Known Allergies (Verified , 04/10/08) Subjective Pt resting in bed. No acute events. VS stable. Remains on NC. 08/04: feeling somewhat better, dc planning to snf, remainson abx as per id, may need debridement, per surg 08/05: on abx as per ID, a+o x4, improving slowly, no bleeding today 08/06: Pt awake and alert. No acute evetns. H/H stable. On NC 2L. 08/07: on 2L nc, no events, ID recs reviewed, appreciate recs 08/08: had a seziure today per Rn, started on keprra, confused, Dr. Castillo was consulted Objective Last 24 Hour Vital Signs Date Time Temp Pulse Resp B/P (MAP) Pulse Ox O2 Delivery O2 Flow Rate FiO2 08/08/18 16:00 97.8 101 18 107/65 (79) 100 08/08/18 12:00 98.7 96 16 116/57 (76) 100 08/08/18 09:00 Room Air 08/08/18 08:00 98.0 91 16 101/61 (74) 98 08/08/18 04:00 98.0 86 18 108/69 (82) 98 08/08/18 00:00 98.0 91 20 100/56 (71) 97 08/07/18 21:00 Room Air 08/07/18 20:00 97.8 101 18 99/56 (70) 98 Intake and Output 08/07/18 08/08/18 19:00 07:00 Intake Total 1248 ml Output Total 2500 ml Balance -1252 ml Intake Oral 360 ml IV Total 888 ml Output Urine Total 2500 ml # Bowel Movements 2 Laboratory Tests 08/07/18 22:10: Vancomycin Level Trough 10.6 Height (Feet): 5 Height (Inches): 4.00 Weight (Pounds): 118 Objective PHYSICAL EXAMINATION:HEAD AND NECK: Atraumatic and normocephalic. CHEST: Clear to auscultation. LUNGS: No wheezing. No crackles. ABDOMEN: Soft. No organomegaly. Bowel sounds are normal. MUSCULOSKELETAL: Atrophied musculatures. positive for Decubitus wound NEUROLOGIC: The patient is awake, not verbal and lethargic EXT: no cce John Anderson MD Aug 08, 2018 19:12
[2018-08-08] MEDS ORDERED: LORazepam Inj 2mg/ml 1ml IV PRN (20:00)
[2018-08-08] MEDS: TraZODone 100mg tab ORAL SCH (22:14)
[2018-08-09] VITALS (7 sets, daily range): BP systolic 91–125; BP diastolic 52–74
[2018-08-09] MEDS: metroNIDAZOLE 500mg tab ORAL SCH ×3 (05:57→21:19)
[2018-08-09] MEDS: Aztreonam Inj 2 GM in D5W 110 ML IVPB SCH ×3 (05:57→23:23)
[2018-08-09] MEDS: Morphine Sulfate 4mg/ml Inj (IV/IM USE ONLY) IVP PRN ×3 (06:26→19:47)
[2018-08-09] MEDS: Calcium Carbonate 500mg w/Vit D 200iu tab ORAL SCH ×3 (08:46→16:58)
[2018-08-09] MEDS: Docusate 100mg cap ORAL SCH ×2 (08:46→16:57)
[2018-08-09] MEDS: Tolterodine 2mg tab ORAL SCH ×2 (08:46→16:57)
[2018-08-09] MEDS: Vitamin B-12 500mcg tab ORAL SCH (08:46)
[2018-08-09] MEDS: levETIRAcetam 500mg/NS100ml 100 ML IVPB SCH ×2 (08:47→21:22)
[2018-08-09] MEDS: Heparin 5000 units/ml inj SUBQ SCH ×2 (08:50→20:11)
[2018-08-09] MEDS: MS Contin 15mg tab ORAL SCH ×2 (10:48→22:00)
--- NOTE | 2018-08-09 11:20 | General Progress Note ---
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 D/w Dr. Amaya and he concurred. Subjective Date patient seen: Aug 09, 2018 Time patient seen: 10:10 - am Allergies: Coded Allergies: No Known Allergies (Verified , 04/10/08) Subjective REVIEW OF SYSTEMS: Denies rash, fever, chills, sweating, dizziness, drowsiness, blurred vision, sore throat, or change in weight. No shortness of breath or chest pain. No nausea, vomiting, diarrhea, or blood in the stool or urine. She is complaining of generalized body pain. SUBJECTIVE: Patient is in bed and smiling reporting her pain has been better controlled since yesterday. She has used 2 doses of Morphine ER and 5 doses of Percocet. She was started on morphine 2mg IV Q4H PRN severe breakthrough pain which she has gotten 3 doses of in the last 24hrs. Objective Last 24 Hour Vital Signs Date Time Temp Pulse Resp B/P (MAP) Pulse Ox O2 Delivery O2 Flow Rate FiO2 08/09/18 09:00 Room Air 08/09/18 08:00 97.4 67 19 91/56 (68) 97 08/09/18 06:56 98.1 08/09/18 06:20 103 108/63 (78) 08/09/18 05:07 98.1 08/09/18 04:30 97.2 102 20 100/54 (69) 99 08/08/18 23:52 98.1 100 18 103/59 (74) 98 08/08/18 21:13 Room Air 08/08/18 20:04 98.6 101 18 100/62 (75) 98 08/08/18 16:00 97.8 101 18 107/65 (79) 100 08/08/18 12:00 98.7 96 16 116/57 (76) 100 Intake and Output 08/08/18 08/09/18 18:59 06:59 Intake Total 1120 ml 1004 ml Output Total 1400 ml 4500 ml Balance -280 ml -3496 ml Intake Oral 1120 ml 500 ml IV Total 504 ml Output Urine Total 1400 ml 4500 ml # Bowel Movements 1 1 Height (Feet): 5 Height (Inches): 4.00 Weight (Pounds): 118 Objective GENERAL: Alert, awake, and oriented. LUNGS: Decreased breath sounds bilaterally. HEART: S1 and S2 regular. ABDOMEN: Benign with surgical scars noted. EXTREMITIES: No cyanosis. No clubbing. NEURO: No changes. Tarik Caal Aug 09, 2018 11:20
[2018-08-09] MEDS: Vancomycin 1 GM in NS 275 ML IVPB SCH ×2 (11:51→21:19)
--- NOTE | 2018-08-09 16:56 | Infectious Diseases Prog Note ---
Assessment/Plan Problems: (1) Sacral decubitus ulcer, stage IV Assessment & Plan: continue vancomycin and aztreonam with metronidazole empirically for 6 weeks , wound culture grew some skin rosi , MRI of the pelvis showed osteomyelitis in the low sacrum . will need 6 weeks of iv antibiotics . recommend local wound care and off loading. surgical debridement as needed (2) UTI (urinary tract infection) Assessment & Plan: due to proteus mirabilis resolved on aztreonam empirically (3) Malnutrition Assessment & Plan: recommend dietary support to improve her wounds healing (4) Drug abuse Assessment & Plan: recommend counseling and rehab (5) Seizure disorder Assessment & Plan: stable , on seizure meds, follow up with neurology Subjective Constitutional: Reports: no symptoms HEENT: Reports: no symptoms Respiratory: Reports: no symptoms Breasts: Reports: no symptoms Cardiovascular: Reports: no symptoms Gastrointestinal/Abdominal: Reports: no symptoms Genitourinary: Reports: no symptoms Neurologic: Reports: no symptoms, weakness Psychiatric: Reports: no symptoms Skin: Reports: ulcer Endocrine: Reports: no symptoms Hematologic: Reports: no symptoms Musculoskeletal: Reports: pain Allergies: Coded Allergies: No Known Allergies (Verified , 04/10/08) Subjective she is comfortable up in chair , complained of low back pain, no fever or chills, no cough or SOB Objective Vital Signs Last 24 Hour Vital Signs Date Time Temp Pulse Resp B/P (MAP) Pulse Ox O2 Delivery O2 Flow Rate FiO2 08/09/18 16:00 97.4 100 19 125/74 (91) 95 08/09/18 13:55 97.4 08/09/18 12:38 97.4 08/09/18 12:00 98.6 109 19 108/74 (85) 100 08/09/18 11:18 97.4 08/09/18 09:00 Room Air 08/09/18 08:00 97.4 67 19 91/56 (68) 97 08/09/18 06:20 103 108/63 (78) 08/09/18 04:30 97.2 102 20 100/54 (69) 99 08/08/18 23:52 98.1 100 18 103/59 (74) 98 08/08/18 21:13 Room Air 08/08/18 20:04 98.6 101 18 100/62 (75) 98 Height (Feet): 5 Height (Inches): 4.00 Weight (Pounds): 118 General Appearance: WD/WN, no acute distress HEENT: normocephalic, atraumatic, anicteric, mucous membranes moist, PERRL, EOMI, pharynx normal, supple, no JVD Respiratory/Chest: chest wall non-tender, lungs clear, normal breath sounds, no respiratory distress, no accessory muscle use Cardiovascular: normal peripheral pulses, normal rate, regular rhythm, no gallop/murmur, no JVD Abdomen: normal bowel sounds, soft, non tender, no organomegaly, non distended , no mass, no scars Genitourinary: normal external genitalia Extremities: no cyanosis, no clubbing Skin: no rash, no lesions, ulcers Neurologic/Psychiatric: alert, oriented x 3, responsive Lymphatic: no neck adenopathy, no groin adenopathy Musculoskeletal: normal muscle bulk, no effusion Laboratory Tests Test 08/09/18 11:00 Vancomycin Level Trough 9.6 ug/mL (5.0-12.0) Current Medications Medications (Trade) Dose Ordered Sig/Elisa Route PRN Reason Start Time Stop Time Status Last Admin Dose Admin Acetaminophen (Tylenol) 650 mg Q8H PRN ORAL Mild Pain/Temp > 100.5 08/07/18 18:37 08/28/18 18:36 Acetaminophen/ Hydrocodone Bitart ([place] 10/325) 1 tab Q4H PRN ORAL moderate pain 08/07/18 20:15 08/14/18 18:36 Aztreonam 2 gm/ Dextrose 110 ml @ 220 mls/hr Q8HR IVPB 08/07/18 22:00 09/07/18 22:30 08/09/18 13:37 Baclofen (Lioresal) 10 mg THREE TIMES A DAY ORAL 08/08/18 09:00 08/26/18 17:59 08/09/18 12:08 Calcium Carbonate (OsCal D) 1 tab THREE TIMES A DAY ORAL 08/08/18 09:00 08/26/18 17:59 08/09/18 12:08 Cyanocobalamin (Vitamin B-12) 1,000 mcg DAILY ORAL 08/08/18 09:00 08/27/18 08:59 08/09/18 08:46 Docusate Sodium (Colace) 100 mg TWICE A DAY ORAL 08/08/18 09:00 08/26/18 17:59 08/09/18 08:46 Gabapentin (Neurontin) 900 mg THREE TIMES A DAY ORAL 08/08/18 09:00 08/26/18 17:59 08/09/18 12:08 Heparin Sodium (Porcine) (Heparin 5000 units/ml) 5,000 units EVERY 12 HOURS SUBQ 08/07/18 21:00 08/28/18 20:59 08/09/18 08:50 Levetiracetam 100 ml @ 440.098 mls/hr Q12HR IVPB 08/07/18 21:00 08/27/18 12:29 08/09/18 08:47 Loratadine (Claritin 10mg) 10 mg DAILY ORAL 08/08/18 09:00 08/27/18 08:59 08/09/18 08:46 Lorazepam (Ativan 2mg/ml 1ml) 1 mg Q4H PRN IV For Seizures 08/08/18 20:00 08/15/18 19:59 Magnesium Hydroxide (Mom) 30 ml DAILYPRN PRN ORAL Constipation 08/07/18 18:38 09/06/18 18:37 08/08/18 12:42 Metronidazole (Flagyl) 500 mg Q8HR ORAL 08/07/18 22:00 09/07/18 13:59 08/09/18 13:23 Morphine Sulfate (MS Contin) 15 mg Q12H ORAL 08/08/18 10:00 08/15/18 09:59 08/09/18 10:48 Morphine Sulfate (Morphine Sulfate) 2 mg Q4H PRN IVP Severe Breakthru Pain (>7) 08/08/18 11:45 08/15/18 11:44 08/09/18 13:25 Multivitamins (Multivitamins) 1 tab DAILY ORAL 08/08/18 09:00 08/27/18 08:59 08/09/18 08:46 Oxycodone/ Acetaminophen (Percocet 10/325) 1 tab Q4H PRN ORAL Severe Pain (Pain Scale 7-10) 08/07/18 20:00 08/14/18 19:59 08/09/18 12:08 Pantoprazole (Protonix) 40 mg DAILY ORAL 08/08/18 09:00 1/19/19 08:59 08/09/18 08:46 Polyethylene Glycol (Miralax) 17 gm DAILYPRN PRN ORAL Constipation 08/07/18 18:38 09/06/18 18:37 08/08/18 12:42 Sodium Chloride 500 ml @ 999 mls/hr Q31M PRN IV FOR SBP <80 08/07/18 18:45 08/30/18 06:44 Sodium Chloride 1,000 ml @ 50 mls/hr Q20H IV 08/07/18 18:45 09/06/18 07:59 08/09/18 11:50 Tolterodine Tartrate (Detrol) 2 mg TWICE A DAY ORAL 08/08/18 09:00 08/26/18 17:59 08/09/18 08:46 Trazodone HCl (Desyrel) 100 mg BEDTIME ORAL 08/07/18 21:00 08/26/18 20:59 08/08/18 22:14 Vancomycin HCl (Vanco rx to dose) 1 ea DAILY PRN MISC Per rx protocol 08/08/18 09:00 08/27/18 12:29 Vancomycin HCl 1 gm/Sodium Chloride 275 ml @ 184 mls/hr Q8H IVPB 08/09/18 20:00 08/14/18 19:59 Portillo Vazquez M.D. Aug 09, 2018 16:56
[2018-08-09] MEDS: TraZODone 100mg tab ORAL SCH (21:19)
--- NOTE | 2018-08-09 21:59 | General Progress Note ---
Assessment/Plan Assessment/Plan Covering for Dr. Andrews 1. Anemia of chronic disease - hgb lower potentially related to ivf --> anemia panel has been reviewed, no hemolysis --> transfuse if hgb less than 7 --> hgb electrophoresis reviewed and is negative for m-spike, significantly abnml bands --> ferritin is 341, trend hgb 11-->9.3-->9-->7.8-->8.7 2. Leukocytosis with sepsis --> currently has improved on iv abx --> smear reviewed, no abnmls significant that are noted --> on abx as per ID --> debridement by surg planned 3. Decubitus wound --> on abx --> appreciate surg recs, scheduling debridement 4. UTI- HCA 5. Neuromuscular disorder - wheelchair bound, baseline 6. Neurogenic bladder 7. Psychiatric disorder 8. UTI. 9. Seizure disorder --> as per Dr. Castillo --> sezivane on 08/08, started on keppra iv Subjective Constitutional: Denies: no symptoms, chills, diaphoresis, fever, malaise, weakness, other HEENT: Denies: no symptoms, eye pain, blurred vision, tearing, double vision, ear pain, ear discharge, nose pain, nose congestion, throat pain, throat swelling, mouth pain, mouth swelling, other Cardiovascular: Denies: no symptoms, chest pain, edema, irregular heart rate, lightheadedness, palpitations, syncope, other Respiratory: Denies: no symptoms, cough, orthopnea, shortness of breath, SOB with excertion, SOB at rest, sputum, stridor, wheezing, other Gastrointestinal/Abdominal: Denies: no symptoms, abdomen distended, abdominal pain, black stools, tarry stools, blood in stool, constipated, diarrhea, difficulty swallowing, nausea, poor appetite, poor fluid intake, rectal bleeding , vomiting, other Genitourinary: Denies: no symptoms, burning, discharge, frequency, flank pain, hematuria, incontinence, pain, urgency, other Neurologic/Psychiatric: Denies: no symptoms, anxiety, depressed, emotional problems, headache, numbness, paresthesia, pre-existing deficit, seizure, tingling, tremors, weakness, other Endocrine: Denies: no symptoms, excessive sweating, flushing, intolerance to cold, intolerance to heat, increased hunger, increased thirst, increased urine, unexplained weight gain, unexplained weight loss, other Allergies: Coded Allergies: No Known Allergies (Verified , 04/10/08) Subjective Pt resting in bed. No acute events. VS stable. Remains on NC. 08/04: feeling somewhat better, dc planning to snf, remainson abx as per id, may need debridement, per surg 08/05: on abx as per ID, a+o x4, improving slowly, no bleeding today 08/06: Pt awake and alert. No acute evetns. H/H stable. On NC 2L. 08/07: on 2L nc, no events, ID recs reviewed, appreciate recs 08/08: had a seziure today per Rn, started on keprra, confused, Dr. Castillo was consulted 08/09: no events, mri of the brain reviewed, to be seen by neuro shortly Objective Last 24 Hour Vital Signs Date Time Temp Pulse Resp B/P (MAP) Pulse Ox O2 Delivery O2 Flow Rate FiO2 08/09/18 20:17 97.4 08/09/18 18:25 Room Air 08/09/18 17:25 97.4 08/09/18 16:00 97.4 100 19 125/74 (91) 95 08/09/18 12:00 98.6 109 19 108/74 (85) 100 08/09/18 11:18 97.4 08/09/18 09:00 Room Air 08/09/18 08:00 97.4 67 19 91/56 (68) 97 08/09/18 06:20 103 108/63 (78) 08/09/18 04:30 97.2 102 20 100/54 (69) 99 08/08/18 23:52 98.1 100 18 103/59 (74) 98 Intake and Output 08/08/18 08/09/18 19:00 07:00 Intake Total 1120 ml 1004 ml Output Total 1400 ml 4500 ml Balance -280 ml -3496 ml Intake Oral 1120 ml 500 ml IV Total 504 ml Output Urine Total 1400 ml 4500 ml # Bowel Movements 1 1 Laboratory Tests 08/09/18 11:00: Vancomycin Level Trough 9.6 Height (Feet): 5 Height (Inches): 4.00 Weight (Pounds): 118 Objective PHYSICAL EXAMINATION:HEAD AND NECK: Atraumatic and normocephalic. CHEST: Clear to auscultation. LUNGS: No wheezing. No crackles. ABDOMEN: Soft. No organomegaly. Bowel sounds are normal. MUSCULOSKELETAL: Atrophied musculatures. positive for Decubitus wound NEUROLOGIC: The patient is awake, not verbal and lethargic EXT: no cce John Anderson MD Aug 09, 2018 21:59
[2018-08-09] MEDS: Miralax 17gm pkt ORAL PRN (22:41)
[2018-08-10] VITALS (7 sets, daily range): BP systolic 71–130; BP diastolic 40–83
[2018-08-10] MEDS: Morphine Sulfate 4mg/ml Inj (IV/IM USE ONLY) IVP PRN ×3 (00:50→20:15)
[2018-08-10] MEDS: Vancomycin 1 GM in NS 275 ML IVPB SCH (04:52)
[2018-08-10] MEDS: metroNIDAZOLE 500mg tab ORAL SCH ×3 (05:57→21:58)
[2018-08-10] MEDS: Aztreonam Inj 2 GM in D5W 110 ML IVPB SCH ×3 (06:47→22:16)
[2018-08-10] MEDS: Docusate 100mg cap ORAL SCH ×2 (08:37→17:10)
[2018-08-10] MEDS: Calcium Carbonate 500mg w/Vit D 200iu tab ORAL SCH ×3 (08:37→17:10)
[2018-08-10] MEDS: Tolterodine 2mg tab ORAL SCH ×2 (08:37→17:10)
[2018-08-10] MEDS: Vitamin B-12 500mcg tab ORAL SCH (08:38)
[2018-08-10] MEDS: levETIRAcetam 500mg/NS100ml 100 ML IVPB SCH ×2 (08:38→20:49)
[2018-08-10] MEDS: Heparin 5000 units/ml inj SUBQ SCH ×2 (08:40→20:43)
--- NOTE | 2018-08-10 08:58 | General Progress Note ---
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 Parameters will be started HOLD OPIOIDS FOR OVERSEDATION OR SBP<90 OR DBP<60 OR RR<12 OR o2 SAT <92% D/w Dr. Amaya and he concurred. Subjective Date patient seen: Aug 10, 2018 Time patient seen: 07:15 - am Allergies: Coded Allergies: No Known Allergies (Verified , 04/10/08) Subjective REVIEW OF SYSTEMS: Denies rash, fever, chills, sweating, dizziness, drowsiness, blurred vision, sore throat, or change in weight. No shortness of breath or chest pain. No nausea, vomiting, diarrhea, or blood in the stool or urine. She is complaining of generalized body pain. SUBJECTIVE: Patient showing no signs of pain or distress. Continues to c/o pain which has been tolerated on the Morphine and Percocet. She has no new complaints at this time. Objective Last 24 Hour Vital Signs Date Time Temp Pulse Resp B/P (MAP) Pulse Ox O2 Delivery O2 Flow Rate FiO2 08/10/18 08:00 97.6 103 18 71/44 (53) 100 08/10/18 06:27 98.0 08/10/18 04:46 98.0 103 19 103/61 (75) 100 08/10/18 01:20 97.9 08/10/18 00:48 97.9 101 19 101/65 (77) 100 08/09/18 22:32 105 109/55 (73) 08/09/18 20:00 98.4 107 19 95/52 (66) 100 08/09/18 18:25 Room Air 08/09/18 16:00 97.4 100 19 125/74 (91) 95 08/09/18 12:00 98.6 109 19 108/74 (85) 100 08/09/18 11:18 97.4 08/09/18 09:00 Room Air Intake and Output 08/09/18 08/10/18 19:00 07:00 Intake Total 1150 ml 969 ml Output Total 3500 ml Balance 1150 ml -2531 ml IV Total 350 ml 969 ml Other 800 ml Output Urine Total 3500 ml # Bowel Movements 4 2 Laboratory Tests 08/09/18 11:00: Vancomycin Level Trough 9.6 Height (Feet): 5 Height (Inches): 4.00 Weight (Pounds): 118 Objective GENERAL: Alert, awake, and oriented. LUNGS: Decreased breath sounds bilaterally. HEART: S1 and S2 regular. ABDOMEN: Benign with surgical scars noted. EXTREMITIES: No cyanosis. No clubbing. NEURO: No changes. Tarik Caal Aug 10, 2018 08:58
[2018-08-10] MEDS: MS Contin 15mg tab ORAL SCH ×2 (10:33→21:58)
--- NOTE | 2018-08-10 11:01 | Brief Operative Note ---
Immediate Post Operative Note Operative Note Pre-op Diagnosis: necrotic stage 4 sacral decubitus ulcer with clinical osteomyelitis Procedure: 1. excisional debridement of stage 4 sacral decubitus ulcer 2. bone biopsy sacrum Post-op Diagnosis: same as pre-op Surgeon: yuniel Anesthesia: other Specimen: yes Complications: none Condition: stable Fluids: n/a Estimated Blood Loss: minimal Drains: none Implant(s) used?: No Yoel Bledsoe Aug 10, 2018 11:01
[2018-08-10] MEDS: Vancomycin 1250mg/D5W 250ml IVPB SCH ×2 (13:59→22:13)
--- NOTE | 2018-08-10 15:30 | Operative Note - Dictated ---
DATE OF OPERATION: 08/10/2018 PREOPERATIVE DIAGNOSIS: Necrotic infected stage IV sacral decubitus ulcer. POSTOPERATIVE DIAGNOSIS: Necrotic infected stage IV sacral decubitus ulcer with clinical osteomyelitis. PROCEDURE PERFORMED: 1. Excisional debridement of sacral decubitus ulcer. 2. Sacral bone biopsy. ATTENDING SURGEON: Yoel Bledsoe M.D. BUSINESS DEAN: None. ANESTHESIA: The patient given IV pain medications for procedure. ESTIMATED BLOOD LOSS: Minimal. IV FLUIDS: Not applicable. WOUND CLASSIFICATION: Class IV. SPECIMENS: 1. Bone biopsy. 2. Necrotic tissue sent to pathology for review. COMPLICATIONS: None. DRAINS: None. PACKING AND DRESSING: Gauze, ABD, and tape. ANTIBIOTICS: The patient on scheduled IV antibiotics for acute active inflammatory process. INDICATIONS FOR PROCEDURE: This is a 63-year-old female who is bedbound and wheelchair-bound with multiple medical comorbidities, who has been admitted to [facility] for care and management at which time was identified to have a large foul-smelling sacral decubitus ulcer. Initial wound care was initiated and during hospitalization, discussion was had with the patient regarding her wound and plans. After maximal wound care was provided, excisional debridement was indicated and recommended. Furthermore, the patient had stage IV down to the bone palpable with concerns for osteomyelitis clinically and therefore, bone biopsy was recommended as well. The patient expressed understanding and consented to the procedure, which was performed at bedside on 08/10/2018. Consent in chart. OPERATIVE NOTE: The patient was made comfortable at the bedside and placed in the right lateral decubitus position with bony prominences well padded. Preoperative time-out was taken identifying the patient, procedure, staff, and nursing team. All appropriate instruments that were required were available. The patient was given all of her scheduled medications and p.r.n. medications as needed. The prior dressings were removed and wounds were evaluated. The wound was cleansed with saline and a 6 cm x 5 cm x 4 cm deep wound with tunneling at the 6 o'clock and 1 o'clock level were noted with palpable spongy bone, significant amount of fibrinous tissue, and necrotic eschar cap. Foul smell had improved since initially seen upon admission. At this point, a #10 surgical scalpel was used to excise the fibrinous debris and necrotic eschar cap down to the healthy viable tissue. Once this was completed, a curette was used to curette areas of nonviable tissue and fibrinous debris down to healthy viable tissue. At this point, the sacrum was identified and the areas of spongy bone were noted. Clinically likely has osteomyelitis and bone biopsy was performed with surgical scissors and forceps. Once this was completed, the two specimens were sent to pathology for review, one labeled bone biopsy of sacrum and one labeled excisional debridement tissue of sacral decubitus ulcer. At this time, hemostasis was achieved with direct pressure and once noted, the wound was irrigated and cleansed. Good healthy tissue was identified with good backbleeding, and packing and dressings were applied. The patient tolerated the procedure well and will continue with wound care and a followup of the wound cultures. Given the proximity to the rectum, discussion was had with the patient regarding considerations for diverting loop colostomy until the wound is completely healed. Yoel Bledsoe M.D. DR: Brenden JOB#: [id number] CC: MONA
--- NOTE | 2018-08-10 17:19 | Infectious Diseases Prog Note ---
Assessment/Plan Problems: (1) Sacral decubitus ulcer, stage IV Assessment & Plan: continue vancomycin and aztreonam with metronidazole empirically for 6 weeks , wound culture grew some skin rosi , MRI of the pelvis showed osteomyelitis in the low sacrum . will need 6 weeks of iv antibiotics . recommend local wound care and off loading. surgical debridement as needed. diverting colostomy in the future to prevent stool contamination of the wound and recurrent infection (2) UTI (urinary tract infection) Assessment & Plan: due to proteus mirabilis resolved on aztreonam empirically (3) Malnutrition Assessment & Plan: recommend dietary support to improve her wounds healing (4) Drug abuse Assessment & Plan: recommend counseling and rehab (5) Seizure disorder Assessment & Plan: stable , on seizure meds, follow up with neurology Subjective Constitutional: Reports: no symptoms HEENT: Reports: no symptoms Respiratory: Reports: no symptoms Breasts: Reports: no symptoms Cardiovascular: Reports: no symptoms Gastrointestinal/Abdominal: Reports: no symptoms Genitourinary: Reports: no symptoms Neurologic: Reports: no symptoms Psychiatric: Reports: no symptoms Skin: Reports: no symptoms Endocrine: Reports: no symptoms Hematologic: Reports: no symptoms Musculoskeletal: Reports: no symptoms Allergies: Coded Allergies: No Known Allergies (Verified , 04/10/08) Subjective she is comfortable up in chair , complained of low back pain, no fever or chills, no cough or SOB Objective Vital Signs Last 24 Hour Vital Signs Date Time Temp Pulse Resp B/P (MAP) Pulse Ox O2 Delivery O2 Flow Rate FiO2 08/10/18 16:00 99.2 95 18 96/40 (58) 99 08/10/18 13:04 97.9 08/10/18 12:00 97.9 66 18 130/83 (99) 93 08/10/18 11:03 97.6 08/10/18 09:00 Room Air 08/10/18 08:00 97.6 103 18 71/44 (53) 100 08/10/18 06:27 98.0 08/10/18 04:46 98.0 103 19 103/61 (75) 100 08/10/18 00:48 97.9 101 19 101/65 (77) 100 08/09/18 22:32 105 109/55 (73) 08/09/18 20:00 98.4 107 19 95/52 (66) 100 08/09/18 18:25 Room Air Height (Feet): 5 Height (Inches): 4.00 Weight (Pounds): 118 General Appearance: WD/WN, no acute distress HEENT: normocephalic, atraumatic, anicteric, mucous membranes moist, PERRL, EOMI, pharynx normal, supple, no JVD Respiratory/Chest: chest wall non-tender, lungs clear, normal breath sounds, no respiratory distress, no accessory muscle use Cardiovascular: normal peripheral pulses, normal rate, regular rhythm, no gallop/murmur, no JVD Abdomen: normal bowel sounds, soft, non tender, no organomegaly, non distended , no mass, no scars Genitourinary: normal external genitalia Extremities: no cyanosis, no clubbing Skin: no rash, no lesions, ulcers Neurologic/Psychiatric: alert, oriented x 3, responsive Lymphatic: no neck adenopathy, no groin adenopathy Musculoskeletal: normal muscle bulk, no effusion Laboratory Tests Test 08/10/18 11:15 Vancomycin Level Trough 13.3 ug/mL (5.0-12.0) H Current Medications Medications (Trade) Dose Ordered Sig/Elisa Route PRN Reason Start Time Stop Time Status Last Admin Dose Admin Acetaminophen (Tylenol) 650 mg Q8H PRN ORAL Mild Pain/Temp > 100.5 08/07/18 18:37 08/28/18 18:36 Acetaminophen/ Hydrocodone Bitart ([place] 10/325) 1 tab Q4H PRN ORAL moderate pain 08/07/18 20:15 08/14/18 18:36 Aztreonam 2 gm/ Dextrose 110 ml @ 220 mls/hr Q8HR IVPB 08/07/18 22:00 09/07/18 22:30 08/10/18 13:09 Baclofen (Lioresal) 10 mg THREE TIMES A DAY ORAL 08/08/18 09:00 08/26/18 17:59 08/10/18 17:10 Calcium Carbonate (OsCal D) 1 tab THREE TIMES A DAY ORAL 08/08/18 09:00 08/26/18 17:59 08/10/18 17:10 Cyanocobalamin (Vitamin B-12) 1,000 mcg DAILY ORAL 08/08/18 09:00 08/27/18 08:59 08/10/18 08:38 Docusate Sodium (Colace) 100 mg TWICE A DAY ORAL 08/08/18 09:00 08/26/18 17:59 08/10/18 17:10 Gabapentin (Neurontin) 900 mg THREE TIMES A DAY ORAL 08/08/18 09:00 08/26/18 17:59 08/10/18 17:11 Heparin Sodium (Porcine) (Heparin 5000 units/ml) 5,000 units EVERY 12 HOURS SUBQ 08/07/18 21:00 08/28/18 20:59 08/10/18 08:40 Levetiracetam 100 ml @ 440.098 mls/hr Q12HR IVPB 08/07/18 21:00 08/27/18 12:29 08/10/18 08:38 Loratadine (Claritin 10mg) 10 mg DAILY ORAL 08/08/18 09:00 08/27/18 08:59 08/10/18 08:38 Lorazepam (Ativan 2mg/ml 1ml) 1 mg Q4H PRN IV For Seizures 08/08/18 20:00 08/15/18 19:59 Magnesium Hydroxide (Mom) 30 ml DAILYPRN PRN ORAL Constipation 08/07/18 18:38 09/06/18 18:37 08/08/18 12:42 Metronidazole (Flagyl) 500 mg Q8HR ORAL 08/07/18 22:00 09/07/18 13:59 08/10/18 13:09 Morphine Sulfate (MS Contin) 15 mg Q12H ORAL 08/08/18 10:00 08/15/18 09:59 08/10/18 10:33 Morphine Sulfate (Morphine Sulfate) 2 mg Q4H PRN IVP Severe Breakthru Pain (>7) 08/08/18 11:45 08/15/18 11:44 08/10/18 12:34 Multivitamins (Multivitamins) 1 tab DAILY ORAL 08/08/18 09:00 08/27/18 08:59 08/10/18 08:37 Oxycodone/ Acetaminophen (Percocet 10/325) 1 tab Q4H PRN ORAL Severe Pain (Pain Scale 7-10) 08/07/18 20:00 08/14/18 19:59 08/10/18 05:57 Pantoprazole (Protonix) 40 mg DAILY ORAL 08/08/18 09:00 08/27/18 08:59 08/10/18 08:37 Polyethylene Glycol (Miralax) 17 gm DAILYPRN PRN ORAL Constipation 08/07/18 18:38 09/06/18 18:37 08/09/18 22:41 Sodium Chloride 500 ml @ 999 mls/hr Q31M PRN IV FOR SBP <80 08/07/18 18:45 08/30/18 06:44 Sodium Chloride 1,000 ml @ 50 mls/hr Q20H IV 08/07/18 18:45 09/06/18 07:59 08/09/18 11:50 Tolterodine Tartrate (Detrol) 2 mg TWICE A DAY ORAL 08/08/18 09:00 08/26/18 17:59 08/10/18 17:10 Trazodone HCl (Desyrel) 100 mg BEDTIME ORAL 08/07/18 21:00 08/26/18 20:59 08/09/18 21:19 Vancomycin HCl (Vanco rx to dose) 1 ea DAILY PRN MISC Per rx protocol 08/08/18 09:00 08/27/18 12:29 Vancomycin HCl/ Dextrose 250 ml @ 166.667 mls/hr Q8HR IVPB 08/10/18 14:00 08/15/18 13:59 08/10/18 13:59 Portillo Vazquez M.D. Aug 10, 2018 17:19
--- NOTE | 2018-08-10 20:00 | General Progress Note ---
Assessment/Plan Assessment/Plan Covering for Dr. Andrews 1. Anemia of chronic disease - hgb lower potentially related to ivf --> anemia panel has been reviewed, no hemolysis --> transfuse if hgb less than 7 --> hgb electrophoresis reviewed and is negative for m-spike, significantly abnml bands --> ferritin is 341, trend hgb 11-->9.3-->9-->7.8-->8.7--> pending labs 2. Leukocytosis with sepsis --> currently has improved on iv abx --> smear reviewed, no abnmls significant that are noted --> on abx as per ID --> debridement by surg planned 3. Decubitus wound --> on abx --> appreciate surg recs, scheduling debridement 4. UTI- HCA 5. Neuromuscular disorder - wheelchair bound, baseline 6. Neurogenic bladder 7. Psychiatric disorder 8. UTI. 9. Seizure disorder --> as per Dr. Castillo --> seziure on 08/08, started on keppra iv Subjective Constitutional: Denies: no symptoms, chills, diaphoresis, fever, malaise, weakness, other HEENT: Denies: no symptoms, eye pain, blurred vision, tearing, double vision, ear pain, ear discharge, nose pain, nose congestion, throat pain, throat swelling, mouth pain, mouth swelling, other Respiratory: Denies: no symptoms, cough, orthopnea, shortness of breath, SOB with excertion, SOB at rest, sputum, stridor, wheezing, other Gastrointestinal/Abdominal: Denies: no symptoms, abdomen distended, abdominal pain, black stools, tarry stools, blood in stool, constipated, diarrhea, difficulty swallowing, nausea, poor appetite, poor fluid intake, rectal bleeding , vomiting, other Genitourinary: Denies: no symptoms, burning, discharge, frequency, flank pain, hematuria, incontinence, pain, urgency, other Neurologic/Psychiatric: Denies: no symptoms, anxiety, depressed, emotional problems, headache, numbness, paresthesia, pre-existing deficit, seizure, tingling, tremors, weakness, other Endocrine: Denies: no symptoms, excessive sweating, flushing, intolerance to cold, intolerance to heat, increased hunger, increased thirst, increased urine, unexplained weight gain, unexplained weight loss, other Hematologic/Lymphatic: Reports: no symptoms; Denies: anemia, easy bleeding, easy bruising, other Allergies: Coded Allergies: No Known Allergies (Verified , 04/10/08) Subjective Pt resting in bed. No acute events. VS stable. Remains on NC. 08/04: feeling somewhat better, dc planning to snf, remainson abx as per id, may need debridement, per surg 08/05: on abx as per ID, a+o x4, improving slowly, no bleeding today 08/06: Pt awake and alert. No acute evetns. H/H stable. On NC 2L. 08/07: on 2L nc, no events, ID recs reviewed, appreciate recs 08/08: had a seziure today per Rn, started on keprra, confused, Dr. Castillo was consulted 08/09: no events, mri of the brain reviewed, to be seen by neuro shortly 08/10: Pt is awake and seen in the room. No acute events. H/H stable. wound culture grew some skin rosi , MRI of the pelvis showed osteomyelitis in the low sacrum . Objective Last 24 Hour Vital Signs Date Time Temp Pulse Resp B/P (MAP) Pulse Ox O2 Delivery O2 Flow Rate FiO2 08/10/18 17:49 98.0 08/10/18 17:18 98.0 118 18 127/73 (91) 99 08/10/18 16:00 99.2 95 18 96/40 (58) 99 08/10/18 13:04 97.9 08/10/18 12:00 97.9 66 18 130/83 (99) 93 08/10/18 11:03 97.6 08/10/18 09:00 Room Air 08/10/18 08:00 97.6 103 18 71/44 (53) 100 08/10/18 04:46 98.0 103 19 103/61 (75) 100 08/10/18 00:48 97.9 101 19 101/65 (77) 100 08/09/18 22:32 105 109/55 (73) 08/09/18 20:00 98.4 107 19 95/52 (66) 100 Intake and Output 08/09/18 08/10/18 19:00 07:00 Intake Total 1150 ml 969 ml Output Total 3500 ml Balance 1150 ml -2531 ml IV Total 350 ml 969 ml Other 800 ml Output Urine Total 3500 ml # Bowel Movements 4 2 Laboratory Tests 08/10/18 11:15: Vancomycin Level Trough 13.3H Height (Feet): 5 Height (Inches): 4.00 Weight (Pounds): 118 Objective PHYSICAL EXAMINATION:HEAD AND NECK: Atraumatic and normocephalic. CHEST: Clear to auscultation. LUNGS: No wheezing. No crackles. ABDOMEN: Soft. No organomegaly. Bowel sounds are normal. MUSCULOSKELETAL: Atrophied musculatures. positive for Decubitus wound NEUROLOGIC: The patient is awake, not verbal and lethargic EXT: no cce John Anderson MD Aug 10, 2018 20:00
[2018-08-10] MEDS: TraZODone 100mg tab ORAL SCH (20:37)
[2018-08-10] MEDS: Miralax 17gm pkt ORAL PRN (22:05)
[2018-08-10] MEDS: Milk of Magnesia 30ml Ud ORAL PRN (22:05)
[2018-08-11] VITALS (9 sets, daily range): BP systolic 87–140; BP diastolic 55–73
[2018-08-11] MEDS: Morphine Sulfate 4mg/ml Inj (IV/IM USE ONLY) IVP PRN ×3 (01:51→20:44)
[2018-08-11] MEDS: Aztreonam Inj 2 GM in D5W 110 ML IVPB SCH ×3 (05:08→22:23)
[2018-08-11] MEDS: Vancomycin 1250mg/D5W 250ml IVPB SCH ×3 (05:42→23:03)
[2018-08-11] MEDS: metroNIDAZOLE 500mg tab ORAL SCH ×3 (06:39→23:03)
--- NOTE | 2018-08-11 08:43 | General Progress Note ---
Assessment/Plan Assessment/Plan (1) Guillain-Blanco syndrome (2) Paraplegia (3) Sacral Decubitus ulcer (4) Neuropathic pain (5) Cocaine abuse Patient will be continued on Morphine ER, Morphine IV, Cyrus and Percocet. Parameters will be continued D/w Dr. Amaya and he concurred. Subjective Date patient seen: Aug 11, 2018 Time patient seen: 08:00 - am Allergies: Coded Allergies: No Known Allergies (Verified , 04/10/08) Subjective REVIEW OF SYSTEMS: Denies rash, fever, chills, sweating, dizziness, drowsiness, blurred vision, sore throat, or change in weight. No shortness of breath or chest pain. No nausea, vomiting, diarrhea, or blood in the stool or urine. She is complaining of generalized body pain. SUBJECTIVE: Patient is sitting up in bed showing no signs of pain or distress. Pain has been stable on the Morphine and Percocet. She has no new complaints at this time. Objective Last 24 Hour Vital Signs Date Time Temp Pulse Resp B/P (MAP) Pulse Ox O2 Delivery O2 Flow Rate FiO2 08/11/18 06:30 106/65 (79) 08/11/18 04:00 97.2 82 18 96/61 (73) 96 08/11/18 01:49 95/64 (74) 08/11/18 00:00 99.8 82 20 95/55 (68) 99 08/10/18 21:41 100.2 08/10/18 21:00 Room Air 08/10/18 20:00 100.7 117 20 107/60 (76) 98 08/10/18 17:49 98.0 08/10/18 17:18 98.0 118 18 127/73 (91) 99 08/10/18 16:00 99.2 95 18 96/40 (58) 99 08/10/18 13:04 97.9 08/10/18 12:00 97.9 66 18 130/83 (99) 93 08/10/18 11:03 97.6 08/10/18 09:00 Room Air Intake and Output 08/10/18 08/11/18 19:00 07:00 Intake Total 1220 ml 250 ml Balance 1220 ml 250 ml Intake Oral 920 ml IV Total 300 ml 250 ml # Voids 3 # Bowel Movements 1 1 Laboratory Tests 08/10/18 11:15: Vancomycin Level Trough 13.3H Height (Feet): 5 Height (Inches): 4.00 Weight (Pounds): 118 Objective GENERAL: Alert, awake, and oriented. LUNGS: Decreased breath sounds bilaterally. HEART: S1 and S2 regular. ABDOMEN: Benign with surgical scars noted. EXTREMITIES: No cyanosis. No clubbing. NEURO: No changes. Tarik Caal Aug 11, 2018 08:43
[2018-08-11] MEDS: levETIRAcetam 500mg/NS100ml 100 ML IVPB SCH ×2 (09:14→20:34)
[2018-08-11] MEDS: Docusate 100mg cap ORAL SCH ×2 (09:14→17:36)
[2018-08-11] MEDS: Calcium Carbonate 500mg w/Vit D 200iu tab ORAL SCH ×3 (09:14→17:36)
[2018-08-11] MEDS: Vitamin B-12 500mcg tab ORAL SCH (09:14)
[2018-08-11] MEDS: Tolterodine 2mg tab ORAL SCH ×2 (09:15→17:36)
[2018-08-11] MEDS: Heparin 5000 units/ml inj SUBQ SCH ×2 (09:16→20:43)
[2018-08-11] MEDS: MS Contin 15mg tab ORAL SCH ×2 (12:30→23:03)
[2018-08-11] MEDS: Milk of Magnesia 30ml Ud ORAL PRN (15:44)
--- NOTE | 2018-08-11 16:39 | Infectious Diseases Prog Note ---
Assessment/Plan Problems: (1) Sacral decubitus ulcer, stage IV Assessment & Plan: continue vancomycin and aztreonam with metronidazole empirically for 6 weeks , wound culture grew some skin rosi , MRI of the pelvis showed osteomyelitis in the low sacrum . will need 6 weeks of iv antibiotics . recommend local wound care and off loading. surgical debridement as needed. diverting colostomy in the future to prevent stool contamination of the wound and recurrent infection (2) UTI (urinary tract infection) Assessment & Plan: due to proteus mirabilis resolved on aztreonam empirically (3) Malnutrition Assessment & Plan: recommend dietary support to improve her wounds healing (4) Drug abuse Assessment & Plan: recommend counseling and rehab (5) Seizure disorder Assessment & Plan: stable , on seizure meds, follow up with neurology Subjective Constitutional: Reports: no symptoms HEENT: Reports: no symptoms Respiratory: Reports: no symptoms Breasts: Reports: no symptoms Cardiovascular: Reports: no symptoms Gastrointestinal/Abdominal: Reports: no symptoms Genitourinary: Reports: no symptoms Neurologic: Reports: weakness, other - paraplegia Psychiatric: Reports: no symptoms Skin: Reports: ulcer Endocrine: Reports: no symptoms Hematologic: Reports: no symptoms Musculoskeletal: Reports: no symptoms Allergies: Coded Allergies: No Known Allergies (Verified , 04/10/08) Subjective she is comfortable up in chair , complained of low back pain, no fever or chills, no cough or SOB Objective Vital Signs Last 24 Hour Vital Signs Date Time Temp Pulse Resp B/P (MAP) Pulse Ox O2 Delivery O2 Flow Rate FiO2 08/11/18 16:14 98.6 08/11/18 15:42 98.6 97 18 125/73 (90) 99 08/11/18 13:00 98.4 08/11/18 12:00 98.4 96 18 140/62 (88) 96 08/11/18 09:10 97 19 108/72 (84) 95 08/11/18 09:00 Room Air 08/11/18 08:00 97.2 91 20 87/70 (76) 100 08/11/18 06:30 106/65 (79) 08/11/18 04:00 97.2 82 18 96/61 (73) 96 08/11/18 01:49 95/64 (74) 08/11/18 00:00 99.8 82 20 95/55 (68) 99 08/10/18 21:41 100.2 08/10/18 21:00 Room Air 08/10/18 20:00 100.7 117 20 107/60 (76) 98 08/10/18 17:18 98.0 118 18 127/73 (91) 99 Height (Feet): 5 Height (Inches): 4.00 Weight (Pounds): 118 General Appearance: WD/WN, no acute distress, cachetic HEENT: normocephalic, atraumatic, anicteric, mucous membranes moist, PERRL Respiratory/Chest: chest wall non-tender, lungs clear, normal breath sounds, no respiratory distress, no accessory muscle use Cardiovascular: normal peripheral pulses, normal rate, regular rhythm, no gallop/murmur, no JVD Abdomen: normal bowel sounds, soft, non tender, no organomegaly, non distended , no mass, no scars Extremities: no cyanosis, no clubbing Skin: no rash, no lesions, ulcers Neurologic/Psychiatric: alert, oriented x 3, responsive Lymphatic: no neck adenopathy, no groin adenopathy Musculoskeletal: normal muscle bulk, no effusion Laboratory Tests Test 08/11/18 12:45 Vancomycin Level Trough 20.1 ug/mL (5.0-12.0) H Current Medications Medications (Trade) Dose Ordered Sig/Elisa Route PRN Reason Start Time Stop Time Status Last Admin Dose Admin Acetaminophen (Tylenol) 650 mg Q8H PRN ORAL Mild Pain/Temp > 100.5 08/07/18 18:37 08/28/18 18:36 08/10/18 21:11 Acetaminophen/ Hydrocodone Bitart ([place] 10/325) 1 tab Q4H PRN ORAL moderate pain 08/07/18 20:15 08/14/18 18:36 Aztreonam 2 gm/ Dextrose 110 ml @ 220 mls/hr Q8HR IVPB 08/07/18 22:00 09/07/18 22:30 08/11/18 13:53 Baclofen (Lioresal) 10 mg THREE TIMES A DAY ORAL 08/08/18 09:00 08/26/18 17:59 08/11/18 12:30 Calcium Carbonate (OsCal D) 1 tab THREE TIMES A DAY ORAL 08/08/18 09:00 08/26/18 17:59 08/11/18 12:30 Cyanocobalamin (Vitamin B-12) 1,000 mcg DAILY ORAL 08/08/18 09:00 08/27/18 08:59 08/11/18 09:14 Docusate Sodium (Colace) 100 mg TWICE A DAY ORAL 08/08/18 09:00 08/26/18 17:59 08/11/18 09:14 Gabapentin (Neurontin) 900 mg THREE TIMES A DAY ORAL 08/08/18 09:00 08/26/18 17:59 08/11/18 12:30 Heparin Sodium (Porcine) (Heparin 5000 units/ml) 5,000 units EVERY 12 HOURS SUBQ 08/07/18 21:00 08/28/18 20:59 08/11/18 09:16 Levetiracetam 100 ml @ 440.098 mls/hr Q12HR IVPB 08/07/18 21:00 08/27/18 12:29 08/11/18 09:14 Loratadine (Claritin 10mg) 10 mg DAILY ORAL 08/08/18 09:00 08/27/18 08:59 08/11/18 09:15 Lorazepam (Ativan 2mg/ml 1ml) 1 mg Q4H PRN IV For Seizures 08/08/18 20:00 08/15/18 19:59 Magnesium Hydroxide (Mom) 30 ml DAILYPRN PRN ORAL Constipation 08/07/18 18:38 09/06/18 18:37 08/11/18 15:44 Metronidazole (Flagyl) 500 mg Q8HR ORAL 08/07/18 22:00 09/07/18 13:59 08/11/18 13:53 Morphine Sulfate (MS Contin) 15 mg Q12H ORAL 08/08/18 10:00 08/15/18 09:59 08/11/18 12:30 Morphine Sulfate (Morphine Sulfate) 2 mg Q4H PRN IVP Severe Breakthru Pain (>7) 08/08/18 11:45 08/15/18 11:44 08/11/18 06:39 Multivitamins (Multivitamins) 1 tab DAILY ORAL 08/08/18 09:00 08/27/18 08:59 08/11/18 09:15 Oxycodone/ Acetaminophen (Percocet 10/325) 1 tab Q4H PRN ORAL Severe Pain (Pain Scale 7-10) 08/07/18 20:00 08/14/18 19:59 08/11/18 15:44 Pantoprazole (Protonix) 40 mg DAILY ORAL 08/08/18 09:00 08/27/18 08:59 08/11/18 09:15 Polyethylene Glycol (Miralax) 17 gm DAILYPRN PRN ORAL Constipation 08/07/18 18:38 09/06/18 18:37 08/10/18 22:05 Sodium Chloride 500 ml @ 999 mls/hr Q31M PRN IV FOR SBP <80 08/07/18 18:45 08/30/18 06:44 Sodium Chloride 1,000 ml @ 50 mls/hr Q20H IV 08/07/18 18:45 09/06/18 07:59 08/10/18 22:19 Tolterodine Tartrate (Detrol) 2 mg TWICE A DAY ORAL 08/08/18 09:00 08/26/18 17:59 08/11/18 09:15 Trazodone HCl (Desyrel) 100 mg BEDTIME ORAL 08/07/18 21:00 08/26/18 20:59 08/10/18 20:37 Vancomycin HCl (Vanco rx to dose) 1 ea DAILY PRN MISC Per rx protocol 08/08/18 09:00 08/27/18 12:29 Vancomycin HCl/ Dextrose 250 ml @ 166.667 mls/hr Q8HR IVPB 08/10/18 14:00 08/15/18 13:59 08/11/18 14:45 Portillo Vazquez M.D. Aug 11, 2018 16:39
[2018-08-11] MEDS: Miralax 17gm pkt ORAL PRN (17:47)
[2018-08-11] MEDS: TraZODone 100mg tab ORAL SCH (20:33)
--- NOTE | 2018-08-11 22:16 | General Progress Note ---
Assessment/Plan Assessment/Plan Covering for Dr. Andrews 1. Anemia of chronic disease - hgb lower potentially related to ivf --> anemia panel has been reviewed, no hemolysis --> transfuse if hgb less than 7 --> hgb electrophoresis reviewed and is negative for m-spike, significantly abnml bands --> ferritin is 341, trend hgb 11-->9.3-->9-->7.8-->8.7--> pending labs 2. Leukocytosis with sepsis --> currently has improved on iv abx --> smear reviewed, no abnmls significant that are noted --> on abx as per ID --> debridement by surg planned 3. Decubitus wound --> on abx --> appreciate surg recs, scheduling debridement 4. UTI- HCA 5. Neuromuscular disorder - wheelchair bound, baseline 6. Neurogenic bladder 7. Psychiatric disorder 8. UTI. 9. Seizure disorder --> as per Dr. Castillo --> seziure on 08/08, started on keppra iv --> continue seizure precautions Subjective Constitutional: Denies: no symptoms, chills, diaphoresis, fever, malaise, weakness, other HEENT: Denies: no symptoms, eye pain, blurred vision, tearing, double vision, ear pain, ear discharge, nose pain, nose congestion, throat pain, throat swelling, mouth pain, mouth swelling, other Cardiovascular: Denies: no symptoms, chest pain, edema, irregular heart rate, lightheadedness, palpitations, syncope, other Respiratory: Denies: no symptoms, cough, orthopnea, shortness of breath, SOB with excertion, SOB at rest, sputum, stridor, wheezing, other Gastrointestinal/Abdominal: Denies: no symptoms, abdomen distended, abdominal pain, black stools, tarry stools, blood in stool, constipated, diarrhea, difficulty swallowing, nausea, poor appetite, poor fluid intake, rectal bleeding , vomiting, other Genitourinary: Denies: no symptoms, burning, discharge, frequency, flank pain, hematuria, incontinence, pain, urgency, other Neurologic/Psychiatric: Denies: no symptoms, anxiety, depressed, emotional problems, headache, numbness, paresthesia, pre-existing deficit, seizure, tingling, tremors, weakness, other Endocrine: Denies: no symptoms, excessive sweating, flushing, intolerance to cold, intolerance to heat, increased hunger, increased thirst, increased urine, unexplained weight gain, unexplained weight loss, other Hematologic/Lymphatic: Denies: no symptoms, anemia, easy bleeding, easy bruising, other Allergies: Coded Allergies: No Known Allergies (Verified , 04/10/08) Subjective Pt resting in bed. No acute events. VS stable. Remains on NC. 08/04: feeling somewhat better, dc planning to snf, remainson abx as per id, may need debridement, per surg 08/05: on abx as per ID, a+o x4, improving slowly, no bleeding today 08/06: Pt awake and alert. No acute evetns. H/H stable. On NC 2L. 08/07: on 2L nc, no events, ID recs reviewed, appreciate recs 08/08: had a seziure today per Rn, started on keprra, confused, Dr. Castillo was consulted 08/09: no events, mri of the brain reviewed, to be seen by neuro shortly 08/10: Pt is awake and seen in the room. No acute events. H/H stable. wound culture grew some skin rosi , MRI of the pelvis showed osteomyelitis in the low sacrum . 08/11: Pt is seen in the room, on seizure precautions, no events reported, will continue abx,wound culture grew some skin rosi,MRI of the pelvis showed osteomyelitis in the low sacrum . Objective Last 24 Hour Vital Signs Date Time Temp Pulse Resp B/P (MAP) Pulse Ox O2 Delivery O2 Flow Rate FiO2 08/11/18 21:00 Room Air 08/11/18 20:00 99.1 99 18 115/71 (86) 96 08/11/18 18:06 98.6 08/11/18 16:14 98.6 08/11/18 15:42 98.6 97 18 125/73 (90) 99 08/11/18 13:00 98.4 08/11/18 12:00 98.4 96 18 140/62 (88) 96 08/11/18 09:10 97 19 108/72 (84) 95 08/11/18 09:00 Room Air 08/11/18 08:00 97.2 91 20 87/70 (76) 100 08/11/18 06:30 106/65 (79) 08/11/18 04:00 97.2 82 18 96/61 (73) 96 08/11/18 01:49 95/64 (74) 08/11/18 00:00 99.8 82 20 95/55 (68) 99 Intake and Output 08/10/18 08/11/18 18:59 06:59 Intake Total 1220 ml 250 ml Balance 1220 ml 250 ml Intake Oral 920 ml IV Total 300 ml 250 ml # Voids 3 # Bowel Movements 1 1 Laboratory Tests 08/11/18 12:45: Vancomycin Level Trough 20.1H Height (Feet): 5 Height (Inches): 4.00 Weight (Pounds): 118 Objective PHYSICAL EXAMINATION:HEAD AND NECK: Atraumatic and normocephalic. CHEST: Clear to auscultation. LUNGS: No wheezing. No crackles. ABDOMEN: Soft. No organomegaly. Bowel sounds are normal. MUSCULOSKELETAL: Atrophied musculatures. positive for Decubitus wound NEUROLOGIC: The patient is awake, not verbal and lethargic EXT: no cce John Anderson MD Aug 11, 2018 22:16
[2018-08-12] VITALS (7 sets, daily range): BP systolic 104–121; BP diastolic 52–73
[2018-08-12] MEDS: Aztreonam Inj 2 GM in D5W 110 ML IVPB SCH ×3 (05:07→21:44)
[2018-08-12] MEDS: metroNIDAZOLE 500mg tab ORAL SCH ×3 (05:26→21:44)
[2018-08-12] MEDS: Vancomycin 1250mg/D5W 250ml IVPB SCH ×3 (06:01→21:44)
[2018-08-12] MEDS: Tolterodine 2mg tab ORAL SCH ×2 (08:37→18:31)
[2018-08-12] MEDS: Morphine Sulfate 4mg/ml Inj (IV/IM USE ONLY) IVP PRN (08:38)
[2018-08-12] MEDS: Docusate 100mg cap ORAL SCH ×2 (08:38→18:31)
[2018-08-12] MEDS: Calcium Carbonate 500mg w/Vit D 200iu tab ORAL SCH ×3 (08:38→18:31)
[2018-08-12] MEDS: Vitamin B-12 500mcg tab ORAL SCH (08:38)
[2018-08-12] MEDS: levETIRAcetam 500mg/NS100ml 100 ML IVPB SCH ×2 (08:39→20:11)
[2018-08-12] MEDS: Heparin 5000 units/ml inj SUBQ SCH ×3 (08:40→21:00)
--- NOTE | 2018-08-12 08:58 | General Progress Note ---
Assessment/Plan Assessment/Plan (1) Guillain-Bylas syndrome (2) Paraplegia (3) Sacral Decubitus ulcer (4) Neuropathic pain (5) Cocaine abuse Patient will be continued on Morphine ER, Morphine IV, Lantry and Percocet. Parameters will be continued D/w Dr. Amaya and he concurred. Subjective Date patient seen: Aug 12, 2018 Time patient seen: 07:00 - am Allergies: Coded Allergies: No Known Allergies (Verified , 04/10/08) Subjective REVIEW OF SYSTEMS: Denies rash, fever, chills, sweating, dizziness, drowsiness, blurred vision, sore throat, or change in weight. No shortness of breath or chest pain. No nausea, vomiting, diarrhea, or blood in the stool or urine. She is complaining of generalized body pain. SUBJECTIVE: Patient reports that the pain has been unchanged however has been tolerated on the Morphine ER 2 doses, Morphine IV 3 doses and Percocet 4 doses in the last 24hrs. Objective Last 24 Hour Vital Signs Date Time Temp Pulse Resp B/P (MAP) Pulse Ox O2 Delivery O2 Flow Rate FiO2 08/12/18 08:00 97.9 99 18 106/73 (84) 100 08/12/18 04:00 98.3 96 20 108/67 (81) 98 08/12/18 00:28 97.7 08/12/18 00:00 102.8 100 20 104/66 (79) 98 08/11/18 21:00 Room Air 08/11/18 20:00 99.1 99 18 115/71 (86) 96 08/11/18 18:06 98.6 08/11/18 16:14 98.6 08/11/18 15:42 98.6 97 18 125/73 (90) 99 08/11/18 13:00 98.4 08/11/18 12:00 98.4 96 18 140/62 (88) 96 08/11/18 09:10 97 19 108/72 (84) 95 08/11/18 09:00 Room Air Intake and Output 08/11/18 08/12/18 19:00 07:00 Intake Total 2800 ml 200 ml Output Total 2900 ml 1800 ml Balance -100 ml -1600 ml Intake Oral 2800 ml IV Total 200 ml Output Urine Total 2900 ml 1800 ml # Voids 1 # Bowel Movements 1 1 Laboratory Tests 08/11/18 12:45: Vancomycin Level Trough 20.1H Height (Feet): 5 Height (Inches): 4.00 Weight (Pounds): 118 Objective GENERAL: Alert, awake, and oriented. LUNGS: Decreased breath sounds bilaterally. HEART: S1 and S2 regular. ABDOMEN: Benign with surgical scars noted. EXTREMITIES: No cyanosis. No clubbing. NEURO: No changes. Tarik Caal Aug 12, 2018 08:58
[2018-08-12] MEDS: MS Contin 15mg tab ORAL SCH ×2 (11:56→21:44)
[2018-08-12] MEDS ORDERED: HYDROcodone/Acetamin 10/325 tab ORAL PRN (12:15)
[2018-08-12] MEDS ORDERED: Morphine Sulfate 4mg/ml Inj (IV/IM USE ONLY) IVP PRN (12:38)
--- NOTE | 2018-08-12 16:14 | Infectious Diseases Prog Note ---
Assessment/Plan Problems: (1) Sacral decubitus ulcer, stage IV Assessment & Plan: continue vancomycin and aztreonam with metronidazole empirically for 6 weeks , wound culture grew some skin rosi , MRI of the pelvis showed osteomyelitis in the low sacrum . will need 6 weeks of iv antibiotics . recommend local wound care and off loading. surgical debridement as needed. diverting colostomy in the future to prevent stool contamination of the wound and recurrent infection . EOT 09/08/18 (2) UTI (urinary tract infection) Assessment & Plan: due to proteus mirabilis resolved on aztreonam empirically (3) Malnutrition Assessment & Plan: recommend dietary support to improve her wounds healing (4) Drug abuse Assessment & Plan: recommend counseling and rehab (5) Seizure disorder Assessment & Plan: stable , on seizure meds, follow up with neurology Subjective Constitutional: Reports: no symptoms HEENT: Reports: no symptoms Respiratory: Reports: no symptoms Breasts: Reports: no symptoms Cardiovascular: Reports: no symptoms Gastrointestinal/Abdominal: Reports: no symptoms Genitourinary: Reports: no symptoms Neurologic: Reports: no symptoms Psychiatric: Reports: no symptoms Skin: Reports: no symptoms Endocrine: Reports: no symptoms Hematologic: Reports: no symptoms Musculoskeletal: Reports: no symptoms Allergies: Coded Allergies: No Known Allergies (Verified , 04/10/08) Subjective she is comfortable up in chair , complained of low back pain, no fever or chills, no cough or SOB Objective Vital Signs Last 24 Hour Vital Signs Date Time Temp Pulse Resp B/P (MAP) Pulse Ox O2 Delivery O2 Flow Rate FiO2 08/12/18 12:26 98.0 08/12/18 11:54 98.0 111 20 111/60 (77) 97 08/12/18 09:00 Room Air 08/12/18 08:00 97.9 99 18 106/73 (84) 100 08/12/18 04:00 98.3 96 20 108/67 (81) 98 08/12/18 00:28 97.7 08/12/18 00:00 102.8 100 20 104/66 (79) 98 08/11/18 21:00 Room Air 08/11/18 20:00 99.1 99 18 115/71 (86) 96 08/11/18 18:06 98.6 08/11/18 16:14 98.6 Height (Feet): 5 Height (Inches): 4.00 Weight (Pounds): 118 General Appearance: WD/WN, no acute distress HEENT: normocephalic, atraumatic, anicteric, mucous membranes moist, PERRL Respiratory/Chest: chest wall non-tender, lungs clear, normal breath sounds, no respiratory distress, no accessory muscle use Breasts: no masses Cardiovascular: normal peripheral pulses, normal rate, regular rhythm, no gallop/murmur, no JVD Abdomen: normal bowel sounds, soft, non tender, no organomegaly, non distended , no mass, no scars Genitourinary: normal external genitalia Extremities: no cyanosis, no clubbing Skin: no rash, no lesions, ulcers Neurologic/Psychiatric: alert, oriented x 3, responsive Lymphatic: no neck adenopathy, no groin adenopathy Musculoskeletal: normal muscle bulk, no effusion Current Medications Medications (Trade) Dose Ordered Sig/Elisa Route PRN Reason Start Time Stop Time Status Last Admin Dose Admin Acetaminophen (Tylenol) 650 mg Q8H PRN ORAL Mild Pain/Temp > 100.5 08/07/18 18:37 08/28/18 18:36 08/10/18 21:11 Acetaminophen/ Hydrocodone Bitart ([place] 10/325) 1 tab Q4H PRN ORAL moderate pain 08/12/18 12:15 08/19/18 10:36 Aztreonam 2 gm/ Dextrose 110 ml @ 220 mls/hr Q8HR IVPB 08/07/18 22:00 09/07/18 22:30 08/12/18 14:31 Baclofen (Lioresal) 10 mg THREE TIMES A DAY ORAL 08/08/18 09:00 08/26/18 17:59 08/12/18 12:01 Calcium Carbonate (OsCal D) 1 tab THREE TIMES A DAY ORAL 08/08/18 09:00 08/26/18 17:59 08/12/18 12:01 Cyanocobalamin (Vitamin B-12) 1,000 mcg DAILY ORAL 08/08/18 09:00 08/27/18 08:59 08/12/18 08:38 Docusate Sodium (Colace) 100 mg TWICE A DAY ORAL 08/08/18 09:00 08/26/18 17:59 08/12/18 08:38 Gabapentin (Neurontin) 900 mg THREE TIMES A DAY ORAL 08/08/18 09:00 08/26/18 17:59 08/12/18 12:01 Heparin Sodium (Porcine) (Heparin 5000 units/ml) 5,000 units EVERY 12 HOURS SUBQ 08/07/18 21:00 08/28/18 20:59 08/11/18 20:43 Levetiracetam 100 ml @ 440.098 mls/hr Q12HR IVPB 08/07/18 21:00 08/27/18 12:29 08/12/18 08:39 Loratadine (Claritin 10mg) 10 mg DAILY ORAL 08/08/18 09:00 08/27/18 08:59 08/12/18 08:37 Lorazepam (Ativan 2mg/ml 1ml) 1 mg Q4H PRN IV For Seizures 08/08/18 20:00 08/15/18 19:59 Magnesium Hydroxide (Mom) 30 ml DAILYPRN PRN ORAL Constipation 08/07/18 18:38 09/06/18 18:37 08/11/18 15:44 Metronidazole (Flagyl) 500 mg Q8HR ORAL 08/07/18 22:00 09/07/18 13:59 08/12/18 14:30 Morphine Sulfate (MS Contin) 15 mg Q12H ORAL 08/12/18 10:00 08/19/18 09:59 08/12/18 11:56 Morphine Sulfate (Morphine Sulfate) 2 mg Q4H PRN IVP Severe Breakthru Pain (>7) 08/12/18 12:38 08/19/18 12:37 Multivitamins (Multivitamins) 1 tab DAILY ORAL 08/08/18 09:00 08/27/18 08:59 08/12/18 08:37 Oxycodone/ Acetaminophen (Percocet 10/325) 1 tab Q4H PRN ORAL Severe Pain (Pain Scale 7-10) 08/12/18 12:00 08/19/18 11:59 08/12/18 14:30 Pantoprazole (Protonix) 40 mg DAILY ORAL 08/08/18 09:00 08/27/18 08:59 08/12/18 08:38 Polyethylene Glycol (Miralax) 17 gm DAILYPRN PRN ORAL Constipation 08/07/18 18:38 09/06/18 18:37 08/11/18 17:47 Sodium Chloride 500 ml @ 999 mls/hr Q31M PRN IV FOR SBP <80 08/07/18 18:45 08/30/18 06:44 Sodium Chloride 1,000 ml @ 50 mls/hr Q20H IV 08/07/18 18:45 09/06/18 07:59 08/11/18 23:18 Tolterodine Tartrate (Detrol) 2 mg TWICE A DAY ORAL 08/08/18 09:00 08/26/18 17:59 08/12/18 08:37 Trazodone HCl (Desyrel) 100 mg BEDTIME ORAL 08/07/18 21:00 08/26/18 20:59 08/11/18 20:33 Vancomycin HCl (Vanco rx to dose) 1 ea DAILY PRN MISC Per rx protocol 08/08/18 09:00 08/27/18 12:29 Vancomycin HCl/ Dextrose 250 ml @ 166.667 mls/hr Q8HR IVPB 08/10/18 14:00 08/15/18 13:59 08/12/18 06:01 Portillo Vazquez M.D. Aug 12, 2018 16:14
[2018-08-12] MEDS ORDERED: Sodium Chloride 500ML 500 ML IV ONE (18:45)
[2018-08-12] MEDS ORDERED: Propranolol 10mg tab ORAL SCH (18:45)
[2018-08-12] MEDS ORDERED: Tubing IV Secondary IV ONE (20:22)
[2018-08-12] MEDS: TraZODone 100mg tab ORAL SCH (21:00)
--- NOTE | 2018-08-12 22:18 | General Progress Note ---
Assessment/Plan Assessment/Plan Covering for Dr. Andrews 1. Anemia of chronic disease - hgb lower potentially related to ivf --> anemia panel has been reviewed, no hemolysis --> transfuse if hgb less than 7 --> hgb electrophoresis reviewed and is negative for m-spike, significantly abnml bands --> ferritin is 341, trend hgb 11-->9.3-->9-->7.8-->8.7--> pending labs 2. Leukocytosis with sepsis --> currently has improved on iv abx --> smear reviewed, no abnmls significant that are noted --> on abx as per ID --> debridement by surg planned 3. Decubitus wound --> on abx --> appreciate surg recs, scheduling debridement 4. UTI- HCA 5. Neuromuscular disorder - wheelchair bound, baseline 6. Neurogenic bladder 7. Psychiatric disorder 8. UTI. 9. Seizure disorder --> as per Dr. Castillo --> seziure on 08/08, started on keppra iv --> continue seizure precautions Subjective Constitutional: Denies: no symptoms, chills, diaphoresis, fever, malaise, weakness, other HEENT: Denies: no symptoms, eye pain, blurred vision, tearing, double vision, ear pain, ear discharge, nose pain, nose congestion, throat pain, throat swelling, mouth pain, mouth swelling, other Cardiovascular: Denies: no symptoms, chest pain, edema, irregular heart rate, lightheadedness, palpitations, syncope, other Respiratory: Denies: no symptoms, cough, orthopnea, shortness of breath, SOB with excertion, SOB at rest, sputum, stridor, wheezing, other Gastrointestinal/Abdominal: Denies: no symptoms, abdomen distended, abdominal pain, black stools, tarry stools, blood in stool, constipated, diarrhea, difficulty swallowing, nausea, poor appetite, poor fluid intake, rectal bleeding , vomiting, other Genitourinary: Denies: no symptoms, burning, discharge, frequency, flank pain, hematuria, incontinence, pain, urgency, other Neurologic/Psychiatric: Denies: no symptoms, anxiety, depressed, emotional problems, headache, numbness, paresthesia, pre-existing deficit, seizure, tingling, tremors, weakness, other Endocrine: Denies: no symptoms, excessive sweating, flushing, intolerance to cold, intolerance to heat, increased hunger, increased thirst, increased urine, unexplained weight gain, unexplained weight loss, other Hematologic/Lymphatic: Denies: no symptoms, anemia, easy bleeding, easy bruising, other Allergies: Coded Allergies: No Known Allergies (Verified , 04/10/08) Subjective Pt resting in bed. No acute events. VS stable. Remains on NC. 08/04: feeling somewhat better, dc planning to snf, remainson abx as per id, may need debridement, per surg 08/05: on abx as per ID, a+o x4, improving slowly, no bleeding today 08/06: Pt awake and alert. No acute evetns. H/H stable. On NC 2L. 08/07: on 2L nc, no events, ID recs reviewed, appreciate recs 08/08: had a seziure today per Rn, started on keprra, confused, Dr. Castillo was consulted 08/09: no events, mri of the brain reviewed, to be seen by neuro shortly 08/10: Pt is awake and seen in the room. No acute events. H/H stable. wound culture grew some skin rsoi , MRI of the pelvis showed osteomyelitis in the low sacrum . 08/11: Pt is seen in the room, on seizure precautions, no events reported, will continue abx,wound culture grew some skin rosi,MRI of the pelvis showed osteomyelitis in the low sacrum . 08/12 Pt is lying in bed, no events reported, continue abx, wound culture grew some skin rosi, cbc reviewed. . Objective Last 24 Hour Vital Signs Date Time Temp Pulse Resp B/P (MAP) Pulse Ox O2 Delivery O2 Flow Rate FiO2 08/12/18 20:00 97.9 106 17 121/52 (75) 97 08/12/18 19:55 113 105/58 08/12/18 17:00 120 104/71 (82) 08/12/18 16:00 97.9 112 20 121/52 (75) 98 08/12/18 15:00 98.0 08/12/18 15:00 98.0 08/12/18 12:26 98.0 08/12/18 11:54 98.0 111 20 111/60 (77) 97 08/12/18 09:00 Room Air 08/12/18 08:00 97.9 99 18 106/73 (84) 100 08/12/18 04:00 98.3 96 20 108/67 (81) 98 08/12/18 00:28 97.7 08/12/18 00:00 102.8 100 20 104/66 (79) 98 Intake and Output 08/11/18 08/12/18 18:59 06:59 Intake Total 2800 ml 200 ml Output Total 2900 ml 1800 ml Balance -100 ml -1600 ml Intake Oral 2800 ml IV Total 200 ml Output Urine Total 2900 ml 1800 ml # Voids 1 # Bowel Movements 1 1 Height (Feet): 5 Height (Inches): 4.00 Weight (Pounds): 118 Objective PHYSICAL EXAMINATION:HEAD AND NECK: Atraumatic and normocephalic. CHEST: Clear to auscultation. LUNGS: No wheezing. No crackles. ABDOMEN: Soft. No organomegaly. Bowel sounds are normal. MUSCULOSKELETAL: Atrophied musculatures. positive for Decubitus wound NEUROLOGIC: The patient is awake, not verbal and lethargic EXT: no cce John Anderson MD Aug 12, 2018 22:18
--- NOTE | 2018-08-13 15:49 | Diagnostic Imaging Report ---
Indication: Flank pain Technique: Grayscale and duplex Doppler imaging of the kidneys performed. Comparison: None Findings: The size, contour, and echogenicity of both kidneys are within normal limits. There is no hydronephrosis. The IVC and urinary bladder are unremarkable. Right kidney measures 10 cm. Left kidney measures 11 cm. IMPRESSION: Negative exam
--- NOTE | 2018-08-15 11:24 | Discharge Summary ---
Discharge Summary Discharge Summary _ DATE OF ADMISSION: 07/27/2018 DATE OF DISCHARGE: 08/12/2018 DISCHARGED BY: Dr. Andrews REASON FOR ADMISSION: 55 years old female with past medical history of musculoskeletal neurodegenerative disorder , reportedly Guillan Everett syndrome, fibromyalgia, anemia, history of drug abuse, presented with worsening back and right hip pain. She denied loss of consciousness and any trauma or injury. Patient still actively using cocaine. Sacral decubitus stage IV present on admission, appeared infected. Laboratory workup initially revealed no leukocytosis hemoglobin 10.6 hematocrit 32.4. Lactic acid 2.4. Sodium 133. Stable renal parameters and electrolytes. Troponin negative. Albumin 2.3. Urinalysis revealed +4 protein, and was grossly consistent with urinary tract infection. Chest x-ray revealed possible COPD changes, but no acute process otherwise. Right hip x-ray revealed no radiographic evidence of osteomyelitis. X-ray of the left hip reveal degenerative changes , but no acute process otherwise. Patient was admitted for further management. CONSULTANTS: pulmonary Dr. Olea ID specialist Dr. Vazquez box inspector/oncologist Dr. Anderson surgery Dr. Bledsoe pain specialist Dr. Amaya HOSPITAL COURSE: Patient admitted to medical surgical floor and started on empiric antibiotics. ID and surgery consults were requested. Urine culture revealed Proteus. Blood cultures were negative. Patient was on antibiotic as per ID recommendation. MRI revealed sacral decubitus ulcer with surrounding soft tissue infiltration/ edema concerning for cellulitis. No well-defined/drainable fluid collection to suggest abscess. Abnormal bone marrow edema in the underlying lower sacrum/coccyx, concerning for osteomyelitis. Surgeon closely followed. Patient subsequently undergone on 08/10/18 excisional debridement of sacral decubitus ulcer with sacral bone biopsy. Biopsy of sacrum bone demonstrated acute inflammation consistent with acute osteomyelitis. Biopsy of necrotic sacral ulcer demonstrated soft tissue with acute inflammation and necrosis. Sacral wound culture was positive for Staphylococcus epidermidis and Providencia stuartii. Patient will need total of 6 weeks of antibiotic. End of treatment 09/08/18. Wound care provided as per surgeon recommendation. Pain management provided as per pain specialist recommendation. Patient had seizure activity on the day after admission. CT of the head revealed no evidence of acute intracranial hemorrhage or midline shift. Patient was given loading dose of Keppra, Seizure precaution were maintained. Patient was continued on maintenance dose of Keppra. Unfortunately unable to get neurology consult. Mental status was closely monitored. Acute encephalopathy was probably related to seizure episode, resolved. Bowel regimen instituted. Supplemental oxygen provided as needed to keep pulse oximetry above 92%. DVT and GI propahyxls provided. patient was working with physical therapist. Noted low cortisol level, dose of Cortef increased. Renal parameters and electrolytes were closely monitored. Electrolytes corrected as needed. Nephrotoxins were avoided. Renal ultrasound was unremarkable. Hemoglobin and hematocrit were closely monitored with goal to keep hemoglobin above 7. Bookstore Clerk recommendations implemented in plan of care. Patient was counseled on abstinence from illicit street drugs. Supportive care provided. Patient clinically stabilized. No further seizure. [facility] of care , on IV antibiotics. Continue with wound care. FINAL DIAGNOSES: Sepsis due to acute osteomyelitis and UTI Acute encephalopathy Acute osteomyelitis of sacral decubitus ulcer Proteus UTI Recurrent infected stage IV sacral decubitus ulcer , present on admission Status post excisional debridement of sacral decubitus ulcer with sacral bone biopsy 08/10/18 Severe protein calorie malnutrition Seizure disorder Anemia of chronic disease Adrenocortical insufficiency Guillain Everett syndrome Paraplegia Neuropathic pain Cocaine abuse DISCHARGE MEDICATIONS: List of medication was sent to accepting facility. DISCHARGE INSTRUCTIONS: Patient was discharged to the prison facility. Follow up with medical doctor at the facility. I have been assigned to dictate discharge summary for this account. I was not involved in the patient's management. Elizabeth Diallo NP Aug 15, 2018 11:24
== END 2018-08-12 21:55 | DRG 710 ==
LOC: EDBD 09:28 → EMR 09:44 → EDBEDREQ 10:20 → 4E 10:50 → EDBEDREQ 11:43 → 2W 07-28 11:34 → 2E 07-29 17:44 → 4E 08-07 18:30
PROC: 0QB10ZZ Excision of Sacrum, Open Approach (ICD-10-PCS; principal; 2018-08-10)
DX: A41.9 Sepsis, unspecified organism (principal); G93.40 Encephalopathy, unspecified; E43 Unspecified severe protein-calorie malnutrition; G61.0 Guillain-Barre syndrome; L89.154 Pressure ulcer of sacral region, stage 4; G82.20 Paraplegia, unspecified; M86.18 Other acute osteomyelitis, other site; R65.20 Severe sepsis without septic shock; Z74.01 Bed confinement status; Z99.3 Dependence on wheelchair; N39.0 Urinary tract infection, site not specified; N31.9 Neuromuscular dysfunction of bladder, unspecified; G40.909 Epilepsy, unspecified, not intractable, without status epilepticus; Z68.20 Body mass index [BMI] 20.0-20.9, adult; F14.10 Cocaine abuse, uncomplicated; M79.7 Fibromyalgia; R62.7 Adult failure to thrive
CPT/HCPCS: 36415; 70450; 71045; 72195; 73502; 76770; 80048; 80053; 80202; 80299; 80307; 81003; 82533; 82550; 82728; 82962; 83036; 83605; 84443; 84484; 85025; 87040; 87070; 87081; 87086; 87181; 87205; 93005; 96374; 96375; 99285

== ENCOUNTER 2019-02-24 11:14 | Inpatient (IN) | payer OTHER ==
[~2019-02-24] VITALS: Ht 165.1 cm; Wt 61.7 kg
[2019-02-24 11:25] VITALS: BP 113/67
--- NOTE | 2019-02-24 11:28 | NUR ---
ED Nurse Note: brought by [facility] from [facility] conv. due to abdominal pain aw n/v for last 6 days. per pt, unable to eat or drink due to nausea. pt discharged from [facility] 2 days ago for seizure activity. seizure precaution made. pad applied, 2 side rails up, on monitoring specialist. AAO x4. respirations even and non-labored noted. on SNF note, pt has wound on sacral and both heels. will assess later.
--- NOTE | 2019-02-24 11:40 | Emergency Room Report ---
History of Present Illness General Chief Complaint: Abdominal Pain Source: Patient Present Illness HPI Patient presents with complaints of diffuse abdominal pain nausea vomiting ongoing for the past several days Patient also has diffuse discomfort Denies any fevers or chills denies any chest pain pain is cramping in nature and diffuse Denies any diarrhea denies any trauma patient has not tolerated oral intake for 2 days Allergies: Coded Allergies: No Known Allergies (Verified , 04/10/08) Patient History Past Medical History: see triage record Pertinent Family History: none Now: No Reviewed Nursing Documentation: PMH: Agreed; PSxH: Agreed Nursing Documentation-PMH Past Medical History: No History, Except For Hx Cardiac Problems: No - Fibromyalgia, Encephalopathy Hx Cancer: No Hx Gastrointestinal Problems: Yes - GERD Hx Neurological Problems: Yes - nerve damage, using wheelchair since 1999, gillianbare Hx Seizures: Yes Hx Epilepsy: Yes Hx Guillian-[place] Syndrome: Yes Hx Dizziness: Yes Hx Syncope: Yes Hx Weakness: Yes Review of Systems All Other Systems: negative except mentioned in HPI Physical Exam Vital Signs Date Time Temp Pulse Resp B/P (MAP) Pulse Ox O2 Delivery O2 Flow Rate FiO2 02/24/19 11:14 99.0 62 21 137/76 (96) 98 Room Air Sp02 EP Interpretation: reviewed, normal General Appearance: mild distress - Actively nauseated Head: normocephalic, atraumatic Eyes: bilateral eye PERRL, bilateral eye EOMI ENT: hearing grossly normal, normal pharynx, TMs + canals normal, uvula midline Neck: full range of motion, supple, no meningismus, no bony tend Respiratory: lungs clear, normal breath sounds, no rhonchi, no respiratory distress, no retraction, no accessory muscle use Cardiovascular #1: normal peripheral pulses, regular rate, rhythm, no edema, no gallop, no JVD, no murmur Gastrointestinal: normal bowel sounds, soft - However patient has reproducible discomfort diffusely, non-distended Genitourinary: no CVA tenderness Musculoskeletal: normal inspection Neurologic: oriented x3, responsive, 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, motor strength/ tone normal, sensory intact Psychiatric: mood/affect normal Skin: other - Decubitus ulcer present Lymphatic: normal inspection, no adenopathy Medical Decision Making Diagnostic Impression: Primary Impression: Abdominal pain Additional Impressions: UTI (urinary tract infection) Dehydration ER Course With the history exam and presentation, multiple differentials considered, including but not limited to appendicitis, gastritis, cholecystitis, diverticulitis Patient's CT imaging does not show any obvious acute obstruction Urine sample does show evidence of significant infectious pathology Patient initiated on IV hydration antibiotics and requires further inpatient care, Labs Test 02/24/19 11:20 02/24/19 12:00 02/25/19 05:11 02/26/19 05:30 White Blood Count 5.4 K/UL (4.8-10.8) 5.1 K/UL (4.8-10.8) 5.3 K/UL (4.8-10.8) Red Blood Count 5.30 M/UL (4.20-5.40) 4.69 M/UL (4.20-5.40) 4.15 M/UL (4.20-5.40) Hemoglobin 14.7 G/DL (12.0-16.0) 13.0 G/DL (12.0-16.0) 11.5 G/DL (12.0-16.0) Hematocrit 44.7 % (37.0-47.0) 39.1 % (37.0-47.0) 35.5 % (37.0-47.0) Mean Corpuscular Volume 84 FL (80-99) 83 FL (80-99) 86 FL (80-99) Mean Corpuscular Hemoglobin 27.6 PG (27.0-31.0) 27.8 PG (27.0-31.0) 27.8 PG (27.0-31.0) Mean Corpuscular Hemoglobin Concent 32.8 G/DL (32.0-36.0) 33.4 G/DL (32.0-36.0) 32.5 G/DL (32.0-36.0) Red Cell Distribution Width 13.1 % (11.6-14.8) 13.2 % (11.6-14.8) 13.6 % (11.6-14.8) Platelet Count 216 K/UL (150-450) 190 K/UL (150-450) 169 K/UL (150-450) Mean Platelet Volume 5.6 FL (6.5-10.1) 5.4 FL (6.5-10.1) 5.6 FL (6.5-10.1) Neutrophils (%) (Auto) 53.8 % (45.0-75.0) % (45.0-75.0) % (45.0-75.0) Lymphocytes (%) (Auto) 35.1 % (20.0-45.0) % (20.0-45.0) % (20.0-45.0) Monocytes (%) (Auto) 9.3 % (1.0-10.0) % (1.0-10.0) % (1.0-10.0) Eosinophils (%) (Auto) 0.7 % (0.0-3.0) % (0.0-3.0) % (0.0-3.0) Basophils (%) (Auto) 1.1 % (0.0-2.0) % (0.0-2.0) % (0.0-2.0) Sodium Level 136 MMOL/L (136-145) 140 MMOL/L (136-145) 142 MMOL/L (136-145) Potassium Level 3.8 MMOL/L (3.5-5.1) 3.3 MMOL/L (3.5-5.1) 4.0 MMOL/L (3.5-5.1) Chloride Level 99 MMOL/L (98-107) 106 MMOL/L (98-107) 110 MMOL/L (98-107) Carbon Dioxide Level 26 MMOL/L (21-32) 25 MMOL/L (21-32) 25 MMOL/L (21-32) Anion Gap 12 mmol/L (5-15) 9 mmol/L (5-15) 7 mmol/L (5-15) Blood Urea Nitrogen 13 mg/dL (7-18) 12 mg/dL (7-18) 9 mg/dL (7-18) Creatinine 0.5 MG/DL (0.55-1.30) 0.6 MG/DL (0.55-1.30) 0.5 MG/DL (0.55-1.30) Estimat Glomerular Filtration Rate > 60 mL/min (>60) > 60 mL/min (>60) > 60 mL/min (>60) Glucose Level 79 MG/DL (74-106) 120 MG/DL (74-106) 95 MG/DL (74-106) Calcium Level 9.7 MG/DL (8.5-10.1) 9.2 MG/DL (8.5-10.1) 9.0 MG/DL (8.5-10.1) Total Bilirubin 0.6 MG/DL (0.2-1.0) Aspartate Amino Transf (AST/SGOT) 30 U/L (15-37) Alanine Aminotransferase (ALT/SGPT) 37 U/L (12-78) Alkaline Phosphatase 103 U/L (46-116) Total Creatine Kinase 48 U/L (26-308) Creatine Kinase MB 1.8 NG/ML (0.0-3.6) Creatine Kinase MB Relative Index 3.7 Troponin I 0.017 ng/mL (0.000-0.056) 0.004 ng/mL (0.000-0.056) Total Protein 8.3 G/DL (6.4-8.2) Albumin 4.1 G/DL (3.4-5.0) Globulin 4.2 g/dL Albumin/Globulin Ratio 1.0 (1.0-2.7) Urine Color Yellow Urine Appearance Slightly cloudy Urine pH 5 (4.5-8.0) Urine Specific [place] 1.030 (1.005-1.035) Urine Protein 2+ (NEGATIVE) Urine Glucose (UA) Negative (NEGATIVE) Urine Ketones 4+ (NEGATIVE) Urine Blood 4+ (NEGATIVE) Urine Nitrite Negative (NEGATIVE) Urine Bilirubin 1+ (NEGATIVE) Urine Ictotest Negative (NEGATIVE) Urine Urobilinogen 1 MG/DL (0.0-1.0) Urine Leukocyte Esterase 3+ (NEGATIVE) Urine RBC 5-10 /HPF (0 - 2) Urine WBC 60-80 /HPF (0 - 2) Urine Squamous Epithelial Cells Few /LPF (NONE/OCC) Urine Bacteria Few /HPF (NONE) Differential Total Cells Counted 100 100 Neutrophils % (Manual) 24 % (45-75) 32 % (45-75) Lymphocytes % (Manual) 65 % (20-45) 54 % (20-45) Monocytes % (Manual) 10 % (1-10) 13 % (1-10) Eosinophils % (Manual) 1 % (0-3) 1 % (0-3) Basophils % (Manual) 0 % (0-2) 0 % (0-2) Band Neutrophils 0 % (0-8) 0 % (0-8) Platelet Estimate Adequate Adequate Platelet Morphology Normal Normal Red Blood Cell Morphology Normal Normal Test 02/27/19 05:25 White Blood Count 4.5 K/UL (4.8-10.8) Red Blood Count 4.27 M/UL (4.20-5.40) Hemoglobin 11.9 G/DL (12.0-16.0) Hematocrit 36.9 % (37.0-47.0) Mean Corpuscular Volume 86 FL (80-99) Mean Corpuscular Hemoglobin 27.9 PG (27.0-31.0) Mean Corpuscular Hemoglobin Concent 32.3 G/DL (32.0-36.0) Red Cell Distribution Width 13.4 % (11.6-14.8) Platelet Count 154 K/UL (150-450) Mean Platelet Volume 5.5 FL (6.5-10.1) Neutrophils (%) (Auto) % (45.0-75.0) Lymphocytes (%) (Auto) % (20.0-45.0) Monocytes (%) (Auto) % (1.0-10.0) Eosinophils (%) (Auto) % (0.0-3.0) Basophils (%) (Auto) % (0.0-2.0) Sodium Level 144 MMOL/L (136-145) Potassium Level 3.5 MMOL/L (3.5-5.1) Chloride Level 111 MMOL/L (98-107) Carbon Dioxide Level 26 MMOL/L (21-32) Anion Gap 7 mmol/L (5-15) Blood Urea Nitrogen 4 mg/dL (7-18) Creatinine 0.5 MG/DL (0.55-1.30) Estimat Glomerular Filtration Rate > 60 mL/min (>60) Glucose Level 105 MG/DL (74-106) Calcium Level 8.9 MG/DL (8.5-10.1) Rhythm Strip Diag. Results EP Interpretation: yes Rate: 80 Rhythm: NSR, no PVC's, no ectopy Chest X-Ray Diagnostic Results Chest X-Ray Diagnostic Results : Chest X-Ray Ordered: Yes # of Views/Limited/Complete: 1 View Indication: Chest Pain EP Interpretation: Yes Interpretation: no consolidation, no effusion, no pneumothorax Impression: No acute disease Electronically Signed by: Yolis Montano DO CT/MRI/US Diagnostic Results CT/MRI/US Diagnostic Results : Impression CT abdomen pelvisImpression: Limited assessment of the GI tract, due to lack of enteric contrast demonstration There is dense stool throughout the colon. Correlate with any clinical history of constipation Evidence of retrococcygeal decubitus changes. There is also suggestion of underlying osseous erosion which appears chronic but the possibility of acute osteomyelitis should also be considered Distended stomach and duodenum, without evidence of downstream obstructive lesion. There is mild duodenal wall thickening, and the possibility of duodenitis or peptic ulcer disease should be considered. Incidental finding of degenerative changes of the lumbosacral spine and bilateral hips Last Vital Signs Date Time Temp Pulse Resp B/P (MAP) Pulse Ox O2 Delivery O2 Flow Rate FiO2 02/24/19 11:25 62 21 Room Air 02/24/19 11:25 99.0 113/67 99 Status: improved Disposition: ADMITTED INPATIENT Condition: Serious Yolis Montano DO Feb 24, 2019 11:40
[2019-02-24 11:43] LABS: BASOPHILS % (AUTO) 1.1 % (0.0-2.0); EOSINOPHILS % (AUTO) 0.7 % (0.0-3.0); HEMATOCRIT 44.7 % (37.0-47.0); HEMOGLOBIN 14.7 G/DL (12.0-16.0); LYMPHOCYTES % (AUTO) 35.1 % (20.0-45.0); MEAN CORPUSCULAR VOLUME 84 FL (80-99); MONOCYTES % (AUTO) 9.3 % (1.0-10.0); NEUTROPHILS % (AUTO) 53.8 % (45.0-75.0); PLATELET COUNT 216 K/UL (150-450); RED CELL DISTRIBUTION WIDTH 13.1 % (11.6-14.8); WHITE BLOOD COUNT 5.4 K/UL (4.8-10.8)
[2019-02-24 11:47] LABS: ANION GAP 12 mmol/L (5-15); BLOOD UREA NITROGEN 13 mg/dL (7-18); CALCIUM 9.7 MG/DL (8.5-10.1); CARBON DIOXIDE 26 MMOL/L (21-32); CHLORIDE 99 MMOL/L (98-107); CREATININE 0.5 MG/DL (0.55-1.30); POTASSIUM 3.8 MMOL/L (3.5-5.1); SODIUM 136 MMOL/L (136-145)
[2019-02-24 12:01] LABS: ALANINE AMINOTRANSFERASE 37 U/L (12-78); ALBUMIN 4.1 G/DL (3.4-5.0); ALKALINE PHOSPHATASE 103 U/L (46-116); ASPARTATE AMINO TRANSFERASE 30 U/L (15-37); BILIRUBIN,TOTAL 0.6 MG/DL (0.2-1.0); CKMB 1.8 NG/ML (0.0-3.6); CREATINE KINASE 48 U/L (26-308)
[2019-02-24] MEDS ORDERED: DULCOLAX10 MG RC (12:01)
[2019-02-24] MEDS ORDERED: CYMBALTA60 MG ORAL (12:01)
[2019-02-24] MEDS ORDERED: CATAPRES0.1 MG ORAL (12:01)
[2019-02-24] MEDS ORDERED: FLOMAX0.4 MG ORAL (12:01)
[2019-02-24 12:06] LABS: APPEARANCE,URINE SLIGHTLY CLOUDY; BILIRUBIN, URINE 1+ (NEGATIVE); GLUCOSE, URINE (UA) NEGATIVE (NEGATIVE); KETONES,URINE 4+ (NEGATIVE); LEUKOCYTE ESTERASE ,URINE 3+ (NEGATIVE); NITRITE,URINE NEGATIVE (NEGATIVE); PH,URINE 5 (4.5-8.0); PROTEIN,URINE 2+ (NEGATIVE); UROBILINOGEN,URINE 1 MG/DL (0.0-1.0)
[2019-02-24 12:17] LABS: COLOR,URINE YELLOW
[2019-02-24] MEDS ORDERED: Morphine Sulfate 2mg/ml Inj(IV/IM USE ONLY) IVP ONE (12:45)
[2019-02-24 13:00] VITALS: BP 121/62
--- NOTE | 2019-02-24 13:38 | NUR ---
Note oliva in EDM - 02/24/19 at 1343 by [facility] ED Nurse Note: healed wound noted on sacral area. no open wound. abration noted on right caleous. nothing on left side. pic taken and will upload.
--- NOTE | 2019-02-24 13:43 | NUR ---
ED Nurse Note: healed wound noted on sacral area. no open wound. abration noted on right lateral malleolus. nothing on left side. pic taken and will upload.
[2019-02-24] MEDS ORDERED: cefTRIAXone 1 GM in NS 55 ML IVPB ONE (13:45)
--- NOTE | 2019-02-24 13:55 | Diagnostic Imaging Report ---
Indication: Diffuse abdominal pain, nausea, vomiting Technique: Spiral acquisitions obtained through the abdomen and pelvis. No oral contrast utilized, per emergency room physician request No IV contrast utilized, per emergency room physician request. Multiplanar reconstructions were generated. Total dose length product 493.59 mGycm. CTDIvol(s) 9.84 mGy. Dose reduction achieved using automated exposure control Comparison: None Findings: Lack of enteric contrast limits assessment of the GI tract. Considerable dense stool is seen throughout the colon, particularly distally. The appendix is not definitely demonstrated, but no findings to suggest acute appendicitis are evident. No evidence of diverticulosis or diverticulitis. The stomach is distended with gas. There is mild dilatation of the duodenum and mild duodenal wall thickening. No small bowel distention. No free or loculated intraperitoneal gas or fluid is evident. Lack of IV contrast limits assessment of solid organs. The gallbladder contains somewhat dense material which could represent sludge or milk of calcium bile. The liver, bile ducts, pancreas, spleen, adrenals, kidneys are all unremarkable. No pelvic mass or adenopathy. Uterus and adnexal structures appear unremarkable. The included lung bases are clear. The bones demonstrate degenerative spondylosis changes. There are degenerative changes of the bilateral hips There is thickening of the skin and subcutaneous fat overlying the sacrum and coccyx. There is suggestion of chronic appearing bone loss involving the proximal coccyx. Impression: Limited assessment of the GI tract, due to lack of enteric contrast demonstration There is dense stool throughout the colon. Correlate with any clinical history of constipation Evidence of retrococcygeal decubitus changes. There is also suggestion of underlying osseous erosion which appears chronic but the possibility of acute osteomyelitis should also be considered Distended stomach and duodenum, without evidence of downstream obstructive lesion. There is mild duodenal wall thickening, and the possibility of duodenitis or peptic ulcer disease should be considered. Incidental finding of degenerative changes of the lumbosacral spine and bilateral hips The CT scanner at [facility] is accredited by the [place] [employer] and the scans are performed using protocols designed to limit radiation exposure to as low as reasonably achievable to attain images of sufficient resolution adequate for diagnostic evaluation.
--- NOTE | 2019-02-24 14:09 | Diagnostic Imaging Report ---
Indication: Chest pain Technique: One view of the chest Comparison: 07/27/2018 Findings: Lungs are somewhat hyperinflated. The heart size is normal. The aorta is tortuous ectatic and calcified Impression: No acute process
--- NOTE | 2019-02-24 14:11 | NUR ---
ED Nurse Note: Reports given to BRADLEY Morales
--- NOTE | 2019-02-24 14:30 | NUR ---
NURSE NOTES Received patient from ER patient is awake and alert,no complaint of nausea or vomiting at this time,Will notify DR for admission orders.
--- NOTE | 2019-02-24 15:12 | Cardiac Electrophysiology PN ---
Subjective Subjective [id number] Objective Last 24 Hour Vital Signs Date Time Temp Pulse Resp B/P (MAP) Pulse Ox O2 Delivery O2 Flow Rate FiO2 02/24/19 14:11 98.9 72 19 127/97 96 Room Air 02/24/19 13:00 98.3 63 19 121/62 98 Room Air 02/24/19 11:25 62 21 Room Air 02/24/19 11:25 99.0 67 18 113/67 99 Room Air 02/24/19 11:14 99.0 62 21 137/76 (96) 98 Room Air Laboratory Tests Test 02/24/19 11:20 02/24/19 12:00 White Blood Count 5.4 K/UL (4.8-10.8) Red Blood Count 5.30 M/UL (4.20-5.40) Hemoglobin 14.7 G/DL (12.0-16.0) Hematocrit 44.7 % (37.0-47.0) Mean Corpuscular Volume 84 FL (80-99) Mean Corpuscular Hemoglobin 27.6 PG (27.0-31.0) Mean Corpuscular Hemoglobin Concent 32.8 G/DL (32.0-36.0) Red Cell Distribution Width 13.1 % (11.6-14.8) Platelet Count 216 K/UL (150-450) Mean Platelet Volume 5.6 FL (6.5-10.1) L Neutrophils (%) (Auto) 53.8 % (45.0-75.0) Lymphocytes (%) (Auto) 35.1 % (20.0-45.0) Monocytes (%) (Auto) 9.3 % (1.0-10.0) Eosinophils (%) (Auto) 0.7 % (0.0-3.0) Basophils (%) (Auto) 1.1 % (0.0-2.0) Sodium Level 136 MMOL/L (136-145) Potassium Level 3.8 MMOL/L (3.5-5.1) Chloride Level 99 MMOL/L (98-107) Carbon Dioxide Level 26 MMOL/L (21-32) Anion Gap 12 mmol/L (5-15) Blood Urea Nitrogen 13 mg/dL (7-18) Creatinine 0.5 MG/DL (0.55-1.30) L Estimat Glomerular Filtration Rate > 60 mL/min (>60) Glucose Level 79 MG/DL (74-106) Calcium Level 9.7 MG/DL (8.5-10.1) Total Bilirubin 0.6 MG/DL (0.2-1.0) Aspartate Amino Transf (AST/SGOT) 30 U/L (15-37) Alanine Aminotransferase (ALT/SGPT) 37 U/L (12-78) Alkaline Phosphatase 103 U/L (46-116) Total Creatine Kinase 48 U/L (26-308) Creatine Kinase MB 1.8 NG/ML (0.0-3.6) Creatine Kinase MB Relative Index 3.7 Troponin I 0.017 ng/mL (0.000-0.056) Total Protein 8.3 G/DL (6.4-8.2) H Albumin 4.1 G/DL (3.4-5.0) Globulin 4.2 g/dL Albumin/Globulin Ratio 1.0 (1.0-2.7) Urine Color Yellow Urine Appearance Slightly cloudy Urine pH 5 (4.5-8.0) Urine Specific [place] 1.030 (1.005-1.035) Urine Protein 2+ (NEGATIVE) H Urine Glucose (UA) Negative (NEGATIVE) Urine Ketones 4+ (NEGATIVE) H Urine Blood 4+ (NEGATIVE) H Urine Nitrite Negative (NEGATIVE) Urine Bilirubin 1+ (NEGATIVE) H Urine Ictotest Negative (NEGATIVE) Urine Urobilinogen 1 MG/DL (0.0-1.0) H Urine Leukocyte Esterase 3+ (NEGATIVE) H Urine RBC 5-10 /HPF (0 - 2) H Urine WBC 60-80 /HPF (0 - 2) H Urine Squamous Epithelial Cells Few /LPF (NONE/OCC) Urine Bacteria Few /HPF (NONE) Steven Jaime MD Feb 24, 2019 15:12
--- NOTE | 2019-02-24 16:45 | Consultation ---
DATE OF CONSULTATION: 02/24/2019 CARDIOLOGY CONSULTATION CONSULTING PHYSICIAN: Steven Jaime M.D. REFERRING PHYSICIAN: Yolis Delatorre M.D. REASON FOR CONSULTATION: Hypotension. HISTORY OF PRESENT ILLNESS: The patient is a 63-year-old lady with history of Guillain-Hope syndrome, paraplegia, decubitus ulcer, and encephalopathy, history of fibromyalgia, depression, as well as seizure disorder, ataxia, and gastroesophageal reflux disease, was brought in from [facility] for nausea, vomiting, and abdominal pain for the last several days. There was a concern for dehydration. The patient was admitted and a Cardiology consultation was obtained for further evaluation and management. REVIEW OF SYSTEMS: Review of systems was negative other than what was mentioned in the history of present illness. PAST MEDICAL HISTORY: As mentioned above. FAMILY HISTORY: Noncontributory. SOCIAL HISTORY: She lives in [place]. Does not smoke or drink alcohol. PHYSICAL EXAMINATION: VITAL SIGNS: Blood pressure 130/70, pulse is 62, respirations 18, and temperature is 99. HEAD AND NECK: Showed no JVD. LUNGS: Clear. CARDIOVASCULAR: Regular S1 and S2 with no gallop. ABDOMEN: Soft. EXTREMITIES: Paraplegic with no edema. LABORATORY DATA: Labs show white count of 5.5, hemoglobin of 14.7, hematocrit of 44.7, and platelet count of 216,000. Sodium 132, potassium 3.8, BUN of 13, creatinine 0.5, and glucose of 79. Troponin is negative. ASSESSMENT AND PLAN: 1. Nausea and vomiting, likely dehydration. Blood pressure currently is stable. Continue to watch the patient clinically. Her troponin is negative and she does not have any chest pain. 2. Nausea and vomiting. On IV fluids. 3. History of Guillain-Hope. 4. Decubitus ulcer. 5. Depression. 6. Seizure disorder. 7. Status post appendectomy. Thank you very much, Dr. Delatorre and Dr. Anderson, for allowing me to participate in the care of this patient. Please do not hesitate to contact me for any questions regarding my evaluation. Steven Jaime M.D. DR: JUNO JOB#: [id number] CC:
[2019-02-24] MEDS ORDERED: traMADol 50mg tab ORAL PRN (17:15)
[2019-02-24] MEDS ORDERED: Morphine Sulfate 2mg/ml Inj(IV/IM USE ONLY) IVP PRN (17:15)
[2019-02-24] MEDS ORDERED: Miralax 17gm pkt ORAL PRN (17:15)
[2019-02-24] MEDS ORDERED: HYDROcodone/Acetamin 5/325 tab ORAL PRN (17:15)
--- NOTE | 2019-02-24 18:30 | NUR ---
NURSE NOTES: Patient tolerate dinner ,no complaint of nausea no vomiting..No complaint of pain at this time.Call light within reach.
[2019-02-24] MEDS: Docusate 100mg cap ORAL SCH (19:23)
--- NOTE | 2019-02-24 19:40 | NUR ---
CASE MANAGEMENT: REVIEW 63Y/F BIBA FROM [facility] CC: PERSISTENT VOMITING X6DAYS . DEHYDRATION SI: DEHYDRATION . N/V T 99.0 HR 62 RR 21 BP 137/76 SAT 96% ROOM AIR UA: PROTEIN 2+ KETONES 4+ BLOOD 4+ BILIRUBIN 1+ LEUKOCYTE ESTERASE 3+ IS: NS IVF BOLUS X1 ZOFRAN IV X1 MORPHINE IV X1 CEFTRIAXONE IV X1 PATIENT ADMITTED TO MED/SURG UNIT 02/24/2019 DCP: PATIENT IS FROM [facility]
--- NOTE | 2019-02-24 19:45 | NUR ---
HAND-OFF: Report given to ashleigh HUERTA.
--- NOTE | 2019-02-24 19:57 | NUR ---
NURSE NOTES: PATIENT IN BED, AWAKE, ALERT, TALKING ON HER CELLPHONE. IV IN PLACE. NO COMPLAINTS OF PAIN AT THIS TIME. NO S/S DISTRESS NOTED. BED IN LOWEST POSITION, CALL LIGHT WITHIN REACH, BED ALARM ON, WILL CONTINUE TO MONITOR.
[2019-02-24 20:00] VITALS: BP 100/75
[2019-02-24] MEDS: TraZODone 100mg tab ORAL SCH (21:06)
[2019-02-24] MEDS: Heparin 5000 units/ml inj SUBQ SCH (21:09)
[2019-02-24] MEDS: Morphine Sulfate 2mg/ml Inj(IV/IM USE ONLY) IVP PRN (21:17)
[2019-02-25] VITALS (7 sets, daily range): BP systolic 91–117; BP diastolic 58–78
[2019-02-25 05:31] LABS: ANION GAP 9 mmol/L (5-15); BLOOD UREA NITROGEN 12 mg/dL (7-18); CALCIUM 9.2 MG/DL (8.5-10.1); CARBON DIOXIDE 25 MMOL/L (21-32); CHLORIDE 106 MMOL/L (98-107); CREATININE 0.6 MG/DL (0.55-1.30); POTASSIUM 3.3 MMOL/L (3.5-5.1); SODIUM 140 MMOL/L (136-145)
--- NOTE | 2019-02-25 05:33 | NUR ---
NURSE NOTES: Patient asleep, no distress, v/s stable.
[2019-02-25 05:38] LABS: HEMATOCRIT 39.1 % (37.0-47.0); MEAN CORPUSCULAR VOLUME 83 FL (80-99); PLATELET COUNT 190 K/UL (150-450); RED BLOOD COUNT 4.69 M/UL (4.20-5.40); RED CELL DISTRIBUTION WIDTH 13.2 % (11.6-14.8); WHITE BLOOD COUNT 5.1 K/UL (4.8-10.8)
--- NOTE | 2019-02-25 07:10 | NUR ---
NURSE NOTES:BEDSIDE ROUNDS WITH NIGHT RN(BRIONNA),PT ASLEEP,ROOM AIR,NO SIGN OF DISTRESS.
--- NOTE | 2019-02-25 07:26 | NUR ---
HAND-OFF: Report given to KINGS LARIOS RN.
[2019-02-25] MEDS: Heparin 5000 units/ml inj SUBQ SCH ×2 (08:30→21:21)
[2019-02-25] MEDS: Docusate 100mg cap ORAL SCH ×2 (08:31→17:24)
[2019-02-25] MEDS: Tamsulosin 0.4mg cap ORAL SCH (08:31)
[2019-02-25] MEDS: DULoxetine 30mg cap ORAL SCH (08:31)
[2019-02-25] MEDS: Vitamin B-12 500mcg tab ORAL SCH (08:32)
[2019-02-25] MEDS: cefTRIAXone 1 GM in D5W 55 ML IVPB SCH (09:00)
--- NOTE | 2019-02-25 09:00 | NUR ---
NURSE NOTES:ATTEMPTED TO REINSERT NEW IV,BUT PT.REFUSED SO WITH IVPB.STATED"DO IT LATER,I WANT TO SLEEP"NO C/O PAIN.
--- NOTE | 2019-02-25 13:00 | NUR ---
NURSE NOTES:PT.FINALLY AGREED FOR NEW IV ACCESS,#22 INSERTED ON RIGHT HAND.SEEN BY DENICE,NO EPISODE OF VOMITING,ABLE TO TOLERATE FLUID WELL.
--- NOTE | 2019-02-25 15:12 | Cardiac Electrophysiology PN ---
Assessment/Plan Assessment/Plan 1. Nausea and vomiting, likely dehydration. Blood pressure currently is stable. Her troponin is negative and she does not have any chest pain. ECG and echo both normal 2. Nausea and vomiting. On IV fluids. 3. History of Guillain-[place]. 4. Decubitus ulcer. 5. Depression. 6. Seizure disorder. 7. Status post appendectomy. ZAY RN Subjective Subjective Alert in NAD Objective Last 24 Hour Vital Signs Date Time Temp Pulse Resp B/P (MAP) Pulse Ox O2 Delivery O2 Flow Rate FiO2 02/25/19 12:00 103/65 02/25/19 12:00 97.7 69 17 111/63 (79) 97 02/25/19 07:46 Room Air 02/25/19 04:44 74 103/65 (78) 02/25/19 04:25 98.2 82 18 91/66 (74) 96 02/25/19 00:15 98.9 102 18 100/67 (78) 96 02/24/19 23:15 Room Air 02/24/19 21:47 98.9 02/24/19 20:00 99.5 81 18 100/75 (83) 97 02/24/19 18:00 117/73 02/24/19 16:07 Room Air Intake and Output 02/24/19 02/25/19 19:00 07:00 Intake Total 795 ml 990 ml Balance 795 ml 990 ml Intake Oral 240 ml 240 ml IV Total 555 ml 750 ml # Voids 2 2 # Bowel Movements 1 Laboratory Tests Test 02/25/19 05:11 White Blood Count 5.1 K/UL (4.8-10.8) Red Blood Count 4.69 M/UL (4.20-5.40) Hemoglobin 13.0 G/DL (12.0-16.0) Hematocrit 39.1 % (37.0-47.0) Mean Corpuscular Volume 83 FL (80-99) Mean Corpuscular Hemoglobin 27.8 PG (27.0-31.0) Mean Corpuscular Hemoglobin Concent 33.4 G/DL (32.0-36.0) Red Cell Distribution Width 13.2 % (11.6-14.8) Platelet Count 190 K/UL (150-450) Mean Platelet Volume 5.4 FL (6.5-10.1) L Neutrophils (%) (Auto) % (45.0-75.0) Lymphocytes (%) (Auto) % (20.0-45.0) Monocytes (%) (Auto) % (1.0-10.0) Eosinophils (%) (Auto) % (0.0-3.0) Basophils (%) (Auto) % (0.0-2.0) Differential Total Cells Counted 100 Neutrophils % (Manual) 24 % (45-75) L Lymphocytes % (Manual) 65 % (20-45) H Monocytes % (Manual) 10 % (1-10) Eosinophils % (Manual) 1 % (0-3) Basophils % (Manual) 0 % (0-2) Band Neutrophils 0 % (0-8) Platelet Estimate Adequate Platelet Morphology Normal Red Blood Cell Morphology Normal Sodium Level 140 MMOL/L (136-145) Potassium Level 3.3 MMOL/L (3.5-5.1) L Chloride Level 106 MMOL/L (98-107) Carbon Dioxide Level 25 MMOL/L (21-32) Anion Gap 9 mmol/L (5-15) Blood Urea Nitrogen 12 mg/dL (7-18) Creatinine 0.6 MG/DL (0.55-1.30) Estimat Glomerular Filtration Rate > 60 mL/min (>60) Glucose Level 120 MG/DL (74-106) H Calcium Level 9.2 MG/DL (8.5-10.1) Troponin I 0.004 ng/mL (0.000-0.056) Microbiology Date/Time Source Procedure Growth Status 02/24/19 12:00 Urine,Clean Catch Urine Culture - Preliminary NO GROWTH Resulted Objective HEAD AND NECK: Showed no JVD. LUNGS: Clear. CARDIOVASCULAR: Regular S1 and S2 with no gallop. ABDOMEN: Soft. EXTREMITIES: Paraplegic with no edema. Steven Jaime MD Feb 25, 2019 15:12
--- NOTE | 2019-02-25 16:00 | History and Physical Report ---
DATE OF ADMISSION: 02/24/2019 DATE AND TIME SEEN: On 02/25/2019 at 12 noon. CONSULTANTS: 1. Steven Jaime M.D. 2. Tereso Goetz M.D. CHIEF COMPLAINT: Persistent vomiting and dehydration. HISTORY OF PRESENT ILLNESS: This is a 63-year-old female from [facility], who presented to [facility] with history of persistent vomiting, was very weak and dehydrated. The patient diagnosed with the above and admitted to medical floor for further treatment. Currently, calm in bed, slight nausea, no complaint. REVIEW OF SYSTEMS: No chest pain. Slight short of breath. Slight nausea and vomiting. No diarrhea. PAST MEDICAL HISTORY: Includes seizure, anemia, fibromyalgia, and constipation. PAST SURGICAL HISTORY: Stomach and foot. MEDICATIONS: Include potassium, cyanocobalamin, Dulcolax, ceftriaxone, heparin, trazodone, baclofen, docusate sodium, and Zofran. ALLERGIES: Denies. SOCIAL HISTORY: No smoking. No alcohol. No intravenous drug abuse. FAMILY HISTORY: Noncontributory. PHYSICAL EXAMINATION: GENERAL: Calm in bed, oriented x2, in no acute distress. VITAL SIGNS: Temperature is 98 degrees, pulse 82, respirations 18, blood pressure 91/66. CARDIOVASCULAR: No murmur. LUNGS: Distant and clear. ABDOMEN: Positive bowel sounds. Soft, nontender, nondistended. EXTREMITIES: No cyanosis, clubbing, or edema. NEUROLOGIC: The patient moves all extremities, slightly weak. LABORATORY AND DIAGNOSTIC DATA: Labs at this time show CBC is normal. BMP shows potassium 3.3, glucose 120. ASSESSMENT: 1. Persistent vomiting. 2. Dehydration. 3. Seizure. 4. Fibromyalgia. 5. Anemia. 6. Constipation. PLAN: 1. GI followup. 2. NPO, IV fluids. 3. Advance diet as tolerated. 4. Seizure control. 5. Resume home medications. 6. PT and dietary evaluation. 7. Check laboratories in the morning. 8. Continue to follow this patient. Elijah Aguilar D.O. DR: ROLANDA/DEAN JOB#: [id number] CC:
--- NOTE | 2019-02-25 17:10 | NUR ---
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
--- NOTE | 2019-02-25 17:20 | Consultation ---
History of Present Illness General Chief Complaint: Abdominal Pain Present Illness Allergies: Coded Allergies: No Known Allergies (Verified , 04/10/08) Medication History Scheduled Baclofen* (Baclofen*), 10 MG ORAL THREE TIMES A DAY, (Reported) Calcium Carbonate/Vitamin D3 ([place] 500+D Tablet), 1 EACH PO TID, (Reported) Cholecalciferol (Vitamin D3)* (Vitamin D*), 2,000 UNITS ORAL DAILY, (Reported) Clonazepam* (Klonopin*), 1 MG ORAL BID, (Reported) Clonidine Hcl* (Catapres*), 0.1 MG ORAL EVERY 6 HOURS, (Reported) Cyanocobalamin (Vitamin B-12)* (Vitamin B-12*), 1,000 MCG ORAL DAILY, (Reported) Docusate Sodium (Doc-Q-Lace), 100 MG ORAL BID, (Reported) Duloxetine Hcl* (Cymbalta*), 60 MG ORAL DAILY, (Reported) Gabapentin* (Gabapentin*), 900 MG ORAL THREE TIMES A DAY, (Reported) Hydrocortisone (Anucort-Hc), 1 SUPP RECTAL TWICE A DAY Levetiracetam (Keppra), 500 MG ORAL BID, (Reported) Magnesium Hydroxide* (Milk Of Magnesia*), ML ORAL DAILY, (Reported) Midodrine* (Proamatine*), 10 MG ORAL DAILY, (Reported) Multivitamin (Multi Vitamin Daily), 1 TAB ORAL DAILY, (Reported) Nabumetone* (Relafen*), 750 MG PO BID, (Reported) Omeprazole (Omeprazole), 10 MG ORAL DAILY, (Reported) Pantoprazole* (Protonix*), 40 MG ORAL DAILY Prochlorperazine (Prochlorperazine), 10 MG RECTAL EVERY 12 HOURS, (Reported) Ranitidine Hcl* (Zantac*), 150 MG ORAL QHS Tamsulosin HCl (Flomax), 0.4 MG ORAL DAILY, (Reported) Tolterodine Tartrate* (Detrol*), 2 MG ORAL TWICE A DAY, (Reported) Trazodone* (Trazodone*), 100 MG ORAL BEDTIME, (Reported) Venlafaxine Hcl (Venlafaxine Hcl), Unknown Dose ORAL BID, (Reported) Vit D3/Folic Acid/B2/B6/B12 (Folgard Tablet), 1 EACH PO TID, (Reported) Scheduled PRN Hydrocodone Bit/Acetaminophen 5-325* ([place] 5-325 Tablet*), 1 TAB ORAL Q4H PRN for For Pain, (Reported) Polyethylene Glycol 3350* (Miralax*), 17 GM ORAL DAILYPRN PRN for Constipation Tramadol Hcl* (Ultram*), 50 MG ORAL BID PRN for For Pain, (Reported) Miscellaneous Medications Bisacodyl (Dulcolax), 10 MG RC, (Reported) Loratadine (Loratadine), 10 MG PO, (Reported) Sennosides (Senna), 8.6 MG PO, (Reported) Patient History Healthcare decision maker Resuscitation status Advanced Directive on File Yes Physical Exam Last 24 Hour Vital Signs Date Time Temp Pulse Resp B/P (MAP) Pulse Ox O2 Delivery O2 Flow Rate FiO2 02/25/19 12:00 103/65 02/25/19 12:00 97.7 69 17 111/63 (79) 97 02/25/19 07:46 Room Air 02/25/19 04:44 74 103/65 (78) 02/25/19 04:25 98.2 82 18 91/66 (74) 96 02/25/19 00:15 98.9 102 18 100/67 (78) 96 02/24/19 23:15 Room Air 02/24/19 21:47 98.9 02/24/19 20:00 99.5 81 18 100/75 (83) 97 02/24/19 18:00 117/73 Intake and Output 02/24/19 02/25/19 19:00 07:00 Intake Total 795 ml 990 ml Balance 795 ml 990 ml Intake Oral 240 ml 240 ml IV Total 555 ml 750 ml # Voids 2 2 # Bowel Movements 1 Laboratory Tests Test 02/25/19 05:11 White Blood Count 5.1 K/UL (4.8-10.8) Red Blood Count 4.69 M/UL (4.20-5.40) Hemoglobin 13.0 G/DL (12.0-16.0) Hematocrit 39.1 % (37.0-47.0) Mean Corpuscular Volume 83 FL (80-99) Mean Corpuscular Hemoglobin 27.8 PG (27.0-31.0) Mean Corpuscular Hemoglobin Concent 33.4 G/DL (32.0-36.0) Red Cell Distribution Width 13.2 % (11.6-14.8) Platelet Count 190 K/UL (150-450) Mean Platelet Volume 5.4 FL (6.5-10.1) L Neutrophils (%) (Auto) % (45.0-75.0) Lymphocytes (%) (Auto) % (20.0-45.0) Monocytes (%) (Auto) % (1.0-10.0) Eosinophils (%) (Auto) % (0.0-3.0) Basophils (%) (Auto) % (0.0-2.0) Differential Total Cells Counted 100 Neutrophils % (Manual) 24 % (45-75) L Lymphocytes % (Manual) 65 % (20-45) H Monocytes % (Manual) 10 % (1-10) Eosinophils % (Manual) 1 % (0-3) Basophils % (Manual) 0 % (0-2) Band Neutrophils 0 % (0-8) Platelet Estimate Adequate Platelet Morphology Normal Red Blood Cell Morphology Normal Sodium Level 140 MMOL/L (136-145) Potassium Level 3.3 MMOL/L (3.5-5.1) L Chloride Level 106 MMOL/L (98-107) Carbon Dioxide Level 25 MMOL/L (21-32) Anion Gap 9 mmol/L (5-15) Blood Urea Nitrogen 12 mg/dL (7-18) Creatinine 0.6 MG/DL (0.55-1.30) Estimat Glomerular Filtration Rate > 60 mL/min (>60) Glucose Level 120 MG/DL (74-106) H Calcium Level 9.2 MG/DL (8.5-10.1) Troponin I 0.004 ng/mL (0.000-0.056) Height (Feet): 5 Height (Inches): 8.00 Weight (Pounds): 120 Medications Current Medications Medications (Trade) Dose Ordered Sig/Elisa Route PRN Reason Start Time Stop Time Status Last Admin Dose Admin Acetaminophen/ Hydrocodone Bitart ([place] 5/325) 1 tab Q4H PRN ORAL MODERATE PAIN 02/24/19 17:15 03/03/19 17:14 Baclofen (Lioresal) 10 mg THREE TIMES A DAY ORAL 02/24/19 18:00 8/18/19 17:59 02/25/19 12:27 Ceftriaxone Sodium 1 gm/ Dextrose 55 ml @ 110 mls/hr DAILY IVPB 02/25/19 09:00 03/04/19 08:59 Clonazepam (KlonoPIN) 1 mg BID ORAL 02/24/19 18:00 03/03/19 17:59 02/25/19 08:30 Clonidine HCl (Catapres Tab) 0.1 mg EVERY 6 HOURS ORAL 02/24/19 18:00 03/26/19 17:59 Cyanocobalamin (Vitamin B-12) 1,000 mcg DAILY ORAL 02/25/19 09:00 03/27/19 08:59 02/25/19 08:32 Docusate Sodium (Colace) 100 mg BID ORAL 02/24/19 18:00 03/26/19 17:59 02/25/19 08:31 Duloxetine HCl (Cymbalta) 60 mg DAILY ORAL 02/25/19 09:00 03/27/19 08:59 02/25/19 08:31 Gabapentin (Neurontin) 900 mg THREE TIMES A DAY ORAL 02/24/19 18:00 03/26/19 17:59 02/25/19 12:28 Heparin Sodium (Porcine) (Heparin 5000 units/ml) 5,000 units EVERY 12 HOURS SUBQ 02/24/19 21:00 03/26/19 20:59 02/25/19 08:30 Levetiracetam (Keppra) 500 mg Q12HR ORAL 02/24/19 21:00 03/26/19 20:59 02/25/19 08:31 Morphine Sulfate (Morphine Sulfate) 1 mg Q6H PRN IVP SEVERE PAIN 02/24/19 17:30 03/03/19 17:14 02/24/19 21:17 Multivitamins (Multivitamins) 1 tab DAILY ORAL 02/25/19 09:00 03/27/19 08:59 02/25/19 08:31 Ondansetron HCl (Zofran) 4 mg Q4H PRN IVP Nausea & Vomiting 02/24/19 17:15 03/26/19 17:14 Pantoprazole (Protonix) 40 mg DAILY ORAL 02/25/19 09:00 03/27/19 08:59 02/25/19 08:31 Polyethylene Glycol (Miralax) 17 gm DAILYPRN PRN ORAL Constipation 02/24/19 17:15 03/26/19 17:14 Sodium Chloride 1,000 ml @ 75 mls/hr [id number] IV 02/24/19 17:15 03/26/19 17:14 02/24/19 19:27 Tamsulosin HCl (Flomax) 0.4 mg DAILY ORAL 02/25/19 09:00 03/27/19 08:59 02/25/19 08:31 Tramadol HCl (Ultram) 50 mg BIDPRN PRN ORAL mild pain 02/24/19 17:15 03/03/19 17:14 Trazodone HCl (Desyrel) 100 mg BEDTIME ORAL 02/24/19 21:00 03/26/19 20:59 02/24/19 21:06 Assessment/Plan Assessment/Plan: Hematology Consult DOS: RFC: Anemia, progressive REQ MD: Yolis Delatorre ID 63-year-old female well known to me from prior 2018 admission, with history of neuroMascular 9gbs0 d/s andd edbound and wheelchair bound, who presented with worsening pain on her back and on the right hip. She denies any loss of consciousness. and remained AOX3 in the ER. She is actively using cocaine. Noted to have nasuea and vomiting on admission. Patient is not verbal at the time of evaluation. On abx at this time for decub ulceration stage iv, has been ongoing I last saw her back in 2018 PAST MEDICAL HISTORY: Musculoskeletal neurodegenerative disorder, reportedly Guillan Wendell syndrome, fibromyalgia, anemia, and history of drug abuse. PAST SURGICAL HISTORY: Denies. ROs: limited as above ALLERGIES: NKDA. MEDICATIONS: Current home medication including, but not limited to Zosyn and Vanco. SOCIAL HISTORY: ( per prior documentation ) The patient denies history of alcohol abuse or tobacco use. Positive for drug abuse, cocaine. FAMILY HISTORY: Reviewed. Noncontributory. PHYSICAL EXAMINATION: Vitals: reviewed HEAD AND NECK: Atraumatic and normocephalic. CHEST: Clear to auscultation. LUNGS: No wheezing. No crackles. ABDOMEN: Soft. No organomegaly. Bowel sounds are normal. MUSCULOSKELETAL: Atrophied musculatures. positive for Decubitus wound NEUROLOGIC: The patient is awake, not verbal and lethargic LABORATORY AND DIAGNOSTIC DATA: Laboratory Tests reviewed Imaging: noted ASSESSMENT AND PLAN: 1. Anemia of chronic disease - hgb lower potentially related to ivf --> anemia panel has been ordered --> transfuse if hgb less than 7 --> hgb electrophoresis reviewed and is negative for m-spike, signficantly abnml bands --> no e/o hemolysis is noted --> labs reviewed from prior admission 2. Historical Leukocytosis with sepsis currently has improved on iv abx(hx of uti on prior admission) --> smear reviewed, no abnmls significant that are noted --> on abx and should improve on them --> id has been consulted 3. Decubitus wound --> wound care recs 4. UTI- HCA 2. Neuromuscular disorder - wheelchair bound - baseline. 3. Neurogenic bladder. 4. Psychiatric disorder. 5. UTI. 6. Seizure disorder (questionable). Greatly appreciate consultation! John Anderson MD Feb 25, 2019 17:20
[2019-02-25] MEDS ORDERED: Sorbitol Solution UD 30ml ORAL SCH (17:45)
--- NOTE | 2019-02-25 19:10 | NUR ---
HAND-OFF: Report given to .BRIONNA HUERTA.PT.STABLE.
--- NOTE | 2019-02-25 19:32 | NUR ---
NURSE NOTES: PATIENT IN BED, ASLEEP. IV IN PLACE, RUNNING IV FLUIDS. NO COMPLAINTS OF PAIN AT THIS TIME. NO S/S RESPIRATORY DISTRESS NOTED. BED IN LOWEST POSITION, CALL LIGHT WITHIN REACH, BED ALARM ON, WILL CONTINUE TO MONITOR.
[2019-02-25] MEDS: TraZODone 100mg tab ORAL SCH (21:20)
--- NOTE | 2019-02-25 22:00 | Consultation ---
DATE OF CONSULTATION: 02/25/2019 GASTROENTEROLOGY CONSULTATION CONSULTING PHYSICIAN: Raymundo Nazario M.D. REFERRING PHYSICIANS: 1. Yolis Delatorre M.D. 2. Elijah Aguilar D.O. CHIEF COMPLAINT: I was asked to see this patient by Dr. Yolis Delatorre and Dr. Elijah Aguilar for evaluation of abdominal symptoms. 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 The patient states that she has had intermittent vomiting and midabdominal pain for about 2 months. She has had some degree of constipation and this has been seen on CT scan. There was also some degree of vague abnormality seen in the duodenal wall of unclear significance. The patient has had endoscopy and colonoscopy perhaps about 5 years ago. She denies any hematemesis or melena, PAST MEDICAL HISTORY: History of Guillain-Keno syndrome, paraplegia, decubitus ulcerations, history of fibromyalgia, depression. FAMILY HISTORY: Noncontributory. SOCIAL HISTORY: The patient is a long-term prison resident. She does not smoke or drink alcohol. MEDICATIONS: See the chart list for details. REVIEW OF SYSTEMS: Negative. PHYSICAL EXAMINATION: GENERAL: A debilitated woman, seen in her room. HEENT: Normocephalic and atraumatic. The sclerae were anicteric. Oropharynx is clear. NECK: Supple. CHEST: Clear to auscultation. CARDIOVASCULAR: Revealed regular rate. ABDOMEN: Soft with audible bowel sounds. EXTREMITIES: Revealed some contractures. LABORATORY DATA: Noted. 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 The patient should therefore undergo an endoscopy to evaluate the duodenal area. The indications, risks, and alternatives will be explained. Informed consent will be obtained. In the meantime, the patient should to be placed on proton pump inhibitor and also she will receive a laxative regimen for the constipation finding. RECOMMENDATIONS: Per above discussion and per orders written in the chart. Thank you for asking me to participate in care of this patient. Raymundo Nazario M.D. DR: Gissel JOB#: [id number] CC:
[2019-02-26] VITALS: BP 110/60
--- NOTE | 2019-02-26 02:46 | NUR ---
NURSE NOTES: Received report from BRADLEY Camacho. Patient is in bed sleeping. Right hand IV is intact and running NS at 75 ml/hr. Patient is room air with no signs of distress or SOB. Bed is in lowest position with call light in reach and bed alarm on. Will continue to monitor the patient.
--- NOTE | 2019-02-26 02:56 | NUR ---
HAND-OFF: Report given to NAN WING RN. PATIENT IN STABLE CONDITION. ASLEEP.
[2019-02-26 04:00] VITALS: BP 117/65
[2019-02-26 06:22] LABS: HEMATOCRIT 35.5 % (37.0-47.0); HEMOGLOBIN 11.5 G/DL (12.0-16.0); MEAN CORPUSCULAR VOLUME 86 FL (80-99); PLATELET COUNT 169 K/UL (150-450); RED BLOOD COUNT 4.15 M/UL (4.20-5.40); RED CELL DISTRIBUTION WIDTH 13.6 % (11.6-14.8); WHITE BLOOD COUNT 5.3 K/UL (4.8-10.8)
[2019-02-26 07:07] LABS: ANION GAP 7 mmol/L (5-15); BLOOD UREA NITROGEN 9 mg/dL (7-18); CARBON DIOXIDE 25 MMOL/L (21-32); CHLORIDE 110 MMOL/L (98-107); CREATININE 0.5 MG/DL (0.55-1.30); SODIUM 142 MMOL/L (136-145)
--- NOTE | 2019-02-26 07:41 | NUR ---
HAND-OFF: Report given to BRADLEY Soliman.
--- NOTE | 2019-02-26 07:58 | NUR ---
nurse notes received patient in bed, patient awake, alert, oriented x4, no sign of distress, Denies pain or discomfort, on fall precaution observed and maintained, plan of care was discussed verbalized understanding, 4 P;s in progress call light w/n edilma luke rn
[2019-02-26 08:00] VITALS: BP 138/82
[2019-02-26] MEDS: Tamsulosin 0.4mg cap ORAL SCH (08:40)
[2019-02-26] MEDS: cefTRIAXone 1 GM in D5W 55 ML IVPB SCH (08:40)
[2019-02-26] MEDS: DULoxetine 30mg cap ORAL SCH (08:41)
[2019-02-26] MEDS: Docusate 100mg cap ORAL SCH ×2 (08:41→17:25)
[2019-02-26] MEDS: Vitamin B-12 500mcg tab ORAL SCH (08:41)
[2019-02-26] MEDS: Heparin 5000 units/ml inj SUBQ SCH ×2 (08:47→20:27)
[2019-02-26] MEDS: Morphine Sulfate 2mg/ml Inj(IV/IM USE ONLY) IVP PRN ×2 (08:53→17:32)
--- NOTE | 2019-02-26 09:18 | General Progress Note ---
Assessment/Plan Problem List: (1) Dehydration ICD Codes: E86.0 - Dehydration SNOMED: 74202609 (2) Seizure ICD Codes: R56.9 - Unspecified convulsions SNOMED: 09754435 (3) Anemia ICD Codes: D64.9 - Anemia, unspecified SNOMED: 779631189 (4) Fibromyalgia ICD Codes: M79.7 - Fibromyalgia SNOMED: 44407418, 32231304 (5) Abdominal pain ICD Codes: R10.9 - Unspecified abdominal pain SNOMED: 94589050 (6) Chronic constipation ICD Codes: K59.00 - Constipation, unspecified SNOMED: 904408722 (7) Persistent vomiting ICD Codes: R11.10 - Vomiting, unspecified SNOMED: 382899733 Status: stable, progressing Assessment/Plan: pt diet abx prn cardio gi f/u cbc bmp am Subjective Constitutional: Reports: weakness Allergies: Coded Allergies: No Known Allergies (Verified , 04/10/08) All Systems: reviewed and negative except above Subjective sleepy calm Objective Last 24 Hour Vital Signs Date Time Temp Pulse Resp B/P (MAP) Pulse Ox O2 Delivery O2 Flow Rate FiO2 02/26/19 08:00 98.6 53 24 138/82 (100) 97 02/26/19 06:00 133/83 02/26/19 04:00 98.8 68 18 117/65 (82) 97 02/26/19 00:00 98.6 98 18 110/60 (77) 98 02/25/19 21:51 Room Air 02/25/19 20:00 98.3 105 18 109/58 (75) 98 02/25/19 18:00 103/65 02/25/19 17:25 103/65 02/25/19 16:00 97.3 69 18 117/78 (91) 96 02/25/19 12:00 103/65 02/25/19 12:00 97.7 69 17 111/63 (79) 97 Intake and Output 02/25/19 02/26/19 18:59 06:59 Intake Total 1205 ml 675 ml Balance 1205 ml 675 ml Intake Oral 980 ml IV Total 225 ml 675 ml # Voids 2 4 # Bowel Movements 2 Laboratory Tests 02/26/19 05:30: White Blood Count 5.3, Red Blood Count 4.15L, Hemoglobin 11.5L, Hematocrit 35.5L , Mean Corpuscular Volume 86, Mean Corpuscular Hemoglobin 27.8, Mean Corpuscular Hemoglobin Concent 32.5, Red Cell Distribution Width 13.6, Platelet Count 169, Mean Platelet Volume 5.6L, Neutrophils (%) (Auto) , Lymphocytes (%) ( Auto) , Monocytes (%) (Auto) , Eosinophils (%) (Auto) , Basophils (%) (Auto) , Differential Total Cells Counted 100, Neutrophils % (Manual) 32L, Lymphocytes % (Manual) 54H, Monocytes % (Manual) 13H, Eosinophils % (Manual) 1, Basophils % ( Manual) 0, Band Neutrophils 0, Platelet Estimate Adequate, Platelet Morphology Normal, Red Blood Cell Morphology Normal, Sodium Level 142, Potassium Level 4.0 , Chloride Level 110H, Carbon Dioxide Level 25, Anion Gap 7, Blood Urea Nitrogen 9, Creatinine 0.5L, Estimat Glomerular Filtration Rate > 60, Glucose Level 95, Calcium Level 9.0 Height (Feet): 5 Height (Inches): 8.00 Weight (Pounds): 120 General Appearance: lethargic EENT: normal ENT inspection Neck: normal alignment Cardiovascular: normal peripheral pulses, normal rate, regular rhythm Respiratory/Chest: chest wall non-tender, lungs clear, normal breath sounds Abdomen: normal bowel sounds, non tender, soft Extremities: normal inspection Edema: no edema noted Arm (L), no edema noted Arm (R), no edema noted Leg (L), no edema noted Leg (R), no edema noted Pedal (L), no edema noted Pedal (R), no edema noted Generalized Neurologic: motor weakness Skin: normal pigmentation, warm/dry Elijah Aguilar DO Feb 26, 2019 09:17
[2019-02-26 11:45] VITALS: BP 121/65
--- NOTE | 2019-02-26 13:09 | Cardiology Report ---
APPROVED REPORT EKG Measurement Heart [id number] Normal sinus rhythm Normal ECG
--- NOTE | 2019-02-26 13:29 | Cardiac Electrophysiology PN ---
Assessment/Plan Assessment/Plan 1. Nausea and vomiting, likely dehydration. Blood pressure currently is stable. Her troponin is negative and she does not have any chest pain. ECG and echo both normal 2. Nausea and vomiting. On IV fluids. 3. History of Guillain-[place]. 4. Decubitus ulcer. 5. Depression. 6. Seizure disorder. 7. Status post appendectomy. ZAY RN Subjective Subjective Alert in NAD. No CP or SOB Objective Last 24 Hour Vital Signs Date Time Temp Pulse Resp B/P (MAP) Pulse Ox O2 Delivery O2 Flow Rate FiO2 02/26/19 12:00 121/65 02/26/19 11:54 121/65 02/26/19 11:45 98.5 69 16 121/65 (83) 97 02/26/19 09:33 Room Air 02/26/19 08:00 98.6 53 24 138/82 (100) 97 02/26/19 06:00 133/83 02/26/19 04:00 98.8 68 18 117/65 (82) 97 02/26/19 00:00 98.6 98 18 110/60 (77) 98 02/25/19 21:51 Room Air 02/25/19 20:00 98.3 105 18 109/58 (75) 98 02/25/19 18:00 103/65 02/25/19 17:25 103/65 02/25/19 16:00 97.3 69 18 117/78 (91) 96 Intake and Output 02/25/19 02/26/19 19:00 07:00 Intake Total 1205 ml 750 ml Balance 1205 ml 750 ml Intake Oral 980 ml IV Total 225 ml 750 ml # Voids 2 4 # Bowel Movements 2 Laboratory Tests Test 02/26/19 05:30 White Blood Count 5.3 K/UL (4.8-10.8) Red Blood Count 4.15 M/UL (4.20-5.40) L Hemoglobin 11.5 G/DL (12.0-16.0) L Hematocrit 35.5 % (37.0-47.0) L Mean Corpuscular Volume 86 FL (80-99) Mean Corpuscular Hemoglobin 27.8 PG (27.0-31.0) Mean Corpuscular Hemoglobin Concent 32.5 G/DL (32.0-36.0) Red Cell Distribution Width 13.6 % (11.6-14.8) Platelet Count 169 K/UL (150-450) Mean Platelet Volume 5.6 FL (6.5-10.1) L Neutrophils (%) (Auto) % (45.0-75.0) Lymphocytes (%) (Auto) % (20.0-45.0) Monocytes (%) (Auto) % (1.0-10.0) Eosinophils (%) (Auto) % (0.0-3.0) Basophils (%) (Auto) % (0.0-2.0) Differential Total Cells Counted 100 Neutrophils % (Manual) 32 % (45-75) L Lymphocytes % (Manual) 54 % (20-45) H Monocytes % (Manual) 13 % (1-10) H Eosinophils % (Manual) 1 % (0-3) Basophils % (Manual) 0 % (0-2) Band Neutrophils 0 % (0-8) Platelet Estimate Adequate Platelet Morphology Normal Red Blood Cell Morphology Normal Sodium Level 142 MMOL/L (136-145) Potassium Level 4.0 MMOL/L (3.5-5.1) Chloride Level 110 MMOL/L (98-107) H Carbon Dioxide Level 25 MMOL/L (21-32) Anion Gap 7 mmol/L (5-15) Blood Urea Nitrogen 9 mg/dL (7-18) Creatinine 0.5 MG/DL (0.55-1.30) L Estimat Glomerular Filtration Rate > 60 mL/min (>60) Glucose Level 95 MG/DL (74-106) Calcium Level 9.0 MG/DL (8.5-10.1) Microbiology Date/Time Source Procedure Growth Status 02/24/19 12:50 Nasal Nares MRSA Culture - Final NO METHICILLIN RESISTANT STAPH AUREUS... Complete 02/24/19 12:00 Urine,Clean Catch Urine Culture - Final NO GROWTH AFTER 48 HOURS Complete 02/24/19 12:50 Rectum VRE Culture - Final NO VANCOMYCIN RESISTANT ENTEROCOCCUS ... Complete Objective HEAD AND NECK: No JVD. LUNGS: Clear. CARDIOVASCULAR: Regular S1 and S2 with no gallop. ABDOMEN: Soft. EXTREMITIES: Paraplegic with no edema. Steven Jaime MD Feb 26, 2019 13:29
--- NOTE | 2019-02-26 14:28 | Hematology/Onc Progress Note ---
Assessment/Plan Assessment/Plan ASSESSMENT AND PLAN: 1. Anemia of chronic disease - hgb lower potentially related to ivf --> anemia panel has been ordered - results pedning --> transfuse if hgb less than 7 --> hgb electrophoresis reviewed and is negative for m-spike, significantly abnml bands --> no e/o hemolysis is noted --> labs reviewed from prior admission 2. Historical Leukocytosis with sepsis currently has improved on iv abx(hx of uti on prior admission) --> smear reviewed, no abnmls significant that are noted --> on abx and should improve on them --> id has been consulted --> urine cs, vre, and mrsa all negative 3. Decubitus wound --> wound care recs 4. UTI- HCA 2. Neuromuscular disorder - wheelchair bound - baseline. 3. Neurogenic bladder. 4. Psychiatric disorder. 5. UTI. 6. Seizure disorder (questionable). Greatly appreciate consultation! Subjective Hematologic/Lymphatic: Reports: anemia Allergies: Coded Allergies: No Known Allergies (Verified , 04/10/08) All Systems: reviewed and negative except above Subjective 02/26: awake and alert, no sign of distress, denies pain or discomfort, hgb dropped from 13 to 11.5 overnight, urine cx negative, vre and mrsa negative Objective Objective Current Medications Medications (Trade) Dose Ordered Sig/Elisa Route PRN Reason Start Time Stop Time Status Last Admin Dose Admin Acetaminophen/ Hydrocodone Bitart ([place] 5/325) 1 tab Q4H PRN ORAL MODERATE PAIN 02/24/19 17:15 03/03/19 17:14 02/26/19 11:58 Baclofen (Lioresal) 10 mg THREE TIMES A DAY ORAL 02/24/19 18:00 03/26/19 17:59 02/26/19 12:01 Ceftriaxone Sodium 1 gm/ Dextrose 55 ml @ 110 mls/hr DAILY IVPB 02/25/19 09:00 03/04/19 08:59 02/26/19 08:40 Clonazepam (KlonoPIN) 1 mg BID ORAL 02/24/19 18:00 03/03/19 17:59 02/26/19 08:41 Clonidine HCl (Catapres Tab) 0.1 mg EVERY 6 HOURS ORAL 02/25/19 18:00 03/26/19 17:59 02/26/19 12:00 Cyanocobalamin (Vitamin B-12) 1,000 mcg DAILY ORAL 02/25/19 09:00 03/27/19 08:59 02/26/19 08:41 Docusate Sodium (Colace) 100 mg BID ORAL 02/24/19 18:00 03/26/19 17:59 02/26/19 08:41 Duloxetine HCl (Cymbalta) 60 mg DAILY ORAL 02/25/19 09:00 03/27/19 08:59 02/26/19 08:41 Gabapentin (Neurontin) 900 mg THREE TIMES A DAY ORAL 02/24/19 18:00 03/26/19 17:59 02/26/19 12:00 Heparin Sodium (Porcine) (Heparin 5000 units/ml) 5,000 units EVERY 12 HOURS SUBQ 02/24/19 21:00 03/26/19 20:59 02/26/19 08:47 Levetiracetam (Keppra) 500 mg Q12HR ORAL 02/24/19 21:00 03/26/19 20:59 02/26/19 08:41 Morphine Sulfate (Morphine Sulfate) 1 mg Q6H PRN IVP SEVERE PAIN 02/24/19 17:30 03/03/19 17:14 02/26/19 08:53 Multivitamins (Multivitamins) 1 tab DAILY ORAL 02/25/19 09:00 03/27/19 08:59 02/26/19 08:41 Ondansetron HCl (Zofran) 4 mg Q4H PRN IVP Nausea & Vomiting 02/24/19 17:15 03/26/19 17:14 Pantoprazole (Protonix) 40 mg DAILY ORAL 02/25/19 09:00 03/27/19 08:59 02/26/19 08:41 Polyethylene Glycol (Miralax) 17 gm DAILYPRN PRN ORAL Constipation 02/24/19 17:15 03/26/19 17:14 Sodium Chloride 1,000 ml @ 75 mls/hr [id number] IV 02/24/19 17:15 03/26/19 17:14 02/26/19 08:56 Tamsulosin HCl (Flomax) 0.4 mg DAILY ORAL 02/25/19 09:00 03/27/19 08:59 02/26/19 08:40 Tramadol HCl (Ultram) 50 mg BIDPRN PRN ORAL mild pain 02/24/19 17:15 03/03/19 17:14 Trazodone HCl (Desyrel) 100 mg BEDTIME ORAL 02/24/19 21:00 03/26/19 20:59 02/25/19 21:20 Last 24 Hour Vital Signs Date Time Temp Pulse Resp B/P (MAP) Pulse Ox O2 Delivery O2 Flow Rate FiO2 02/26/19 12:00 121/65 02/26/19 11:54 121/65 02/26/19 11:45 98.5 69 16 121/65 (83) 97 02/26/19 09:33 Room Air 02/26/19 08:00 98.6 53 24 138/82 (100) 97 02/26/19 06:00 133/83 02/26/19 04:00 98.8 68 18 117/65 (82) 97 02/26/19 00:00 98.6 98 18 110/60 (77) 98 02/25/19 21:51 Room Air 02/25/19 20:00 98.3 105 18 109/58 (75) 98 02/25/19 18:00 103/65 02/25/19 17:25 103/65 02/25/19 16:00 97.3 69 18 117/78 (91) 96 02/25/19 12:00 103/65 02/25/19 12:00 97.7 69 17 111/63 (79) 97 02/25/19 07:46 Room Air 02/25/19 04:44 74 103/65 (78) 02/25/19 04:25 98.2 82 18 91/66 (74) 96 02/25/19 00:15 98.9 102 18 100/67 (78) 96 02/24/19 23:15 Room Air 02/24/19 21:47 98.9 02/24/19 20:00 99.5 81 18 100/75 (83) 97 02/24/19 18:00 117/73 02/24/19 16:07 Room Air Intake and Output 02/25/19 02/26/19 19:00 07:00 Intake Total 1205 ml 750 ml Balance 1205 ml 750 ml Intake Oral 980 ml IV Total 225 ml 750 ml # Voids 2 4 # Bowel Movements 2 Labs Test 02/24/19 11:20 02/24/19 12:00 02/25/19 05:11 02/26/19 05:30 White Blood Count 5.4 K/UL (4.8-10.8) 5.1 K/UL (4.8-10.8) 5.3 K/UL (4.8-10.8) Red Blood Count 5.30 M/UL (4.20-5.40) 4.69 M/UL (4.20-5.40) 4.15 M/UL (4.20-5.40) Hemoglobin 14.7 G/DL (12.0-16.0) 13.0 G/DL (12.0-16.0) 11.5 G/DL (12.0-16.0) Hematocrit 44.7 % (37.0-47.0) 39.1 % (37.0-47.0) 35.5 % (37.0-47.0) Mean Corpuscular Volume 84 FL (80-99) 83 FL (80-99) 86 FL (80-99) Mean Corpuscular Hemoglobin 27.6 PG (27.0-31.0) 27.8 PG (27.0-31.0) 27.8 PG (27.0-31.0) Mean Corpuscular Hemoglobin Concent 32.8 G/DL (32.0-36.0) 33.4 G/DL (32.0-36.0) 32.5 G/DL (32.0-36.0) Red Cell Distribution Width 13.1 % (11.6-14.8) 13.2 % (11.6-14.8) 13.6 % (11.6-14.8) Platelet Count 216 K/UL (150-450) 190 K/UL (150-450) 169 K/UL (150-450) Mean Platelet Volume 5.6 FL (6.5-10.1) 5.4 FL (6.5-10.1) 5.6 FL (6.5-10.1) Neutrophils (%) (Auto) 53.8 % (45.0-75.0) % (45.0-75.0) % (45.0-75.0) Lymphocytes (%) (Auto) 35.1 % (20.0-45.0) % (20.0-45.0) % (20.0-45.0) Monocytes (%) (Auto) 9.3 % (1.0-10.0) % (1.0-10.0) % (1.0-10.0) Eosinophils (%) (Auto) 0.7 % (0.0-3.0) % (0.0-3.0) % (0.0-3.0) Basophils (%) (Auto) 1.1 % (0.0-2.0) % (0.0-2.0) % (0.0-2.0) Sodium Level 136 MMOL/L (136-145) 140 MMOL/L (136-145) 142 MMOL/L (136-145) Potassium Level 3.8 MMOL/L (3.5-5.1) 3.3 MMOL/L (3.5-5.1) 4.0 MMOL/L (3.5-5.1) Chloride Level 99 MMOL/L (98-107) 106 MMOL/L (98-107) 110 MMOL/L (98-107) Carbon Dioxide Level 26 MMOL/L (21-32) 25 MMOL/L (21-32) 25 MMOL/L (21-32) Anion Gap 12 mmol/L (5-15) 9 mmol/L (5-15) 7 mmol/L (5-15) Blood Urea Nitrogen 13 mg/dL (7-18) 12 mg/dL (7-18) 9 mg/dL (7-18) Creatinine 0.5 MG/DL (0.55-1.30) 0.6 MG/DL (0.55-1.30) 0.5 MG/DL (0.55-1.30) Estimat Glomerular Filtration Rate > 60 mL/min (>60) > 60 mL/min (>60) > 60 mL/min (>60) Glucose Level 79 MG/DL (74-106) 120 MG/DL (74-106) 95 MG/DL (74-106) Calcium Level 9.7 MG/DL (8.5-10.1) 9.2 MG/DL (8.5-10.1) 9.0 MG/DL (8.5-10.1) Total Bilirubin 0.6 MG/DL (0.2-1.0) Aspartate Amino Transf (AST/SGOT) 30 U/L (15-37) Alanine Aminotransferase (ALT/SGPT) 37 U/L (12-78) Alkaline Phosphatase 103 U/L (46-116) Total Creatine Kinase 48 U/L (26-308) Creatine Kinase MB 1.8 NG/ML (0.0-3.6) Creatine Kinase MB Relative Index 3.7 Troponin I 0.017 ng/mL (0.000-0.056) 0.004 ng/mL (0.000-0.056) Total Protein 8.3 G/DL (6.4-8.2) Albumin 4.1 G/DL (3.4-5.0) Globulin 4.2 g/dL Albumin/Globulin Ratio 1.0 (1.0-2.7) Urine Color Yellow Urine Appearance Slightly cloudy Urine pH 5 (4.5-8.0) Urine Specific [place] 1.030 (1.005-1.035) Urine Protein 2+ (NEGATIVE) Urine Glucose (UA) Negative (NEGATIVE) Urine Ketones 4+ (NEGATIVE) Urine Blood 4+ (NEGATIVE) Urine Nitrite Negative (NEGATIVE) Urine Bilirubin 1+ (NEGATIVE) Urine Ictotest Negative (NEGATIVE) Urine Urobilinogen 1 MG/DL (0.0-1.0) Urine Leukocyte Esterase 3+ (NEGATIVE) Urine RBC 5-10 /HPF (0 - 2) Urine WBC 60-80 /HPF (0 - 2) Urine Squamous Epithelial Cells Few /LPF (NONE/OCC) Urine Bacteria Few /HPF (NONE) Differential Total Cells Counted 100 100 Neutrophils % (Manual) 24 % (45-75) 32 % (45-75) Lymphocytes % (Manual) 65 % (20-45) 54 % (20-45) Monocytes % (Manual) 10 % (1-10) 13 % (1-10) Eosinophils % (Manual) 1 % (0-3) 1 % (0-3) Basophils % (Manual) 0 % (0-2) 0 % (0-2) Band Neutrophils 0 % (0-8) 0 % (0-8) Platelet Estimate Adequate Adequate Platelet Morphology Normal Normal Red Blood Cell Morphology Normal Normal Height (Feet): 5 Height (Inches): 8.00 Weight (Pounds): 120 Objective PHYSICAL EXAMINATION: VITALS: reviewed HEAD AND NECK: Atraumatic and normocephalic. CHEST: Clear to auscultation. LUNGS: No wheezing. No crackles. ABDOMEN: Soft. No organomegaly. Bowel sounds are normal. MUSCULOSKELETAL: Atrophied musculatures. positive for Decubitus wound NEUROLOGIC: The patient is awake, not verbal and lethargic John Anderson MD Feb 26, 2019 14:28
[2019-02-26 16:00] VITALS: BP 105/71
--- NOTE | 2019-02-26 17:14 | Consultation ---
DATE OF CONSULTATION: 02/26/2019 INFECTIOUS DISEASE CONSULTATION CONSULTING PHYSICIAN: Magdi Granado M.D. PRIMARY ATTENDING PHYSICIANS: 1. Yolis Delatorre M.D. 2. Elijah Aguilar D.O. REASON FOR CONSULT: UTI. HISTORY OF PRESENT ILLNESS: The patient is a 63-year-old female admitted on 24 of February from a retirement facility complaining of nausea, vomiting, abdominal pain, and leg pain. On the day of admission was hypotensive, has pyuria on UA. PAST MEDICAL HISTORY: Significant for Guillain-[place] syndrome. The patient also says that she has spinal stenosis. She is wheelchair bound. She has seizure disorder, fibromyalgia, and gastroesophageal reflux disease. ALLERGIES: No known drug allergies. MEDICATIONS: Clonidine, vitamin B12, Cymbalta, multivitamin, Protonix, Flomax, ceftriaxone, heparin, Keppra, trazodone, baclofen, clonazepam, Colace, gabapentin, morphine sulfate, Zofran, [place], MiraLAX, and tramadol. REVIEW OF SYSTEMS: Denies fever or chills. No headache. No nausea and no vomiting today. No coughing. Has pain in abdomen and legs. PHYSICAL EXAMINATION: VITAL SIGNS: Temperature 98.6, pulse 53, and blood pressure 138/82. GENERAL APPEARANCE: No acute distress. Seems to be thin. HEAD AND NECK: [place] conjunctivae. HEART: Normal rate. LUNGS: Clear. ABDOMEN: Soft, nontender, flat. EXTREMITIES: No edema. She has muscle atrophy in legs. LABORATORY DATA: Urine culture so far negative. MRSA screen negative. VRE screen negative. WBC 5.3, hemoglobin 11.5, hematocrit 35.5, and platelets 169, has lymphocytosis of 54%. UA showed wbc's of 60 to 80, leukocyte esterase 2+. The patient had a CT scan of abdomen and pelvis showed dense stool through colon, correlates with clinical history of constipation. Retro-coccygeal decubitus changes with suggestion of underlying osseous erosion, which appears to chronic. Distended stomach and duodenum. IMPRESSION: 1. Pyuria, urinary tract infection _cultures are negative so far. 2. Nausea, vomiting, and constipation. 3. Duodenum and stomach distention. 4. History of Guillain-barre syndrome. 5. Paraplegia. 6. Anemia. 7. Seizure disorder. 8. Fibromyalgia. 9. Questionable spinal stenosis. PLAN: Continue ceftriaxone for one day. We will follow up the clinical course. At the end of my exam, I thank Dr. Elijah Aguilar for involving me in the care of this patient. Magdi Granado M.D. DR: CHEVY JOB#: [id number] CC: MONA
--- NOTE | 2019-02-26 17:15 | NUR ---
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 ANEMIA LEUKOCYTOSIS VS: BP 105/71, P 53, T 98.6, RR 24, SpO2 97 RBC 4.15, H&H 11.5/35.5, CR 0.5 IS:CLONIDINE 0.1mg HEPARIN SUBQ CEFTRIAXONE 55ml IVPB [place] 5/325 1tab TRAZODONE HCI 100mg NS x1L IV PLAN: EGD MED/SURG STATUS
--- NOTE | 2019-02-26 18:24 | General Progress Note ---
Assessment/Plan Status: stable, progressing Assessment/Plan: Assessment - N/V - constipated - ? abnormal duodenum on CT Recommendations - laxatives - PPI - EGD tomorrow Subjective Allergies: Coded Allergies: No Known Allergies (Verified , 04/10/08) Subjective above noted still with slight nausea constipated, wants laxative d/w patient re EGD, all questions answered Objective Last 24 Hour Vital Signs Date Time Temp Pulse Resp B/P (MAP) Pulse Ox O2 Delivery O2 Flow Rate FiO2 02/26/19 17:26 105/71 02/26/19 16:00 98.4 70 20 105/71 (82) 97 02/26/19 12:00 121/65 02/26/19 11:54 121/65 02/26/19 11:45 98.5 69 16 121/65 (83) 97 02/26/19 09:33 Room Air 02/26/19 08:00 98.6 53 24 138/82 (100) 97 02/26/19 06:00 133/83 02/26/19 04:00 98.8 68 18 117/65 (82) 97 02/26/19 00:00 98.6 98 18 110/60 (77) 98 02/25/19 21:51 Room Air 02/25/19 20:00 98.3 105 18 109/58 (75) 98 Intake and Output 02/25/19 02/26/19 19:00 07:00 Intake Total 1205 ml 750 ml Balance 1205 ml 750 ml Intake Oral 980 ml IV Total 225 ml 750 ml # Voids 2 4 # Bowel Movements 2 Laboratory Tests 02/26/19 05:30: White Blood Count 5.3, Red Blood Count 4.15L, Hemoglobin 11.5L, Hematocrit 35.5L , Mean Corpuscular Volume 86, Mean Corpuscular Hemoglobin 27.8, Mean Corpuscular Hemoglobin Concent 32.5, Red Cell Distribution Width 13.6, Platelet Count 169, Mean Platelet Volume 5.6L, Neutrophils (%) (Auto) , Lymphocytes (%) ( Auto) , Monocytes (%) (Auto) , Eosinophils (%) (Auto) , Basophils (%) (Auto) , Differential Total Cells Counted 100, Neutrophils % (Manual) 32L, Lymphocytes % (Manual) 54H, Monocytes % (Manual) 13H, Eosinophils % (Manual) 1, Basophils % ( Manual) 0, Band Neutrophils 0, Platelet Estimate Adequate, Platelet Morphology Normal, Red Blood Cell Morphology Normal, Sodium Level 142, Potassium Level 4.0 , Chloride Level 110H, Carbon Dioxide Level 25, Anion Gap 7, Blood Urea Nitrogen 9, Creatinine 0.5L, Estimat Glomerular Filtration Rate > 60, Glucose Level 95, Calcium Level 9.0 Height (Feet): 5 Height (Inches): 8.00 Weight (Pounds): 120 Objective AA woman NCAT supple CTA RRR abd soft ext (+) contractures Raymundo Nazario MD Feb 26, 2019 18:24
[2019-02-26] MEDS ORDERED: Sorbitol Solution UD 30ml ORAL SCH (18:30)
[2019-02-26] MEDS ORDERED: Bisacodyl EC 5mg tab ORAL SCH (18:30)
--- NOTE | 2019-02-26 19:32 | NUR ---
HAND-OFF: Report given to BRADLEY Gilman Resting comfortably in bed, patient stable and free from injury bradley luke.
[2019-02-26 20:00] VITALS: BP 136/70
--- NOTE | 2019-02-26 20:00 | NUR ---
NURSE NOTES: Patient received in bed, awake and alert. No acute distress at this time. Aware of NPO status after midnight. IV is intact and patent. Call light in reach. Will monitor.
[2019-02-26] MEDS: TraZODone 100mg tab ORAL SCH (20:48)
[2019-02-27] VITALS (10 sets, daily range): BP systolic 112–138; BP diastolic 61–90
[2019-02-27 06:44] LABS: HEMATOCRIT 36.9 % (37.0-47.0); HEMOGLOBIN 11.9 G/DL (12.0-16.0); MEAN CORPUSCULAR VOLUME 86 FL (80-99); PLATELET COUNT 154 K/UL (150-450); RED BLOOD COUNT 4.27 M/UL (4.20-5.40); RED CELL DISTRIBUTION WIDTH 13.4 % (11.6-14.8); WHITE BLOOD COUNT 4.5 K/UL (4.8-10.8)
[2019-02-27 06:57] LABS: ANION GAP 7 mmol/L (5-15); BLOOD UREA NITROGEN 4 mg/dL (7-18); CALCIUM 8.9 MG/DL (8.5-10.1); CARBON DIOXIDE 26 MMOL/L (21-32); CHLORIDE 111 MMOL/L (98-107); CREATININE 0.5 MG/DL (0.55-1.30); POTASSIUM 3.5 MMOL/L (3.5-5.1); SODIUM 144 MMOL/L (136-145)
--- NOTE | 2019-02-27 07:30 | NUR ---
NURSE NOTES: Handoff received from Teto Gilman.
--- NOTE | 2019-02-27 07:38 | NUR ---
HAND-OFF: Report given to David HUERTA. Patient kept NPO p mn for procedure.
[2019-02-27] MEDS ORDERED: Midazolam 2mg/2ml Inj IVP PRN (08:45)
[2019-02-27] MEDS ORDERED: fentaNYL 100 mcg/2 mL IV PRN (08:45)
[2019-02-27] MEDS ORDERED: Atropine Inj 1mg/10ml Syr IV PRN (08:45)
[2019-02-27] MEDS ORDERED: DiphenhydrAMINE 50mg/ml Inj IVP PRN (08:45)
[2019-02-27] MEDS: cefTRIAXone 1 GM in D5W 55 ML IVPB SCH (09:00)
--- NOTE | 2019-02-27 09:01 | Anethesia Preoperative Eval ---
Anesthesia Pre-op PMH/ROS General Date of Evaluation: Feb 27, 2019 Time of Evaluation: 08:39 Anesthesiologist: dakotah ASA Score: ASA 3 Mallampati Score Class I : Soft palate, uvula, fauces, pillars visible Class II: Soft palate, uvula, fauces visible Class III: Soft palate, base of uvula visible Class IV: Only hard plate visible Mallampati Classification: Class II Surgeon: osiris Diagnosis: persistent nausea Surgical Procedure: egd Anesthesia History: none Social History: smoking - nonsmoker Family History: no anesthesia problems Allergies: Coded Allergies: No Known Allergies (Verified , 04/10/08) Medications: see eMAR Patient NPO?: Yes Past Medical History Cardiovascular: Reports: HTN - hypotension Pulmonary: Reports: other - dyspnea Gastrointestinal/Genitourinary: Reports: GERD, other - hep c, Neurologic/Psychiatric: Reports: depression/anxiety, other - seizures, guillian -barre syndrome, syncope, previous suicide attempt Hematology/Immune: Reports: anemia, other - measles Musculoskeletal/Integumentary: Reports: OA - osteoporosis, other - spinal stenosis, fibromyalgia PSxH Narrative: appendectomy, endoscopy Anesthesia Pre-op Phys. Exam Physician Exam Last Vital Signs Date Time Temp Pulse Resp B/P (MAP) Pulse Ox O2 Delivery O2 Flow Rate FiO2 02/27/19 05:27 117/61 02/27/19 04:00 98.2 71 20 99 02/26/19 21:00 Room Air Constitutional: NAD Neurologic: CN 2-12 intact Cardiovascular: RRR Respiratory: CTA Gastrointestinal: S/NT/ND Airway Exam Mallampati Score: Class II MO: limited Neck: flexible TMD: 2fb ROM: limited Teeth: missing, broken Anesthesia Pre-op A/P Labs Hematology Test 02/27/19 05:25 White Blood Count 4.5 K/UL (4.8-10.8) L Red Blood Count 4.27 M/UL (4.20-5.40) Hemoglobin 11.9 G/DL (12.0-16.0) L Hematocrit 36.9 % (37.0-47.0) L Mean Corpuscular Volume 86 FL (80-99) Mean Corpuscular Hemoglobin 27.9 PG (27.0-31.0) Mean Corpuscular Hemoglobin Concent 32.3 G/DL (32.0-36.0) Red Cell Distribution Width 13.4 % (11.6-14.8) Platelet Count 154 K/UL (150-450) Mean Platelet Volume 5.5 FL (6.5-10.1) L Neutrophils (%) (Auto) % (45.0-75.0) Lymphocytes (%) (Auto) % (20.0-45.0) Monocytes (%) (Auto) % (1.0-10.0) Eosinophils (%) (Auto) % (0.0-3.0) Basophils (%) (Auto) % (0.0-2.0) Differential Total Cells Counted 100 Neutrophils % (Manual) 34 % (45-75) L Lymphocytes % (Manual) 58 % (20-45) H Monocytes % (Manual) 6 % (1-10) Eosinophils % (Manual) 2 % (0-3) Basophils % (Manual) 0 % (0-2) Band Neutrophils 0 % (0-8) Platelet Estimate Adequate Platelet Morphology Normal Red Blood Cell Morphology Normal Chemistry Test 02/27/19 05:25 Sodium Level 144 MMOL/L (136-145) Potassium Level 3.5 MMOL/L (3.5-5.1) Chloride Level 111 MMOL/L (98-107) H Carbon Dioxide Level 26 MMOL/L (21-32) Anion Gap 7 mmol/L (5-15) Blood Urea Nitrogen 4 mg/dL (7-18) L Creatinine 0.5 MG/DL (0.55-1.30) L Estimat Glomerular Filtration Rate > 60 mL/min (>60) Glucose Level 105 MG/DL (74-106) Calcium Level 8.9 MG/DL (8.5-10.1) Risk Assessment & Plan Assessment: asa3 Plan: mac Status Change Before Surgery: No Pre-Antibiotics Drug: Janice Prado MD Feb 27, 2019 09:01
--- NOTE | 2019-02-27 09:27 | General Progress Note ---
Assessment/Plan Problem List: (1) Dehydration ICD Codes: E86.0 - Dehydration SNOMED: 02386934 (2) Seizure ICD Codes: R56.9 - Unspecified convulsions SNOMED: 70101456 (3) Anemia ICD Codes: D64.9 - Anemia, unspecified SNOMED: 950566177 (4) Fibromyalgia ICD Codes: M79.7 - Fibromyalgia SNOMED: 67516079, 97743303 (5) Abdominal pain ICD Codes: R10.9 - Unspecified abdominal pain SNOMED: 78609966 (6) Chronic constipation ICD Codes: K59.00 - Constipation, unspecified SNOMED: 058078119 (7) Persistent vomiting ICD Codes: R11.10 - Vomiting, unspecified SNOMED: 129249540 Status: stable, progressing Assessment/Plan: npo gi eval pt abx prn cardio f/u cbc bmp am Subjective Constitutional: Reports: weakness Allergies: Coded Allergies: No Known Allergies (Verified , 04/10/08) All Systems: reviewed and negative except above Subjective sleepy calm Objective Last 24 Hour Vital Signs Date Time Temp Pulse Resp B/P (MAP) Pulse Ox O2 Delivery O2 Flow Rate FiO2 02/27/19 05:27 117/61 02/27/19 04:00 98.2 71 20 117/61 (79) 99 02/27/19 00:14 99.5 82 20 121/67 (85) 96 02/26/19 23:56 121/67 02/26/19 21:00 Room Air 02/26/19 20:00 98.7 72 20 136/70 (92) 98 02/26/19 17:26 105/71 02/26/19 16:00 98.4 70 20 105/71 (82) 97 02/26/19 12:00 121/65 02/26/19 11:54 121/65 02/26/19 11:45 98.5 69 16 121/65 (83) 97 02/26/19 09:33 Room Air Intake and Output 02/26/19 02/27/19 19:00 07:00 Intake Total 2015 ml 1725 ml Balance 2015 ml 1725 ml Intake Oral 1136 ml 900 ml IV Total 880 ml 825 ml # Voids 2 2 # Bowel Movements 2 Laboratory Tests 02/27/19 05:25: White Blood Count 4.5L, Red Blood Count 4.27, Hemoglobin 11.9L, Hematocrit 36.9L , Mean Corpuscular Volume 86, Mean Corpuscular Hemoglobin 27.9, Mean Corpuscular Hemoglobin Concent 32.3, Red Cell Distribution Width 13.4, Platelet Count 154, Mean Platelet Volume 5.5L, Neutrophils (%) (Auto) , Lymphocytes (%) ( Auto) , Monocytes (%) (Auto) , Eosinophils (%) (Auto) , Basophils (%) (Auto) , Differential Total Cells Counted 100, Neutrophils % (Manual) 34L, Lymphocytes % (Manual) 58H, Monocytes % (Manual) 6, Eosinophils % (Manual) 2, Basophils % ( Manual) 0, Band Neutrophils 0, Platelet Estimate Adequate, Platelet Morphology Normal, Red Blood Cell Morphology Normal, Sodium Level 144, Potassium Level 3.5 , Chloride Level 111H, Carbon Dioxide Level 26, Anion Gap 7, Blood Urea Nitrogen 4L, Creatinine 0.5L, Estimat Glomerular Filtration Rate > 60, Glucose Level 105, Calcium Level 8.9 Height (Feet): 5 Height (Inches): 5.00 Weight (Pounds): 136 General Appearance: lethargic EENT: normal ENT inspection Neck: normal alignment Cardiovascular: normal peripheral pulses, normal rate, regular rhythm Respiratory/Chest: chest wall non-tender, lungs clear, normal breath sounds Abdomen: normal bowel sounds, non tender, soft Extremities: normal inspection Edema: no edema noted Arm (L), no edema noted Arm (R), no edema noted Leg (L), no edema noted Leg (R), no edema noted Pedal (L), no edema noted Pedal (R), no edema noted Generalized Neurologic: motor weakness Skin: normal pigmentation, warm/dry Elijah Aguilar DO Feb 27, 2019 09:27
[2019-02-27] MEDS: Morphine Sulfate 2mg/ml Inj(IV/IM USE ONLY) IVP PRN ×2 (09:59→16:26)
[2019-02-27] MEDS: Docusate 100mg cap ORAL SCH ×2 (10:00→18:17)
[2019-02-27] MEDS: Vitamin B-12 500mcg tab ORAL SCH (10:00)
[2019-02-27] MEDS: Heparin 5000 units/ml inj SUBQ SCH ×2 (10:00→21:00)
[2019-02-27] MEDS: DULoxetine 30mg cap ORAL SCH (10:00)
[2019-02-27] MEDS ORDERED: Propofol 200mg/20ml IV ONE (10:00)
[2019-02-27] MEDS ORDERED: Lidocaine 1% MPF 10mg/ml 5ml ONE (10:00)
[2019-02-27] MEDS: Tamsulosin 0.4mg cap ORAL SCH (10:00)
[2019-02-27] MEDS ORDERED: NS 500ML IVPB ONE (10:24)
--- NOTE | 2019-02-27 10:27 | NUR ---
NURSE NOTES: Patient went down to GI lab for a procedure.
--- NOTE | 2019-02-27 10:50 | General Progress Note ---
Assessment/Plan Status: stable, progressing Assessment/Plan: Assessment - N/V - constipation - ? abnormal duodenum on CT Recommendations - laxatives - PPI - EGD today - skilled nursing bowel regimen Subjective Allergies: Coded Allergies: No Known Allergies (Verified , 04/10/08) Subjective above noted NPO for EGD today d/w patient re findings to date Objective Last 24 Hour Vital Signs Date Time Temp Pulse Resp B/P (MAP) Pulse Ox O2 Delivery O2 Flow Rate FiO2 02/27/19 05:27 117/61 02/27/19 04:00 98.2 71 20 117/61 (79) 99 02/27/19 00:14 99.5 82 20 121/67 (85) 96 02/26/19 23:56 121/67 02/26/19 21:00 Room Air 02/26/19 20:00 98.7 72 20 136/70 (92) 98 02/26/19 17:26 105/71 02/26/19 16:00 98.4 70 20 105/71 (82) 97 02/26/19 12:00 121/65 02/26/19 11:54 121/65 02/26/19 11:45 98.5 69 16 121/65 (83) 97 Intake and Output 02/26/19 02/27/19 19:00 07:00 Intake Total 2015 ml 1725 ml Balance 2015 ml 1725 ml Intake Oral 1136 ml 900 ml IV Total 880 ml 825 ml # Voids 2 2 # Bowel Movements 2 Laboratory Tests 02/27/19 05:25: White Blood Count 4.5L, Red Blood Count 4.27, Hemoglobin 11.9L, Hematocrit 36.9L , Mean Corpuscular Volume 86, Mean Corpuscular Hemoglobin 27.9, Mean Corpuscular Hemoglobin Concent 32.3, Red Cell Distribution Width 13.4, Platelet Count 154, Mean Platelet Volume 5.5L, Neutrophils (%) (Auto) , Lymphocytes (%) ( Auto) , Monocytes (%) (Auto) , Eosinophils (%) (Auto) , Basophils (%) (Auto) , Differential Total Cells Counted 100, Neutrophils % (Manual) 34L, Lymphocytes % (Manual) 58H, Monocytes % (Manual) 6, Eosinophils % (Manual) 2, Basophils % ( Manual) 0, Band Neutrophils 0, Platelet Estimate Adequate, Platelet Morphology Normal, Red Blood Cell Morphology Normal, Sodium Level 144, Potassium Level 3.5 , Chloride Level 111H, Carbon Dioxide Level 26, Anion Gap 7, Blood Urea Nitrogen 4L, Creatinine 0.5L, Estimat Glomerular Filtration Rate > 60, Glucose Level 105, Calcium Level 8.9 Height (Feet): 5 Height (Inches): 5.00 Weight (Pounds): 136 Objective AA woman NCAT supple CTA RRR abd soft ext (+) contractures Raymundo Nazario MD Feb 27, 2019 10:50
--- NOTE | 2019-02-27 10:50 | Pre-Procedure Note/Attestation ---
Pre-Procedure Note/Attestation Complete Prior to Procedure Planned Procedure: not applicable Procedure Narrative: EGD Indications for Procedure Pre-Operative Diagnosis: abnormal CT, nausea Attestation I attest that I discussed the nature of the procedure; its benefits; risks and complications; and alternatives (and the risks and benefits of such alternatives ), prior to the procedure, with the patient (or the patient's legal ocean import representative). I attest that, if there was a reasonable possibility of needing a blood transfusion, the patient (or the patient's legal ocean import representative) was given the [facility] standardized written summary, pursuant to the Vikram Bella Blood Safety Act ([place] Health and Safety Code # 1645, as amended). I attest that I re-evaluated the patient just prior to the surgery and that there has been no change in the patient's H&P, except as documented below: Raymundo Nazario MD Feb 27, 2019 10:50
--- NOTE | 2019-02-27 10:59 | Endoscopy Procedure Note ---
Endoscopy Procedure Note General Indication for Procedure: nausea, abnormal CT Procedures Performed: EGD Operative Findings/Diagnosis: mildly erosive duodenitis Specimen: yes Pt Tolerated Procedure Well: Yes Estimated Blood Loss: none Anesthesia Anesthesiologist: Vijay Sanabria Anesthesia: MAC Medications Medication Given: see anesthesia record Inserted Devices Implant(s) used?: No GI Core Measures 50 yrs or older w/o bx or poly: Not Applicable 10yrs. F/U recommended: Not Applicable If not recommended, why?: Raymundo Nazario MD Feb 27, 2019 10:59
--- NOTE | 2019-02-27 11:00 | Brief Operative Note ---
Immediate Post Operative Note Operative Note Chief Complaint: nausea, abnormal CT Pre-op Diagnosis: abnormal CT, nausea Procedure: esophagogastroduodenoscopy bx Post-op Diagnosis: mildly erosive duodenitis Surgeon: osiris Anesthesiologist: Vijay hirsch Anesthesia: MAC Specimen: yes Complications: none Condition: stable Fluids: recorded Estimated Blood Loss: none Drains: none Implant(s) used?: No Raymundo Nazario MD Feb 27, 2019 11:00
--- NOTE | 2019-02-27 11:57 | Immediate Post-Op Evaluation ---
Immediate Post-Op Evalulation Immediate Post-Op Evalulation Procedure: egd w/bx Date of Evaluation: Feb 27, 2019 Time of Evaluation: 11:17 IV Fluids: 150ml 0.9ns Blood Products: none Estimated Blood Loss: negligible Blood Pressure Systolic: 126 Blood Pressure Diastolic: 76 Pulse Rate: 77 Respiratory Rate: 18 O2 Sat by Pulse Oximetry: 100 Temperature (Fahrenheit): 98.3 Pain Score (1-10): 0 Nausea: No Vomiting: No Complications none Patient Status: awake, reacts, patent Hydration Status: adequate Drug: Janice Prado MD Feb 27, 2019 11:57
--- NOTE | 2019-02-27 11:57 | NUR ---
NURSE NOTES: Patient returned to the floor after completing the procedure. Report given by Teto Chamberlain. Set of vitals taken when patient returned to the floor. Vitals stable. Patient is not in any visible signs of distress.
--- NOTE | 2019-02-27 11:58 | 48 Hour Post Anesthesia Eval ---
Post Anesthesia Evaluation Procedure: egd w/bx Date of Evaluation: Feb 27, 2019 Time of Evaluation: 11:19 Blood Pressure Systolic: 127 0: 78 Pulse Rate: 66 Respiratory Rate: 18 Temperature (Fahrenheit): 98.3 O2 Sat by Pulse Oximetry: 100 Airway: patent Nausea: No Vomiting: No Pain Intensity: 0 Hydration Status: adequate Cardiopulmonary Status: stable Mental Status/LOC: patient returned to baseline Post-Anesthesia Complications: none Follow-up care needed: N/A Janice Burroughs MD Feb 27, 2019 11:58
--- NOTE | 2019-02-27 12:08 | Infectious Diseases Prog Note ---
Assessment/Plan Assessment/Plan IMPRESSION: 1. Pyuria, urinary tract infection _cultures are negative so far. 2. Nausea, vomiting, and constipation. 3. Duodenitis. 4. History of Guillain-barre syndrome. 5. Paraplegia. 6. Anemia. 7. Seizure disorder. 8. Fibromyalgia. 9. Questionable spinal stenosis. PLAN: Discontinue ceftriaxone Observe off antibiotic Subjective ROS Limited/Unobtainable: No Constitutional: Reports: no symptoms Respiratory: Reports: no symptoms Gastrointestinal/Abdominal: Reports: constipation, other - had EGD today Genitourinary: Reports: no symptoms Allergies: Coded Allergies: No Known Allergies (Verified , 04/10/08) Objective Vital Signs Last 24 Hour Vital Signs Date Time Temp Pulse Resp B/P (MAP) Pulse Ox O2 Delivery O2 Flow Rate FiO2 02/27/19 11:57 77 18 100 02/27/19 11:25 98.6 72 13 131/79 98 Nasal Cannula 3 02/27/19 11:15 66 14 127/78 98 Nasal Cannula 3 02/27/19 11:10 70 16 119/75 100 Nasal Cannula 3 02/27/19 11:05 98.3 77 18 126/76 100 Nasal Cannula 3 02/27/19 05:27 117/61 02/27/19 04:00 98.2 71 20 117/61 (79) 99 02/27/19 00:14 99.5 82 20 121/67 (85) 96 02/26/19 23:56 121/67 02/26/19 21:00 Room Air 02/26/19 20:00 98.7 72 20 136/70 (92) 98 02/26/19 17:26 105/71 02/26/19 16:00 98.4 70 20 105/71 (82) 97 Height (Feet): 5 Height (Inches): 5.00 Weight (Pounds): 136 General Appearance: no acute distress HEENT: mucous membranes moist Respiratory/Chest: lungs clear Cardiovascular: normal rate Abdomen: soft, non tender Extremities: no edema Neurologic/Psychiatric: alert, oriented x 3, responsive Microbiology Date/Time Source Procedure Growth Status 02/24/19 12:50 Nasal Nares MRSA Culture - Final NO METHICILLIN RESISTANT STAPH AUREUS... Complete 02/24/19 12:50 Rectum VRE Culture - Final NO VANCOMYCIN RESISTANT ENTEROCOCCUS ... Complete 02/24/19 12:50 Rectum - Final NO CARBAPENEM-RESISTANT ENTEROBACTERI... Complete Laboratory Tests Test 02/27/19 05:25 White Blood Count 4.5 K/UL (4.8-10.8) L Red Blood Count 4.27 M/UL (4.20-5.40) Hemoglobin 11.9 G/DL (12.0-16.0) L Hematocrit 36.9 % (37.0-47.0) L Mean Corpuscular Volume 86 FL (80-99) Mean Corpuscular Hemoglobin 27.9 PG (27.0-31.0) Mean Corpuscular Hemoglobin Concent 32.3 G/DL (32.0-36.0) Red Cell Distribution Width 13.4 % (11.6-14.8) Platelet Count 154 K/UL (150-450) Mean Platelet Volume 5.5 FL (6.5-10.1) L Neutrophils (%) (Auto) % (45.0-75.0) Lymphocytes (%) (Auto) % (20.0-45.0) Monocytes (%) (Auto) % (1.0-10.0) Eosinophils (%) (Auto) % (0.0-3.0) Basophils (%) (Auto) % (0.0-2.0) Differential Total Cells Counted 100 Neutrophils % (Manual) 34 % (45-75) L Lymphocytes % (Manual) 58 % (20-45) H Monocytes % (Manual) 6 % (1-10) Eosinophils % (Manual) 2 % (0-3) Basophils % (Manual) 0 % (0-2) Band Neutrophils 0 % (0-8) Platelet Estimate Adequate Platelet Morphology Normal Red Blood Cell Morphology Normal Sodium Level 144 MMOL/L (136-145) Potassium Level 3.5 MMOL/L (3.5-5.1) Chloride Level 111 MMOL/L (98-107) H Carbon Dioxide Level 26 MMOL/L (21-32) Anion Gap 7 mmol/L (5-15) Blood Urea Nitrogen 4 mg/dL (7-18) L Creatinine 0.5 MG/DL (0.55-1.30) L Estimat Glomerular Filtration Rate > 60 mL/min (>60) Glucose Level 105 MG/DL (74-106) Calcium Level 8.9 MG/DL (8.5-10.1) Current Medications Medications (Trade) Dose Ordered Sig/Elisa Route PRN Reason Start Time Stop Time Status Last Admin Dose Admin Acetaminophen/ Hydrocodone Bitart ([place] 5/325) 1 tab Q4H PRN ORAL MODERATE PAIN 02/24/19 17:15 03/03/19 17:14 02/26/19 11:58 Al Hydroxide/Mg Hydroxide (Mylanta) 15 ml Q1H PRN ORAL gi upset 02/27/19 08:45 02/27/19 18:00 Atropine Sulfate (Atropine) 0.5 mg Q5M PRN IV bpm less than 45 02/27/19 08:45 02/27/19 18:00 Baclofen (Lioresal) 10 mg THREE TIMES A DAY ORAL 02/24/19 18:00 03/26/19 17:59 02/27/19 10:00 Ceftriaxone Sodium 1 gm/ Dextrose 55 ml @ 110 mls/hr DAILY IVPB 02/25/19 09:00 03/04/19 08:59 02/26/19 08:40 Clonazepam (KlonoPIN) 1 mg BID ORAL 02/24/19 18:00 03/03/19 17:59 02/27/19 10:00 Clonidine HCl (Catapres Tab) 0.1 mg EVERY 6 HOURS ORAL 02/27/19 00:00 03/29/19 00:00 02/26/19 23:56 Cyanocobalamin (Vitamin B-12) 1,000 mcg DAILY ORAL 02/25/19 09:00 03/27/19 08:59 02/27/19 10:00 Diphenhydramine HCl (Benadryl) 25 mg Q15M PRN IVP Itching 02/27/19 08:45 02/27/19 18:00 Docusate Sodium (Colace) 100 mg BID ORAL 02/24/19 18:00 03/26/19 17:59 02/27/19 10:00 Duloxetine HCl (Cymbalta) 60 mg DAILY ORAL 02/25/19 09:00 03/27/19 08:59 02/27/19 10:00 Fentanyl Citrate (Sublimaze 100 mcg/2 mL) 25 mcg Q10M PRN IV Moderate Pain (Pain Scale 4-6) 02/27/19 08:45 02/27/19 18:00 Gabapentin (Neurontin) 900 mg THREE TIMES A DAY ORAL 02/24/19 18:00 03/26/19 17:59 02/27/19 10:00 Heparin Sodium (Porcine) (Heparin 5000 units/ml) 5,000 units EVERY 12 HOURS SUBQ 02/24/19 21:00 03/26/19 20:59 02/26/19 08:47 Hydralazine HCl (Apresoline) 5 mg Q30M PRN IV SBP>160 OR___/DBP>90 OR___ 02/27/19 08:45 02/27/19 18:00 Levetiracetam (Keppra) 500 mg Q12HR ORAL 02/24/19 21:00 03/26/19 20:59 02/27/19 10:00 Midazolam HCl (Versed 2mg/2ml vial) 1 mg Q15M PRN IVP For Anxiety 02/27/19 08:45 02/27/19 18:00 Morphine Sulfate (Morphine Sulfate) 1 mg Q6H PRN IVP SEVERE PAIN 02/24/19 17:30 03/03/19 17:14 02/27/19 09:59 Multivitamins (Multivitamins) 1 tab DAILY ORAL 02/25/19 09:00 03/27/19 08:59 02/27/19 10:00 Ondansetron HCl (Zofran) 4 mg Q1H PRN IVP Nausea & Vomiting 02/27/19 08:45 02/27/19 18:00 Ondansetron HCl (Zofran) 4 mg Q4H PRN IVP Nausea & Vomiting 02/24/19 17:15 03/26/19 17:14 Pantoprazole (Protonix) 40 mg DAILY ORAL 02/25/19 09:00 03/27/19 08:59 02/27/19 10:00 Polyethylene Glycol (Miralax) 17 gm DAILYPRN PRN ORAL Constipation 02/24/19 17:15 03/26/19 17:14 Sodium Chloride 1,000 ml @ 75 mls/hr [id number] IV 02/24/19 17:15 03/26/19 17:14 02/26/19 23:56 Tamsulosin HCl (Flomax) 0.4 mg DAILY ORAL 02/25/19 09:00 03/27/19 08:59 02/27/19 10:00 Tramadol HCl (Ultram) 50 mg BIDPRN PRN ORAL mild pain 02/24/19 17:15 03/03/19 17:14 Trazodone HCl (Desyrel) 100 mg BEDTIME ORAL 02/24/19 21:00 03/26/19 20:59 02/26/19 20:48 Magdi Granado MD Feb 27, 2019 12:08
--- NOTE | 2019-02-27 12:28 | Hematology/Onc Progress Note ---
Assessment/Plan Assessment/Plan ASSESSMENT AND PLAN: 1. Anemia of chronic disease - hgb lower potentially related to ivf --> anemia panel has been ordered - results pedning --> transfuse if hgb less than 7 --> hgb electrophoresis reviewed and is negative for m-spike, significantly abnml bands --> no e/o hemolysis is noted --> labs reviewed from prior admission 2. Historical Leukocytosis with sepsis currently has improved on iv abx(hx of uti on prior admission) --> smear reviewed, no abnmls significant that are noted --> now off antibiotics --> id has been consulted --> urine cs, vre, and mrsa all negative 3. Decubitus wound --> wound care recs 4. UTI- HCA 2. Neuromuscular disorder - wheelchair bound - baseline. 3. Neurogenic bladder. 4. Psychiatric disorder. 5. UTI. 6. Seizure disorder (questionable). Greatly appreciate consultation! Subjective Constitutional: Denies: no symptoms, chills, fever, malaise, weakness, other HEENT: Denies: no symptoms, eye pain, blurred vision, tearing, double vision, ear pain, ear discharge, nose pain, nose congestion, throat pain, throat swelling, mouth pain, mouth swelling, other Cardiovascular: Denies: no symptoms, chest pain, edema, irregular heart rate, lightheadedness, palpitations, syncope, other Respiratory: Denies: no symptoms, cough, shortness of breath, SOB with excertion, SOB at rest, sputum, wheezing, other Gastrointestinal/Abdominal: Denies: no symptoms, abdomen distended, abdominal pain, black stools, tarry stools, blood in stool, constipated, diarrhea, difficulty swallowing, nausea, poor appetite, poor fluid intake, rectal bleeding , vomiting, other Genitourinary: Denies: no symptoms, burning, discharge, frequency, flank pain, hematuria, incontinence, pain, urgency, other Neurologic/Psychiatric: Denies: no symptoms, anxiety, depressed, emotional problems, headache, numbness, paresthesia, pre-existing deficit, seizure, tingling, tremors, weakness, other Endocrine: Denies: no symptoms, excessive sweating, flushing, intolerance to cold, intolerance to heat, increased hunger, increased thirst, increased urine, unexplained weight gain, unexplained weight loss, other Allergies: Coded Allergies: No Known Allergies (Verified , 04/10/08) Subjective 02/26: awake and alert, no sign of distress, denies pain or discomfort, hgb dropped from 13 to 11.5 overnight, urine cx negative, vre and mrsa negative 02/27: no events, no f/c no changes noted, no bleeding, wbc lower Objective Objective Current Medications Medications (Trade) Dose Ordered Sig/Elisa Route PRN Reason Start Time Stop Time Status Last Admin Dose Admin Acetaminophen/ Hydrocodone Bitart ([place] 5/325) 1 tab Q4H PRN ORAL MODERATE PAIN 02/24/19 17:15 03/03/19 17:14 02/26/19 11:58 Al Hydroxide/Mg Hydroxide (Mylanta) 15 ml Q1H PRN ORAL gi upset 02/27/19 08:45 02/27/19 18:00 Atropine Sulfate (Atropine) 0.5 mg Q5M PRN IV bpm less than 45 02/27/19 08:45 02/27/19 18:00 Baclofen (Lioresal) 10 mg THREE TIMES A DAY ORAL 02/24/19 18:00 03/26/19 17:59 02/27/19 10:00 Clonazepam (KlonoPIN) 1 mg BID ORAL 02/24/19 18:00 03/03/19 17:59 02/27/19 10:00 Clonidine HCl (Catapres Tab) 0.1 mg EVERY 6 HOURS ORAL 02/27/19 00:00 03/29/19 00:00 02/26/19 23:56 Cyanocobalamin (Vitamin B-12) 1,000 mcg DAILY ORAL 02/25/19 09:00 03/27/19 08:59 02/27/19 10:00 Diphenhydramine HCl (Benadryl) 25 mg Q15M PRN IVP Itching 02/27/19 08:45 02/27/19 18:00 Docusate Sodium (Colace) 100 mg BID ORAL 02/24/19 18:00 03/26/19 17:59 02/27/19 10:00 Duloxetine HCl (Cymbalta) 60 mg DAILY ORAL 02/25/19 09:00 03/27/19 08:59 02/27/19 10:00 Fentanyl Citrate (Sublimaze 100 mcg/2 mL) 25 mcg Q10M PRN IV Moderate Pain (Pain Scale 4-6) 02/27/19 08:45 02/27/19 18:00 Gabapentin (Neurontin) 900 mg THREE TIMES A DAY ORAL 02/24/19 18:00 03/26/19 17:59 02/27/19 10:00 Heparin Sodium (Porcine) (Heparin 5000 units/ml) 5,000 units EVERY 12 HOURS SUBQ 02/24/19 21:00 03/26/19 20:59 02/26/19 08:47 Hydralazine HCl (Apresoline) 5 mg Q30M PRN IV SBP>160 OR___/DBP>90 OR___ 02/27/19 08:45 02/27/19 18:00 Levetiracetam (Keppra) 500 mg Q12HR ORAL 02/24/19 21:00 03/26/19 20:59 02/27/19 10:00 Midazolam HCl (Versed 2mg/2ml vial) 1 mg Q15M PRN IVP For Anxiety 02/27/19 08:45 02/27/19 18:00 Morphine Sulfate (Morphine Sulfate) 1 mg Q6H PRN IVP SEVERE PAIN 02/24/19 17:30 03/03/19 17:14 02/27/19 09:59 Multivitamins (Multivitamins) 1 tab DAILY ORAL 02/25/19 09:00 03/27/19 08:59 02/27/19 10:00 Ondansetron HCl (Zofran) 4 mg Q1H PRN IVP Nausea & Vomiting 02/27/19 08:45 02/27/19 18:00 Ondansetron HCl (Zofran) 4 mg Q4H PRN IVP Nausea & Vomiting 02/24/19 17:15 03/26/19 17:14 Pantoprazole (Protonix) 40 mg DAILY ORAL 02/25/19 09:00 03/27/19 08:59 02/27/19 10:00 Polyethylene Glycol (Miralax) 17 gm DAILYPRN PRN ORAL Constipation 02/24/19 17:15 03/26/19 17:14 Sodium Chloride 1,000 ml @ 75 mls/hr [id number] IV 02/24/19 17:15 03/26/19 17:14 02/26/19 23:56 Tamsulosin HCl (Flomax) 0.4 mg DAILY ORAL 02/25/19 09:00 03/27/19 08:59 02/27/19 10:00 Tramadol HCl (Ultram) 50 mg BIDPRN PRN ORAL mild pain 02/24/19 17:15 03/03/19 17:14 Trazodone HCl (Desyrel) 100 mg BEDTIME ORAL 02/24/19 21:00 03/26/19 20:59 02/26/19 20:48 Last 24 Hour Vital Signs Date Time Temp Pulse Resp B/P (MAP) Pulse Ox O2 Delivery O2 Flow Rate FiO2 02/27/19 11:57 77 18 100 02/27/19 11:25 98.6 72 13 131/79 98 Nasal Cannula 3 02/27/19 11:15 66 14 127/78 98 Nasal Cannula 3 02/27/19 11:10 70 16 119/75 100 Nasal Cannula 3 02/27/19 11:05 98.3 77 18 126/76 100 Nasal Cannula 3 02/27/19 09:00 Room Air 02/27/19 05:27 117/61 02/27/19 04:00 98.2 71 20 117/61 (79) 99 02/27/19 00:14 99.5 82 20 121/67 (85) 96 02/26/19 23:56 121/67 02/26/19 21:00 Room Air 02/26/19 20:00 98.7 72 20 136/70 (92) 98 02/26/19 17:26 105/71 02/26/19 16:00 98.4 70 20 105/71 (82) 97 02/26/19 12:00 121/65 02/26/19 11:54 121/65 02/26/19 11:45 98.5 69 16 121/65 (83) 97 02/26/19 09:33 Room Air 02/26/19 08:00 98.6 53 24 138/82 (100) 97 02/26/19 06:00 133/83 02/26/19 04:00 98.8 68 18 117/65 (82) 97 02/26/19 00:00 98.6 98 18 110/60 (77) 98 02/25/19 21:51 Room Air 02/25/19 20:00 98.3 105 18 109/58 (75) 98 02/25/19 18:00 103/65 02/25/19 17:25 103/65 02/25/19 16:00 97.3 69 18 117/78 (91) 96 Intake and Output 02/26/19 02/27/19 19:00 07:00 Intake Total 2016 ml 1725 ml Balance 2016 ml 1725 ml Intake Oral 1136 ml 900 ml IV Total 880 ml 825 ml # Voids 2 2 # Bowel Movements 2 Labs Test 02/25/19 05:11 02/26/19 05:30 02/27/19 05:25 White Blood Count 5.1 K/UL (4.8-10.8) 5.3 K/UL (4.8-10.8) 4.5 K/UL (4.8-10.8) Red Blood Count 4.69 M/UL (4.20-5.40) 4.15 M/UL (4.20-5.40) 4.27 M/UL (4.20-5.40) Hemoglobin 13.0 G/DL (12.0-16.0) 11.5 G/DL (12.0-16.0) 11.9 G/DL (12.0-16.0) Hematocrit 39.1 % (37.0-47.0) 35.5 % (37.0-47.0) 36.9 % (37.0-47.0) Mean Corpuscular Volume 83 FL (80-99) 86 FL (80-99) 86 FL (80-99) Mean Corpuscular Hemoglobin 27.8 PG (27.0-31.0) 27.8 PG (27.0-31.0) 27.9 PG (27.0-31.0) Mean Corpuscular Hemoglobin Concent 33.4 G/DL (32.0-36.0) 32.5 G/DL (32.0-36.0) 32.3 G/DL (32.0-36.0) Red Cell Distribution Width 13.2 % (11.6-14.8) 13.6 % (11.6-14.8) 13.4 % (11.6-14.8) Platelet Count 190 K/UL (150-450) 169 K/UL (150-450) 154 K/UL (150-450) Mean Platelet Volume 5.4 FL (6.5-10.1) 5.6 FL (6.5-10.1) 5.5 FL (6.5-10.1) Neutrophils (%) (Auto) % (45.0-75.0) % (45.0-75.0) % (45.0-75.0) Lymphocytes (%) (Auto) % (20.0-45.0) % (20.0-45.0) % (20.0-45.0) Monocytes (%) (Auto) % (1.0-10.0) % (1.0-10.0) % (1.0-10.0) Eosinophils (%) (Auto) % (0.0-3.0) % (0.0-3.0) % (0.0-3.0) Basophils (%) (Auto) % (0.0-2.0) % (0.0-2.0) % (0.0-2.0) Differential Total Cells Counted 100 100 100 Neutrophils % (Manual) 24 % (45-75) 32 % (45-75) 34 % (45-75) Lymphocytes % (Manual) 65 % (20-45) 54 % (20-45) 58 % (20-45) Monocytes % (Manual) 10 % (1-10) 13 % (1-10) 6 % (1-10) Eosinophils % (Manual) 1 % (0-3) 1 % (0-3) 2 % (0-3) Basophils % (Manual) 0 % (0-2) 0 % (0-2) 0 % (0-2) Band Neutrophils 0 % (0-8) 0 % (0-8) 0 % (0-8) Platelet Estimate Adequate Adequate Adequate Platelet Morphology Normal Normal Normal Red Blood Cell Morphology Normal Normal Normal Sodium Level 140 MMOL/L (136-145) 142 MMOL/L (136-145) 144 MMOL/L (136-145) Potassium Level 3.3 MMOL/L (3.5-5.1) 4.0 MMOL/L (3.5-5.1) 3.5 MMOL/L (3.5-5.1) Chloride Level 106 MMOL/L (98-107) 110 MMOL/L (98-107) 111 MMOL/L (98-107) Carbon Dioxide Level 25 MMOL/L (21-32) 25 MMOL/L (21-32) 26 MMOL/L (21-32) Anion Gap 9 mmol/L (5-15) 7 mmol/L (5-15) 7 mmol/L (5-15) Blood Urea Nitrogen 12 mg/dL (7-18) 9 mg/dL (7-18) 4 mg/dL (7-18) Creatinine 0.6 MG/DL (0.55-1.30) 0.5 MG/DL (0.55-1.30) 0.5 MG/DL (0.55-1.30) Estimat Glomerular Filtration Rate > 60 mL/min (>60) > 60 mL/min (>60) > 60 mL/min (>60) Glucose Level 120 MG/DL (74-106) 95 MG/DL (74-106) 105 MG/DL (74-106) Calcium Level 9.2 MG/DL (8.5-10.1) 9.0 MG/DL (8.5-10.1) 8.9 MG/DL (8.5-10.1) Troponin I 0.004 ng/mL (0.000-0.056) Height (Feet): 5 Height (Inches): 5.00 Weight (Pounds): 136 Objective PHYSICAL EXAMINATION: VITALS: reviewed HEAD AND NECK: Atraumatic and normocephalic. CHEST: Clear to auscultation. LUNGS: No wheezing. No crackles. ABDOMEN: Soft. No organomegaly. Bowel sounds are normal. MUSCULOSKELETAL: Atrophied musculatures. positive for Decubitus wound NEUROLOGIC: The patient is awake, not verbal and lethargic John Anderson MD Feb 27, 2019 12:28
--- NOTE | 2019-02-27 17:21 | NUR ---
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
--- NOTE | 2019-02-27 19:44 | Cardiology Report ---
APPROVED REPORT EXAM: Two-dimensional and M-mode echocardiogram with Doppler and color Doppler. INDICATION Shortness of breath M-Mode DIMENSIONS IVSd1.7 (0.7-1.1cm)Left Atrium (MM)2.8 (1.6-4.0cm) LVDd2.0 (3.5-5.6cm)Aortic Root3.7 (2.0-3.7cm) PWd1.2 (0.7-1.1cm)Aortic Cusp Exc.2.0 (1.5-2.0cm) LVDs1.4 (2.5-4.0cm) PWs1.8 cm Normal left ventricular chamber size, systolic function and wall motion. Left ventricular ejection fraction estimated to be 55 %. Mild left ventricular hypertrophy. No evidence of pericardial effusion. All other cardiac chamber sizes are within normal limits. Focal aortic valve sclerosis with adequate cusp excursion. Thickened mitral valve leaflets with normal excursion. Mitral annulus and aortic root calcification. Pulmonic valve not well visualized. Normal tricuspid valve structure. IVC is normal in size with physiological collapse. A color flow and spectral Doppler study was performed and revealed: No aortic regurgitation. No mitral regurgitation. Mitral diastolic velocities suggest mild left ventricular diastolic dysfunction (Grade I). Trace tricuspid regurgitation. Tricuspid systolic velocities suggests peak right ventricular systolic pressure of 9 mmHg. No pulmonic regurgitation present.
--- NOTE | 2019-02-27 19:50 | NUR ---
Received report from BRADLEY Hernandez. Patient A&Ox4. On room air, no signs of distress or labored breathing. IV intact, patent, and infusing IV fluids. Bed in lowest position with call light in reach. Will continue with plan of care.
--- NOTE | 2019-02-27 19:56 | Cardiac Electrophysiology PN ---
Assessment/Plan Assessment/Plan 1. Abdominal pain. Blood pressure currently is stable. Her troponin is negative and she does not have any chest pain. ECG and echo both normal 2. Nausea and vomiting. On IV fluids. S/P EGD today 3. History of Guillain-[place]. 4. Decubitus ulcer. 5. Depression. 6. Seizure disorder. 7. Status post appendectomy. ZAY RN Subjective Subjective Alert in NAD. No CP or SOB. Had EGD today Objective Last 24 Hour Vital Signs Date Time Temp Pulse Resp B/P (MAP) Pulse Ox O2 Delivery O2 Flow Rate FiO2 02/27/19 18:18 112/63 02/27/19 16:00 98.2 79 14 112/63 (79) 97 02/27/19 15:15 127/78 02/27/19 12:30 66 18 100 02/27/19 12:00 97.0 73 14 122/80 (94) 100 02/27/19 11:57 77 18 100 02/27/19 11:25 98.6 72 13 131/79 98 Nasal Cannula 3 02/27/19 11:15 66 14 127/78 98 Nasal Cannula 3 02/27/19 11:10 70 16 119/75 100 Nasal Cannula 3 02/27/19 11:05 98.3 77 18 126/76 100 Nasal Cannula 3 02/27/19 09:00 Room Air 02/27/19 08:00 97.6 59 14 138/90 (106) 100 02/27/19 05:27 117/61 02/27/19 04:00 98.2 71 20 117/61 (79) 99 02/27/19 00:14 99.5 82 20 121/67 (85) 96 02/26/19 23:56 121/67 02/26/19 21:00 Room Air 02/26/19 20:00 98.7 72 20 136/70 (92) 98 Intake and Output 02/26/19 02/27/19 18:59 06:59 Intake Total 2015 ml 1725 ml Balance 2015 ml 1725 ml Intake Oral 1136 ml 900 ml IV Total 880 ml 825 ml # Voids 2 2 # Bowel Movements 2 Laboratory Tests Test 02/27/19 05:25 White Blood Count 4.5 K/UL (4.8-10.8) L Red Blood Count 4.27 M/UL (4.20-5.40) Hemoglobin 11.9 G/DL (12.0-16.0) L Hematocrit 36.9 % (37.0-47.0) L Mean Corpuscular Volume 86 FL (80-99) Mean Corpuscular Hemoglobin 27.9 PG (27.0-31.0) Mean Corpuscular Hemoglobin Concent 32.3 G/DL (32.0-36.0) Red Cell Distribution Width 13.4 % (11.6-14.8) Platelet Count 154 K/UL (150-450) Mean Platelet Volume 5.5 FL (6.5-10.1) L Neutrophils (%) (Auto) % (45.0-75.0) Lymphocytes (%) (Auto) % (20.0-45.0) Monocytes (%) (Auto) % (1.0-10.0) Eosinophils (%) (Auto) % (0.0-3.0) Basophils (%) (Auto) % (0.0-2.0) Differential Total Cells Counted 100 Neutrophils % (Manual) 34 % (45-75) L Lymphocytes % (Manual) 58 % (20-45) H Monocytes % (Manual) 6 % (1-10) Eosinophils % (Manual) 2 % (0-3) Basophils % (Manual) 0 % (0-2) Band Neutrophils 0 % (0-8) Platelet Estimate Adequate Platelet Morphology Normal Red Blood Cell Morphology Normal Sodium Level 144 MMOL/L (136-145) Potassium Level 3.5 MMOL/L (3.5-5.1) Chloride Level 111 MMOL/L (98-107) H Carbon Dioxide Level 26 MMOL/L (21-32) Anion Gap 7 mmol/L (5-15) Blood Urea Nitrogen 4 mg/dL (7-18) L Creatinine 0.5 MG/DL (0.55-1.30) L Estimat Glomerular Filtration Rate > 60 mL/min (>60) Glucose Level 105 MG/DL (74-106) Calcium Level 8.9 MG/DL (8.5-10.1) Hepatitis A IgM Antibody Pending Hepatitis B Surface Antigen Pending Hepatitis B Core IgM Antibody Pending Hepatitis C Antibody Pending HIV (1&2) Antibody Rapid Negative (NEGATIVE) Objective HEAD AND NECK: No JVD. LUNGS: Clear. CARDIOVASCULAR: Regular S1 and S2 with no gallop. ABDOMEN: Soft. EXTREMITIES: Paraplegic with no edema. Steven Jaime MD Feb 27, 2019 19:56
--- NOTE | 2019-02-27 20:01 | NUR ---
HAND-OFF: Report given to BRADLEY Mitchell.
--- NOTE | 2019-02-27 20:34 | Cardiology Report ---
APPROVED REPORT EKG Measurement Heart [id number] Normal sinus rhythm Normal ECG
[2019-02-27] MEDS: TraZODone 100mg tab ORAL SCH (21:49)
[2019-02-28] VITALS: BP 111/64
[2019-02-28 04:00] VITALS: BP 147/83
[2019-02-28 07:21] LABS: ANION GAP 6 mmol/L (5-15); BLOOD UREA NITROGEN 4 mg/dL (7-18); CALCIUM 8.9 MG/DL (8.5-10.1); CARBON DIOXIDE 28 MMOL/L (21-32); CHLORIDE 110 MMOL/L (98-107); CREATININE 0.5 MG/DL (0.55-1.30); SODIUM 144 MMOL/L (136-145)
--- NOTE | 2019-02-28 07:21 | NUR ---
HAND-OFF: Report given to BRADLEY Hernandez..
--- NOTE | 2019-02-28 07:24 | NUR ---
NURSE NOTES: HANDOFF RECEIVED FROM BRADLEY CAM.
[2019-02-28 07:29] LABS: HEMATOCRIT 36.5 % (37.0-47.0); HEMOGLOBIN 11.8 G/DL (12.0-16.0); MEAN CORPUSCULAR VOLUME 86 FL (80-99); PLATELET COUNT 153 K/UL (150-450); RED BLOOD COUNT 4.25 M/UL (4.20-5.40); RED CELL DISTRIBUTION WIDTH 13.6 % (11.6-14.8); WHITE BLOOD COUNT 4.2 K/UL (4.8-10.8)
[2019-02-28 08:00] VITALS: BP 155/94
--- NOTE | 2019-02-28 08:25 | GI Progress Note ---
Assessment/Plan Problems: (1) Persistent vomiting ICD Codes: R11.10 - Vomiting, unspecified SNOMED: 480216648 (2) Hemorrhoids ICD Codes: K64.9 - Unspecified hemorrhoids SNOMED: 45963471 (3) Rectal bleeding ICD Codes: K62.5 - Hemorrhage of anus and rectum SNOMED: 86509505 (4) Gastritis ICD Codes: K29.70 - Gastritis, unspecified, without bleeding SNOMED: 8683307 (5) Drug abuse ICD Codes: F19.10 - Other psychoactive substance abuse, uncomplicated SNOMED: 31807217 (6) Anemia ICD Codes: D64.9 - Anemia, unspecified SNOMED: 575448311 (7) Abdominal pain ICD Codes: R10.9 - Unspecified abdominal pain SNOMED: 17313816 Status: unchanged Status Narrative Discussed with Dr. Goetz. Assessment/Plan Chief Complaint: nausea, abnormal CT Pre-op Diagnosis: abnormal CT, nausea Procedure: esophagogastroduodenoscopy bx Post-op Diagnosis: mildly erosive duodenitis advance diet as tolerated monitor H&H, prn transfusions ppi okay for DC per GI standpoint The patient was seen and examined at bedside and all new and available data was reviewed in the patients chart. I agree with the above findings, impression and plan. (Patient seen earlier today. Signature stamp does not reflect patient encounter time.). - Tereso Goetz MD Objective Last 24 Hour Vital Signs Date Time Temp Pulse Resp B/P (MAP) Pulse Ox O2 Delivery O2 Flow Rate FiO2 02/28/19 06:06 147/83 02/28/19 04:00 98.3 63 18 147/83 (104) 97 02/28/19 00:51 111/64 02/28/19 00:00 98.0 84 18 111/64 (80) 98 02/27/19 21:00 Room Air 02/27/19 20:00 99.3 61 18 124/62 (82) 96 02/27/19 18:18 112/63 02/27/19 16:00 98.2 79 14 112/63 (79) 97 02/27/19 15:15 127/78 02/27/19 12:30 66 18 100 02/27/19 12:00 97.0 73 14 122/80 (94) 100 02/27/19 11:57 77 18 100 02/27/19 11:25 98.6 72 13 131/79 98 Nasal Cannula 3 02/27/19 11:15 66 14 127/78 98 Nasal Cannula 3 02/27/19 11:10 70 16 119/75 100 Nasal Cannula 3 02/27/19 11:05 98.3 77 18 126/76 100 Nasal Cannula 3 02/27/19 09:00 Room Air Intake and Output 02/27/19 02/28/19 19:00 07:00 Intake Total 225 ml 225 ml Output Total 800 ml Balance 225 ml -575 ml IV Total 225 ml 225 ml Output Urine Total 800 ml Laboratory Tests Test 02/28/19 06:44 White Blood Count 4.2 K/UL (4.8-10.8) L Red Blood Count 4.25 M/UL (4.20-5.40) Hemoglobin 11.8 G/DL (12.0-16.0) L Hematocrit 36.5 % (37.0-47.0) L Mean Corpuscular Volume 86 FL (80-99) Mean Corpuscular Hemoglobin 27.7 PG (27.0-31.0) Mean Corpuscular Hemoglobin Concent 32.3 G/DL (32.0-36.0) Red Cell Distribution Width 13.6 % (11.6-14.8) Platelet Count 153 K/UL (150-450) Mean Platelet Volume 5.5 FL (6.5-10.1) L Neutrophils (%) (Auto) % (45.0-75.0) Lymphocytes (%) (Auto) % (20.0-45.0) Monocytes (%) (Auto) % (1.0-10.0) Eosinophils (%) (Auto) % (0.0-3.0) Basophils (%) (Auto) % (0.0-2.0) Neutrophils % (Manual) Pending Lymphocytes % (Manual) Pending Platelet Estimate Pending Platelet Morphology Pending Sodium Level 144 MMOL/L (136-145) Potassium Level 4.0 MMOL/L (3.5-5.1) Chloride Level 110 MMOL/L (98-107) H Carbon Dioxide Level 28 MMOL/L (21-32) Anion Gap 6 mmol/L (5-15) Blood Urea Nitrogen 4 mg/dL (7-18) L Creatinine 0.5 MG/DL (0.55-1.30) L Estimat Glomerular Filtration Rate > 60 mL/min (>60) Glucose Level 101 MG/DL (74-106) Calcium Level 8.9 MG/DL (8.5-10.1) Height (Feet): 5 Height (Inches): 5.00 Weight (Pounds): 136 General Appearance: WD/WN, no apparent distress, alert Cardiovascular: normal rate Respiratory/Chest: normal breath sounds, no respiratory distress Abdominal Exam: normal bowel sounds, non tender, soft Extremities: normal range of motion, non-tender Asiya Rowe NP Feb 28, 2019 08:25
[2019-02-28] MEDS: Vitamin B-12 500mcg tab ORAL SCH (08:36)
[2019-02-28] MEDS: Tamsulosin 0.4mg cap ORAL SCH (08:36)
[2019-02-28] MEDS: Docusate 100mg cap ORAL SCH (08:36)
[2019-02-28] MEDS: DULoxetine 30mg cap ORAL SCH (08:36)
[2019-02-28] MEDS: Heparin 5000 units/ml inj SUBQ SCH (08:46)
[2019-02-28] MEDS: Morphine Sulfate 2mg/ml Inj(IV/IM USE ONLY) IVP PRN (08:47)
--- NOTE | 2019-02-28 11:21 | NUR ---
DISCHARGE PLANNING FAXED REFERRAL BACK TO [facility]. WILL FOLLOW UP
[2019-02-28 12:00] VITALS: BP 118/68
--- NOTE | 2019-02-28 12:07 | Cardiac Electrophysiology PN ---
Assessment/Plan Assessment/Plan 1. Abdominal pain. Blood pressure currently is stable. Her troponin is negative and she does not have any chest pain. ECG and echo both normal 2. Nausea and vomiting. On IV fluids. S/P EGD 02/27/19 3. History of Guillain-Prentice. 4. Decubitus ulcer. 5. Depression. 6. Seizure disorder. 7. Status post appendectomy. ZAY RN DC today Subjective Subjective Alert in NAD. No CP or SOB. Had EGD yesterday. DC planning today Objective Last 24 Hour Vital Signs Date Time Temp Pulse Resp B/P (MAP) Pulse Ox O2 Delivery O2 Flow Rate FiO2 02/28/19 08:00 98.4 69 20 155/94 (114) 94 02/28/19 06:06 147/83 02/28/19 04:00 98.3 63 18 147/83 (104) 97 02/28/19 00:51 111/64 02/28/19 00:00 98.0 84 18 111/64 (80) 98 02/27/19 21:00 Room Air 02/27/19 20:00 99.3 61 18 124/62 (82) 96 02/27/19 18:18 112/63 02/27/19 16:00 98.2 79 14 112/63 (79) 97 02/27/19 15:15 127/78 02/27/19 12:30 66 18 100 Intake and Output 02/27/19 02/28/19 19:00 07:00 Intake Total 225 ml 225 ml Output Total 800 ml Balance 225 ml -575 ml IV Total 225 ml 225 ml Output Urine Total 800 ml Laboratory Tests Test 02/28/19 06:44 White Blood Count 4.2 K/UL (4.8-10.8) L Red Blood Count 4.25 M/UL (4.20-5.40) Hemoglobin 11.8 G/DL (12.0-16.0) L Hematocrit 36.5 % (37.0-47.0) L Mean Corpuscular Volume 86 FL (80-99) Mean Corpuscular Hemoglobin 27.7 PG (27.0-31.0) Mean Corpuscular Hemoglobin Concent 32.3 G/DL (32.0-36.0) Red Cell Distribution Width 13.6 % (11.6-14.8) Platelet Count 153 K/UL (150-450) Mean Platelet Volume 5.5 FL (6.5-10.1) L Neutrophils (%) (Auto) % (45.0-75.0) Lymphocytes (%) (Auto) % (20.0-45.0) Monocytes (%) (Auto) % (1.0-10.0) Eosinophils (%) (Auto) % (0.0-3.0) Basophils (%) (Auto) % (0.0-2.0) Differential Total Cells Counted 100 Neutrophils % (Manual) 27 % (45-75) L Lymphocytes % (Manual) 60 % (20-45) H Monocytes % (Manual) 9 % (1-10) Eosinophils % (Manual) 3 % (0-3) Basophils % (Manual) 1 % (0-2) Band Neutrophils 0 % (0-8) Platelet Estimate Adequate Platelet Morphology Normal Red Blood Cell Morphology Normal Sodium Level 144 MMOL/L (136-145) Potassium Level 4.0 MMOL/L (3.5-5.1) Chloride Level 110 MMOL/L (98-107) H Carbon Dioxide Level 28 MMOL/L (21-32) Anion Gap 6 mmol/L (5-15) Blood Urea Nitrogen 4 mg/dL (7-18) L Creatinine 0.5 MG/DL (0.55-1.30) L Estimat Glomerular Filtration Rate > 60 mL/min (>60) Glucose Level 101 MG/DL (74-106) Calcium Level 8.9 MG/DL (8.5-10.1) Objective HEAD AND NECK: No JVD. LUNGS: Clear. CARDIOVASCULAR: Regular S1 and S2 with no gallop. ABDOMEN: Soft. EXTREMITIES: Paraplegic with no edema. Steven Jaime MD Feb 28, 2019 12:07
[2019-02-28 12:08] VITALS: BP 118/68
--- NOTE | 2019-02-28 12:10 | NUR ---
DISCHARGE PLANNED PT WILL DC TO [facility] ROOM [address] RESIDENTIAL T [phone] FOR NURSE TO NURSE REPORT [facility] WILL DIECAST MACHINE OPERATOR AT 1330 Addendum: 02/28/19 at 1251 by Yvonne Rivera LVN [facility] WILL DIECAST MACHINE OPERATOR [id number]
--- NOTE | 2019-02-28 13:50 | NUR ---
NURSE NOTES: Handoff report given to Elda at [facility].
--- NOTE | 2019-02-28 16:34 | Hematology/Onc Progress Note ---
Assessment/Plan Assessment/Plan ASSESSMENT AND PLAN: 1. Anemia of chronic disease - hgb lower potentially related to ivf --> anemia panel has been ordered - results pedning --> transfuse if hgb less than 7 --> hgb electrophoresis reviewed and is negative for m-spike, significantly abnml bands --> no e/o hemolysis is noted --> labs reviewed from prior admission --> sp egd 2. Leukopenia with sepsis currently has improved on iv abx (hx of uti on prior admission), can be 2/2 HEPATITIS C++ --> smear reviewed, no abnmls significant that are noted --> now off antibiotics --> id has been consulted --> urine cs, vre, and mrsa all negative 3. Decubitus wound --> wound care recs 4. UTI- HCA 5. Neuromuscular disorder - wheelchair bound - baseline. 6. Neurogenic bladder. 7. Psychiatric disorder. 8. UTI. 9. Seizure disorder (questionable). 10. Hepatitis C++ Greatly appreciate consultation! Subjective Constitutional: Denies: no symptoms, chills, fever, malaise, weakness, other HEENT: Denies: no symptoms, eye pain, blurred vision, tearing, double vision, ear pain, ear discharge, nose pain, nose congestion, throat pain, throat swelling, mouth pain, mouth swelling, other Cardiovascular: Denies: no symptoms, chest pain, edema, irregular heart rate, lightheadedness, palpitations, syncope, other Respiratory: Denies: no symptoms, cough, shortness of breath, SOB with excertion, SOB at rest, sputum, wheezing, other Gastrointestinal/Abdominal: Denies: no symptoms, abdomen distended, abdominal pain, black stools, tarry stools, blood in stool, constipated, diarrhea, difficulty swallowing, nausea, poor appetite, poor fluid intake, rectal bleeding , vomiting, other Genitourinary: Denies: no symptoms, burning, discharge, frequency, flank pain, hematuria, incontinence, pain, urgency, other Neurologic/Psychiatric: Denies: no symptoms, anxiety, depressed, emotional problems, headache, numbness, paresthesia, pre-existing deficit, seizure, tingling, tremors, weakness, other Hematologic/Lymphatic: Denies: no symptoms, anemia, easy bleeding, easy bruising, adenopathy, other Allergies: Coded Allergies: No Known Allergies (Verified , 9/2/08) Subjective 02/26: awake and alert, no sign of distress, denies pain or discomfort, hgb dropped from 13 to 11.5 overnight, urine cx negative, vre and mrsa negative 02/27: no events, no f/c no changes noted, no bleeding, wbc lower 02/28: no events, dc today to [facility], on ppi, s/p egd Objective Objective Last 24 Hour Vital Signs Date Time Temp Pulse Resp B/P (MAP) Pulse Ox O2 Delivery O2 Flow Rate FiO2 02/28/19 12:08 118/68 02/28/19 12:00 97.2 66 20 118/68 (85) 98 02/28/19 09:00 Room Air 02/28/19 08:00 98.4 69 20 155/94 (114) 94 02/28/19 06:06 147/83 02/28/19 04:00 98.3 63 18 147/83 (104) 97 02/28/19 00:51 111/64 02/28/19 00:00 98.0 84 18 111/64 (80) 98 02/27/19 21:00 Room Air 02/27/19 20:00 99.3 61 18 124/62 (82) 96 02/27/19 18:18 112/63 02/27/19 16:00 98.2 79 14 112/63 (79) 97 02/27/19 15:15 127/78 02/27/19 12:30 66 18 100 02/27/19 12:00 97.0 73 14 122/80 (94) 100 02/27/19 11:57 77 18 100 02/27/19 11:25 98.6 72 13 131/79 98 Nasal Cannula 3 02/27/19 11:15 66 14 127/78 98 Nasal Cannula 3 02/27/19 11:10 70 16 119/75 100 Nasal Cannula 3 02/27/19 11:05 98.3 77 18 126/76 100 Nasal Cannula 3 02/27/19 09:00 Room Air 02/27/19 08:00 97.6 59 14 138/90 (106) 100 02/27/19 05:27 117/61 02/27/19 04:00 98.2 71 20 117/61 (79) 99 7/22/19 00:14 99.5 82 20 121/67 (85) 96 02/26/19 23:56 121/67 02/26/19 21:00 Room Air 02/26/19 20:00 98.7 72 20 136/70 (92) 98 02/26/19 17:26 105/71 Intake and Output 02/27/19 02/28/19 19:00 07:00 Intake Total 225 ml 225 ml Output Total 800 ml Balance 225 ml -575 ml IV Total 225 ml 225 ml Output Urine Total 800 ml Labs Test 02/26/19 05:30 02/27/19 05:25 02/28/19 06:44 White Blood Count 5.3 K/UL (4.8-10.8) 4.5 K/UL (4.8-10.8) 4.2 K/UL (4.8-10.8) Red Blood Count 4.15 M/UL (4.20-5.40) 4.27 M/UL (4.20-5.40) 4.25 M/UL (4.20-5.40) Hemoglobin 11.5 G/DL (12.0-16.0) 11.9 G/DL (12.0-16.0) 11.8 G/DL (12.0-16.0) Hematocrit 35.5 % (37.0-47.0) 36.9 % (37.0-47.0) 36.5 % (37.0-47.0) Mean Corpuscular Volume 86 FL (80-99) 86 FL (80-99) 86 FL (80-99) Mean Corpuscular Hemoglobin 27.8 PG (27.0-31.0) 27.9 PG (27.0-31.0) 27.7 PG (27.0-31.0) Mean Corpuscular Hemoglobin Concent 32.5 G/DL (32.0-36.0) 32.3 G/DL (32.0-36.0) 32.3 G/DL (32.0-36.0) Red Cell Distribution Width 13.6 % (11.6-14.8) 13.4 % (11.6-14.8) 13.6 % (11.6-14.8) Platelet Count 169 K/UL (150-450) 154 K/UL (150-450) 153 K/UL (150-450) Mean Platelet Volume 5.6 FL (6.5-10.1) 5.5 FL (6.5-10.1) 5.5 FL (6.5-10.1) Neutrophils (%) (Auto) % (45.0-75.0) % (45.0-75.0) % (45.0-75.0) Lymphocytes (%) (Auto) % (20.0-45.0) % (20.0-45.0) % (20.0-45.0) Monocytes (%) (Auto) % (1.0-10.0) % (1.0-10.0) % (1.0-10.0) Eosinophils (%) (Auto) % (0.0-3.0) % (0.0-3.0) % (0.0-3.0) Basophils (%) (Auto) % (0.0-2.0) % (0.0-2.0) % (0.0-2.0) Differential Total Cells Counted 100 100 100 Neutrophils % (Manual) 32 % (45-75) 34 % (45-75) 27 % (45-75) Lymphocytes % (Manual) 54 % (20-45) 58 % (20-45) 60 % (20-45) Monocytes % (Manual) 13 % (1-10) 6 % (1-10) 9 % (1-10) Eosinophils % (Manual) 1 % (0-3) 2 % (0-3) 3 % (0-3) Basophils % (Manual) 0 % (0-2) 0 % (0-2) 1 % (0-2) Band Neutrophils 0 % (0-8) 0 % (0-8) 0 % (0-8) Platelet Estimate Adequate Adequate Adequate Platelet Morphology Normal Normal Normal Red Blood Cell Morphology Normal Normal Normal Sodium Level 142 MMOL/L (136-145) 144 MMOL/L (136-145) 144 MMOL/L (136-145) Potassium Level 4.0 MMOL/L (3.5-5.1) 3.5 MMOL/L (3.5-5.1) 4.0 MMOL/L (3.5-5.1) Chloride Level 110 MMOL/L (98-107) 111 MMOL/L (98-107) 110 MMOL/L (98-107) Carbon Dioxide Level 25 MMOL/L (21-32) 26 MMOL/L (21-32) 28 MMOL/L (21-32) Anion Gap 7 mmol/L (5-15) 7 mmol/L (5-15) 6 mmol/L (5-15) Blood Urea Nitrogen 9 mg/dL (7-18) 4 mg/dL (7-18) 4 mg/dL (7-18) Creatinine 0.5 MG/DL (0.55-1.30) 0.5 MG/DL (0.55-1.30) 0.5 MG/DL (0.55-1.30) Estimat Glomerular Filtration Rate > 60 mL/min (>60) > 60 mL/min (>60) > 60 mL/min (>60) Glucose Level 95 MG/DL (74-106) 105 MG/DL (74-106) 101 MG/DL (74-106) Calcium Level 9.0 MG/DL (8.5-10.1) 8.9 MG/DL (8.5-10.1) 8.9 MG/DL (8.5-10.1) Hepatitis A IgM Antibody Negative (Negative) Hepatitis B Surface Antigen Negative (Negative) Hepatitis B Core IgM Antibody Negative (Negative) Hepatitis C Antibody >11.0 s/co ratio HIV (1&2) Antibody Rapid Negative (NEGATIVE) Height (Feet): 5 Height (Inches): 5.00 Weight (Pounds): 136 Objective PHYSICAL EXAMINATION: VITALS: reviewed HEAD AND NECK: Atraumatic and normocephalic. CHEST: Clear to auscultation. LUNGS: No wheezing. No crackles. ABDOMEN: Soft. No organomegaly. Bowel sounds are normal. MUSCULOSKELETAL: Atrophied musculatures. positive for Decubitus wound NEUROLOGIC: The patient is awake, not verbal and lethargic John Anderson MD Feb 28, 2019 16:34
--- NOTE | 2019-03-01 11:14 | NUR ---
*-* INSURANCE *-* ALL CLINICALS AND REVIEWS HAVE BEEN FAXED TO: JAMEL WILL TRACK THIS ADMISSION NO DIVISION TRAFFIC SUPERINTENDENT ASSIGNED AT THIS TIME. PLEASE FAX THE REVIEW/CLINICAL P- [phone] F- [phone]...REVIEW/CLINICAL
--- NOTE | 2019-03-01 12:00 | Discharge Summary ---
Discharge Summary Discharge Summary _ DATE OF ADMISSION: 02/24/2019 DATE OF DISCHARGE: 02/28/2019 DISCHARGED BY: Dr. 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 No fever or chills. No chest pain. Pain described as cramping in nature and diffuse. Patient was not able to tolerate oral intake for 2 days. No diarrhea. Upon evaluation vital signs were stable. CT scan of the abdomen and pelvis revealed no obvious acute obstruction ; dense stool throughout the colon noted. Distended stomach and duodenum without evidence of downstream obstructive lesion. Mild duodenal wall thickening. Possibility of duodenitis or peptic ulcer disease should be considered. Laboratory work-up revealed no leukocytosis, stable hemoglobin and hematocrit. Stable electrolytes and renal parameters. Troponin negative. EKG revealed sinus rhythm no acute ischemic changes. Chest x-ray revealed no acute cardiopulmonary pathology. Urinalysis revealed evidence of pyuria, +3 leukocyte esterase, and few bacteria. Patient subsequently admitted for further evaluation and management. CONSULTANTS: natural developer Dr. Paz ID specialist Dr. Kenney GI specialist dr. Nazario [facility] COURSE: Patient admitted and started on IV hydration. Renal parameters and electrolytes were closely monitored. Electrolytes corrected as needed. Nephrotoxins were avoided. Transport Analyst seen and evaluated patient due to initial hypotension. Blood pressure stabilized with IV hydration. Transport Analyst recommended to watch patient clinically. Troponin, initial and repeated, were negative. EKG repeated and showed sinus rhythm, no acute ischemic changes. No complaint of chest pain. Echocardiogram revealed preserved ejection fraction of 65% with no evidence of wall motion abnormality. Mild left ventricular hypertrophy. No evidence of pericardial effusion. Right ventricular systolic pressure of 9. GI specialist followed. Patient undergone EGD, which revealed mildly erosive duodenitis. Biopsy of antrum revealed moderate chronic gastritis with healing erosion, no H. pylori was identified. Biopsy of duodenal revealed small bowel mucosa with no significant diagnostic abnormalities. Diet was advanced as tolerated. Bowel regimen instituted. GI prophylaxis provided. Pain management was addressed as needed. Supportive care provided. Antiemetic were on board as needed. Patient had bowel movement. ID specialist followed. Patient initially started on empiric antibiotic for possible UTI. Patient had evidence of pyuria on urinalysis, but urine cultures was negative. Antibiotics stopped. Seizure precaution maintained. No evidence of seizure activity while in the hospital. All symptoms resolved. Patient clinically stabilized. Patient was able to tolerate diet. 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 DISCHARGE INSTRUCTIONS: Patient was discharged to the [facility] facility. Follow up with medical doctor at the facility. I have been assigned to dictate discharge summary for this account. I was not involved in the patient's management. Elizabeth Diallo NP Mar 01, 2019 11:59
== END 2019-02-28 14:50 | DRG 251 ==
LOC: EDBD 11:14 → EMR 11:49 → EDBEDREQ 13:52 → 4E 13:56
PROC: 0DB78ZX Excision of Stomach, Pylorus, Via Natural or Artificial Opening Endoscopic, Diagnostic (ICD-10-PCS; 2019-02-27)
PROC: 0DB98ZX Excision of Duodenum, Via Natural or Artificial Opening Endoscopic, Diagnostic (ICD-10-PCS; principal; 2019-02-27 10:52)
DX: R10.9 Unspecified abdominal pain (principal); G65.0 Sequelae of Guillain-Barre syndrome; I95.9 Hypotension, unspecified; G82.20 Paraplegia, unspecified; N31.9 Neuromuscular dysfunction of bladder, unspecified; G70.9 Myoneural disorder, unspecified; D63.8 Anemia in other chronic diseases classified elsewhere; K29.80 Duodenitis without bleeding; E86.0 Dehydration; R11.2 Nausea with vomiting, unspecified; G40.909 Epilepsy, unspecified, not intractable, without status epilepticus; M79.7 Fibromyalgia; N39.0 Urinary tract infection, site not specified; L89.90 Pressure ulcer of unspecified site, unspecified stage; F32.9 Major depressive disorder, single episode, unspecified; F14.10 Cocaine abuse, uncomplicated; Z99.3 Dependence on wheelchair; K21.9 Gastro-esophageal reflux disease without esophagitis; K59.00 Constipation, unspecified; K64.9 Unspecified hemorrhoids; B19.20 Unspecified viral hepatitis C without hepatic coma
CPT/HCPCS: 36415; 71045; 74176; 80048; 80053; 80299; 81003; 82550; 82553; 84484; 85007; 85025; 86703; 86705; 86709; 86803; 87081; 87086; 87340; 93005; 93306; 94003; 94150; 96365; 96375; 99285; J2405; J8499